=== PATIENT | female | born 1985 | race Caucasian/White ===

== ENCOUNTER → 2017-06-07 | Outpatient (CLI) | payer BC ==
[~2017-06-07] MED LIST: ALPR.25T PO; BIRTH CONTROL PILL PO; CODE-54 PO; FLVX50T PO; HYDR1TAB PO; KCL20TCR PO; METH4TAB PO; MULT-963 PO; OCP; PNT40TEC PO; SCR1T1 PO; SULF1TAB35 PO; SULF1TAB38 PO
--- NOTE | 2017-06-07 19:23 | Diagnostic Imaging Report ---
PROCEDURE: US Thyroid. TECHNIQUE: Multiple real-time grayscale images were obtained of the thyroid in various projections. INDICATION: Neck fullness. Comparison made with prior examination of 10/17/2013. FINDINGS: Right lobe of the thyroid is surgically absent. Left lobe measures 4 x 1.2 x 1.7 cm. There is a 0.6 cm hypoechoic nodule in the left lobe which is unchanged. No other discrete solid or cystic thyroid masses are appreciated. IMPRESSION: 6 mm hypoechoic nodule in the left lobe of the thyroid. No significant residual thyroid tissue on the right. Dictated by: Dictated on workstation # [id number]
== END ==
LOC: RAD 16:32
PROVIDERS: ATTEND Family Medicine
DX: E04.1 Nontoxic single thyroid nodule (principal)
CPT/HCPCS: 76536

== ENCOUNTER → 2017-09-27 | Outpatient (CLI) | payer BC ==
--- NOTE | 2017-09-27 18:53 | Diagnostic Imaging Report ---
INDICATION: Thyroid nodule. Thyroid sonography performed in routine fashion and compared to 06/07/2017. FINDINGS: The right thyroid lobe is surgically absent. The left thyroid lobe measured 4.3 x 1.3 x 1.3 cm. There is a small slightly hypoechoic lesion in the left thyroid lobe superiorly measuring about 4 x 2 x 4 mm. This previously measured about 6 mm. IMPRESSION: Mild decrease in size of small hypoechoic nodule in left thyroid lobe superiorly. Evidence of previous right thyroidectomy. Dictated by: Dictated on workstation # [id number]
== END ==
LOC: RAD 16:30
PROVIDERS: ATTEND Nurse Practitioner Family
DX: E04.1 Nontoxic single thyroid nodule (principal); R13.10 Dysphagia, unspecified; Z98.890 Other specified postprocedural states
CPT/HCPCS: 76536

== ENCOUNTER 2017-11-27 14:53 | Outpatient (RCR) | payer BC ==
[2017-12-31] MEDS ORDERED: LEVO75TA (21:51)
[2017-12-31] MEDS ORDERED: LIOT5TAB3 (21:51)
[2017-12-31] MEDS ORDERED: NORG1TAB14 (21:51)
[2017-12-31] MEDS ORDERED: TRAM50TA2 PO (22:36)
== END 2018-02-25 | disposition home or self-care (01) ==
LOC: CARD 14:53
PROVIDERS: ATTEND Nurse Practitioner Family
DX: R00.2 Palpitations (principal); R00.0 Tachycardia, unspecified
CPT/HCPCS: 93225; 93226

== ENCOUNTER 2017-12-31 21:03 | Emergency (ER) | payer BC ==
[~2017-12-31] VITALS: Ht 170.2 cm; Wt 61.2 kg
[2017-12-31] MEDS ORDERED: TETANUS,DIPTH,PERTUSS P/F (BOOSTRIX) 0.5 ML VIAL IM STA (21:48)
[2017-12-31] MEDS ORDERED: LIOT5TAB3 (21:51)
[2017-12-31] MEDS ORDERED: NORG1TAB14 (21:51)
[2017-12-31] MEDS ORDERED: LEVO75TA (21:51)
--- NOTE | 2017-12-31 21:52 | ED General ---
General Chief Complaint: Laceration Stated Complaint: R HAND PALM LAC Nursing Triage Note: pt reports she stabbed herself in the palm of her right hand trying to separate frozen bread with a knife. she reports some numbness on the back of her hand. pain radiating up arm. Nursing Sepsis Screen: No Definite Risk Source of Information: Patient Exam Limitations: No Limitations History of Present Illness Date Seen by Provider: Dec 31, 2017 Time Seen by Provider: 21:52 Initial Comments 32-year-old female patient presents to the emergency department with complaints of laceration to the right hand after trying to separate frozen bread with a knife. Allergies and Home Medications Allergies Coded Allergies: ibuprofen (Unverified Allergy, Mild, 02/22/10) Home Medications Alprazolam 0.25 Mg Tablet, 1 TAB PO Q8HR PRN, (Reported) Fluvoxamine Maleate 50 Mg Tablet, 1 TAB PO HS, (Reported) Multivitamin 1 Each Tablet, 1 EACH PO DAILY, (Reported) Patient Home Medication List Home Medication List Reviewed: Yes Past Ameotde-Ignfzc-Cfgift Hx Patient Social History Alcohol Use: Denies Use Recreational Drug Use: No Smoking Status: Never a Smoker 2nd Hand Smoke Exposure: No Recent Foreign Travel: No Contact w/Someone Who Travel: No Recent Infectious Disease Expo: No Recent Hopitalizations: No Immunizations Up To Date Tetanus Booster (TDap): Unknown Date of Influenza Vaccine: Nov 20, 2012 Seasonal Allergies Seasonal Allergies: No Surgeries History of Surgeries: Yes ( X1, PARTIAL THYROIDECTOMY) Surgeries: Section, Thyroidectomy Respiratory History of Respiratory Disorde: No Cardiovascular History of Cardiac Disorders: No Neurological History of Neurological Disord: No Reproductive System Last Menstrual Period: Dec 12, 2017 Hx Reproductive Disorders: No Female Reproductive Disorders: Denies Genitourinary History of Genitourinary Disor: No Gastrointestinal History of Gastrointestinal Di: No Musculoskeletal History of Musculoskeletal Dis: No Endocrine History of Endocrine Disorders: Yes (BENIGN THYROID NODULE-S/P PARTIAL THYROIDECTOMY) Endocrine Disorders: Hypothyroidsim HEENT History of HEENT Disorders: No Cancer History of Cancer: No Psychosocial History of Psychiatric Problem: Yes (OCD) Behavioral Health Disorders: Anxiety, Depression Integumentary History of Skin or Integumenta: No Blood Transfusions History of Blood Disorders: No Physical Exam Vital Signs Vital Signs - First Documented 12/31/17 21:41 Temp 99.0 Pulse 84 Resp 14 B/P (MAP) 126/69 (88) Pulse Ox 99 O2 Delivery Room Air Capillary Refill : Less Than 3 Seconds Progress/Results/Core Measures Suspected Sepsis Recent Fever Within 48 Hours: No Infection Criteria Present: None New/Unexplained Altered Menta: No Sepsis Screen: No Definite Risk Sepsis Diagnosis: SIRS Temperature:99.0 Pulse: 84 Respiratory Rate: 14 Blood Pressure 126 /69 Mean: 88 Results/Orders My Orders Orders - SHIRIN ÁLVAREZ PA Dipht,Mehdi(Acell),Tet Adult (Boostrix (12/31/17 21:48) Lidocaine 1% (Xylocaine 1%) (12/31/17 22:00) Hand, Right, 3 Views (12/31/17 22:03) Medications Given in ED Current Medications Medications Dose Ordered Sig/Sujatha Route Start Time Stop Time Status Last Admin Dose Admin Lidocaine HCl 50 ml ONCE ONCE IJ 12/31/17 22:00 12/31/17 22:01 DC 12/31/17 22:04 50 ML Vital Signs/I&O Vital Sign - Last 12Hours 12/31/17 21:41 Temp 99.0 Pulse 84 Resp 14 B/P (MAP) 126/69 (88) Pulse Ox 99 O2 Delivery Room Air Capillary Refill : Less Than 3 Seconds Blood Pressure Mean: 88 Departure Impression Impression: Primary Impression: Laceration of hand Disposition: HOME, SELF-CARE Condition: Improved Departure-Patient Inst. Decision time for Depature: 22:34 Referrals: AUGIE STOKES MD (PCP/Family) Primary Care Physician ISMA MORAN MD Patient Instructions: Laceration Repair With Stitches (DC) Add. Discharge Instructions: All discharge instructions reviewed with patient and/or family. Voiced understanding. Medications as prescribed. Tylenol extra strength over-the- counter as directed for pain. Elevate the hand on pillows. Ice pack for 20 minute intervals as needed. Remove the bandage tomorrow morning, you may shower with antibacterial soap and pat dry. Apply triple antibiotic ointment twice daily for 3 days and cover with a bandage. Return to the emergency department in 10 days for suture removal. Follow-up with your primary care provider for recheck as an outpatient if needed. Return immediately to the emergency department for worsened symptoms or any other concerns. Scripts Tramadol HCl (Tramadol HCl) 50 Mg Tablet 50 MG PO Q4H Y for pain, #20 TAB 0 Refills Prov: SHIRIN ÁLVAREZ 12/31/17 SHIRIN ÁLVAREZ Dec 31, 2017 21:52
[2017-12-31] MEDS ORDERED: LIDOCAINE 1% INJ 50 ML (XYLOCAINE) VIAL IJ ONE (22:00)
[2017-12-31] MEDS ORDERED: TRAM50TA2 PO (22:36)
[2017-12-31] MEDS ORDERED: RX-TRAMADOL 50 MG (ULTRAM) TAB PPK#4 PO STA (23:02)
[2017-12-31 23:09] VITALS: BP 123/62
--- NOTE | 2018-01-01 07:34 | Diagnostic Imaging Report ---
HAND, RIGHT, 3 VIEWS COMPARISON: None available. INDICATION: Laceration to palm of hand. TECHNIQUE: PA, oblique and lateral views of the hand. FINDINGS: No fracture or traumatic malalignment. No radiopaque foreign body. Joint spaces are well-maintained. IMPRESSION: 1. No acute fracture or radiopaque foreign body. Dictated by: Dictated on workstation # [id number]
== END 2017-12-31 23:09 | disposition home or self-care (01) ==
LOC: EDUNIT# 21:03 → ER 21:04
DX: S61.411A Laceration without foreign body of right hand, initial encounter (principal); E03.9 Hypothyroidism, unspecified; F41.9 Anxiety disorder, unspecified; F32.9 Major depressive disorder, single episode, unspecified; F42.9 Obsessive-compulsive disorder, unspecified; Z23 Encounter for immunization; Z88.6 Allergy status to analgesic agent; Z87.59 Personal history of other complications of pregnancy, childbirth and the puerperium; Z90.89 Acquired absence of other organs; W26.0XXA Contact with knife, initial encounter
CPT/HCPCS: 12011; 73130; 90471; 90715

== ENCOUNTER 2018-01-09 10:33 | Emergency (ER) | payer BC ==
[~2018-01-09] VITALS: Ht 167.6 cm; Wt 54.4 kg
[~2018-01-09 10:33] MED LIST changes: +LEVO75TA; +LIOT5TAB3; +NORG1TAB14; +TRAM50TA2 PO
--- OUTSIDE RECORDS SUMMARY | 2018-01-09 10:48 | XMS REPORT | CCD ---
Author Author [facility] Address [address] [place] [address] Phone Care Team Providers Care Booking Agent Name Role Phone PP Unavailable CCM Unavailable Summary Purpose Interface Exchange Insurance Providers Payer name Policy type / Coverage type Covered republican ID Effective Begin Date Effective End Date [facility] [id number] Unknown Family history Grandfather Diagnosis Age At Onset Diabetes mellitus Type 2 Unknown Grandmother Diagnosis Age At Onset No Family Disease Entered N/A Mother Diagnosis Age At Onset No Family Disease Entered N/A Father Diagnosis Age At Onset Hypertension Unknown Brother Diagnosis Age At Onset No Family Disease Entered N/A Social History Social History Element Codes Description Effective Dates Marital status Unknown Single 06/16/2011 Employment Unknown Currently employed [employer] 06/16/[address]: 902661288 Nonsmoker 06/16/2011 Allergies, Adverse Reactions, Alerts Allergies, Adverse Reactions, Alerts data not found Past Medical History Illness Codes Condition Status Onset Date Resolved Date Encounter for general adult medical examination with abnormal findings ICD-9: V70.0 ICD-10: Z00.01 Active 10/10/2017 Unknown 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 ICD-10: E89.0 Active 12/10/2014 Unknown Acute laryngopharyngitis ICD-9: 465.0 ICD-10: J06.0 Active 07/13/2017 Unknown Acute suppurative otitis media without spontaneous rupture of ear drum, bilateral ICD-9: 382.00 ICD-10: H66.003 Active 07/13/2017 Unknown Dysphagia, oropharyngeal phase ICD-9: 787.22 ICD-10: R13.12 Active 09/20/2017 Unknown Generalized anxiety disorder ICD-9: 300.02 ICD-10: F41.1 Active 09/20/2017 Unknown Major depressive disorder, single episode, moderate ICD-9: 311 ICD-10: F32.1 Active 09/20/2017 Unknown Other acute sinusitis ICD-9: 461.8 ICD-10: J01.80 Active 07/13/2017 Unknown Other allergic rhinitis ICD-9: 477.8 ICD-10: J30.89 Active 07/13/2017 Unknown Other fatigue ICD-9: 780.79 ICD-10: R53.83 Active 09/20/2017 Unknown Other malaise ICD-9: 780.79 ICD-10: R53.81 Active 07/23/2014 Unknown Other specified hypothyroidism ICD-9: 244.8 ICD-10: E03.8 Active 07/30/2016 Unknown Myalgia ICD-9: 729.1 ICD-10: M79.1 Active 03/21/2017 Unknown Vitamin D deficiency, unspecified ICD-9: 268.9 ICD-10: E55.9 Active 03/21/2017 Unknown Cellulitis of buttock ICD-9: 682.5 ICD-10: L03.317 Active 11/20/2016 Unknown Radiculopathy, sacral and sacrococcygeal region ICD-9: 724.4 ICD-10: M54.18 Active 07/30/2016 Unknown Allergic rhinitis, unspecified ICD-9: 477.9 ICD-10: J30.9 Active 07/20/2016 Unknown Encounter for gynecological examination (general) (routine ) without abnormal findings ICD-9: V72.31 ICD-10: Z01.419 Active 03/10/2014 Unknown Hypothyroidism, unspecified ICD-9: 244.9 ICD-10: E03.9 Active 11/12/2014 Unknown Acute sinusitis, unspecified ICD-9: 461.9 ICD-10: J01.90 Active 01/04/2016 Unknown Acute bronchitis, unspecified ICD-9: 466.0 ICD-10: J20.9 Active 08/25/2015 Unknown Acute upper respiratory infection, unspecified ICD-9: 465.9 ICD-10: J06.9 Active 08/25/2015 Unknown Acute pharyngitis, unspecified ICD-9: 462 ICD-10: J02.9 Active 08/19/2015 Unknown ROUTINE GYNE EXAM ICD- 9: V72.31 Active 03/10/2014 Unknown Hair loss disorder ICD -9: 704.00 Active 02/03/2015 Unknown Irregular menstrual cycle ICD-9: 626.4 Active 02/03/2015 Unknown Acute costochondritis ICD-9: 733.6 Active 12/10/2014 Unknown POSTSURGICAL HYPOTHYROIDISM ICD-9: 244.0 Active 12/10/2014 Unknown Depression ICD-9: 311 Active 11/12/2014 Unknown GENERALIZED ANXIETY DISEASE ICD-9: 300.02 Active 11/12/2014 Unknown HYPOTHYROIDISM ICD-9: 244.9 Active 11/12/2014 Unknown Fatigue ICD-9: 780.79 Active 07/23/2014 Unknown Sacroiliitis ICD-9: 720.2 Active 07/23/2014 Unknown Sciatica Unknown Active 04/20/2014 Unknown Back pain ICD-9: 724.5 Active 04/20/2014 Unknown SCIATICA ICD-9: 724.3 Active 04/20/2014 Unknown Sore throat and laryngitis ICD-9: 465.0 Active 04/20/2014 Unknown Upper respiratory infection ICD-9: 465.9 Active 04/20/2014 Unknown Hypothryroidism Unknown Active 03/10/2014 Unknown Tick bite ICD-9: 919.4 Active 03/10/2014 Unknown Dysphagia ICD-9: 787.20 Active 10/13/2013 Unknown Encounter for long-term (current) use of other medications ICD-9: V58.69 Active 10/13/2013 Unknown Laboratory exam ordered as part of routine general medical examination ICD-9: V72.62 Active 10/13/2013 Unknown Lumbago ICD-9: 724.2 Active 10/13/2013 Unknown Thyroid nodule ICD-9: 241.0 Active 10/13/2013 Unknown ACUTE BRONCHITIS ICD-9 : 466.0 Active 05/28/2013 Unknown Sinusitis ICD-9: 473.9 Active 05/28/2013 Unknown Depression Unknown Active 02/19/2012 Unknown Tachycardia ICD-9: 785.0 Active 02/19/2012 Unknown NAUSEA ALONE ICD-9: 787.02 Active 08/24/2011 Unknown RUQ pain ICD-9: 789.01 Active 08/24/2011 Unknown ACUTE SEROUS OTITIS MEDIA ICD-9: 381.01 Active 07/26/2011 Unknown Cough ICD-9: 786.2 Active 07/26/2011 Unknown Anxiety Unknown Active 06/16/2011 Unknown Acid reflux ICD-9: 530.81 Active 06/16/2011 Unknown ACUTE SINUSITIS ICD-9 : 461.9 Active 06/16/2011 Unknown Allergic rhinitis ICD- 9: 477.9 Active 06/16/2011 Unknown IBS (irritable bowel syndrome) ICD-9: 564.1 Active 06/16/2011 Unknown Restless leg ICD-9: 333.94 Active 06/16/2011 Unknown Problems Condition Codes Effective Dates Condition Status Encounter for general adult medical examination with abnormal findings ICD-9: V70.0 ICD-10: Z00.01 10/10/2017 Active 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 ICD-10: E89.0 12/10/2014 Active Acute laryngopharyngitis ICD-9: 465.0 ICD-10: J06.0 07/13/2017 Active Acute suppurative otitis media without spontaneous rupture of ear drum, bilateral ICD-9: 382.00 ICD-10: H66.003 07/13/2017 Active Dysphagia, oropharyngeal phase ICD-9: 787.22 ICD-10: R13.12 09/20/2017 Active Generalized anxiety disorder ICD-9: 300.02 ICD-10: F41.1 09/20/2017 Active Major depressive disorder, single episode, moderate ICD-9: 311 ICD-10: F32.1 09/20/2017 Active Other acute sinusitis ICD-9: 461.8 ICD-10: J01.80 07/13/2017 Active Other allergic rhinitis ICD-9: 477.8 ICD-10: J30.89 07/13/2017 Active Other fatigue ICD-9: 780.79 ICD-10: R53.83 09/20/2017 Active Other malaise ICD-9: 780.79 ICD-10: R53.81 07/23/2014 Active Other specified hypothyroidism ICD-9: 244.8 ICD-10: E03.8 07/30/2016 Active Myalgia ICD-9: 729.1 ICD-10: M79.1 03/21/2017 Active Vitamin D deficiency, unspecified ICD-9: 268.9 ICD-10: E55.9 03/21/2017 Active Cellulitis of buttock ICD-9: 682.5 ICD-10: L03.317 11/20/2016 Active Radiculopathy, sacral and sacrococcygeal region ICD-9: 724.4 ICD-10: M54.18 07/30/2016 Active Allergic rhinitis, unspecified ICD-9: 477.9 ICD-10: J30.9 07/20/2016 Active Encounter for gynecological examination (general) (routine ) without abnormal findings ICD-9: V72.31 ICD-10: Z01.419 03/10/2014 Active Hypothyroidism, unspecified ICD-9: 244.9 ICD-10: E03.9 11/12/2014 Active Acute sinusitis, unspecified ICD-9: 461.9 ICD-10: J01.90 01/04/2016 Active Acute bronchitis, unspecified ICD-9: 466.0 ICD-10: J20.9 08/25/2015 Active Acute upper respiratory infection, unspecified ICD-9: 465.9 ICD-10: J06.9 08/25/2015 Active Acute pharyngitis, unspecified ICD-9: 462 ICD-10: J02.9 08/19/2015 Active ROUTINE GYNE EXAM ICD- 9: V72.31 03/10/2014 Active Hair loss disorder ICD -9: 704.00 02/03/2015 Active Irregular menstrual cycle ICD-9: 626.4 02/03/2015 Active Acute costochondritis ICD-9: 733.6 12/10/2014 Active POSTSURGICAL HYPOTHYROIDISM ICD-9: 244.0 12/10/2014 Active Depression ICD-9: 311 11/12/2014 Active GENERALIZED ANXIETY DISEASE ICD-9: 300.02 11/12/2014 Active HYPOTHYROIDISM ICD-9: 244.9 11/12/2014 Active Fatigue ICD-9: 780.79 07/23/2014 Active Sacroiliitis ICD-9: 720.2 07/23/2014 Active Sciatica Unknown 04/20/2014 Active Back pain ICD-9: 724.5 04/20/2014 Active SCIATICA ICD-9: 724.3 04/20/2014 Active Sore throat and laryngitis ICD-9: 465.0 04/20/2014 Active Upper respiratory infection ICD-9: 465.9 04/20/2014 Active Hypothryroidism Unknown 03/10/2014 Active Tick bite ICD-9: 919.4 03/10/2014 Active Dysphagia ICD-9: 787.20 10/13/2013 Active Encounter for long-term (current) use of other medications ICD-9: V58.69 2012 Active Laboratory exam ordered as part of routine general medical examination ICD-9: V72.62 10/13/2013 Active Lumbago ICD-9: 724.2 10/13/2013 Active Thyroid nodule ICD-9: 241.0 10/13/2013 Active ACUTE BRONCHITIS ICD-9 : 466.0 05/28/2013 Active Sinusitis ICD-9: 473.9 05/28/2013 Active Depression Unknown 02/19/2012 Active Tachycardia ICD-9: 785.0 02/19/2012 Active NAUSEA ALONE ICD-9: 787.02 08/24/2011 Active RUQ pain ICD-9: 789.01 08/24/2011 Active ACUTE SEROUS OTITIS MEDIA ICD-9: 381.01 07/26/2011 Active Cough ICD-9: 786.2 07/26/2011 Active Anxiety Unknown 06/16/2011 Active Acid reflux ICD-9: 530.81 06/16/2011 Active ACUTE SINUSITIS ICD-9 : 461.9 06/16/2011 Active Allergic rhinitis ICD- 9: 477.9 06/16/2011 Active IBS (irritable bowel syndrome) ICD-9: 564.1 06/16/2011 Active Restless leg ICD-9: 333.94 06/16/2011 Active Medications Medication Codes Instructions Start Date Stop Date Status Fill Instructions fluvoxamine 100 mg tablet RxNorm: 460666 TAKE ONE TABLET BY MOUTH DAILY 11/12/2017 05/10/2018 Active Keflex 500 mg capsule RxNorm: 460036 1 Capsule(s) PO TID 201711/04/2017 Inactive to equal a total of 14 days prednisone 20 mg tablet RxNorm: 058096 2 Tablet(s) PO daily 08/201811/05/2017 Inactive Cytomel 5 mcg tablet RxNorm: 245000 TAKE TWO TABLETS BY MOUTH EVERY EVENING 10/16/2017 01/13/2018 Active Synthroid 75 mcg tablet RxNorm: 544380 1 Tablet(s) PO UD 1 full tab M/W/F and 1/2 tab Sat/Sun/Tue/Thur 10/10/20172018 Active fluvoxamine 100 mg tablet RxNorm: 312508 1 Tablet(s) PO daily 09/20/2017 10/19/2017 Inactive doxycycline hyclate 100 mg capsule RxNorm: 3235147 1 Capsule(s) PO BID 09/20/2017 10/03/2017 Inactive Mononessa (28) 0.25 mg-35 mcg tablet RxNorm: 826730 TAKE 1 ACTIVE TABLET BY MOUTH ONCE DAILY FOR 3 MONTHS THEN START PLACEBO FOR 1 WEEK 201605/19/2018 Active Synthroid 75 mcg tablet RxNorm: 021700 TAKE ONE-HALF TABLET BY MOUTH EVERY MORNING ON AN EMPTY STOMACH 09/10/2017 Inactive fluvoxamine 50 mg tablet RxNorm: 316580 TAKE ONE TABLET BY MOUTH EVERY EVENING 09/10/2017 10/09/2017 Inactive Kenalog 40 mg/mL suspension for injection RxNorm: 9047859 1 Milliliter(s) Inj 07/13/2017 07/13/2017 Inactive Augmentin 500 mg-125 mg tablet RxNorm: 268479 1 Tablet(s) PO TID 07/13/2017 07/22/2017 Inactive Isabell Allergy 180 mg tablet RxNorm: 384289 1 Tablet(s) PO daily 07/13/2017 08/11/2017 Inactive Synthroid 75 mcg tablet RxNorm: 546729 1/2 Tablet(s) PO QAM 07/201709/09/2017 Inactive Cytomel 5 mcg tablet RxNorm: 031398 2 Tablet(s) PO QPM 201609/27/2017 Inactive Cytomel 5 mcg tablet RxNorm: 062555 1 Tablet(s) PO QPM 201605/30/2017 Inactive Mononessa (28) 0.25 mg-35 mcg tablet RxNorm: 194195 TAKE 1 ACTIVE TABLET BY MOUTH ONCE DAILY FOR 3 MONTHS THEN START PLACEBO FOR 1 WEEK 201608/14/2017 Inactive Vitamin D2 50,000 unit capsule RxNorm: 723342 1 Capsule(s) PO QW 03/21/2017 06/17/2017 Inactive fluvoxamine 50 mg tablet RxNorm: 368685 1.5 Tablet(s) PO UD take 1/2 pill in morning and a full pill at night 03/21/2017 09/09/2017 Inactive Synthroid 75 mcg tablet RxNorm: 953918 1 Tablet(s) PO QAM 03/2105/19/2017 Inactive fluvoxamine 50 mg tablet RxNorm: 738068 1 TABLET(S) PO QPM TAKE 1 TABLET BY MOUTH EVERY EVENING 03/12/2017 03/20/2017 Inactive [place] Thyroid 30 mg tablet RxNorm: 331514 TAKE ONE TABLET BY MOUTH DAILY 02/05/2017 03/06/2017 Inactive [place] Thyroid 30 mg tablet RxNorm: 964161 TAKE ONE TABLET BY MOUTH DAILY 01/15/2017 02/04/2017 Inactive [place] Thyroid 30 mg tablet RxNorm: 598788 TAKE ONE TABLET BY MOUTH DAILY 12/14/2016 01/12/2017 Inactive Bactrim DS 800 mg-160 mg tablet RxNorm: 760779 1 Tablet(s) PO BID 11/20/2016 11/26/2016 Inactive fluvoxamine 50 mg tablet RxNorm: 840218 1 TABLET(S) PO QPM TAKE 1 TABLET BY MOUTH EVERY EVENING 11/01/2016 02/28/2017 Inactive Mononessa (28) 0.25 mg-35 mcg tablet RxNorm: 280040 Tablet(s) PO TAKE ONE TABLET BY MOUTH DAILY CONTINUOUSLY X 3 MONTHS, THEN START PLACEBO X 1 WEEK 09/05/2016 04/10/2017 Inactive [place] Thyroid 30 mg tablet RxNorm: 679190 1 Tablet(s) PO daily 08/18/2016 12/13/2016 Inactive [place] Thyroid 30 mg tablet RxNorm: 300235 1 Tablet(s) PO daily 08/18/2016 08/17/2016 Inactive Kenalog 40 mg/mL suspension for injection RxNorm: 2762038 1 Milliliter(s) Inj 07/21/2016 07/21/2016 Inactive fluvoxamine 50 mg tablet RxNorm: 215139 1 TABLET(S) PO QPM TAKE 1 TABLET BY MOUTH EVERY EVENING 07/03/2016 10/30/2016 Inactive fluconazole 150 mg tablet RxNorm: 572099 1 Tablet(s) PO daily 05/03/2016 05/07/2016 Inactive fluvoxamine 50 mg tablet RxNorm: 108730 1 TABLET(S) PO QPM TAKE 1 TABLET BY MOUTH EVERY EVENING 03/06/2016 07/02/2016 Inactive levothyroxine 75 mcg tablet RxNorm: 210684 TAKE ONE TABLET BY MOUTH DAILY 01/19/2016 08/15/2016 Inactive Request already responded to by other means (e.g. phone or fax) levothyroxine 75 mcg tablet RxNorm: 523582 Tablet(s) TAKE ONE TABLET BY MOUTH DAILY 01/17/2016 03/21/2017 Inactive ceftriaxone 500 mg solution for injection RxNorm: 1538891 Inj 01/05/2016 01/05/2016 Inactive Kenalog 40 mg/mL suspension for injection RxNorm: 2344502 1 Milliliter(s) Inj 01/05/2016 01/05/2016 Inactive Tamiflu 75 mg capsule RxNorm: 088720 1 Capsule(s) PO daily 12/2712/27/2015 Inactive Tamiflu 75 mg capsule RxNorm: 339251 1 Capsule(s) PO daily 12/2701/06/2016 Inactive Zithromax Z-Matt 250 mg tablet RxNorm: 790190 1 Tablet(s) PO UD 2 pills day one and 1 pill day 2-5. 08/26/2015 08/30/2015 Inactive ceftriaxone 500 mg solution for injection RxNorm: 7565684 Inj 08/26/2015 08/26/2015 Inactive Kenalog 40 mg/mL suspension for injection RxNorm: 2438316 Milliliter(s) Inj 08/26/2015 08/26/2015 Inactive prednisone 20 mg tablet RxNorm: 065451 2 Tablet(s) PO daily 08/24/2015 Inactive amoxicillin 500 mg capsule RxNorm: 728343 1 Capsule(s) PO BID 08/20/2015 08/29/2015 Inactive fluvoxamine 50 mg tablet RxNorm: 373056 TAKE 1 TABLET BY MOUTH EVERY EVENING 07/19/2015 03/21/2017 Inactive fluvoxamine 50 mg tablet RxNorm: 810463 1 TABLET(S) PO QPM TAKE 1 TABLET BY MOUTH EVERY EVENING 07/19/2015 11/15/2015 Inactive Mononessa (28) 0.25 mg-35 mcg tablet RxNorm: 885560 TABLET(S) PO TAKE ONE TABLET BY MOUTH DAILY CONTINUOUSLY X 3 MONTHS, THEN START PLACEBO X 1 WEEK 07/10/2015 07/03/2016 Inactive levothyroxine 75 mcg tablet RxNorm: 447266 TAKE ONE TABLET BY MOUTH DAILY 05/18/2015 09/14/2015 Inactive fluvoxamine 50 mg tablet RxNorm: 621313 1 TABLET(S) PO QPM TAKE 1 TABLET BY MOUTH EVERY EVENING 03/08/2015 07/05/2015 Inactive naproxen 500 mg tablet RxNorm: 050460 1 TABLET(S) PO BID 201403/20/2017 Inactive naproxen 500 mg tablet RxNorm: 472909 1 Tablet(s) PO BID 201401/31/2015 Inactive fluvoxamine 50 mg tablet RxNorm: 969157 1 TABLET(S) PO QPM TAKE 1 TABLET BY MOUTH EVERY EVENING 11/23/2014 03/07/2015 Inactive levothyroxine 75 mcg tablet RxNorm: 806485 1 Tablet(s) PO daily TAKE ONE TABLET BY MOUTH EVERY DAY ON AN EMPTY STOMACH 11/18/2014 04/16/2015 Inactive Xanax 0.5 mg tablet RxNorm: 628798 1 Tablet(s) PO Q8 PRN as needed 11/12/2014 No Stop Date Active Synthroid 50 mcg tablet RxNorm: 820379 1 Tablet(s) PO daily TAKE ONE TABLET BY MOUTH EVERY DAY ON AN EMPTY STOMACH 07/24/2014 11/17/2014 Inactive naproxen 500 mg tablet RxNorm: 526322 1 Tablet(s) PO BID 201309/20/2014 Inactive fluvoxamine 50 mg tablet RxNorm: 629872 1 TABLET(S) PO QPM TAKE 1 TABLET BY MOUTH EVERY EVENING 07/20/2014 11/16/2014 Inactive Mononessa (28) 0.25 mg-35 mcg tablet RxNorm: 960364 TABLET(S) PO TAKE ONE TABLET BY MOUTH DAILY CONTINUOUSLY X 3 MONTHS, THEN START PLACEBO X 1 WEEK 06/08/2014 06/02/2015 Inactive amoxicillin 875 mg tablet RxNorm: 863389 1 Tablet(s) PO BID 04/29/2014 Inactive cyclobenzaprine 10 mg tablet RxNorm: 763064 1 Tablet(s) PO TID as needed for back pain 04/20/2014 06/18/2014 Inactive Xanax 0.5 mg tablet RxNorm: 997797 1 Tablet(s) PO Q8 PRN as needed 04/14/2014 11/11/2014 Inactive Synthroid 25 mcg tablet RxNorm: 188711 Tablet(s) PO TAKE ONE TABLET BY MOUTH EVERY DAY ON AN EMPTY STOMACH 04/03/2014 07/23/2014 Inactive fluvoxamine 50 mg tablet RxNorm: 040113 Tablet(s) PO TAKE 1 TABLET BY MOUTH EVERY EVENING 03/23/2014 10/31/2016 Inactive doxycycline hyclate 100 mg tablet RxNorm: 134488 1 Tablet(s) PO BID 03/10/2014 03/23/2014 Inactive Kenalog 40 mg/mL suspension for injection RxNorm: 0842297 Milliliter(s) Inj 02/26/2014 02/26/2014 Inactive fluvoxamine 50 mg tablet RxNorm: 575798 Tablet(s) PO TAKE 1 TABLET BY MOUTH EVERY EVENING 02/19/2014 10/31/2016 Inactive fluvoxamine 50 mg tablet RxNorm: 971422 Tablet(s) PO TAKE 1 TABLET BY MOUTH EVERY EVENING 01/19/2014 10/31/2016 Inactive Synthroid 25 mcg tablet RxNorm: 299152 Tablet(s) PO TAKE ONE TABLET BY MOUTH EVERY DAY 09/30/2013 04/02/2014 Inactive fluvoxamine 50 mg tablet RxNorm: 203361 1 Tablet(s) PO QPM TAKE 1 TABLET BY MOUTH EVERY EVENING 09/23/2013 01/18/2014 Inactive azithromycin 500 mg tablet RxNorm: 9086937 1 Tablet(s) PO daily 05/28/2013 06/03/2013 Inactive cefdinir 300 mg capsule RxNorm: 240561 1 Capsule(s) PO BID 04/201306/06/2013 Inactive Phenergan with Codeine Syrup RxNorm: 10 Milliliter(s) PO Q4 PRN 05/28/2013 07/26/2013 Inactive dispense 8 ounces fluvoxamine 50 mg tablet RxNorm: 569600 1 Tablet(s) PO QPM TAKE 1 TABLET BY MOUTH EVERY EVENING 05/26/2013 09/22/2013 Inactive Mononessa (28) 0.25 mg-35 mcg tablet RxNorm: 065193 Tablet(s) PO TAKE ONE TABLET BY MOUTH DAILY CONTINUOUSLY X 3 MONTHS, THEN START PLACEBO X 1 WEEK 04/23/2013 03/18/2014 Inactive Mononessa (28) 0.25 mg-35 mcg tablet RxNorm: 250039 Tablet(s) PO TAKE ONE TABLET BY MOUTH DAILY CONTINUOUSLY X 3 MONTHS, THEN START PLACEBO X 1 WEEK 04/23/2013 09/04/2016 Inactive Kenalog 40 mg/mL Susp for Injection RxNorm: 9051035 1 Milliliter(s) Inj 02/19/2013 02/19/2013 Inactive doxycycline hyclate 100 mg tablet RxNorm: 823858 1 Tablet(s) PO BID 02/18/2013 02/27/2013 Inactive Mononessa (28) 0.25 mg-35 mcg tablet RxNorm: 215537 Tablet(s) PO TAKE ONE TABLET BY MOUTH DAILY CONTINUOUSLY X 3 MONTHS, THEN START PLACEBO X 1 WEEK 02/06/2013 04/22/2013 Inactive Synthroid 25 mcg tablet RxNorm: 772285 1 Tablet(s) PO daily 09/10/2013 Inactive fluvoxamine 50 mg tablet RxNorm: 698721 Tablet(s) PO TAKE 1 TABLET BY MOUTH EVERY EVENING 11/18/2012 05/25/2013 Inactive Nexium 40 mg capsule,delayed release RxNorm: 689075 1 Capsule(s) PO daily 07/12/2012 01/07/2013 Inactive Carafate 1 gram tablet RxNorm: 687196 1 Tablet(s) PO AC & HS 12/17/2012 Inactive amoxicillin 500 mg tablet RxNorm: 300807 1 Tablet(s) PO TID 06/14/2012 Inactive cefdinir 300 mg capsule RxNorm: 355274 1 Capsule(s) PO BID 06/13/2012 Inactive cefdinir 300 mg capsule RxNorm: 108596 1 Capsule(s) PO BID 12/17/2012 Inactive cefdinir 300 mg capsule RxNorm: 157429 1 Capsule(s) PO BID 06/14/2012 Inactive Rocephin 500 mg Solution for Injection RxNorm: 351964 1 Milliliter(s) Inj 05/21/2012 05/21/2012 Inactive Flonase 50 mcg/actuation Nasal [place] RxNorm: 0584456 2 [place] NASAL daily 05/21/2012 07/19/2012 Inactive Bactrim DS 800 mg-160 mg tablet RxNorm: 623602 1 Tablet(s) PO BID 05/21/2012 12/17/2012 Inactive prednisone 10 mg tablets in a dose pack RxNorm: 926207 Tablet(s) PO UD 6-5-4-3-2- 1 05/21/2012 05/26/2012 Inactive Kenalog 40 mg/mL Susp for Injection RxNorm: 0246270 1 Milliliter(s) Inj 05/21/2012 05/21/2012 Inactive fluvoxamine 50 mg tablet RxNorm: 602873 1 Tablet(s) PO QPM 09/15/2012 Inactive Xanax 0.5 mg Tab RxNorm: 509168 1 Tablet(s) PO Q8 PRN 01/2204/13/2014 Inactive fluvoxamine 25 mg Tab RxNorm: 414222 1 Tablet(s) PO daily 201102/18/2012 Inactive fluvoxamine 25 mg Tab RxNorm: 324049 1 Tablet(s) PO daily 201101/21/2012 Inactive Mononessa (28) 0.25 mg-35 mcg Tab RxNorm: 952711 1 Tablet(s) PO daily 10/11/2011 10/10/2011 Inactive Mononessa (28) 0.25 mg-35 mcg tablet RxNorm: 951354 Tablet(s) PO 10/11/2011 02/05/2013 Inactive TAKE ONE TABLET BY MOUTH DAILY Ortho Tri-Cyclen Lo 0.18/0.215/0.25 mg-25 mcg Tab RxNorm: 158991 1 Tablet(s) PO 10/10/2011 10/10/2011 Inactive Cipro 500 mg Tab RxNorm: 553584 1 Tablet(s) PO BID 201012/17/2012 Inactive Phenergan with Codeine Syrup RxNorm: 5- 10 Milliliter(s) PO Q6 PRN 07/26/2011 08/23/2011 Inactive Rocephin 500 mg Solution for Injection RxNorm: 420300 Inj 07/2607/26/2011 Inactive Diflucan 150 mg Tab RxNorm: 394835 1 Tablet(s) PO daily 201012/17/2012 Inactive Bactrim DS 800 mg-160 mg Tab RxNorm: 724760 1 Tablet(s) PO BID 06/16/2011 06/25/2011 Inactive triamcinolone acetonide 40 mg/mL Susp for Injection RxNorm: 7546470 2 Milliliter(s ) Inj UD 06/16/2011 06/16/2011 Inactive Bactrim DS 800 mg-160 mg Tab RxNorm: 359176 1 Tablet(s) PO BID 06/16/2011 06/16/2011 Inactive Luvox 50 mg Tab RxNorm : 653794 Oral No Start Date 01/21/2012 Inactive Ortho Tri-Cyclen Lo 0.18/0.215/0.25 mg-25 mcg Tab RxNorm: 128055 Oral No Start Date 10/09/2011 Inactive Nexium 40 mg capsule,delayed release RxNorm: 893815 1 Capsule(s) PO daily No Start Date 07/25/2011 Inactive omeprazole 40 mg Cap, Delayed Release RxNorm: 028319 1 Capsule(s) PO daily No Start Date 03/20/2017 Inactive Xanax 0.5 mg Tab RxNorm: 741050 1 Tablet(s) PO Q8 PRN No Start Date 01/22/2012 Inactive Synthroid 25 mcg tablet RxNorm: 623647 1 Tablet(s) PO daily No Start Date 01/13/2013 Inactive Flonase 50 mcg/actuation Nasal [place] RxNorm: 8860994 2 [place] NASAL daily No Start Date 03/20/2017 Inactive Zithromax Z-Matt 250 mg tablet RxNorm: 614239 Tablet(s) PO No Start Date 04/19/2014 Inactive vitamin B complex tablet RxNorm: 1 Tablet(s) PO daily No Start Date 10/09/2017 Inactive Carafate 1 gram tablet RxNorm: 934918 1 Tablet(s) PO as directed 1 before meals and at bedtime No Start Date 07/11/2012 Inactive Singulair 10 mg Tab RxNorm: 282209 1 Tablet(s) PO daily No Start Date 08/23/2011 Inactive Tylenol-Codeine #3 Oral RxNorm: Oral No Start Date 03/20/2017 Inactive Medication Administered Medication Codes Instructions Start Date Status Kenalog 40 mg/mL suspension for injection RxNorm: 5336140 1Milliliter 07/13/2017 No longer Active Kenalog 40 mg/mL suspension for injection RxNorm: 1968466 1Milliliter 07/21/2016 No longer Active Kenalog 40 mg/mL suspension for injection RxNorm: 4516035 1Milliliter 01/05/2016 No longer Active ceftriaxone 500 mg solution for injection RxNorm: 8052047 01/05/2016 No longer Active Kenalog 40 mg/mL suspension for injection RxNorm: 8050199 Milliliter 08/26/2015 No longer Active ceftriaxone 500 mg solution for injection RxNorm: 0794096 08/26/2015 No longer Active Kenalog 40 mg/mL suspension for injection RxNorm: 7877219 Milliliter 02/26/2014 No longer Active Kenalog 40 mg/mL Susp for Injection RxNorm: 1559718 1Milliliter 02/19/2013 No longer Active Kenalog 40 mg/mL Susp for Injection RxNorm: 6839575 1Milliliter 05/21/2012 No longer Active Rocephin 500 mg Solution for Injection RxNorm: 452733 1Milliliter 05/21/2012 No longer Active Rocephin 500 mg Solution for Injection RxNorm: 788164 07/26/2011 No longer Active triamcinolone acetonide 40 mg/mL Susp for Injection RxNorm: 0292524 2MilliliterUD 06/16/2011 No longer Active Immunizations Vaccine Codes Date Status Influenza CVX: 141 07/21/2013 completed Assessments Condition Codes Effective Dates Encounter for general adult medical examination with abnormal findings ICD-10: Z00.01 ICD-9: V70.0 10/10/2017 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 ICD-9: 244.0 10/10/2017 Generalized anxiety disorder ICD-10: F41.1 ICD-9: 300.02 09/20/2017 Other specified hypothyroidism ICD-10: E03.8 ICD-9: 244.8 09/20/2017 Major depressive disorder, single episode, moderate ICD-10: F32.1 ICD-9: 311 09/20/2017 Dysphagia, oropharyngeal phase ICD-10: R13.12 ICD-9: 787.22 09/20/2017 Other fatigue ICD-10: R53.83 ICD-9: 780.79 09/20/2017 Other malaise ICD-10: R53.81 ICD-9: 780.79 09/20/2017 Other allergic rhinitis ICD-10: J30.89 ICD-9: 477.8 07/13/2017 Acute suppurative otitis media without spontaneous rupture of ear drum, bilateral ICD-10: H66.003 ICD-9: 382.00 07/13/2017 Other acute sinusitis ICD-10: J01.80 ICD-9: 461.8 07/13/2017 Acute laryngopharyngitis ICD-10: J06.0 ICD-9: 465.0 07/13/2017 Myalgia ICD-10: M79.1 ICD-9: 729.1 03/21/2017 Vitamin D deficiency, unspecified ICD-10: E55.9 ICD-9: 268.9 03/21/2017 Cellulitis of buttock ICD-10: L03.317 ICD-9: 682.5 11/20/2016 Radiculopathy, sacral and sacrococcygeal region ICD-10: M54.18 ICD-9: 724.4 07/31/2016 Allergic rhinitis, unspecified ICD-10: J30.9 ICD-9: 477.9 07/21/2016 Encounter for gynecological examination (general) (routine) without abnormal findings ICD-10: Z01.419 ICD-9: V72.31 05/03/2016 Hypothyroidism, unspecified ICD-10: E03.9 ICD-9: 244.9 05/03/2016 Acute sinusitis, unspecified ICD-10: J01.90 ICD-9: 461.9 01/05/2016 Acute upper respiratory infection, unspecified ICD-10: J06.9 ICD-9: 465.9 08/26/2015 Acute bronchitis, unspecified ICD-10: J20.9 ICD-9: 466.0 08/26/2015 Acute pharyngitis, unspecified ICD-10: J02.9 ICD-9: 462 08/20/2015 ROUTINE GYNE EXAM ICD-9: V72.31 2014 Hair loss disorder ICD-9: 704.00 2014 Irregular menstrual cycle ICD-9: 626.4 Acute costochondritis ICD-9: 733.6 2014 GENERALIZED ANXIETY DISEASE ICD-9: 300.02 12/10/2014 POSTSURGICAL HYPOTHYROIDISM ICD-9: 244.0 12/10/2014 Depression ICD-9: 311 11/12/2014 HYPOTHYROIDISM ICD-9: 244.9 11/12/2014 Back pain ICD-9: 724.5 07/23/2014 Sacroiliitis ICD-9: 720.2 07/23/2014 Fatigue ICD-9: 780.79 07/23/2014 Sore throat and laryngitis ICD-9: 465.0 04/20/2014 SCIATICA ICD-9: 724.3 04/20/2014 Upper respiratory infection ICD-9: 465.9 04/20/2014 Tick bite ICD-9: 919.4 03/10/2014 ACUTE SINUSITIS ICD-9: 461.9 02/24/2014 ALLERGIC RHINITIS ICD-9: 477.9 2013 Thyroid nodule ICD-9: 241.0 10/13/2013 Dysphagia ICD-9: 787.20 10/13/2013 Laboratory exam ordered as part of routine general medical examination ICD-9: V72.62 10/13/2013 Encounter for long-term (current) use of other medications ICD-9: V58.69 10/13/2013 Lumbago ICD-9: 724.2 10/13/2013 ACUTE BRONCHITIS ICD-9: 466.0 05/28/2013 Sinusitis ICD-9: 473.9 05/28/2013 COUGH ICD-9: 786.2 05/28/2013 Tachycardia ICD-9: 785.0 02/19/2012 NAUSEA ALONE ICD-9: 787.02 08/24/2011 RUQ pain ICD-9: 789.01 08/24/2011 ACUTE SEROUS OTITIS MEDIA ICD-9: 381.01 07/26/2011 Reason For Visit Reason For Visit Effective Dates Notes hypothyroid 10/10/2017 hypothyroid 09/20/2017 sinus congestion 07/13/2017 abnormal test results 06/20/2017 fatigue 05/31/2017 fatigue 04/18/2017 arthralgia(s) 03/21/2017 skin lesion 11/20/2016 low back pain 07/31/2016 anxiety 05/03/2016 cough 08/26/2015 sinus pain 08/20/2015 well woman exam (18-39 years) 03/18/2015 medication follow up 02/03/2015 medication follow up 12/10/2014 thyroid dose increased. weight gain/obesity 11/12/2014 back pain 07/23/2014 sore throat 04/20/2014 well woman exam (18-39 years) 03/10/2014 sinus congestion 02/24/2014 fatigue 10/13/2013 sinus congestion 05/28/2013 sinus congestion 02/18/2013 fatigue 12/17/2012 earache 05/21/2012 medication follow up 02/19/2012 abdominal pain 08/24/2011 chest tightness 07/26/2011 sinus pain 06/16/2011 Results Observation Observation Code Item Item Code Result Date [place] Spotted Fever Igg/Igm 098721 AN[place] SPOTTED FEVER IGM EIA . 09/28/2017 [place] Spotted Fever Igg/Igm 316284 RMSF, IGM 0.42 index 09/28/2017 [place] Spotted Fever Igg/Igm [id number] ANTONIO MT SPOTTED FEVER IGG EIA FLEX . 09/28/2017 [place] Spotted Fever Igg/Igm 179860 RMSF, IGG SCREEN-FLEX Negative 09/28/2017 Ehrlichia Chaffeensis Antibody Igm [id number] EHRLICHIA CHAFFEENSIS IGM < 1:16 09/28/2017 Ehrlichia Chaffeensis Antibody Igg [id number] EHRLICHIA CHAFFEENSIS IGG <1:64 09/28/2017 [place] Western Blot Serum 379595 B. BURGDORFERI, IGG WB Negative 09/27/2017 [place] Western Blot Serum 840667 B. BURGDORFERI, IGM WB Negative 09/27/2017 [place] Disease Total Antibodies With Western Blot Reflex [id number] B. BURGDORFERI, IGG/IGM 1.17 09/26/2017 [place] Disease Total Antibodies With Western Blot Reflex [id number] 09/26/2017 Tsh Ord6 hTSH II 0.94 uIU/mL 09/24/2017 Comp Metabolic Ujb967 NA 139 mEq/L 09/24/2017 Comp Metabolic Zej538 K 3.8 mEq/L 09/24/2017 Comp Metabolic Hyi824 CL 105 mEq/L 09/24/2017 Comp Metabolic Etr068 CO2 27.0 mEq/L 09/24/2017 Comp Metabolic Mts916 ANION GAP 11 09/24/2017 Comp Metabolic Zob690 GLUCOSE 88 mg/dL 09/24/2017 Comp Metabolic Klz959 Creat 0.6 mg/dL 09/24/2017 Comp Metabolic Fwv426 eGFR 121 ml/min/1.73m2 09/24/2017 Comp Metabolic Eae320 BUN 11 mg/dL 09/24/2017 Comp Metabolic Xwo046 B/C Ratio 18.3 Ratio 09/24/2017 Comp Metabolic Pxk178 CALCIUM 9.0 mg/dL 09/24/2017 Comp Metabolic Ctu144 ALK PHOS 53 U/L 09/24/2017 Comp Metabolic Opr344 AST(SGOT) 16 U/L 09/24/2017 Comp Metabolic Ogd548 ALT(SGPT) 12 U/L 09/24/2017 Comp Metabolic Khh954 BILI T 0.5 mg/dL 09/24/2017 Comp Metabolic Lhj115 ALBUMIN 3.9 g/dL 09/24/2017 Comp Metabolic Cgn215 TPRO 6.1 g/dL 09/24/2017 Comp Metabolic Jnl502 GLOB 2.3 g/dL 09/24/2017 Comp Metabolic Zmt651 A/G Ratio 1.7 Ratio 09/24/2017 Comp Metabolic Rnh134 Osmo 276 mOsmo 09/24/2017 Sed Rate Ord21 ESR 5 mm/hr 09/24/2017 Free T4 Afz321 FREE T4 0.60 ng/dL 09/24/2017 Vitamin D 25 Oh Bbc8719 VITAMIN D, 25 HYDROXY 78.35 ng/mL C-Reactive Protein Qnt Crqnt CRP 0.3 mg/dl 09/24/2017 Cbc With Differential Ord2 WBC 6.02 K/ul 09/24/2017 Cbc With Differential Ord2 RBC 4.28 M/ul 09/24/2017 Cbc With Differential Ord2 HGB 13.4 g/dl 09/24/2017 Cbc With Differential Ord2 Neut% 52.3 % 09/24/2017 Cbc With Differential Ord2 HCT 40.3 % 09/24/2017 Cbc With Differential Ord2 MCV 94.2 fl 09/24/2017 Cbc With Differential Ord2 Lymph% 37.7 % 09/24/2017 Cbc With Differential Ord2 MCH 31.3 pg 09/24/2017 Cbc With Differential Ord2 [place]% 7.8 % 09/24/2017 Cbc With Differential Ord2 MCHC 33.3 pg 09/24/2017 Cbc With Differential Ord2 Eos% 2.0 % 09/24/2017 Cbc With Differential Ord2 Baso% 0.2 % 09/24/2017 Cbc With Differential Ord2 PLT 236 K/ul 09/24/2017 Cbc With Differential Ord2 RDW 12.5 % 09/24/2017 Cbc With Differential Ord2 Neut ABS# 3.15 K/ul 09/24/2017 Cbc With Differential Ord2 Lymph ABS# 2.27 K/ul 09/24/2017 Cbc With Differential Ord2 [place] ABS# 0.5 K/ul 09/24/2017 Cbc With Differential Ord2 Eos ABS# 0.1 K/ul 09/24/2017 Cbc With Differential Ord2 Baso ABS# 0.0 K/ul 09/24/2017 Tsh Ord6 hTSH II 0.47 uIU/mL 05/22/2017 Comp Metabolic Ymc344 NA 140 mEq/L 05/22/2017 Comp Metabolic Lnl581 K 3.9 mEq/L 05/22/2017 Comp Metabolic Plt403 CL 107 mEq/L 05/22/2017 Comp Metabolic Dij702 CO2 26.0 mEq/L 05/22/2017 Comp Metabolic Suf985 ANION GAP 11 05/22/2017 Comp Metabolic Ujv087 GLUCOSE 84 mg/dL 05/22/2017 Comp Metabolic Vut267 Creat 0.6 mg/dL 05/22/2017 Comp Metabolic Fjb158 eGFR 126 ml/min/1.73m2 05/22/2017 Comp Metabolic Dxf135 BUN 11 mg/dL 05/22/2017 Comp Metabolic Rzy330 B/C Ratio 19.0 Ratio 05/22/2017 Comp Metabolic Llr240 CALCIUM 8.6 mg/dL 05/22/2017 Comp Metabolic Ipy577 ALK PHOS 44 U/L 05/22/2017 Comp Metabolic Qaz789 AST(SGOT) 16 U/L 05/22/2017 Comp Metabolic Hod662 ALT(SGPT) 13 U/L 05/22/2017 Comp Metabolic Hcn850 BILI T 0.5 mg/dL 05/22/2017 Comp Metabolic Ayy668 ALBUMIN 3.7 g/dL 05/22/2017 Comp Metabolic Vvq568 TPRO 5.8 g/dL 05/22/2017 Comp Metabolic Ewq633 GLOB 2.1 g/dL 05/22/2017 Comp Metabolic Meg590 A/G Ratio 1.7 Ratio 05/22/2017 Comp Metabolic Yui120 Osmo 278 mOsmo 05/22/2017 Lipid Ord30 CHOL 148 mg/dL 05/22/2017 Lipid Ord30 HDL 61.0 mg/dl 05/22/2017 Lipid Ord30 TRIG 103 mg/dL 05/22/2017 Lipid Ord30 LDL 66 mg/dL 05/22/2017 Lipid Ord30 C/HDL 2.4 Ratio 05/22/2017 Free T4 Rwi612 FREE T4 0.84 ng/dL 05/22/2017 Cbc With Differential Ord2 WBC 4.86 K/ul 05/22/2017 Cbc With Differential Ord2 RBC 4.31 M/ul 05/22/2017 Cbc With Differential Ord2 HGB 13.6 g/dl 05/22/2017 Cbc With Differential Ord2 HCT 40.1 % 05/22/2017 Cbc With Differential Ord2 Neut% 46.2 % 05/22/2017 Cbc With Differential Ord2 MCV 93.0 fl 05/22/2017 Cbc With Differential Ord2 Lymph% 44.4 % 05/22/2017 Cbc With Differential Ord2 [place]% 7.8 % 05/22/2017 Cbc With Differential Ord2 MCH 31.6 pg 05/22/2017 Cbc With Differential Ord2 MCHC 33.9 pg 05/22/2017 Cbc With Differential Ord2 Eos% 1.4 % 05/22/2017 Cbc With Differential Ord2 Baso% 0.2 % 05/22/2017 Cbc With Differential Ord2 PLT 224 K/ul 05/22/2017 Cbc With Differential Ord2 Neut ABS# 2.24 K/ul 05/22/2017 Cbc With Differential Ord2 RDW 12.5 % 05/22/2017 Cbc With Differential Ord2 Lymph ABS# 2.16 K/ul 05/22/2017 Cbc With Differential Ord2 [place] ABS# 0.4 K/ul 05/22/2017 Cbc With Differential Ord2 Eos ABS# 0.1 K/ul 05/22/2017 Cbc With Differential Ord2 Baso ABS# 0.0 K/ul 05/22/2017 Tsh Ord6 hTSH II 0.26 uIU/mL 08/14/2016 Free T4 Vey150 FREE T4 1.08 ng/dL 08/14/2016 GC/CHL PRB [id number] Chl trach DNA Negative 05/04/2016 GC/CHL PRB 6924900 GC PROBE Negative 05/04/2016 Tsh Ord6 hTSH II 0.51 uIU/mL 05/03/2016 Comp Metabolic Hqt610 NA 137 mEq/L 05/03/2016 Comp Metabolic Rsk161 K 4.0 mEq/L 05/03/2016 Comp Metabolic Yzq597 CL 102 mEq/L 05/03/2016 Comp Metabolic Vpe961 CO2 29.0 mEq/L 05/03/2016 Comp Metabolic Nqj305 ANION GAP 10 05/03/2016 Comp Metabolic Ihs361 GLUCOSE 82 mg/dL 05/03/2016 Comp Metabolic Tsc912 Creat 0.6 mg/dL 05/03/2016 Comp Metabolic Gia524 eGFR 125 ml/min/1.73m2 05/03/2016 Comp Metabolic Oed548 BUN 14 mg/dL 05/03/2016 Comp Metabolic Qnx123 B/C Ratio 23.7 Ratio 05/03/2016 Comp Metabolic Njs363 CALCIUM 9.3 mg/dL 05/03/2016 Comp Metabolic Lni645 ALK PHOS 45 U/L 05/03/2016 Comp Metabolic Vqt800 AST(SGOT) 21 U/L 05/03/2016 Comp Metabolic Igw640 ALT(SGPT) 15 U/L 05/03/2016 Comp Metabolic Pzr603 BILI T 0.5 mg/dL 05/03/2016 Comp Metabolic Xts500 ALBUMIN 4.1 g/dL 05/03/2016 Comp Metabolic Fwr270 TPRO 6.5 g/dL 05/03/2016 Comp Metabolic Mhp055 GLOB 2.4 g/dL 05/03/2016 Comp Metabolic Tij381 A/G Ratio 1.7 Ratio 05/03/2016 Comp Metabolic Jqf892 Osmo 273 mOsmo 05/03/2016 Free T4 Kjn073 FREE T4 0.94 ng/dL 05/03/2016 C-Reactive Protein Qnt Crqnt CRP 0.3 mg/dl 10/13/2015 Tsh Ord6 hTSH II 1.18 uIU/mL 10/13/2015 Sed Rate Ord21 ESR 1 mm/hr 10/13/2015 Cbc With Differential Ord2 WBC 5.3 K/uL 10/13/2015 Cbc With Differential Ord2 LYM 1.9 K/uL 10/13/2015 Cbc With Differential Ord2 LYM% 35.3 % 10/13/2015 Cbc With Differential Ord2 NEUT/GRAN 3.1 K/uL 10/13/2015 Cbc With Differential Ord2 NEUT/GRAN % 59.0 % 10/13/2015 Cbc With Differential Ord2 MID 0.3 K/uL 10/13/2015 Cbc With Differential Ord2 MID% 5.7 % 10/13/2015 Cbc With Differential Ord2 RBC 4.50 M/uL 10/13/2015 Cbc With Differential Ord2 HGB 13.6 g/dL 10/13/2015 Cbc With Differential Ord2 HCT 43.9 % 10/13/2015 Cbc With Differential Ord2 MCV 98 fL 10/13/2015 Cbc With Differential Ord2 MCH 30 pg 10/13/2015 Cbc With Differential Ord2 MCHC 31 g/dL 10/13/2015 Cbc With Differential Ord2 PLT 247 K/uL 10/13/2015 Cbc With Differential Ord2 RDW 13.3 % 10/13/2015 Comp Metabolic Tsh186 NA 139 mEq/L 10/13/2015 Comp Metabolic Nia168 K 4.2 mEq/L 10/13/2015 Comp Metabolic Wog354 CL 105 mEq/L 10/13/2015 Comp Metabolic Wla391 CO2 25.0 mEq/L 10/13/2015 Comp Metabolic Tyd031 ANION GAP 13 10/13/2015 Comp Metabolic Own008 GLUCOSE 84 mg/dL 10/13/2015 Comp Metabolic Zhe861 Creat 0.7 mg/dL 10/13/2015 Comp Metabolic Nju762 eGFR 106 ml/min/1.73m2 10/13/2015 Comp Metabolic Dzw735 BUN 10 mg/dL 10/13/2015 Comp Metabolic Ztj309 B/C Ratio 14.7 Ratio 10/13/2015 Comp Metabolic Nnd140 CALCIUM 8.9 mg/dL 10/13/2015 Comp Metabolic Mfc581 ALK PHOS 53 U/L 10/13/2015 Comp Metabolic Ctk550 AST(SGOT) 15 U/L 10/13/2015 Comp Metabolic Sdc690 ALT(SGPT) 13 U/L 10/13/2015 Comp Metabolic Ykq110 BILI T 0.5 mg/dL 10/13/2015 Comp Metabolic Nxb793 ALBUMIN 3.9 g/dL 10/13/2015 Comp Metabolic Jey164 TPRO 6.2 g/dL 10/13/2015 Comp Metabolic Xud834 GLOB 2.3 g/dL 10/13/2015 Comp Metabolic Izf455 A/G Ratio 1.7 Ratio 10/13/2015 Comp Metabolic Vvp182 Osmo 276 mOsmo 10/13/2015 Lipid Ord30 CHOL 151 mg/dL 10/13/2015 Lipid Ord30 HDL 65.0 mg/dl 10/13/2015 Lipid Ord30 TRIG 85 mg/dL 10/13/2015 Lipid Ord30 LDL 69 mg/dL 10/13/2015 Lipid Ord30 C/HDL 2.3 Ratio 10/13/2015 Free T4 Gwa813 FREE T4 1.03 ng/dL 10/13/2015 Tsh Ord6 hTSH II 0.67 uIU/mL 07/15/2015 Free T4 Ldt949 FREE T4 1.08 ng/dL 07/15/2015 GC/CHL PRB 8719794 CHLM PROBE NEG 03/19/2015 GC/CHL PRB 1216982 GC PROBE NEG 03/19/2015 TSH 9614598 TSH 1.400 uIU/ML 03/11/2014 GC/CHL PRB 7674704 CHLM PROBE NEG 03/11/2014 GC/CHL PRB 1663913 GC PROBE NEG 03/11/2014 FREE T4 6853999 FREE T4 1.15 NG/DL 03/11/2014 TSH 9235335 TSH 1.080 uIU/ML 10/13/2013 T3 TOT 2606400 T3 TOT 1.2 NG/ML 10/13/2013 CBC 7777815 WBC 5.0 10e9/L 10/13/2013 CBC 1323483 RBC 4.30 10e12/L 10/13/2013 CBC 1787700 HGB 13.2 g/dL 10/13/2013 CBC 6643258 HCT DET 40.1 % 10/13/2013 CBC 4736650 MCV 93.3 fL 10/13/2013 CBC 8140747 MCH 30.7 pg 10/13/2013 CBC 1611942 MCHC 32.9 g/dL 10/13/2013 CBC 5915077 PLT 275 10e9/L 10/13/2013 CBC 1526715 MPV 12.2 fL 10/13/2013 CBC 9262875 KEZIA % 56.1 % 10/13/2013 CBC 7152300 LY % 35.4 % 10/13/2013 CBC 0423494 MON % 7.3 % 10/13/2013 CBC 9003049 EOS % 1.0 % 10/13/2013 CBC 6643757 BASO % 0.2 % 10/13/2013 CBC 8376277 RDW 12.3 % 10/13/2013 CBC 4401829 ABS KEZIA 2.81 10e9/L 10/13/2013 CBC 0193576 ABS LYMPH 1.77 10e9/L 10/13/2013 CBC 7482303 ABS MONO 0.37 10e9/L 10/13/2013 CBC 3233966 ABS EOS 0.05 10e9/L 10/13/2013 CBC 3120392 ABS BASO 0.01 10e9/L 10/13/2013 CBC 8836663 RDW-SD 40.8 fL 10/13/2013 FREE T4 2052366 FREE T4 0.99 NG/DL 10/13/2013 CHEM 14 8450855 AST 18 U/L 10/13/2013 CHEM 14 5853723 ALT 10 IU/L 10/13/2013 CHEM 14 9728858 BUN 6 MG/DL 10/13/2013 CHEM 14 7074379 ALBUMIN 4.1 GM/DL 10/13/2013 CHEM 14 8479696 CHLORIDE 105 MMOL/L 10/13/2013 CHEM 14 8239669 BILI TOT 0.5 MG/DL 10/13/2013 CHEM 14 1232438 ALK PHOS 45 U/L 10/13/2013 CHEM 14 8577699 SODIUM 137 MMOL/L 10/13/2013 CHEM 14 6214986 CREATININE 0.62 MG/DL 10/13/2013 CHEM 14 7442126 CALCIUM 8.7 MG/DL 10/13/2013 CHEM 14 0016791 POTASSIUM 3.8 MMOL/L 10/13/2013 CHEM 14 6645104 PROT TOT 6.2 GM/DL 10/13/2013 CHEM 14 9578110 GLUCOSE 92 MG/DL 10/13/2013 CHEM 14 0844916 BICARB 27 MMOL/L 10/13/2013 CHEM 14 3006827 ANION GAP 5 MEQ/L 10/13/2013 GFR CALC 9674562 GFR AA >60 ML/MIN 10/13/2013 GFR CALC 4290690 GFR NON-AA >60 ML/MIN 10/13/2013 MAGNESIUM 4148020 MAGNESIUM 1.7 MEQ/L 12/17/2012 CBC 5176880 WBC 5.4 10e9/L 12/17/2012 CBC 9165858 RBC 4.30 10e12/L 12/17/2012 CBC 7785022 HGB 13.4 g/dL 12/17/2012 CBC 5039710 HCT DET 39.8 % 12/17/2012 CBC 3521691 MCV 92.6 fL 12/17/2012 CBC 8757293 MCH 31.2 pg 12/17/2012 CBC 1036526 MCHC 33.7 g/dL 12/17/2012 CBC 7807558 PLT 256 10e9/L 12/17/2012 CBC 9231032 MPV 11.2 fL 12/17/2012 CBC 9420513 KEZIA % 52.0 % 12/17/2012 CBC 4937750 LY % 37.9 % 12/17/2012 CBC 2710881 MON % 8.4 % 12/17/2012 CBC 5302899 EOS % 1.5 % 12/17/2012 CBC 8081917 BASO % 0.2 % 12/17/2012 CBC 4817838 RDW 12.5 % 12/17/2012 CBC 3468034 ABS KEZIA 2.81 10e9/L 12/17/2012 CBC 2441814 ABS LYMPH 2.05 10e9/L 12/17/2012 CBC 9109025 ABS MONO 0.45 10e9/L 12/17/2012 CBC 4337460 ABS EOS 0.08 10e9/L 12/17/2012 CBC 2006608 ABS BASO 0.01 10e9/L 12/17/2012 CBC 0156385 RDW-SD 40.9 fL 12/17/2012 TSH 8110247 TSH 2.043 uIU/ML 12/17/2012 T3 FREE 1947170 T3 FREE 3.4 PG/ML 12/17/2012 CHEM 14 6241855 AST 16 U/L 12/17/2012 CHEM 14 9119505 ALT 12 IU/L 12/17/2012 CHEM 14 5217823 BUN 8 MG/DL 12/17/2012 CHEM 14 8657198 ALBUMIN 4.2 GM/DL 12/17/2012 CHEM 14 6630164 CHLORIDE 105 MMOL/L 12/17/2012 CHEM 14 3703823 BILI TOT 0.5 MG/DL 12/17/2012 CHEM 14 5957587 ALK PHOS 46 U/L 12/17/2012 CHEM 14 9989584 SODIUM 138 MMOL/L 12/17/2012 CHEM 14 3447630 CREATININE 0.66 MG/DL 12/17/2012 CHEM 14 9764304 CALCIUM 9.3 MG/DL 12/17/2012 CHEM 14 4181147 POTASSIUM 3.7 MMOL/L 12/17/2012 CHEM 14 4865048 PROT TOT 6.7 GM/DL 12/17/2012 CHEM 14 3595627 GLUCOSE 83 MG/DL 12/17/2012 CHEM 14 7167404 BICARB 27 MMOL/L 12/17/2012 CHEM 14 3102862 ANION GAP 6 MEQ/L 12/17/2012 GFR CALC 5809277 GFR AA >60 ML/MIN 12/17/2012 GFR CALC 8376691 GFR NON-AA >60 ML/MIN 12/17/2012 FREE T4 2361040 FREE T4 0.85 NG/DL 12/17/2012 UA 72605 Specific [place] 1.020 DateTime(Free Text in Apr ) UA 84448 PH 6 DateTime(Free Text in Apr) UA 15897 GLUCOSE neg DateTime(Free Text in Aprima) UA 43088 Protein neg DateTime(Free Text in Aprima) UA 02117 Blood neg DateTime(Free Text in Aprima) UA 70103 Bilirubin neg DateTime(Free Text in Aprima) UA 72051 Ketones neg DateTime(Free Text in ) UA 52830 Urobilinogen neg DateTime(Free Text in ) UA 19191 Nitrite neg DateTime(Free Text in ) UA 61660 Leukocytes neg DateTime(Free Text in ) Review of Systems System Result Effective Dates Constitutional No recent illness 2016 Constitutional No chills 10/10/2017 Constitutional No fever 10/10/2017 Eyes No eye discharge 10/10/2017 Eyes No eye erythema 10/10/2017 Ears/Nose/Throat/Neck No headache 2016 Ears/Nose/Throat/Neck No nasal discharge 10/10/2017 Ears/Nose/Throat/Neck No sore throat Cardiovascular No chest pain/pressure Cardiovascular No dyspnea 10/10/2017 Cardiovascular No fatigue 10/10/2017 Cardiovascular No syncope 10/10/2017 Respiratory No chest congestion 2016 Respiratory No chest tightness 2016 Respiratory No cough 10/10/2017 Respiratory No dyspnea on exertion 2016 Respiratory No dyspnea 10/10/2017 Gastrointestinal abdominal pain 2016 Gastrointestinal No constipation 2016 Gastrointestinal No diarrhea 10/10/2017 Genitourinary/Nephrology No hematuria Genitourinary/Nephrology No pelvic pain 10/10/2017 Genitourinary/Nephrology No urinary incontinence 10/10/2017 Neurologic No dizziness 10/10/2017 Neurologic No headache 10/10/2017 Neurologic No neck pain 10/10/2017 Neurologic No syncope 10/10/2017 Psychiatric anxiety 10/10/2017 Psychiatric depression 10/10/2017 Endocrine No weakness 10/10/2017 Endocrine weight gain 10/10/2017 Constitutional fatigue 10/10/2017 Dermatologic No rash 10/10/2017 Musculoskeletal No stiffness 10/10/2017 Musculoskeletal No arthralgia(s) 2016 Musculoskeletal No myalgias 10/10/2017 Constitutional No recent illness 2016 Constitutional No chills 09/20/2017 Constitutional No diaphoresis 09/20/2017 Constitutional No fever 09/20/2017 Constitutional fatigue 09/20/2017 Constitutional malaise 09/20/2017 Eyes No eye erythema 09/20/2017 Ears/Nose/Throat/Neck No nasal discharge 09/20/2017 Ears/Nose/Throat/Neck No nasal allergies 09/20/2017 Cardiovascular No chest pain/pressure Cardiovascular No dyspnea 09/20/2017 Respiratory No cough 09/20/2017 Respiratory No chest congestion 2016 Gastrointestinal No abdominal pain 2016 Musculoskeletal joint complaint 2016 Musculoskeletal myalgias 09/20/2017 Musculoskeletal back pain 09/20/2017 Dermatologic No rash 09/20/2017 Neurologic No alteration of consciousness 09/20/2017 Neurologic No mental status change 2016 Psychiatric anxiety 09/20/2017 Psychiatric depression 09/20/2017 Psychiatric No suicidality 09/20/2017 Constitutional recent illness 07/13/2017 Constitutional chills 07/13/2017 Constitutional No diaphoresis 07/13/2017 Constitutional fever 07/13/2017 Eyes No eye erythema 07/13/2017 Ears/Nose/Throat/Neck nasal allergies Ears/Nose/Throat/Neck nasal discharge Ears/Nose/Throat/Neck postnasal drip Ears/Nose/Throat/Neck sinus congestion Ears/Nose/Throat/Neck sore throat 2016 Cardiovascular No chest pain/pressure Cardiovascular No dyspnea 07/13/2017 Respiratory No chest congestion 2016 Respiratory cough 07/13/2017 Respiratory No dyspnea 07/13/2017 Gastrointestinal No constipation 2016 Gastrointestinal No diarrhea 07/13/2017 Gastrointestinal No nausea 07/13/2017 Gastrointestinal No vomiting 07/13/2017 Dermatologic No rash 07/13/2017 Neurologic No alteration of consciousness 07/13/2017 Neurologic No mental status change 2016 Ears/Nose/Throat/Neck otalgia 07/13/2017 Constitutional No recent illness 2016 Constitutional No chills 06/20/2017 Constitutional No diaphoresis 06/20/2017 Constitutional fatigue 06/20/2017 Constitutional No fever 06/20/2017 Constitutional insomnia 06/20/2017 Eyes No eye erythema 06/20/2017 Ears/Nose/Throat/Neck No nasal discharge 06/20/2017 Cardiovascular No chest pain/pressure Cardiovascular No dyspnea 06/20/2017 Cardiovascular palpitations 06/20/2017 Cardiovascular No syncope 06/20/2017 Respiratory No cough 06/20/2017 Respiratory No dyspnea 06/20/2017 Gastrointestinal No abdominal pain 2016 Gastrointestinal No constipation 2016 Gastrointestinal No diarrhea 06/20/2017 Gastrointestinal No vomiting 06/20/2017 Gastrointestinal No nausea 06/20/2017 Gastrointestinal dysphagia 06/20/2017 Dermatologic No rash 06/20/2017 Neurologic No alteration of consciousness 06/20/2017 Neurologic No mental status change 2016 Constitutional No recent illness 2016 Constitutional No chills 05/31/2017 Constitutional No fever 05/31/2017 Eyes No eye discharge 05/31/2017 Eyes No eye erythema 05/31/2017 Ears/Nose/Throat/Neck No headache 2016 Ears/Nose/Throat/Neck No nasal discharge 05/31/2017 Ears/Nose/Throat/Neck No sore throat 07/2017 Cardiovascular No chest pain/pressure 07/2017 Cardiovascular No dyspnea 05/31/2017 Cardiovascular No fatigue 05/31/2017 Cardiovascular No syncope 05/31/2017 Respiratory No chest congestion 2016 Respiratory No chest tightness 2016 Respiratory No cough 05/31/2017 Respiratory No dyspnea on exertion 2016 Respiratory No dyspnea 05/31/2017 Gastrointestinal abdominal pain 2016 Gastrointestinal No constipation 2016 Gastrointestinal No diarrhea 05/31/2017 Genitourinary/Nephrology No breast complaint 05/31/2017 Genitourinary/Nephrology No dysuria 05/31 Genitourinary/Nephrology No genital lesion 05/31/2017 Genitourinary/Nephrology No hematuria 07/2017 Genitourinary/Nephrology No menopausal symptoms 05/31/2017 Genitourinary/Nephrology No menstrual irregularity 05/31/2017 Genitourinary/Nephrology No Pap smear abnormality 05/31/2017 Genitourinary/Nephrology No pelvic pain 05/31/2017 Genitourinary/Nephrology No urinary incontinence 05/31/2017 Genitourinary/Nephrology vaginal discharge 05/31/2017 Dermatologic No rash 05/31/2017 Dermatologic No sores 05/31/2017 Neurologic No dizziness 05/31/2017 Neurologic No headache 05/31/2017 Neurologic No neck pain 05/31/2017 Neurologic No syncope 05/31/2017 Psychiatric anxiety 05/31/2017 Psychiatric No depression 05/31/2017 Endocrine No weakness 05/31/2017 Endocrine weight gain 05/31/2017 Constitutional No recent illness 2016 Constitutional No anorexia 04/18/2017 Constitutional No chills 04/18/2017 Constitutional No diaphoresis 04/18/2017 Constitutional fatigue 04/18/2017 Constitutional No fever 04/18/2017 Constitutional No insomnia 04/18/2017 Constitutional No malaise 04/18/2017 Ears/Nose/Throat/Neck No dizziness 2016 Ears/Nose/Throat/Neck No headache 2016 Ears/Nose/Throat/Neck nasal allergies Ears/Nose/Throat/Neck No nasal discharge 04/18/2017 Cardiovascular No chest pain/pressure Cardiovascular No dyspnea 04/18/2017 Respiratory No cough 04/18/2017 Respiratory No dyspnea on exertion 2016 Respiratory No dyspnea 04/18/2017 Gastrointestinal No abdominal pain 2016 Gastrointestinal No constipation 2016 Gastrointestinal No diarrhea 04/18/2017 Gastrointestinal No nausea 04/18/2017 Gastrointestinal No vomiting 04/18/2017 Musculoskeletal arthralgia(s) 04/18/2017 Musculoskeletal No joint complaint 2016 Musculoskeletal myalgias 04/18/2017 Neurologic No alteration of consciousness 04/18/2017 Neurologic No mental status change 2016 Psychiatric depression 04/18/2017 Constitutional fatigue 03/21/2017 Constitutional No fever 03/21/2017 Eyes No eye discharge 03/21/2017 Eyes No eye erythema 03/21/2017 Ears/Nose/Throat/Neck nasal allergies Ears/Nose/Throat/Neck No nasal discharge 03/21/2017 Cardiovascular No chest pain/pressure Cardiovascular No dyspnea 03/21/2017 Respiratory No dyspnea 03/21/2017 Gastrointestinal No abdominal pain 2016 Dermatologic No rash 03/21/2017 Neurologic No alteration of consciousness 03/21/2017 Neurologic No mental status change 2016 Endocrine hair loss 03/21/2017 Constitutional No recent illness 2016 Constitutional No anorexia 03/21/2017 Constitutional No chills 03/21/2017 Constitutional No diaphoresis 03/21/2017 Constitutional No insomnia 03/21/2017 Constitutional No malaise 03/21/2017 Ears/Nose/Throat/Neck No dizziness 2016 Ears/Nose/Throat/Neck No headache 2016 Respiratory No cough 03/21/2017 Respiratory No dyspnea on exertion 2016 Gastrointestinal No constipation 2016 Gastrointestinal No diarrhea 03/21/2017 Gastrointestinal No nausea 03/21/2017 Gastrointestinal No vomiting 03/21/2017 Genitourinary/Nephrology No dysuria 03/21 Musculoskeletal No joint complaint 2016 Musculoskeletal arthralgia(s) 03/21/2017 Musculoskeletal myalgias 03/21/2017 Psychiatric depression 03/21/2017 Constitutional No recent illness 2016 Constitutional No anorexia 11/20/2016 Constitutional No night sweats 2016 Constitutional No chills 11/20/2016 Constitutional No fever 11/20/2016 Constitutional No fatigue 11/20/2016 Constitutional No diaphoresis 11/20/2016 Constitutional No insomnia 11/20/2016 Constitutional No malaise 11/20/2016 Constitutional No weight loss 11/20/2016 Constitutional No weight gain 11/20/2016 Constitutional No obesity 11/20/2016 Dermatologic sores 11/20/2016 Constitutional No fever 07/31/2016 Eyes No eye discharge 07/31/2016 Eyes No eye erythema 07/31/2016 Cardiovascular No chest pain/pressure 07/2016 Cardiovascular No dyspnea 07/31/2016 Respiratory No dyspnea 07/31/2016 Constitutional fatigue 07/31/2016 Ears/Nose/Throat/Neck nasal allergies 07/2016 Ears/Nose/Throat/Neck No nasal discharge 07/31/2016 Gastrointestinal No abdominal pain 2015 Musculoskeletal back pain 07/31/2016 Dermatologic No rash 07/31/2016 Neurologic No alteration of consciousness 07/31/2016 Neurologic No mental status change 2015 Endocrine hair loss 07/31/2016 Constitutional No recent illness 2015 Constitutional No chills 05/03/2016 Constitutional No fever 05/03/2016 Eyes No eye discharge 05/03/2016 Eyes No eye erythema 05/03/2016 Ears/Nose/Throat/Neck No headache 2015 Ears/Nose/Throat/Neck No nasal discharge 05/03/2016 Ears/Nose/Throat/Neck No sore throat Cardiovascular No chest pain/pressure Cardiovascular No dyspnea 05/03/2016 Cardiovascular No fatigue 05/03/2016 Cardiovascular No syncope 05/03/2016 Respiratory No chest congestion 2015 Respiratory No chest tightness 2015 Respiratory No cough 05/03/2016 Respiratory No dyspnea on exertion 2015 Respiratory No dyspnea 05/03/2016 Gastrointestinal abdominal pain 2015 Gastrointestinal No constipation 2015 Gastrointestinal No diarrhea 05/03/2016 Genitourinary/Nephrology No breast complaint 05/03/2016 Genitourinary/Nephrology No dysuria 05/03 Genitourinary/Nephrology No genital lesion 05/03/2016 Genitourinary/Nephrology No hematuria Genitourinary/Nephrology No menopausal symptoms 05/03/2016 Genitourinary/Nephrology No menstrual irregularity 05/03/2016 Genitourinary/Nephrology No Pap smear abnormality 05/03/2016 Genitourinary/Nephrology No pelvic pain 05/03/2016 Genitourinary/Nephrology No urinary incontinence 05/03/2016 Genitourinary/Nephrology vaginal discharge 05/03/2016 Dermatologic No rash 05/03/2016 Dermatologic No sores 05/03/2016 Neurologic No dizziness 05/03/2016 Neurologic No headache 05/03/2016 Neurologic No neck pain 05/03/2016 Neurologic No syncope 05/03/2016 Psychiatric anxiety 05/03/2016 Psychiatric No depression 05/03/2016 Endocrine No weakness 05/03/2016 Endocrine weight gain 05/03/2016 Constitutional recent illness 08/26/2015 Constitutional No anorexia 08/26/2015 Constitutional chills 08/26/2015 Constitutional No diaphoresis 08/26/2015 Constitutional fatigue 08/26/2015 Constitutional No fever 08/26/2015 Constitutional No insomnia 08/26/2015 Constitutional No malaise 08/26/2015 Eyes No eye discharge 08/26/2015 Eyes No eye erythema 08/26/2015 Ears/Nose/Throat/Neck headache 2014 Ears/Nose/Throat/Neck nasal allergies 02/2015 Ears/Nose/Throat/Neck nasal discharge 02/2015 Ears/Nose/Throat/Neck postnasal drip 02/2015 Ears/Nose/Throat/Neck sinus congestion Ears/Nose/Throat/Neck sore throat 2014 Cardiovascular No chest pain/pressure 02/2015 Cardiovascular No dyspnea 08/26/2015 Cardiovascular No syncope 08/26/2015 Respiratory chest congestion 08/26/2015 Respiratory No chest tightness 2014 Respiratory cough 08/26/2015 Respiratory No dyspnea on exertion 2014 Respiratory No dyspnea 08/26/2015 Gastrointestinal No abdominal pain 2014 Gastrointestinal No constipation 2014 Gastrointestinal No diarrhea 08/26/2015 Gastrointestinal nausea 08/26/2015 Gastrointestinal No vomiting 08/26/2015 Dermatologic No rash 08/26/2015 Dermatologic No sores 08/26/2015 Neurologic No alteration of consciousness 08/26/2015 Neurologic No dizziness 08/26/2015 Neurologic headache 08/26/2015 Psychiatric No anxiety 08/26/2015 Psychiatric No depression 08/26/2015 Ears/Nose/Throat/Neck hoarseness 2014 Constitutional recent illness 08/20/2015 Constitutional chills 08/20/2015 Constitutional No fever 08/20/2015 Eyes No eye discharge 08/20/2015 Eyes No eye erythema 08/20/2015 Ears/Nose/Throat/Neck headache 2014 Ears/Nose/Throat/Neck nasal discharge Ears/Nose/Throat/Neck sore throat 2014 Cardiovascular No chest pain/pressure Cardiovascular No dyspnea 08/20/2015 Cardiovascular No syncope 08/20/2015 Respiratory chest congestion 08/20/2015 Respiratory No chest tightness 2014 Respiratory cough 08/20/2015 Respiratory No dyspnea on exertion 2014 Respiratory No dyspnea 08/20/2015 Gastrointestinal No abdominal pain 2014 Gastrointestinal No constipation 2014 Gastrointestinal No diarrhea 08/20/2015 Dermatologic No rash 08/20/2015 Dermatologic No sores 08/20/2015 Neurologic No dizziness 08/20/2015 Neurologic headache 08/20/2015 Psychiatric No anxiety 08/20/2015 Psychiatric No depression 08/20/2015 Ears/Nose/Throat/Neck nasal allergies Ears/Nose/Throat/Neck postnasal drip Ears/Nose/Throat/Neck sinus congestion Gastrointestinal nausea 08/20/2015 Neurologic No alteration of consciousness 08/20/2015 Constitutional No anorexia 08/20/2015 Constitutional No diaphoresis 08/20/2015 Constitutional fatigue 08/20/2015 Constitutional No insomnia 08/20/2015 Constitutional No malaise 08/20/2015 Gastrointestinal No vomiting 08/20/2015 Constitutional No recent illness 2014 Constitutional No chills 03/18/2015 Constitutional No fever 03/18/2015 Eyes No eye discharge 03/18/2015 Eyes No eye erythema 03/18/2015 Ears/Nose/Throat/Neck No headache 2014 Ears/Nose/Throat/Neck No nasal discharge 03/18/2015 Ears/Nose/Throat/Neck No sore throat Cardiovascular No chest pain/pressure Cardiovascular No dyspnea 03/18/2015 Cardiovascular No fatigue 03/18/2015 Cardiovascular No syncope 03/18/2015 Respiratory No chest congestion 2014 Respiratory No chest tightness 2014 Respiratory No cough 03/18/2015 Respiratory No dyspnea on exertion 2014 Respiratory No dyspnea 03/18/2015 Gastrointestinal No abdominal pain 2014 Gastrointestinal No constipation 2014 Gastrointestinal No diarrhea 03/18/2015 Genitourinary/Nephrology No breast complaint 03/18/2015 Genitourinary/Nephrology No dysuria 03/18 Genitourinary/Nephrology No genital lesion 03/18/2015 Genitourinary/Nephrology No hematuria Genitourinary/Nephrology No menopausal symptoms 03/18/2015 Genitourinary/Nephrology No menstrual irregularity 03/18/2015 Genitourinary/Nephrology No Pap smear abnormality 03/18/2015 Genitourinary/Nephrology No pelvic pain 03/18/2015 Genitourinary/Nephrology No urinary incontinence 03/18/2015 Genitourinary/Nephrology No vaginal discharge 03/18/2015 Dermatologic No rash 03/18/2015 Neurologic No dizziness 03/18/2015 Neurologic No headache 03/18/2015 Neurologic No neck pain 03/18/2015 Neurologic No syncope 03/18/2015 Psychiatric No anxiety 03/18/2015 Psychiatric No depression 03/18/2015 Endocrine No weakness 03/18/2015 Endocrine weight gain 03/18/2015 Dermatologic No sores 03/18/2015 Constitutional No recent illness 2014 Constitutional No anorexia 02/03/2015 Constitutional No chills 02/03/2015 Constitutional No diaphoresis 02/03/2015 Constitutional fatigue 02/03/2015 Constitutional No insomnia 02/03/2015 Constitutional No malaise 02/03/2015 Eyes No eye discharge 02/03/2015 Eyes No eye erythema 02/03/2015 Ears/Nose/Throat/Neck No dizziness 2014 Ears/Nose/Throat/Neck No headache 2014 Ears/Nose/Throat/Neck No nasal allergies 02/03/2015 Ears/Nose/Throat/Neck No nasal discharge 02/03/2015 Cardiovascular No chest pain/pressure Respiratory No cough 02/03/2015 Gastrointestinal No constipation 2014 Gastrointestinal No diarrhea 02/03/2015 Gastrointestinal No nausea 02/03/2015 Gastrointestinal No vomiting 02/03/2015 Genitourinary/Nephrology No dysuria 02/03 Musculoskeletal No joint complaint 2014 Neurologic No alteration of consciousness 02/03/2015 Respiratory No dyspnea on exertion 2014 Genitourinary/Nephrology menstrual irregularity 02/03/2015 Constitutional No recent illness 2014 Constitutional No anorexia 12/10/2014 Constitutional night sweats 12/10/2014 Constitutional No chills 12/10/2014 Constitutional No diaphoresis 12/10/2014 Constitutional fatigue 12/10/2014 Constitutional No fever 12/10/2014 Constitutional No insomnia 12/10/2014 Constitutional No malaise 12/10/2014 Constitutional No weight loss 12/10/2014 Constitutional weight gain 12/10/2014 Eyes No eye discharge 12/10/2014 Eyes No eye erythema 12/10/2014 Ears/Nose/Throat/Neck No dizziness 2014 Ears/Nose/Throat/Neck No headache 2014 Ears/Nose/Throat/Neck No nasal allergies 12/10/2014 Ears/Nose/Throat/Neck No nasal discharge 12/10/2014 Cardiovascular chest pain/pressure 2014 Respiratory No cough 12/10/2014 Respiratory dyspnea on exertion 2014 Gastrointestinal No constipation 2014 Gastrointestinal No diarrhea 12/10/2014 Gastrointestinal No nausea 12/10/2014 Gastrointestinal No vomiting 12/10/2014 Genitourinary/Nephrology No dysuria 12/10 Musculoskeletal No joint complaint 2014 Dermatologic No rash 12/10/2014 Dermatologic No sores 12/10/2014 Neurologic No alteration of consciousness 12/10/2014 Cardiovascular palpitations 12/10/2014 Constitutional No recent illness 2014 Constitutional No anorexia 11/12/2014 Constitutional night sweats 11/12/2014 Constitutional No chills 11/12/2014 Constitutional No diaphoresis 11/12/2014 Constitutional fatigue 11/12/2014 Constitutional No fever 11/12/2014 Constitutional No insomnia 11/12/2014 Constitutional No malaise 11/12/2014 Constitutional No weight loss 11/12/2014 Constitutional weight gain 11/12/2014 Eyes No eye discharge 11/12/2014 Eyes No eye erythema 11/12/2014 Ears/Nose/Throat/Neck No dizziness 2014 Ears/Nose/Throat/Neck No headache 2014 Ears/Nose/Throat/Neck No nasal discharge 11/12/2014 Ears/Nose/Throat/Neck No nasal allergies 11/12/2014 Cardiovascular No chest pain/pressure Respiratory No cough 11/12/2014 Gastrointestinal No constipation 2014 Gastrointestinal No diarrhea 11/12/2014 Gastrointestinal No vomiting 11/12/2014 Gastrointestinal No nausea 11/12/2014 Genitourinary/Nephrology No dysuria 11/12 Dermatologic No sores 11/12/2014 Dermatologic No rash 11/12/2014 Musculoskeletal No joint complaint 2014 Neurologic No alteration of consciousness 11/12/2014 Respiratory dyspnea on exertion 2014 Constitutional No anorexia 07/23/2014 Constitutional No night sweats 2013 Constitutional No chills 07/23/2014 Constitutional No diaphoresis 07/23/2014 Constitutional fatigue 07/23/2014 Constitutional fever 07/23/2014 Constitutional No insomnia 07/23/2014 Constitutional No malaise 07/23/2014 Eyes No eye discharge 07/23/2014 Eyes No eye erythema 07/23/2014 Ears/Nose/Throat/Neck No dizziness 2013 Ears/Nose/Throat/Neck No headache 2013 Cardiovascular No chest pain/pressure 11/2013 Respiratory chest congestion 07/23/2014 Respiratory cough 07/23/2014 Gastrointestinal No abdominal pain 2013 Gastrointestinal No constipation 2013 Gastrointestinal No diarrhea 07/23/2014 Genitourinary/Nephrology dysuria 2013 Musculoskeletal arthralgia(s) 07/23/2014 Musculoskeletal back pain 07/23/2014 Dermatologic No rash 07/23/2014 Dermatologic No sores 07/23/2014 Neurologic No headache 07/23/2014 Neurologic No memory loss 07/23/2014 Neurologic pain, back 07/23/2014 Neurologic pain, limb 07/23/2014 Genitourinary/Nephrology urinary urgency 07/23/2014 Genitourinary/Nephrology urinary frequency 07/23/2014 Constitutional recent illness 04/20/2014 Constitutional No anorexia 04/20/2014 Constitutional No night sweats 2013 Constitutional No chills 04/20/2014 Constitutional No diaphoresis 04/20/2014 Constitutional fatigue 04/20/2014 Constitutional fever 04/20/2014 Constitutional No insomnia 04/20/2014 Constitutional No malaise 04/20/2014 Eyes No eye discharge 04/20/2014 Eyes No eye erythema 04/20/2014 Cardiovascular No chest pain/pressure Respiratory cough 04/20/2014 Gastrointestinal No abdominal pain 2013 Gastrointestinal No constipation 2013 Gastrointestinal No diarrhea 04/20/2014 Genitourinary/Nephrology No dysuria 04/20 Dermatologic No rash 04/20/2014 Dermatologic No sores 04/20/2014 Respiratory chest congestion 04/20/2014 Ears/Nose/Throat/Neck No dizziness 2013 Ears/Nose/Throat/Neck No headache 2013 Musculoskeletal back pain 04/20/2014 Musculoskeletal arthralgia(s) 04/20/2014 Neurologic No headache 04/20/2014 Neurologic No memory loss 04/20/2014 Neurologic pain, back 04/20/2014 Neurologic pain, limb 04/20/2014 Constitutional No chills 03/10/2014 Constitutional No fever 03/10/2014 Constitutional No recent illness 2013 Eyes No eye discharge 03/10/2014 Eyes No eye erythema 03/10/2014 Ears/Nose/Throat/Neck No headache 2013 Ears/Nose/Throat/Neck No nasal discharge 03/10/2014 Ears/Nose/Throat/Neck No sore throat Cardiovascular No chest pain/pressure Cardiovascular No dyspnea 03/10/2014 Cardiovascular No fatigue 03/10/2014 Cardiovascular No syncope 03/10/2014 Respiratory No chest congestion 2013 Respiratory No chest tightness 2013 Respiratory No cough 03/10/2014 Respiratory No dyspnea 03/10/2014 Respiratory No dyspnea on exertion 2013 Gastrointestinal No abdominal pain 2013 Gastrointestinal No constipation 2013 Gastrointestinal No diarrhea 03/10/2014 Genitourinary/Nephrology No breast complaint 03/10/2014 Genitourinary/Nephrology No dysuria 03/10 Genitourinary/Nephrology No genital lesion 03/10/2014 Genitourinary/Nephrology No hematuria Genitourinary/Nephrology No menopausal symptoms 03/10/2014 Genitourinary/Nephrology No menstrual irregularity 03/10/2014 Genitourinary/Nephrology No Pap smear abnormality 03/10/2014 Genitourinary/Nephrology No pelvic pain 03/10/2014 Genitourinary/Nephrology No urinary incontinence 03/10/2014 Genitourinary/Nephrology No vaginal discharge 03/10/2014 Dermatologic No rash 03/10/2014 Psychiatric No anxiety 03/10/2014 Psychiatric No depression 03/10/2014 Neurologic No dizziness 03/10/2014 Neurologic No headache 03/10/2014 Neurologic No neck pain 03/10/2014 Neurologic No syncope 03/10/2014 Endocrine No weakness 03/10/2014 Endocrine weight gain 03/10/2014 Constitutional recent illness 02/24/2014 Constitutional No anorexia 02/24/2014 Constitutional No night sweats 2013 Constitutional No chills 02/24/2014 Constitutional No diaphoresis 02/24/2014 Constitutional fatigue 02/24/2014 Constitutional fever 02/24/2014 Constitutional No insomnia 02/24/2014 Constitutional No malaise 02/24/2014 Eyes No eye discharge 02/24/2014 Eyes No eye erythema 02/24/2014 Cardiovascular No chest pain/pressure 03/2014 Respiratory No cough 02/24/2014 Gastrointestinal No abdominal pain 2013 Gastrointestinal No constipation 2013 Gastrointestinal No diarrhea 02/24/2014 Genitourinary/Nephrology No dysuria 02/24 Dermatologic No rash 02/24/2014 Dermatologic No sores 02/24/2014 Constitutional No recent illness 2012 Constitutional No anorexia 10/13/2013 Constitutional chills 10/13/2013 Constitutional fatigue 10/13/2013 Constitutional No fever 10/13/2013 Constitutional No insomnia 10/13/2013 Eyes No eye discharge 10/13/2013 Eyes No eye erythema 10/13/2013 Ears/Nose/Throat/Neck nasal allergies Ears/Nose/Throat/Neck dizziness 2012 Cardiovascular No chest pain/pressure Respiratory No cough 10/13/2013 Gastrointestinal No abdominal pain 2012 Gastrointestinal No constipation 2012 Gastrointestinal No diarrhea 10/13/2013 Genitourinary/Nephrology No dysuria 10/13 Musculoskeletal back pain 10/13/2013 Dermatologic No rash 10/13/2013 Dermatologic No sores 10/13/2013 Constitutional recent illness 05/28/2013 Constitutional No anorexia 05/28/2013 Constitutional No night sweats 2012 Constitutional No chills 05/28/2013 Constitutional No diaphoresis 05/28/2013 Constitutional No fatigue 05/28/2013 Constitutional No fever 05/28/2013 Constitutional No insomnia 05/28/2013 Constitutional No malaise 05/28/2013 Eyes No eye discharge 05/28/2013 Eyes No eye erythema 05/28/2013 Cardiovascular No chest pain/pressure 04/2013 Respiratory productive sputum 05/28/2013 Respiratory chest congestion 05/28/2013 Respiratory cough 05/28/2013 Gastrointestinal No abdominal pain 2012 Gastrointestinal No constipation 2012 Gastrointestinal No diarrhea 05/28/2013 Gastrointestinal No nausea 05/28/2013 Gastrointestinal No vomiting 05/28/2013 Genitourinary/Nephrology No dysuria 05/28 Musculoskeletal No joint complaint 2012 Dermatologic No rash 05/28/2013 Dermatologic No sores 05/28/2013 Constitutional recent illness 02/18/2013 Constitutional No anorexia 02/18/2013 Constitutional No night sweats 2012 Constitutional No chills 02/18/2013 Constitutional No diaphoresis 02/18/2013 Constitutional No fatigue 02/18/2013 Constitutional No fever 02/18/2013 Constitutional No insomnia 02/18/2013 Constitutional No malaise 02/18/2013 Eyes No eye discharge 02/18/2013 Eyes No eye erythema 02/18/2013 Cardiovascular No chest pain/pressure Respiratory No productive sputum 2012 Respiratory No chest congestion 2012 Respiratory No cough 02/18/2013 Gastrointestinal No abdominal pain 2012 Gastrointestinal No constipation 2012 Gastrointestinal No diarrhea 02/18/2013 Gastrointestinal No vomiting 02/18/2013 Gastrointestinal No nausea 02/18/2013 Genitourinary/Nephrology No dysuria 02/18 Musculoskeletal No joint complaint 2012 Dermatologic No sores 02/18/2013 Dermatologic No rash 02/18/2013 Constitutional No recent illness 2012 Constitutional No chills 12/17/2012 Constitutional No diaphoresis 12/17/2012 Constitutional No fever 12/17/2012 Eyes No eye discharge 12/17/2012 Eyes No eye erythema 12/17/2012 Ears/Nose/Throat/Neck No dizziness 2012 Ears/Nose/Throat/Neck No sinus congestion 12/17/2012 Ears/Nose/Throat/Neck No sore throat Cardiovascular No chest pain/pressure Respiratory No cough 12/17/2012 Respiratory No dyspnea 12/17/2012 Gastrointestinal No anorexia 12/17/2012 Gastrointestinal No constipation 2012 Gastrointestinal No diarrhea 12/17/2012 Gastrointestinal No vomiting 12/17/2012 Genitourinary/Nephrology No dysuria 12/17 Musculoskeletal No joint complaint 2012 Dermatologic No rash 12/17/2012 Constitutional recent illness 05/21/2012 Constitutional No night sweats 2011 Constitutional No anorexia 05/21/2012 Constitutional chills 05/21/2012 Constitutional diaphoresis 05/21/2012 Constitutional fatigue 05/21/2012 Constitutional No fever 05/21/2012 Constitutional No insomnia 05/21/2012 Constitutional No malaise 05/21/2012 Eyes No eye discharge 05/21/2012 Eyes No eye erythema 05/21/2012 Eyes eye tearing 05/21/2012 Cardiovascular No chest pain/pressure Respiratory No productive sputum 2011 Respiratory No chest congestion 2011 Respiratory cough 05/21/2012 Gastrointestinal No vomiting 05/21/2012 Gastrointestinal No nausea 05/21/2012 Gastrointestinal No abdominal pain 2011 Gastrointestinal No constipation 2011 Gastrointestinal No diarrhea 05/21/2012 Constitutional No recent illness 2011 Constitutional No chills 02/19/2012 Constitutional No diaphoresis 02/19/2012 Constitutional No fever 02/19/2012 Eyes No eye discharge 02/19/2012 Eyes No eye erythema 02/19/2012 Ears/Nose/Throat/Neck No dizziness 2011 Ears/Nose/Throat/Neck No sinus congestion 02/19/2012 Ears/Nose/Throat/Neck No sore throat Cardiovascular No chest pain/pressure Respiratory No cough 02/19/2012 Respiratory No dyspnea 02/19/2012 Gastrointestinal No anorexia 02/19/2012 Gastrointestinal No constipation 2011 Gastrointestinal No diarrhea 02/19/2012 Gastrointestinal No vomiting 02/19/2012 Genitourinary/Nephrology No dysuria 02/18 Musculoskeletal No joint complaint 2011 Dermatologic No rash 02/19/2012 Constitutional No fever 08/24/2011 Constitutional No chills 08/24/2011 Gastrointestinal No constipation 2010 Gastrointestinal No diarrhea 08/24/2011 Gastrointestinal No vomiting 08/24/2011 Cardiovascular No chest pain/pressure 12/2010 Constitutional No recent illness 2010 Constitutional No diaphoresis 08/24/2011 Eyes No eye discharge 08/24/2011 Eyes No eye erythema 08/24/2011 Ears/Nose/Throat/Neck No dizziness 2010 Ears/Nose/Throat/Neck No sinus congestion 08/24/2011 Ears/Nose/Throat/Neck No sore throat 12/2010 Respiratory No cough 08/24/2011 Respiratory No dyspnea 08/24/2011 Gastrointestinal gastroesophageal reflux 08/24/2011 Gastrointestinal nausea 08/24/2011 Gastrointestinal abdominal pain 2010 Gastrointestinal No anorexia 08/24/2011 Genitourinary/Nephrology No dysuria 08/24 Genitourinary/Nephrology flank pain 08/24 Dermatologic No rash 08/24/2011 Musculoskeletal No joint complaint 2010 Constitutional night sweats 07/26/2011 Constitutional No chills 07/26/2011 Eyes No vision change 07/26/2011 Gastrointestinal nausea 07/26/2011 Gastrointestinal No vomiting 07/26/2011 Gastrointestinal No constipation 2010 Gastrointestinal No diarrhea 07/26/2011 Cardiovascular No chest pain/pressure 02/2011 Cardiovascular fatigue 07/26/2011 Dermatologic No rash 07/26/2011 Psychiatric No anxiety 07/26/2011 Psychiatric No depression 07/26/2011 Constitutional No anorexia 06/16/2011 Constitutional No chills 06/16/2011 Constitutional fatigue 06/16/2011 Constitutional No fever 06/16/2011 Constitutional No insomnia 06/16/2011 Eyes No eye discharge 06/16/2011 Eyes No eye erythema 06/16/2011 Eyes No eye pain 06/16/2011 Eyes eye tearing 06/16/2011 Ears/Nose/Throat/Neck dental pain 2010 Ears/Nose/Throat/Neck facial pain 2010 Ears/Nose/Throat/Neck No facial swelling 06/16/2011 Ears/Nose/Throat/Neck headache 2010 Ears/Nose/Throat/Neck hoarseness 2010 Ears/Nose/Throat/Neck nasal allergies Ears/Nose/Throat/Neck nasal discharge Ears/Nose/Throat/Neck No neck pain 2010 Ears/Nose/Throat/Neck postnasal drip Ears/Nose/Throat/Neck sinus congestion Ears/Nose/Throat/Neck sore throat 2010 Ears/Nose/Throat/Neck No stridor 2010 Cardiovascular No chest pain/pressure Cardiovascular No dyspnea 06/16/2011 Cardiovascular No fatigue 06/16/2011 Cardiovascular No syncope 06/16/2011 Respiratory productive sputum 06/16/2011 Respiratory No chest congestion 2010 Respiratory No chest tightness 2010 Respiratory cough 06/16/2011 Respiratory No dyspnea 06/16/2011 Respiratory No dyspnea on exertion 2010 Respiratory No stridor 06/16/2011 Respiratory No wheezing 06/16/2011 Gastrointestinal No nausea 06/16/2011 Gastrointestinal No vomiting 06/16/2011 Gastrointestinal No abdominal pain 2010 Gastrointestinal No diarrhea 06/16/2011 Dermatologic No rash 06/16/2011 Physical Exam Exam Name System Name Item Name Status Result Effective Dates Notes Full Exam - Genitourinary/Female Constitutional general appearance Overall: well nourished 10/10/2017 None Full Exam - Genitourinary/Female Constitutional general appearance Overall: well developed 10/10/2017 None Full Exam - Genitourinary/Female Constitutional general appearance Overall: in no acute distress 10/10/2017 None Full Exam - Genitourinary/Female Eyes conjunctiva/eyelids Overall: conjunctiva clear 10/10/2017 None Full Exam - Genitourinary/Female Eyes pupils and irises Overall: pupils equal, round, reactive to light and accomodation 10/10/2017 None Full Exam - Genitourinary/Female Ears/Nose/Throat otoscopic exam Overall: external auditory canals clear 10/10/2017 None Full Exam - Genitourinary/Female Ears/Nose/Throat otoscopic exam Overall: tympanic membranes clear 10/10/2017 None Full Exam - Genitourinary/Female Ears/Nose/Throat oral cavity/pharynx/larynx Overall: oral mucosa clear 10/10/2017 None Full Exam - Genitourinary/Female Neck thyroid Overall: normal size 10/10/2017 None Full Exam - Genitourinary/Female Neck thyroid Overall: normal consistency 10/10/2017 None Full Exam - Genitourinary/Female Neck inspection of neck Overall: normal size 10/10/2017 None Full Exam - Genitourinary/Female Respiratory auscultation Overall: breath sounds clear bilaterally 10/10/2017 None Full Exam - Genitourinary/Female Respiratory respiratory effort/rhythm Overall: no retractions 10/10/2017 None Full Exam - Genitourinary/Female Respiratory respiratory effort/rhythm Overall: normal rate 10/10/2017 None Full Exam - Genitourinary/Female Cardiovascular auscultation of heart Overall: regular rate 10/10/2017 None Full Exam - Genitourinary/Female Cardiovascular auscultation of heart Overall: normal heart sounds 10/10/2017 None Full Exam - Genitourinary/Female Cardiovascular auscultation of heart Overall: no murmurs 10/10/2017 None Full Exam - Genitourinary/Female Abdomen abdominal exam Overall: non tender, non distended 10/10/2017 None Full Exam - Genitourinary/Female Abdomen abdominal exam Overall: normal bowel sounds 10/10/2017 None Full Exam - Genitourinary/Female Abdomen abdominal exam Overall: no mass lesions 10/10/2017 None Full Exam - Genitourinary/Female Lymphatic inspection and palpation of nodes Overall: anterior cervical chain benign 10/10/2017 None Full Exam - Genitourinary/Female Lymphatic inspection and palpation of nodes Overall: posterior cervical chain benign 10/10/2017 None Full Exam - Genitourinary/Female Musculoskeletal head and neck Overall: head atraumatic 10/10/2017 None Full Exam - Genitourinary/Female Integument inspection and palpation of skin Overall: no rash, lesions 10/10/2017 None Full Exam - Genitourinary/Female Psychiatric orientation/consciousness Overall: oriented to person, place and time 10/10/2017 None Full Exam - Genitourinary/Female Neurologic mood and affect Overall: normal mood 10/10/2017 None Full Exam - Genitourinary/Female Neurologic mood and affect Overall: normal affect 10/10/2017 None Full Exam - General 1994 Constitutional general appearance Overall: well developed 09/20/2017 None Full Exam - General 1994 Constitutional general appearance Overall: well nourished 09/20/2017 None Full Exam - General 1994 Constitutional general appearance Evidence of Distress: mild distress 09/20/2017 None Full Exam - General 1994 Constitutional general appearance Evidence of Distress: anxious 09/20/2017 None Full Exam - General 1994 Constitutional general appearance Evidence of Distress: tearful 09/20/2017 None Full Exam - General 1994 Eyes conjunctiva /eyelids Overall: conjunctiva clear 09/20/2017 None Full Exam - General 1994 Eyes conjunctiva /eyelids Overall: cornea clear 09/20/2017 None Full Exam - General 1994 Eyes conjunctiva /eyelids Overall: eyelids normal 09/20/2017 None Full Exam - General 1994 Ears/Nose/Throat otoscopic exam Overall: tympanic membranes clear 09/20/2017 None Full Exam - General 1994 Ears/Nose/Throat otoscopic exam Overall: external auditory canals clear 09/20/2017 None Full Exam - General 1994 Ears/Nose/Throat lips/teeth/gingiva Overall: benign lips 09/20/2017 None Full Exam - General 1994 Ears/Nose/Throat oral cavity/pharynx/larynx Overall: oral mucosa clear 09/20/2017 None Full Exam - General 1994 Ears/Nose/Throat oral cavity/pharynx/larynx Overall: oropharyngeal mucosa clear 09/20/2017 None Full Exam - General 1994 Respiratory respiratory effort/rhythm Overall: no retractions 09/20/2017 None Full Exam - General 1994 Respiratory respiratory effort/rhythm Overall: normal rate 09/20/2017 None Full Exam - General 1994 Respiratory auscultation Overall: breath sounds clear bilaterally 09/20/2017 None Full Exam - General 1994 Cardiovascular auscultation of heart Overall: regular rate 09/20/2017 None Full Exam - General 1994 Cardiovascular auscultation of heart Overall: normal heart sounds 09/20/2017 None Full Exam - General 1994 Lymphatic neck nodes Overall: posterior cervical chain benign 09/20/2017 None Full Exam - General 1994 Lymphatic neck nodes Overall: anterior cervical chain benign 09/20/2017 None Full Exam - General 1994 Musculoskeletal head and neck Overall: head atraumatic 09/20/2017 None Full Exam - General 1994 Musculoskeletal gait and station Overall: normal station 09/20/2017 None Full Exam - General 1994 Musculoskeletal gait and station Overall: normal gait 09/20/2017 None Full Exam - General 1994 Neurologic cranial nerves Overall: crainial nerves 2 - 12 grossly intact 09/20/2017 None Full Exam - General 1994 Psychiatric orientation/consciousness Overall: oriented to person, place and time 09/20/2017 None Full Exam - General 1994 Psychiatric appearance Overall: well-groomed, good eye contact 09/20/2017 None Full Exam - General 1994 Psychiatric mood and affect Mood: depressed 09/20/2017 None Full Exam - ENT Constitutional general appearance Overall: well nourished 07/13/2017 None Full Exam - ENT Constitutional general appearance Overall: well developed 07/13/2017 None Full Exam - ENT Constitutional general appearance Overall: in no acute distress 07/13/2017 None Full Exam - ENT Ears/Nose/Throat otoscopic exam Overall: external auditory canals normal 07/13/2017 None Full Exam - ENT Ears/Nose/Throat lips/ teeth/gingiva Overall: benign lips 07/13/2017 None Full Exam - ENT Ears/Nose/Throat oropharynx Overall: oral mucosa clear 07/13/2017 None Full Exam - ENT Ears/Nose/Throat oropharynx Posterior Pharynx: clear post nasal drainage 07/13/2017 None Full Exam - ENT Ears/Nose/Throat oropharynx Posterior Pharynx: erythema 07/13/2017 None Full Exam - ENT Respiratory inspection Overall: no retractions 07/13/2017 None Full Exam - ENT Respiratory inspection Overall: normal rate None Full Exam - ENT Respiratory auscultation Overall: breath sounds clear bilaterally 07/13/2017 None Full Exam - ENT Cardiovascular auscultation of heart Rate: normal rate 07/13/2017 None Full Exam - ENT Cardiovascular auscultation of heart Rhythm: regular rhythm 07/13/2017 None Full Exam - ENT Lymphatic palpation of lymph nodes Overall: anterior cervical chain benign 07/13/2017 None Full Exam - ENT Lymphatic palpation of lymph nodes Overall: posterior cervical chain benign 07/13/2017 None Full Exam - ENT Neurologic mood and affect Overall: normal mood 07/13/2017 None Full Exam - ENT Neurologic mood and affect Overall: normal affect 07/13/2017 None Full Exam - ENT Neurologic orientation Overall: oriented to person, place and time 07/13/2017 None Full Exam - ENT Ears/Nose/Throat otoscopic exam Right tympanic membrane: bulging 07/13/2017 None Full Exam - ENT Ears/Nose/Throat otoscopic exam Right tympanic membrane: erythematous 07/13/2017 None Full Exam - ENT Ears/Nose/Throat otoscopic exam Left tympanic membrane: bulging 07/13/2017 None Full Exam - ENT Ears/Nose/Throat otoscopic exam Left tympanic membrane: erythematous 07/13/2017 None Full Exam - General 1994 Constitutional general appearance Overall: well developed 06/20/2017 None Full Exam - General 1994 Constitutional general appearance Overall: in no acute distress 06/20/2017 None Full Exam - General 1994 Constitutional general appearance Overall: well nourished 06/20/2017 None Full Exam - General 1994 Eyes conjunctiva /eyelids Overall: conjunctiva clear 06/20/2017 None Full Exam - General 1994 Eyes pupils and irises Overall: pupils equal, round, reactive to light and accomodation 06/20/2017 None Full Exam - General 1994 Ears/Nose/Throat lips/teeth/gingiva Overall: benign lips 06/20/2017 None Full Exam - General 1994 Ears/Nose/Throat oral cavity/pharynx/larynx Overall: oral mucosa clear 06/20/2017 None Full Exam - General 1994 Neck inspection of neck Appearance: surgical scarring 06/20/2017 None Full Exam - General 1994 Respiratory auscultation Overall: breath sounds clear bilaterally 06/20/2017 None Full Exam - General 1994 Respiratory respiratory effort/rhythm Overall: no retractions 06/20/2017 None Full Exam - General 1994 Respiratory respiratory effort/rhythm Overall: normal rate 06/20/2017 None Full Exam - General 1994 Cardiovascular auscultation of heart Overall: regular rate 06/20/2017 None Full Exam - General 1994 Cardiovascular auscultation of heart Overall: normal heart sounds 06/20/2017 None Full Exam - General 1994 Musculoskeletal gait and station Overall: normal gait 06/20/2017 None Full Exam - General 1994 Musculoskeletal gait and station Overall: normal station 06/20/2017 None Full Exam - General 1994 Musculoskeletal head and neck Overall: head atraumatic 06/20/2017 None Full Exam - General 1994 Neurologic cranial nerves Overall: crainial nerves 2 - 12 grossly intact 06/20/2017 None Full Exam - General 1994 Psychiatric orientation/consciousness Overall: oriented to person, place and time 06/20/2017 None Full Exam - General 1994 Psychiatric mood and affect Overall: normal mood and affect 06/20/2017 None Full Exam - General 1994 Psychiatric appearance Overall: well-groomed, good eye contact 06/20/2017 None Full Exam - General 1994 Eyes conjunctiva /eyelids Overall: eyelids normal 06/20/2017 None Full Exam - General 1994 Ears/Nose/Throat otoscopic exam Overall: tympanic membranes clear 06/20/2017 None Full Exam - General 1994 Ears/Nose/Throat otoscopic exam Overall: external auditory canals clear 06/20/2017 None Full Exam - General 1994 Ears/Nose/Throat oral cavity/pharynx/larynx Overall: oropharyngeal mucosa clear 06/20/2017 None Full Exam - General 1994 Constitutional general appearance Overall: well developed 05/31/2017 None Full Exam - General 1994 Constitutional general appearance Overall: in no acute distress 05/31/2017 None Full Exam - General 1994 Constitutional general appearance Overall: well nourished 05/31/2017 None Full Exam - General 1994 Eyes conjunctiva /eyelids Overall: conjunctiva clear 05/31/2017 None Full Exam - General 1994 Eyes pupils and irises Overall: pupils equal, round, reactive to light and accomodation 05/31/2017 None Full Exam - General 1994 Respiratory auscultation Overall: breath sounds clear bilaterally 05/31/2017 None Full Exam - General 1994 Respiratory respiratory effort/rhythm Overall: no retractions 05/31/2017 None Full Exam - General 1994 Respiratory respiratory effort/rhythm Overall: normal rate 05/31/2017 None Full Exam - General 1994 Cardiovascular auscultation of heart Overall: regular rate 05/31/2017 None Full Exam - General 1994 Cardiovascular auscultation of heart Overall: normal heart sounds 05/31/2017 None Full Exam - General 1994 Cardiovascular auscultation of heart Overall: no murmurs 05/31/2017 None Full Exam - General 1994 Abdomen abdominal exam Overall: no tenderness 05/31/2017 None Full Exam - General 1994 Abdomen abdominal exam Overall: normal bowel sounds 05/31/2017 None Full Exam - General 1994 Psychiatric orientation/consciousness Overall: oriented to person, place and time 05/31/2017 None Full Exam - General 1994 Psychiatric mood and affect Overall: normal mood and affect 05/31/2017 None Full Exam - General 1994 Psychiatric appearance Overall: well-groomed, good eye contact 05/31/2017 None Full Exam - General 1994 Ears/Nose/Throat lips/teeth/gingiva Overall: benign lips 05/31/2017 None Full Exam - General 1994 Ears/Nose/Throat oral cavity/pharynx/larynx Overall: oral mucosa clear 05/31/2017 None Full Exam - General 1994 Ears/Nose/Throat oral cavity/pharynx/larynx Oral mucosa: a normal exam 05/31/2017 None Full Exam - General 1994 Musculoskeletal spine, ribs and pelvis Spine: tender @ lumbar spine 05/31/2017 , sacrum and coccyx Full Exam - General 1994 Musculoskeletal gait and station Overall: normal gait 05/31/2017 None Full Exam - General 1994 Musculoskeletal gait and station Overall: normal station 05/31/2017 None Full Exam - General 1994 Musculoskeletal head and neck Overall: head atraumatic 05/31/2017 None Full Exam - General 1994 Integument inspection of skin Overall: no rash, lesions 05/31/2017 None Full Exam - General 1994 Neurologic cranial nerves Overall: crainial nerves 2 - 12 grossly intact 05/31/2017 None Full Exam - General 1994 Neck inspection of neck Appearance: surgical scarring 05/31/2017 None Full Exam - General 1994 Constitutional general appearance Overall: well developed 04/18/2017 None Full Exam - General 1994 Constitutional general appearance Overall: in no acute distress 04/18/2017 None Full Exam - General 1994 Constitutional general appearance Overall: well nourished 04/18/2017 None Full Exam - General 1994 Eyes conjunctiva /eyelids Overall: conjunctiva clear 04/18/2017 None Full Exam - General 1994 Eyes pupils and irises Overall: pupils equal, round, reactive to light and accomodation 04/18/2017 None Full Exam - General 1994 Respiratory auscultation Overall: breath sounds clear bilaterally 04/18/2017 None Full Exam - General 1994 Respiratory respiratory effort/rhythm Overall: no retractions 04/18/2017 None Full Exam - General 1994 Respiratory respiratory effort/rhythm Overall: normal rate 04/18/2017 None Full Exam - General 1994 Cardiovascular auscultation of heart Overall: regular rate 04/18/2017 None Full Exam - General 1994 Cardiovascular auscultation of heart Overall: normal heart sounds 04/18/2017 None Full Exam - General 1994 Cardiovascular auscultation of heart Overall: no murmurs 04/18/2017 None Full Exam - General 1994 Abdomen abdominal exam Overall: no tenderness 04/18/2017 None Full Exam - General 1994 Abdomen abdominal exam Overall: normal bowel sounds 04/18/2017 None Full Exam - General 1994 Psychiatric orientation/consciousness Overall: oriented to person, place and time 04/18/2017 None Full Exam - General 1994 Psychiatric mood and affect Overall: normal mood and affect 04/18/2017 None Full Exam - General 1994 Psychiatric appearance Overall: well-groomed, good eye contact 04/18/2017 None Full Exam - General 1994 Constitutional general appearance Overall: well developed 03/21/2017 None Full Exam - General 1994 Constitutional general appearance Overall: in no acute distress 03/21/2017 None Full Exam - General 1994 Constitutional general appearance Overall: well nourished 03/21/2017 None Full Exam - General 1994 Eyes conjunctiva /eyelids Overall: conjunctiva clear 03/21/2017 None Full Exam - General 1994 Ears/Nose/Throat lips/teeth/gingiva Overall: benign lips 03/21/2017 None Full Exam - General 1994 Ears/Nose/Throat oral cavity/pharynx/larynx Overall: oral mucosa clear 03/21/2017 None Full Exam - General 1994 Respiratory auscultation Overall: breath sounds clear bilaterally 03/21/2017 None Full Exam - General 1994 Respiratory respiratory effort/rhythm Overall: no retractions 03/21/2017 None Full Exam - General 1994 Respiratory respiratory effort/rhythm Overall: normal rate 03/21/2017 None Full Exam - General 1994 Cardiovascular auscultation of heart Overall: regular rate 03/21/2017 None Full Exam - General 1994 Cardiovascular auscultation of heart Overall: normal heart sounds 03/21/2017 None Full Exam - General 1994 Musculoskeletal spine, ribs and pelvis Spine: tender @ lumbar spine 03/21/2017 , sacrum and coccyx Full Exam - General 1994 Musculoskeletal gait and station Overall: normal gait 03/21/2017 None Full Exam - General 1994 Musculoskeletal gait and station Overall: normal station 03/21/2017 None Full Exam - General 1994 Musculoskeletal head and neck Overall: head atraumatic 03/21/2017 None Full Exam - General 1994 Integument inspection of skin Overall: no rash, lesions 03/21/2017 None Full Exam - General 1994 Neurologic cranial nerves Overall: crainial nerves 2 - 12 grossly intact 03/21/2017 None Full Exam - General 1994 Psychiatric orientation/consciousness Overall: oriented to person, place and time 03/21/2017 None Full Exam - General 1994 Psychiatric mood and affect Overall: normal mood and affect 03/21/2017 None Full Exam - General 1994 Psychiatric appearance Overall: well-groomed, good eye contact 03/21/2017 None Full Exam - General 1994 Eyes pupils and irises Overall: pupils equal, round, reactive to light and accomodation 03/21/2017 None Full Exam - General 1994 Ears/Nose/Throat oral cavity/pharynx/larynx Oral mucosa: a normal exam 03/21/2017 None Full Exam - General 1994 Neck inspection of neck Appearance: surgical scarring 03/21/2017 None Full Exam - General 1994 Cardiovascular auscultation of heart Overall: no murmurs 03/21/2017 None Full Exam - General 1994 Abdomen abdominal exam Overall: no tenderness 03/21/2017 None Full Exam - General 1994 Abdomen abdominal exam Overall: normal bowel sounds 03/21/2017 None Full Exam - Dermatology Constitutional general appearance Overall: well nourished 11/20/2016 None Full Exam - Dermatology Constitutional general appearance Overall: well developed 11/20/2016 None Full Exam - Dermatology Constitutional general appearance Overall: in no acute distress 11/20/2016 None Full Exam - Dermatology Constitutional general appearance Overall: of normal body habitus 11/20/2016 None Full Exam - Dermatology Constitutional general appearance Overall: well groomed 11/20/2016 None Full Exam - Dermatology Psychiatric orientation Overall: oriented to person, place and time 11/20/2016 None Full Exam - Dermatology Integument insp & palp - genitalia/groin/buttocks Lesion: cyst 11/20/2016 None Full Exam - Dermatology Integument insp & palp - genitalia/groin/buttocks Distribution: localized 11/20/2016 None Full Exam - Dermatology Integument insp & palp - genitalia/groin/buttocks Location: on the right buttock 11/20/2016 None Full Exam - Dermatology Integument insp & palp - genitalia/groin/buttocks Color: erythematous 11/20/2016 None Full Exam - Dermatology Integument insp & palp - genitalia/groin/buttocks Shape: round 11/20/2016 None Full Exam - Dermatology Integument insp & palp - genitalia/groin/buttocks Number: one 11/20/2016 None Full Exam - Dermatology Integument insp & palp - genitalia/groin/buttocks Length: less than 5mm 11/20/2016 None Full Exam - General 1994 Constitutional general appearance Overall: well developed 07/31/2016 None Full Exam - General 1994 Constitutional general appearance Overall: in no acute distress 07/31/2016 None Full Exam - General 1994 Constitutional general appearance Overall: well nourished 07/31/2016 None Full Exam - General 1994 Respiratory respiratory effort/rhythm Overall: no retractions 07/31/2016 None Full Exam - General 1994 Respiratory respiratory effort/rhythm Overall: normal rate 07/31/2016 None Full Exam - General 1994 Cardiovascular auscultation of heart Overall: regular rate 07/31/2016 None Full Exam - General 1994 Cardiovascular auscultation of heart Overall: normal heart sounds 07/31/2016 None Full Exam - General 1994 Integument inspection of skin Overall: no rash, lesions 07/31/2016 None Full Exam - General 1994 Neurologic cranial nerves Overall: crainial nerves 2 - 12 grossly intact 07/31/2016 None Full Exam - General 1994 Psychiatric orientation/consciousness Overall: oriented to person, place and time 07/31/2016 None Full Exam - General 1994 Psychiatric mood and affect Overall: normal mood and affect 07/31/2016 None Full Exam - General 1994 Eyes conjunctiva /eyelids Overall: conjunctiva clear 07/31/2016 None Full Exam - General 1994 Ears/Nose/Throat oral cavity/pharynx/larynx Overall: oral mucosa clear 07/31/2016 None Full Exam - General 1994 Ears/Nose/Throat lips/teeth/gingiva Overall: benign lips 07/31/2016 None Full Exam - General 1994 Respiratory auscultation Overall: breath sounds clear bilaterally 07/31/2016 None Full Exam - General 1994 Musculoskeletal spine, ribs and pelvis Spine: tender @ lumbar spine 07/31/2016 , sacrum and coccyx Full Exam - General 1994 Musculoskeletal gait and station Overall: normal gait 07/31/2016 None Full Exam - General 1994 Musculoskeletal gait and station Overall: normal station 07/31/2016 None Full Exam - General 1994 Musculoskeletal head and neck Overall: head atraumatic 07/31/2016 None Full Exam - General 1994 Psychiatric appearance Overall: well-groomed, good eye contact 07/31/2016 None Full Exam - Genitourinary/Female Constitutional general appearance Overall: well nourished 05/03/2016 None Full Exam - Genitourinary/Female Constitutional general appearance Overall: well developed 05/03/2016 None Full Exam - Genitourinary/Female Constitutional general appearance Overall: in no acute distress 05/03/2016 None Full Exam - Genitourinary/Female Eyes conjunctiva/eyelids Overall: conjunctiva clear 05/03/2016 None Full Exam - Genitourinary/Female Eyes pupils and irises Overall: pupils equal, round, reactive to light and accomodation 05/03/2016 None Full Exam - Genitourinary/Female Ears/Nose/Throat otoscopic exam Overall: external auditory canals clear 05/03/2016 None Full Exam - Genitourinary/Female Ears/Nose/Throat otoscopic exam Overall: tympanic membranes clear 05/03/2016 None Full Exam - Genitourinary/Female Ears/Nose/Throat oral cavity/pharynx/larynx Overall: oral mucosa clear 05/03/2016 None Full Exam - Genitourinary/Female Neck thyroid Overall: normal size 05/03/2016 None Full Exam - Genitourinary/Female Neck thyroid Overall: normal consistency 05/03/2016 None Full Exam - Genitourinary/Female Neck inspection of neck Overall: normal size 05/03/2016 None Full Exam - Genitourinary/Female Respiratory auscultation Overall: breath sounds clear bilaterally 05/03/2016 None Full Exam - Genitourinary/Female Respiratory respiratory effort/rhythm Overall: no retractions 05/03/2016 None Full Exam - Genitourinary/Female Respiratory respiratory effort/rhythm Overall: normal rate 05/03/2016 None Full Exam - Genitourinary/Female Cardiovascular auscultation of heart Overall: regular rate 05/03/2016 None Full Exam - Genitourinary/Female Cardiovascular auscultation of heart Overall: normal heart sounds 05/03/2016 None Full Exam - Genitourinary/Female Cardiovascular auscultation of heart Overall: no murmurs 05/03/2016 None Full Exam - Genitourinary/Female Chest/Breast breast inspection and palpation Overall: normal chest shape 05/03/2016 None Full Exam - Genitourinary/Female Chest/Breast breast inspection and palpation Skin appearance: a normal exam 05/03/2016 None Full Exam - Genitourinary/Female Chest/Breast breast inspection and palpation Breast symmetry: symmetric 05/03/2016 but right nipple retracted, left normal (per patient right nipple has "always" been retracted) Full Exam - Genitourinary/Female Chest/Breast breast inspection and palpation Left axillae: no mass 05/03/2016 None Full Exam - Genitourinary/Female Chest/Breast breast inspection and palpation Right axillae: mass present 05/03/2016 in axilla/lateral right breast 1 x 2 cm nodule, somewhat cyst-like but a little firmer than a cyst, at about 9oclock position. Full Exam - Genitourinary/Female Abdomen abdominal exam Overall: non tender, non distended 05/03/2016 None Full Exam - Genitourinary/Female Abdomen abdominal exam Overall: normal bowel sounds 05/03/2016 None Full Exam - Genitourinary/Female Abdomen abdominal exam Overall: no mass lesions 05/03/2016 None Full Exam - Genitourinary/Female Genitourinary breast inspection & palpation Overall: no nipple discharge 05/03/2016 None Full Exam - Genitourinary/Female Genitourinary external genitalia Overall: normal hair distribution 05/03/2016 None Full Exam - Genitourinary/Female Genitourinary external genitalia Overall: no discharge 05/03/2016 None Full Exam - Genitourinary/Female Genitourinary external genitalia Overall: no lesions 05/03/2016 None Full Exam - Genitourinary/Female Genitourinary urethral meatus Overall: normal size and location 05/03/2016 None Full Exam - Genitourinary/Female Genitourinary urethra Overall: no masses 05/03/2016 None Full Exam - Genitourinary/Female Genitourinary urethra Overall: no tenderness 05/03/2016 None Full Exam - Genitourinary/Female Genitourinary bladder Overall: no tenderness 05/03/2016 None Full Exam - Genitourinary/Female Genitourinary bladder Overall: no mass lesions 05/03/2016 None Full Exam - Genitourinary/Female Genitourinary vagina Overall: no lesions 05/03/2016 None Full Exam - Genitourinary/Female Genitourinary vagina Overall: normal tone 05/03/2016 None Full Exam - Genitourinary/Female Genitourinary vagina Overall: normal pelvic support 05/03/2016 None Full Exam - Genitourinary/Female Genitourinary vagina Introitus: normal appearance 05/03/2016 None Full Exam - Genitourinary/Female Genitourinary cervix Inspection: parous os 05/03/2016 None Full Exam - Genitourinary/Female Genitourinary cervix Inspection: inflamed 05/03/2016 None Full Exam - Genitourinary/Female Genitourinary cervix Inspection: friable 05/03/2016 None Full Exam - Genitourinary/Female Genitourinary uterus Overall: normal size 05/03/2016 None Full Exam - Genitourinary/Female Genitourinary uterus Overall: normal contour 05/03/2016 None Full Exam - Genitourinary/Female Genitourinary uterus Overall: normal shape 05/03/2016 None Full Exam - Genitourinary/Female Genitourinary uterus Overall: normal mobility 05/03/2016 None Full Exam - Genitourinary/Female Genitourinary uterus Overall: non tender 05/03/2016 None Full Exam - Genitourinary/Female Genitourinary uterus Overall: no mass 05/03/2016 None Full Exam - Genitourinary/Female Genitourinary adnexa/parametria Overall: no tenderness 05/03/2016 None Full Exam - Genitourinary/Female Genitourinary adnexa/parametria Overall: no enlargement 05/03/2016 None Full Exam - Genitourinary/Female Lymphatic inspection and palpation of nodes Overall: anterior cervical chain benign 05/03/2016 None Full Exam - Genitourinary/Female Lymphatic inspection and palpation of nodes Overall: posterior cervical chain benign 05/03/2016 None Full Exam - Genitourinary/Female Musculoskeletal head and neck Overall: head atraumatic 05/03/2016 None Full Exam - Genitourinary/Female Integument inspection and palpation of skin Overall: no rash, lesions 05/03/2016 None Full Exam - Genitourinary/Female Integument inspection and palpation of skin Overall: no induration, no tenderness 05/03/2016 None Full Exam - Genitourinary/Female Neurologic mood and affect Overall: normal mood 05/03/2016 None Full Exam - Genitourinary/Female Neurologic mood and affect Overall: normal affect 05/03/2016 None Full Exam - Genitourinary/Female Psychiatric orientation/consciousness Overall: oriented to person, place and time 05/03/2016 None Full Exam - Genitourinary/Female Genitourinary vagina Vaginal discharge: yellow 05/03/2016 None Full Exam - General 1994 Constitutional general appearance Overall: well developed 08/26/2015 None Full Exam - General 1994 Constitutional general appearance Overall: in no acute distress 08/26/2015 None Full Exam - General 1994 Constitutional general appearance Overall: well nourished 08/26/2015 None Full Exam - General 1994 Eyes pupils and irises Overall: pupils equal, round, reactive to light and accomodation 08/26/2015 None Full Exam - General 1994 Ears/Nose/Throat otoscopic exam Overall: external auditory canals clear 08/26/2015 None Full Exam - General 1994 Ears/Nose/Throat otoscopic exam Tympanic membrane: air- fluid level 08/26/2015 None Full Exam - General 1994 Ears/Nose/Throat internal nose Sinus tenderness: left frontal 08/26/2015 None Full Exam - General 1994 Ears/Nose/Throat internal nose Sinus tenderness: right frontal 08/26/2015 None Full Exam - General 1994 Ears/Nose/Throat internal nose Sinus tenderness: left maxillary 08/26/2015 None Full Exam - General 1994 Ears/Nose/Throat internal nose Sinus tenderness: right maxillary 08/26/2015 None Full Exam - General 1994 Ears/Nose/Throat oral cavity/pharynx/larynx Tonsil: enlarged 08/26/2015 None Full Exam - General 1994 Ears/Nose/Throat oral cavity/pharynx/larynx Tonsil: erythematous 08/26/2015 None Full Exam - General 1994 Ears/Nose/Throat oral cavity/pharynx/larynx Oropharynx: erythema 08/26/2015 None Full Exam - General 1994 Respiratory respiratory effort/rhythm Overall: no retractions 08/26/2015 None Full Exam - General 1994 Respiratory respiratory effort/rhythm Overall: normal rate 08/26/2015 None Full Exam - General 1994 Cardiovascular auscultation of heart Overall: regular rate 08/26/2015 None Full Exam - General 1994 Cardiovascular auscultation of heart Overall: normal heart sounds 08/26/2015 None Full Exam - General 1994 Cardiovascular auscultation of heart Overall: no murmurs 08/26/2015 None Full Exam - General 1994 Abdomen abdominal exam Overall: no tenderness 08/26/2015 None Full Exam - General 1994 Abdomen abdominal exam Overall: normal bowel sounds 08/26/2015 None Full Exam - General 1994 Integument inspection of skin Overall: no rash, lesions 08/26/2015 None Full Exam - General 1994 Neurologic cranial nerves Overall: crainial nerves 2 - 12 grossly intact 08/26/2015 None Full Exam - General 1994 Psychiatric orientation/consciousness Overall: oriented to person, place and time 08/26/2015 None Full Exam - General 1994 Psychiatric mood and affect Overall: normal mood and affect 08/26/2015 None Full Exam - General 1994 Respiratory auscultation Lower lung field: diminished 08/26/2015 None Full Exam - General 1994 Respiratory auscultation Lower lung field: expiratory wheezes 08/26/2015 None Full Exam - General 1994 Constitutional general appearance Overall: well developed 08/20/2015 None Full Exam - General 1994 Constitutional general appearance Overall: in no acute distress 08/20/2015 None Full Exam - General 1994 Constitutional general appearance Overall: well nourished 08/20/2015 None Full Exam - General 1994 Eyes pupils and irises Overall: pupils equal, round, reactive to light and accomodation 08/20/2015 None Full Exam - General 1994 Respiratory auscultation Overall: breath sounds clear bilaterally 08/20/2015 None Full Exam - General 1994 Respiratory respiratory effort/rhythm Overall: no retractions 08/20/2015 None Full Exam - General 1994 Respiratory respiratory effort/rhythm Overall: normal rate 08/20/2015 None Full Exam - General 1994 Cardiovascular auscultation of heart Overall: regular rate 08/20/2015 None Full Exam - General 1994 Cardiovascular auscultation of heart Overall: normal heart sounds 08/20/2015 None Full Exam - General 1994 Cardiovascular auscultation of heart Overall: no murmurs 08/20/2015 None Full Exam - General 1994 Abdomen abdominal exam Overall: no tenderness 08/20/2015 None Full Exam - General 1994 Abdomen abdominal exam Overall: normal bowel sounds 08/20/2015 None Full Exam - General 1994 Psychiatric orientation/consciousness Overall: oriented to person, place and time 08/20/2015 None Full Exam - General 1994 Psychiatric mood and affect Overall: normal mood and affect 08/20/2015 None Full Exam - General 1994 Ears/Nose/Throat otoscopic exam Overall: external auditory canals clear 08/20/2015 None Full Exam - General 1994 Ears/Nose/Throat otoscopic exam Tympanic membrane: air- fluid level 08/20/2015 None Full Exam - General 1994 Ears/Nose/Throat internal nose Sinus tenderness: left frontal 08/20/2015 None Full Exam - General 1994 Ears/Nose/Throat internal nose Sinus tenderness: right frontal 08/20/2015 None Full Exam - General 1994 Ears/Nose/Throat internal nose Sinus tenderness: left maxillary 08/20/2015 None Full Exam - General 1994 Ears/Nose/Throat internal nose Sinus tenderness: right maxillary 08/20/2015 None Full Exam - General 1994 Ears/Nose/Throat oral cavity/pharynx/larynx Oropharynx: erythema 08/20/2015 None Full Exam - General 1994 Ears/Nose/Throat oral cavity/pharynx/larynx Tonsil: enlarged 08/20/2015 None Full Exam - General 1994 Ears/Nose/Throat oral cavity/pharynx/larynx Tonsil: erythematous 08/20/2015 None Full Exam - General 1994 Integument inspection of skin Overall: no rash, lesions 08/20/2015 None Full Exam - General 1994 Neurologic cranial nerves Overall: crainial nerves 2 - 12 grossly intact 08/20/2015 None Full Exam - Genitourinary/Female Constitutional general appearance Overall: well nourished 03/18/2015 None Full Exam - Genitourinary/Female Constitutional general appearance Overall: well developed 03/18/2015 None Full Exam - Genitourinary/Female Constitutional general appearance Overall: in no acute distress 03/18/2015 None Full Exam - Genitourinary/Female Eyes conjunctiva/eyelids Overall: conjunctiva clear 03/18/2015 None Full Exam - Genitourinary/Female Eyes pupils and irises Overall: pupils equal, round, reactive to light and accomodation 03/18/2015 None Full Exam - Genitourinary/Female Ears/Nose/Throat otoscopic exam Overall: external auditory canals clear 03/18/2015 None Full Exam - Genitourinary/Female Ears/Nose/Throat otoscopic exam Overall: tympanic membranes clear 03/18/2015 None Full Exam - Genitourinary/Female Ears/Nose/Throat oral cavity/pharynx/larynx Overall: oral mucosa clear 03/18/2015 None Full Exam - Genitourinary/Female Neck thyroid Overall: normal size 03/18/2015 None Full Exam - Genitourinary/Female Neck thyroid Overall: normal consistency 03/18/2015 None Full Exam - Genitourinary/Female Neck inspection of neck Overall: normal size 03/18/2015 None Full Exam - Genitourinary/Female Respiratory auscultation Overall: breath sounds clear bilaterally 03/18/2015 None Full Exam - Genitourinary/Female Respiratory respiratory effort/rhythm Overall: no retractions 03/18/2015 None Full Exam - Genitourinary/Female Respiratory respiratory effort/rhythm Overall: normal rate 03/18/2015 None Full Exam - Genitourinary/Female Cardiovascular auscultation of heart Overall: regular rate 03/18/2015 None Full Exam - Genitourinary/Female Cardiovascular auscultation of heart Overall: normal heart sounds 03/18/2015 None Full Exam - Genitourinary/Female Cardiovascular auscultation of heart Overall: no murmurs 03/18/2015 None Full Exam - Genitourinary/Female Chest/Breast breast inspection and palpation Overall: normal chest shape 03/18/2015 None Full Exam - Genitourinary/Female Chest/Breast breast inspection and palpation Skin appearance: a normal exam 03/18/2015 None Full Exam - Genitourinary/Female Chest/Breast breast inspection and palpation Breast symmetry: symmetric 03/18/2015 but right nipple retracted, left normal (per patient right nipple has "always" been retracted) Full Exam - Genitourinary/Female Chest/Breast breast inspection and palpation Left axillae: no mass 03/18/2015 None Full Exam - Genitourinary/Female Chest/Breast breast inspection and palpation Right axillae: mass present 03/18/2015 in axilla/lateral right breast 1 x 2 cm nodule, somewhat cyst-like but a little firmer than a cyst, at about 9oclock position. Full Exam - Genitourinary/Female Abdomen abdominal exam Overall: non tender, non distended 03/18/2015 None Full Exam - Genitourinary/Female Abdomen abdominal exam Overall: normal bowel sounds 03/18/2015 None Full Exam - Genitourinary/Female Abdomen abdominal exam Overall: no mass lesions 03/18/2015 None Full Exam - Genitourinary/Female Genitourinary breast inspection & palpation Overall: no nipple discharge 03/18/2015 None Full Exam - Genitourinary/Female Genitourinary external genitalia Overall: normal hair distribution 03/18/2015 None Full Exam - Genitourinary/Female Genitourinary external genitalia Overall: no discharge 03/18/2015 None Full Exam - Genitourinary/Female Genitourinary external genitalia Overall: no lesions 03/18/2015 None Full Exam - Genitourinary/Female Genitourinary urethral meatus Overall: normal size and location 03/18/2015 None Full Exam - Genitourinary/Female Genitourinary urethra Overall: no masses 03/18/2015 None Full Exam - Genitourinary/Female Genitourinary urethra Overall: no tenderness 03/18/2015 None Full Exam - Genitourinary/Female Genitourinary bladder Overall: no tenderness 03/18/2015 None Full Exam - Genitourinary/Female Genitourinary bladder Overall: no mass lesions 03/18/2015 None Full Exam - Genitourinary/Female Genitourinary vagina Overall: no discharge 03/18/2015 None Full Exam - Genitourinary/Female Genitourinary vagina Overall: no lesions 03/18/2015 None Full Exam - Genitourinary/Female Genitourinary vagina Overall: normal tone 03/18/2015 None Full Exam - Genitourinary/Female Genitourinary vagina Overall: normal pelvic support 03/18/2015 None Full Exam - Genitourinary/Female Genitourinary vagina Introitus: normal appearance 03/18/2015 None Full Exam - Genitourinary/Female Genitourinary cervix Inspection: parous os 03/18/2015 None Full Exam - Genitourinary/Female Genitourinary cervix Inspection: inflamed 03/18/2015 None Full Exam - Genitourinary/Female Genitourinary cervix Inspection: friable 03/18/2015 None Full Exam - Genitourinary/Female Genitourinary uterus Overall: normal size 03/18/2015 None Full Exam - Genitourinary/Female Genitourinary uterus Overall: normal contour 03/18/2015 None Full Exam - Genitourinary/Female Genitourinary uterus Overall: normal shape 03/18/2015 None Full Exam - Genitourinary/Female Genitourinary uterus Overall: normal mobility 03/18/2015 None Full Exam - Genitourinary/Female Genitourinary uterus Overall: non tender 03/18/2015 None Full Exam - Genitourinary/Female Genitourinary uterus Overall: no mass 03/18/2015 None Full Exam - Genitourinary/Female Genitourinary adnexa/parametria Overall: no tenderness 03/18/2015 None Full Exam - Genitourinary/Female Genitourinary adnexa/parametria Overall: no enlargement 03/18/2015 None Full Exam - Genitourinary/Female Lymphatic inspection and palpation of nodes Overall: anterior cervical chain benign 03/18/2015 None Full Exam - Genitourinary/Female Lymphatic inspection and palpation of nodes Overall: posterior cervical chain benign 03/18/2015 None Full Exam - Genitourinary/Female Musculoskeletal head and neck Overall: head atraumatic 03/18/2015 None Full Exam - Genitourinary/Female Integument inspection and palpation of skin Overall: no rash, lesions 03/18/2015 None Full Exam - Genitourinary/Female Integument inspection and palpation of skin Overall: no induration, no tenderness 03/18/2015 None Full Exam - Genitourinary/Female Neurologic mood and affect Overall: normal mood 03/18/2015 None Full Exam - Genitourinary/Female Neurologic mood and affect Overall: normal affect 03/18/2015 None Full Exam - Genitourinary/Female Psychiatric orientation/consciousness Overall: oriented to person, place and time 03/18/2015 None Full Exam - General 1994 Constitutional general appearance Overall: well developed 02/03/2015 None Full Exam - General 1994 Constitutional general appearance Overall: in no acute distress 02/03/2015 None Full Exam - General 1994 Constitutional general appearance Overall: well nourished 02/03/2015 None Full Exam - General 1994 Eyes pupils and irises Overall: pupils equal, round, reactive to light and accomodation 02/03/2015 None Full Exam - General 1994 Ears/Nose/Throat oral cavity/pharynx/larynx Oral mucosa: a normal exam 02/03/2015 None Full Exam - General 1994 Neck inspection of neck Appearance: surgical scarring 02/03/2015 None Full Exam - General 1994 Respiratory auscultation Overall: breath sounds clear bilaterally 02/03/2015 None Full Exam - General 1994 Respiratory respiratory effort/rhythm Overall: no retractions 02/03/2015 None Full Exam - General 1994 Respiratory respiratory effort/rhythm Overall: normal rate 02/03/2015 None Full Exam - General 1994 Cardiovascular auscultation of heart Overall: regular rate 02/03/2015 None Full Exam - General 1994 Cardiovascular auscultation of heart Overall: normal heart sounds 02/03/2015 None Full Exam - General 1994 Cardiovascular auscultation of heart Overall: no murmurs 02/03/2015 None Full Exam - General 1994 Psychiatric orientation/consciousness Overall: oriented to person, place and time 02/03/2015 None Full Exam - General 1994 Psychiatric mood and affect Overall: normal mood and affect 02/03/2015 None Full Exam - General 1994 Abdomen abdominal exam Overall: no tenderness 02/03/2015 None Full Exam - General 1994 Abdomen abdominal exam Overall: normal bowel sounds 02/03/2015 None Full Exam - General 1994 Constitutional general appearance Overall: well developed 12/10/2014 None Full Exam - General 1994 Constitutional general appearance Overall: in no acute distress 12/10/2014 None Full Exam - General 1994 Constitutional general appearance Overall: well nourished 12/10/2014 None Full Exam - General 1994 Eyes pupils and irises Overall: pupils equal, round, reactive to light and accomodation 12/10/2014 None Full Exam - General 1994 Ears/Nose/Throat otoscopic exam External auditory canal: a normal exam 12/10/2014 None Full Exam - General 1994 Ears/Nose/Throat oral cavity/pharynx/larynx Oral mucosa: a normal exam 12/10/2014 None Full Exam - General 1994 Respiratory auscultation Overall: breath sounds clear bilaterally 12/10/2014 None Full Exam - General 1994 Respiratory respiratory effort/rhythm Overall: no retractions 12/10/2014 None Full Exam - General 1994 Respiratory respiratory effort/rhythm Overall: normal rate 12/10/2014 None Full Exam - General 1994 Cardiovascular auscultation of heart Overall: regular rate 12/10/2014 None Full Exam - General 1994 Cardiovascular auscultation of heart Overall: normal heart sounds 12/10/2014 None Full Exam - General 1994 Cardiovascular auscultation of heart Overall: no murmurs 12/10/2014 None Full Exam - General 1994 Abdomen abdominal exam Overall: no tenderness 12/10/2014 None Full Exam - General 1994 Abdomen abdominal exam Overall: normal bowel sounds 12/10/2014 None Full Exam - General 1994 Musculoskeletal spine, ribs and pelvis Spine: a normal exam 12/10/2014 None Full Exam - General 1994 Psychiatric orientation/consciousness Overall: oriented to person, place and time 12/10/2014 None Full Exam - General 1994 Psychiatric mood and affect Overall: normal mood and affect 12/10/2014 None Full Exam - General 1994 Respiratory palpation of chest Chest wall pain: pain to deep pressure 12/10/2014 None Full Exam - General 1994 Constitutional general appearance Overall: well developed 11/12/2014 None Full Exam - General 1994 Constitutional general appearance Overall: in no acute distress 11/12/2014 None Full Exam - General 1994 Constitutional general appearance Overall: well nourished 11/12/2014 None Full Exam - General 1994 Eyes pupils and irises Overall: pupils equal, round, reactive to light and accomodation 11/12/2014 None Full Exam - General 1994 Ears/Nose/Throat otoscopic exam External auditory canal: a normal exam 11/12/2014 None Full Exam - General 1994 Ears/Nose/Throat oral cavity/pharynx/larynx Oral mucosa: a normal exam 11/12/2014 None Full Exam - General 1994 Neck inspection of neck Appearance: surgical scarring 11/12/2014 None Full Exam - General 1994 Respiratory auscultation Overall: breath sounds clear bilaterally 11/12/2014 None Full Exam - General 1994 Respiratory respiratory effort/rhythm Overall: no retractions 11/12/2014 None Full Exam - General 1994 Respiratory respiratory effort/rhythm Overall: normal rate 11/12/2014 None Full Exam - General 1994 Cardiovascular auscultation of heart Overall: regular rate 11/12/2014 None Full Exam - General 1994 Cardiovascular auscultation of heart Overall: normal heart sounds 11/12/2014 None Full Exam - General 1994 Cardiovascular auscultation of heart Overall: no murmurs 11/12/2014 None Full Exam - General 1994 Abdomen abdominal exam Overall: no tenderness 11/12/2014 None Full Exam - General 1994 Abdomen abdominal exam Overall: normal bowel sounds 11/12/2014 None Full Exam - General 1994 Musculoskeletal spine, ribs and pelvis Spine: a normal exam 11/12/2014 None Full Exam - General 1994 Psychiatric orientation/consciousness Overall: oriented to person, place and time 11/12/2014 None Full Exam - General 1994 Psychiatric mood and affect Overall: normal mood and affect 11/12/2014 None Full Exam - General 1994 Constitutional general appearance Development: appears stated age 1007/23/2014 None Full Exam - General 1994 Constitutional general appearance Development: well developed 07/23/2014 None Full Exam - General 1994 Constitutional general appearance Hygiene/Attention to Grooming: good hygiene 07/23/2014 None Full Exam - General 1994 Eyes conjunctiva /eyelids Overall: conjunctiva clear 07/23/2014 None Full Exam - General 1994 Eyes conjunctiva /eyelids Overall: cornea clear 07/23/2014 None Full Exam - General 1994 Eyes conjunctiva /eyelids Overall: eyelids normal 07/23/2014 None Full Exam - General 1994 Eyes pupils and irises Overall: pupils equal, round, reactive to light and accomodation 07/23/2014 None Full Exam - General 1994 Ears/Nose/Throat otoscopic exam Overall: external auditory canals clear 07/23/2014 None Full Exam - General 1994 Ears/Nose/Throat otoscopic exam Overall: tympanic membranes clear 07/23/2014 None Full Exam - General 1994 Ears/Nose/Throat lips/teeth/gingiva Overall: benign lips 07/23/2014 None Full Exam - General 1994 Ears/Nose/Throat lips/teeth/gingiva Overall: normal dentition 07/23/2014 None Full Exam - General 1994 Ears/Nose/Throat oral cavity/pharynx/larynx Overall: hypopharynx benign 07/23/2014 None Full Exam - General 1994 Ears/Nose/Throat oral cavity/pharynx/larynx Overall: no masses 07/23/2014 None Full Exam - General 1994 Ears/Nose/Throat oral cavity/pharynx/larynx Overall: oral mucosa clear 07/23/2014 None Full Exam - General 1994 Ears/Nose/Throat oral cavity/pharynx/larynx Overall: oropharyngeal mucosa clear 07/23/2014 None Full Exam - General 1994 Respiratory auscultation Overall: breath sounds clear bilaterally 07/23/2014 None Full Exam - General 1994 Respiratory respiratory effort/rhythm Overall: no retractions 07/23/2014 None Full Exam - General 1994 Respiratory respiratory effort/rhythm Overall: normal rate 07/23/2014 None Full Exam - General 1994 Cardiovascular extremities Overall: no clubbing 07/23/2014 None Full Exam - General 1994 Cardiovascular auscultation of heart Overall: normal heart sounds 07/23/2014 None Full Exam - General 1994 Cardiovascular auscultation of heart Overall: regular rate 07/23/2014 None Full Exam - General 1994 Abdomen abdominal exam Overall: no tenderness 07/23/2014 None Full Exam - General 1994 Abdomen abdominal exam Overall: normal bowel sounds 07/23/2014 None Full Exam - General 1994 Integument inspection of skin Overall: few scattered moles, no gross abnormalities 07/23/2014 None Full Exam - General 1994 Neurologic deep tendon reflexes Overall: deep tendon reflexes intact 07/23/2014 None Full Exam - General 1994 Neurologic cranial nerves Overall: crainial nerves 2 - 12 grossly intact 07/23/2014 None Full Exam - General 1994 Psychiatric orientation/consciousness Overall: oriented to person, place and time 07/23/2014 None Full Exam - General 1994 Psychiatric mood and affect Overall: normal mood and affect 07/23/2014 None Full Exam - ENT Constitutional general appearance Overall: well nourished 04/20/2014 None Full Exam - ENT Constitutional general appearance Overall: well developed 04/20/2014 None Full Exam - ENT Constitutional general appearance Overall: in no acute distress 04/20/2014 None Full Exam - ENT Ears/Nose/Throat otoscopic exam Overall: tympanic membranes normal 04/20/2014 None Full Exam - ENT Ears/Nose/Throat oropharynx Overall: oral mucosa clear 04/20/2014 None Full Exam - ENT Face and Head inspection of face/head Overall: no scars, lesions, masses 04/20/2014 None Full Exam - ENT Face and Head palpation Left maxillary sinus: tender 04/20/2014 None Full Exam - ENT Face and Head palpation Right maxillary sinus: tender 04/20/2014 None Full Exam - ENT Face and Head palpation Left frontal sinus: tender 04/20/2014 None Full Exam - ENT Face and Head palpation Right frontal sinus: tender 04/20/2014 None Full Exam - ENT Respiratory auscultation Overall: breath sounds clear bilaterally 04/20/2014 None Full Exam - ENT Cardiovascular auscultation of heart Overall: normal heart sounds 04/20/2014 None Full Exam - ENT Abdomen abdominal exam Overall: normal bowel sounds 04/20/2014 None Full Exam - ENT Lymphatic palpation of lymph nodes Overall: shotty lymphadenopathy 04/20/2014 None Full Exam - ENT Neurologic orientation Overall: oriented to person, place and time 04/20/2014 None Full Exam - ENT Musculoskeletal gait and station Overall: normal gait 04/20/2014 None Full Exam - ENT Musculoskeletal gait and station Overall: normal station 04/20/2014 None Full Exam - ENT Musculoskeletal spine, ribs and pelvis Posture: lordosis 04/20/2014 None Full Exam - ENT Musculoskeletal spine, ribs and pelvis Sacroiliac joints: tender left sacroiliac joint 04/20/2014 None Full Exam - ENT Musculoskeletal spine, ribs and pelvis ROM - left hip: pain with flexion 04/20/2014 None Full Exam - ENT Musculoskeletal spine, ribs and pelvis ROM - left hip: pain with abduction 04/20/2014 None Full Exam - ENT Ears/Nose/Throat oropharynx Posterior Pharynx: erythema 04/20/2014 None Full Exam - Genitourinary/Female Constitutional general appearance Overall: well nourished 03/10/2014 None Full Exam - Genitourinary/Female Constitutional general appearance Overall: well developed 03/10/2014 None Full Exam - Genitourinary/Female Constitutional general appearance Overall: in no acute distress 03/10/2014 None Full Exam - Genitourinary/Female Eyes conjunctiva/eyelids Overall: conjunctiva clear 03/10/2014 None Full Exam - Genitourinary/Female Eyes pupils and irises Overall: pupils equal, round, reactive to light and accomodation 03/10/2014 None Full Exam - Genitourinary/Female Ears/Nose/Throat otoscopic exam Overall: external auditory canals clear 03/10/2014 None Full Exam - Genitourinary/Female Ears/Nose/Throat otoscopic exam Overall: tympanic membranes clear 03/10/2014 None Full Exam - Genitourinary/Female Ears/Nose/Throat oral cavity/pharynx/larynx Overall: oral mucosa clear 03/10/2014 None Full Exam - Genitourinary/Female Neck thyroid Overall: normal size 03/10/2014 None Full Exam - Genitourinary/Female Neck thyroid Overall: normal consistency 03/10/2014 None Full Exam - Genitourinary/Female Neck inspection of neck Overall: normal size 03/10/2014 None Full Exam - Genitourinary/Female Respiratory auscultation Overall: breath sounds clear bilaterally 03/10/2014 None Full Exam - Genitourinary/Female Respiratory respiratory effort/rhythm Overall: no retractions 03/10/2014 None Full Exam - Genitourinary/Female Respiratory respiratory effort/rhythm Overall: normal rate 03/10/2014 None Full Exam - Genitourinary/Female Cardiovascular auscultation of heart Overall: regular rate 03/10/2014 None Full Exam - Genitourinary/Female Cardiovascular auscultation of heart Overall: normal heart sounds 03/10/2014 None Full Exam - Genitourinary/Female Cardiovascular auscultation of heart Overall: no murmurs 03/10/2014 None Full Exam - Genitourinary/Female Chest/Breast breast inspection and palpation Overall: normal chest shape 03/10/2014 None Full Exam - Genitourinary/Female Abdomen abdominal exam Overall: non tender, non distended 03/10/2014 None Full Exam - Genitourinary/Female Abdomen abdominal exam Overall: normal bowel sounds 03/10/2014 None Full Exam - Genitourinary/Female Abdomen abdominal exam Overall: no mass lesions 03/10/2014 None Full Exam - Genitourinary/Female Genitourinary breast inspection & palpation Overall: no nipple discharge 03/10/2014 None Full Exam - Genitourinary/Female Genitourinary external genitalia Overall: normal hair distribution 03/10/2014 None Full Exam - Genitourinary/Female Genitourinary external genitalia Overall: no discharge 03/10/2014 None Full Exam - Genitourinary/Female Genitourinary external genitalia Overall: no lesions 03/10/2014 None Full Exam - Genitourinary/Female Genitourinary bladder Overall: no tenderness 03/10/2014 None Full Exam - Genitourinary/Female Genitourinary bladder Overall: no mass lesions 03/10/2014 None Full Exam - Genitourinary/Female Genitourinary vagina Overall: no discharge 03/10/2014 None Full Exam - Genitourinary/Female Genitourinary vagina Overall: no lesions 03/10/2014 None Full Exam - Genitourinary/Female Genitourinary vagina Overall: normal tone 03/10/2014 None Full Exam - Genitourinary/Female Genitourinary vagina Overall: normal pelvic support 03/10/2014 None Full Exam - Genitourinary/Female Genitourinary vagina Introitus: normal appearance 03/10/2014 None Full Exam - Genitourinary/Female Genitourinary uterus Overall: normal size 03/10/2014 None Full Exam - Genitourinary/Female Genitourinary uterus Overall: normal contour 03/10/2014 None Full Exam - Genitourinary/Female Genitourinary uterus Overall: normal shape 03/10/2014 None Full Exam - Genitourinary/Female Genitourinary uterus Overall: normal mobility 03/10/2014 None Full Exam - Genitourinary/Female Genitourinary uterus Overall: non tender 03/10/2014 None Full Exam - Genitourinary/Female Genitourinary uterus Overall: no mass 03/10/2014 None Full Exam - Genitourinary/Female Lymphatic inspection and palpation of nodes Overall: anterior cervical chain benign 03/10/2014 None Full Exam - Genitourinary/Female Lymphatic inspection and palpation of nodes Overall: posterior cervical chain benign 03/10/2014 None Full Exam - Genitourinary/Female Musculoskeletal head and neck Overall: head atraumatic 03/10/2014 None Full Exam - Genitourinary/Female Integument inspection and palpation of skin Overall: no rash, lesions 03/10/2014 None Full Exam - Genitourinary/Female Integument inspection and palpation of skin Overall: no induration, no tenderness 03/10/2014 None Full Exam - Genitourinary/Female Neurologic mood and affect Overall: normal mood 03/10/2014 None Full Exam - Genitourinary/Female Neurologic mood and affect Overall: normal affect 03/10/2014 None Full Exam - Genitourinary/Female Psychiatric orientation/consciousness Overall: oriented to person, place and time 03/10/2014 None Full Exam - Genitourinary/Female Chest/Breast breast inspection and palpation Left axillae: no mass 03/10/2014 None Full Exam - Genitourinary/Female Chest/Breast breast inspection and palpation Right axillae: mass present 03/10/2014 in axilla/lateral right breast 1 x 2 cm nodule, somewhat cyst-like but a little firmer than a cyst, at about 9oclock position. Full Exam - Genitourinary/Female Chest/Breast breast inspection and palpation Skin appearance: a normal exam 03/10/2014 None Full Exam - Genitourinary/Female Chest/Breast breast inspection and palpation Breast symmetry: symmetric 03/10/2014 but right nipple retracted, left normal (per patient right nipple has "always" been retracted) Full Exam - Genitourinary/Female Genitourinary urethral meatus Overall: normal size and location 03/10/2014 None Full Exam - Genitourinary/Female Genitourinary urethra Overall: no masses 03/10/2014 None Full Exam - Genitourinary/Female Genitourinary urethra Overall: no tenderness 03/10/2014 None Full Exam - Genitourinary/Female Genitourinary adnexa/parametria Overall: no tenderness 03/10/2014 None Full Exam - Genitourinary/Female Genitourinary adnexa/parametria Overall: no enlargement 03/10/2014 None Full Exam - Genitourinary/Female Genitourinary cervix Inspection: parous os 03/10/2014 None Full Exam - Genitourinary/Female Genitourinary cervix Inspection: inflamed 03/10/2014 None Full Exam - Genitourinary/Female Genitourinary cervix Inspection: friable 03/10/2014 None Full Exam - ENT Constitutional general appearance Overall: well nourished 02/24/2014 None Full Exam - ENT Constitutional general appearance Overall: well developed 02/24/2014 None Full Exam - ENT Constitutional general appearance Overall: in no acute distress 02/24/2014 None Full Exam - ENT Ears/Nose/Throat otoscopic exam Overall: tympanic membranes normal 02/24/2014 None Full Exam - ENT Ears/Nose/Throat oropharynx Overall: oral mucosa clear 02/24/2014 None Full Exam - ENT Face and Head inspection of face/head Overall: no scars, lesions, masses 02/24/2014 None Full Exam - ENT Face and Head palpation Left maxillary sinus: tender 02/24/2014 None Full Exam - ENT Face and Head palpation Right maxillary sinus: tender 02/24/2014 None Full Exam - ENT Face and Head palpation Left frontal sinus: tender 02/24/2014 None Full Exam - ENT Face and Head palpation Right frontal sinus: tender 02/24/2014 None Full Exam - ENT Respiratory auscultation Overall: breath sounds clear bilaterally 02/24/2014 None Full Exam - ENT Cardiovascular auscultation of heart Overall: normal heart sounds 02/24/2014 None Full Exam - ENT Abdomen abdominal exam Overall: normal bowel sounds 02/24/2014 None Full Exam - ENT Lymphatic palpation of lymph nodes Overall: shotty lymphadenopathy 02/24/2014 None Full Exam - ENT Neurologic orientation Overall: oriented to person, place and time 02/24/2014 None Full Exam - General 1995 Constitutional general appearance Overall: well developed 10/13/2013 None Full Exam - General 1994 Constitutional general appearance Overall: in no acute distress 10/13/2013 None Full Exam - General 1995 Constitutional general appearance Overall: well nourished 10/13/2013 None Full Exam - General 1994 Eyes pupils and irises Overall: pupils equal, round, reactive to light and accomodation 10/13/2013 None Full Exam - General 1994 Ears/Nose/Throat otoscopic exam External auditory canal: a normal exam 10/13/2013 None Full Exam - General 1994 Ears/Nose/Throat oral cavity/pharynx/larynx Oral mucosa: a normal exam 10/13/2013 None Full Exam - General 1994 Neck inspection of neck Appearance: surgical scarring 10/13/2013 None Full Exam - General 1994 Respiratory auscultation Overall: breath sounds clear bilaterally 10/13/2013 None Full Exam - General 1994 Respiratory respiratory effort/rhythm Overall: no retractions 10/13/2013 None Full Exam - General 1994 Respiratory respiratory effort/rhythm Overall: normal rate 10/13/2013 None Full Exam - General 1994 Cardiovascular auscultation of heart Overall: regular rate 10/13/2013 None Full Exam - General 1994 Cardiovascular auscultation of heart Overall: normal heart sounds 10/13/2013 None Full Exam - General 1994 Cardiovascular auscultation of heart Overall: no murmurs 10/13/2013 None Full Exam - General 1994 Abdomen abdominal exam Overall: no tenderness 10/13/2013 None Full Exam - General 1994 Abdomen abdominal exam Overall: normal bowel sounds 10/13/2013 None Full Exam - General 1994 Psychiatric orientation/consciousness Overall: oriented to person, place and time 10/13/2013 None Full Exam - General 1994 Psychiatric mood and affect Overall: normal mood and affect 10/13/2013 None Full Exam - General 1994 Musculoskeletal spine, ribs and pelvis Spine: a normal exam 10/13/2013 None Full Exam - ENT Constitutional general appearance Overall: well nourished 05/28/2013 None Full Exam - ENT Constitutional general appearance Overall: well developed 05/28/2013 None Full Exam - ENT Constitutional general appearance Overall: in no acute distress 05/28/2013 None Full Exam - ENT Ears/Nose/Throat otoscopic exam Overall: tympanic membranes normal 05/28/2013 None Full Exam - ENT Ears/Nose/Throat oropharynx Overall: oral mucosa clear 05/28/2013 None Full Exam - ENT Face and Head inspection of face/head Overall: no scars, lesions, masses 05/28/2013 None Full Exam - ENT Face and Head palpation Left maxillary sinus: tender 05/28/2013 None Full Exam - ENT Face and Head palpation Right maxillary sinus: tender 05/28/2013 None Full Exam - ENT Face and Head palpation Left frontal sinus: tender 05/28/2013 None Full Exam - ENT Face and Head palpation Right frontal sinus: tender 05/28/2013 None Full Exam - ENT Respiratory auscultation Overall: breath sounds clear bilaterally 05/28/2013 None Full Exam - ENT Cardiovascular auscultation of heart Overall: normal heart sounds 05/28/2013 None Full Exam - ENT Abdomen abdominal exam Overall: normal bowel sounds 05/28/2013 None Full Exam - ENT Lymphatic palpation of lymph nodes Overall: shotty lymphadenopathy 05/28/2013 None Full Exam - ENT Neurologic orientation Overall: oriented to person, place and time 05/28/2013 None Full Exam - ENT Ears/Nose/Throat otoscopic exam Overall: tympanic membranes normal 02/18/2013 None Full Exam - ENT Ears/Nose/Throat oropharynx Overall: oral mucosa clear 02/18/2013 None Full Exam - ENT Face and Head inspection of face/head Overall: no scars, lesions, masses 02/18/2013 None Full Exam - ENT Face and Head palpation Left maxillary sinus: tender 02/18/2013 None Full Exam - ENT Face and Head palpation Right maxillary sinus: tender 02/18/2013 None Full Exam - ENT Face and Head palpation Left frontal sinus: tender 02/18/2013 None Full Exam - ENT Face and Head palpation Right frontal sinus: tender 02/18/2013 None Full Exam - ENT Respiratory auscultation Overall: breath sounds clear bilaterally 02/18/2013 None Full Exam - ENT Cardiovascular auscultation of heart Overall: normal heart sounds 02/18/2013 None Full Exam - ENT Abdomen abdominal exam Overall: normal bowel sounds 02/18/2013 None Full Exam - ENT Lymphatic palpation of lymph nodes Overall: shotty lymphadenopathy 02/18/2013 None Full Exam - ENT Neurologic orientation Overall: oriented to person, place and time 02/18/2013 None Full Exam - ENT Constitutional general appearance Overall: well nourished 02/18/2013 None Full Exam - ENT Constitutional general appearance Overall: well developed 02/18/2013 None Full Exam - ENT Constitutional general appearance Overall: in no acute distress 02/18/2013 None Full Exam - General 1994 Constitutional general appearance Overall: well nourished 12/17/2012 None Full Exam - General 1994 Constitutional general appearance Overall: well developed 12/17/2012 None Full Exam - General 1994 Constitutional general appearance Overall: in no acute distress 12/17/2012 None Full Exam - General 1994 Eyes pupils and irises Overall: pupils equal, round, reactive to light and accomodation 12/17/2012 None Full Exam - General 1995 Ears/Nose/Throat otoscopic exam External auditory canal: a normal exam 12/17/2012 None Full Exam - General 1994 Ears/Nose/Throat oral cavity/pharynx/larynx Oral mucosa: a normal exam 12/17/2012 None Full Exam - General 1994 Respiratory auscultation Overall: breath sounds clear bilaterally 12/17/2012 None Full Exam - General 1994 Respiratory respiratory effort/rhythm Overall: no retractions 12/17/2012 None Full Exam - General 1994 Respiratory respiratory effort/rhythm Overall: normal rate 12/17/2012 None Full Exam - General 1994 Cardiovascular auscultation of heart Overall: regular rate 12/17/2012 None Full Exam - General 1994 Cardiovascular auscultation of heart Overall: normal heart sounds 12/17/2012 None Full Exam - General 1994 Cardiovascular auscultation of heart Overall: no murmurs 12/17/2012 None Full Exam - General 1994 Abdomen abdominal exam Overall: no tenderness 12/17/2012 None Full Exam - General 1994 Abdomen abdominal exam Overall: normal bowel sounds 12/17/2012 None Full Exam - General 1994 Psychiatric orientation/consciousness Overall: oriented to person, place and time 12/17/2012 None Full Exam - General 1994 Psychiatric mood and affect Overall: normal mood and affect 12/17/2012 None Full Exam - General 1994 Neck inspection of neck Appearance: surgical scarring 12/17/2012 None Full Exam - ENT Constitutional general appearance Overall: well nourished 05/21/2012 None Full Exam - ENT Constitutional general appearance Overall: well developed 05/21/2012 None Full Exam - ENT Constitutional general appearance Overall: in no acute distress 05/21/2012 None Full Exam - ENT Ears/Nose/Throat oropharynx Overall: oral mucosa clear 05/21/2012 None Full Exam - ENT Face and Head inspection of face/head Overall: no scars, lesions, masses 05/21/2012 None Full Exam - ENT Respiratory auscultation Overall: breath sounds clear bilaterally 05/21/2012 None Full Exam - ENT Cardiovascular auscultation of heart Overall: normal heart sounds 05/21/2012 None Full Exam - ENT Lymphatic palpation of lymph nodes Overall: posterior cervical chain benign 05/21/2012 None Full Exam - ENT Lymphatic palpation of lymph nodes Overall: anterior cervical chain benign 05/21/2012 None Full Exam - ENT Face and Head palpation Overall: no sinus tenderness 05/21/2012 None Full Exam - ENT Ears/Nose/Throat otoscopic exam Overall: external auditory canals normal 05/21/2012 None Full Exam - ENT Ears/Nose/Throat otoscopic exam Left tympanic membrane: air -fluid level 05/21/2012 None Full Exam - ENT Ears/Nose/Throat otoscopic exam Right tympanic membrane: air-fluid level 05/21/2012 None Full Exam - General 1994 Constitutional general appearance Overall: well nourished 02/19/2012 None Full Exam - General 1994 Constitutional general appearance Overall: well developed 02/19/2012 None Full Exam - General 1994 Constitutional general appearance Overall: in no acute distress 02/19/2012 None Full Exam - General 1994 Eyes pupils and irises Overall: pupils equal, round, reactive to light and accomodation 02/19/2012 None Full Exam - General 1994 Ears/Nose/Throat otoscopic exam External auditory canal: a normal exam 02/19/2012 None Full Exam - General 1994 Ears/Nose/Throat oral cavity/pharynx/larynx Oral mucosa: a normal exam 02/19/2012 None Full Exam - General 1994 Respiratory auscultation Overall: breath sounds clear bilaterally 02/19/2012 None Full Exam - General 1994 Respiratory respiratory effort/rhythm Overall: no retractions 02/19/2012 None Full Exam - General 1994 Respiratory respiratory effort/rhythm Overall: normal rate 02/19/2012 None Full Exam - General 1994 Cardiovascular auscultation of heart Overall: regular rate 02/19/2012 None Full Exam - General 1994 Cardiovascular auscultation of heart Overall: normal heart sounds 02/19/2012 None Full Exam - General 1994 Cardiovascular auscultation of heart Overall: no murmurs 02/19/2012 None Full Exam - General 1994 Abdomen abdominal exam Overall: no tenderness 02/19/2012 None Full Exam - General 1994 Abdomen abdominal exam Overall: normal bowel sounds 02/19/2012 None Full Exam - General 1994 Psychiatric orientation/consciousness Overall: oriented to person, place and time 02/19/2012 None Full Exam - General 1994 Psychiatric mood and affect Overall: normal mood and affect 02/19/2012 None Full Exam - Cardiology Cardiovascular auscultation of heart Overall: normal heart sounds 08/24/2011 None Full Exam - Cardiology Cardiovascular auscultation of heart Overall: no murmurs 08/24/2011 None Full Exam - Cardiology Cardiovascular extremities Overall: without clubbing, cyanosis, or edema 08/24/2011 None Full Exam - Cardiology Abdomen abdominal exam Contour: flat 12/2010 None Full Exam - Cardiology Abdomen abdominal exam Bowel sounds: a normal exam 08/24/2011 None Full Exam - Cardiology Abdomen abdominal exam Skin: a normal exam 08/24/2011 None Full Exam - Cardiology Abdomen abdominal exam Left lower quadrant: non-tender to palpation 08/24/2011 None Full Exam - Cardiology Abdomen abdominal exam Left upper quadrant: non-tender to palpation 08/24/2011 None Full Exam - Cardiology Abdomen abdominal exam Right upper quadrant: tender to palpation 08/24/2011 None Full Exam - Cardiology Abdomen abdominal exam Right lower quadrant: non-tender to palpation 08/24/2011 None Full Exam - Cardiology Lymphatic neck nodes Overall: posterior cervical chain benign 08/24/2011 None Full Exam - Cardiology Lymphatic neck nodes Overall: anterior cervical chain benign 08/24/2011 None Full Exam - Cardiology Musculoskeletal gait and station Overall: normal station 08/24/2011 None Full Exam - Cardiology Musculoskeletal gait and station Overall: normal gait 08/24/2011 None Full Exam - Cardiology Integument inspection/palpation Overall: no rash, lesions 08/24/2011 None Full Exam - Cardiology Constitutional general appearance Overall: well nourished 08/24/2011 None Full Exam - Cardiology Constitutional general appearance Overall: well developed 08/24/2011 None Full Exam - Cardiology Constitutional general appearance Overall: in no acute distress 08/24/2011 None Full Exam - Cardiology Eyes conjunctiva/ eyelids Overall: conjunctiva clear 08/24/2011 None Full Exam - Cardiology Ears/Nose/Throat oral mucosa Overall: oral mucosa clear 08/24/2011 None Full Exam - Cardiology Chest/Breast breast/chest inspection Overall: normal chest shape 08/24/2011 None Full Exam - Cardiology Respiratory auscultation Overall: breath sounds clear bilaterally 08/24/2011 None Full Exam - Cardiology Respiratory respiratory effort/rhythm Overall: normal rate 08/24/2011 None Full Exam - Cardiology Respiratory respiratory effort/rhythm Overall: no retractions 08/24/2011 None Full Exam - Cardiology Cardiovascular auscultation of heart Overall: regular rate 08/24/2011 None Full Exam - Cardiology Neurologic mental status Overall: alert 08/24/2011 None Full Exam - Cardiology Neurologic mental status Overall: oriented 08/24/2011 None Full Exam - General 1994 Constitutional general appearance Overall: well nourished 07/26/2011 None Full Exam - General 1994 Constitutional general appearance Overall: well developed 07/26/2011 None Full Exam - General 1994 Constitutional general appearance Overall: in no acute distress 07/26/2011 None Full Exam - General 1994 Eyes pupils and irises Overall: pupils equal, round, reactive to light and accomodation 07/26/2011 None Full Exam - General 1994 Ears/Nose/Throat otoscopic exam Tympanic membrane: bulging 07/26/2011 None Full Exam - General 1994 Ears/Nose/Throat otoscopic exam Tympanic membrane: erythematous 07/26/2011 None Full Exam - General 1994 Ears/Nose/Throat otoscopic exam External auditory canal: a normal exam 07/26/2011 None Full Exam - General 1994 Ears/Nose/Throat oral cavity/pharynx/larynx Oral mucosa: a normal exam 07/26/2011 None Full Exam - General 1995 Ears/Nose/Throat oral cavity/pharynx/larynx Oropharynx: erythema 07/26/2011 None Full Exam - General 1994 Respiratory auscultation Overall: breath sounds clear bilaterally 07/26/2011 None Full Exam - General 1994 Respiratory respiratory effort/rhythm Overall: normal rate 07/26/2011 None Full Exam - General 1994 Respiratory respiratory effort/rhythm Overall: no retractions 07/26/2011 None Full Exam - General 1994 Cardiovascular auscultation of heart Overall: regular rate 07/26/2011 None Full Exam - General 1994 Cardiovascular auscultation of heart Overall: normal heart sounds 07/26/2011 None Full Exam - General 1994 Cardiovascular auscultation of heart Overall: no murmurs 07/26/2011 None Full Exam - General 1994 Abdomen abdominal exam Overall: no tenderness 07/26/2011 None Full Exam - General 1994 Abdomen abdominal exam Overall: normal bowel sounds 07/26/2011 None Full Exam - General 1994 Lymphatic neck nodes Overall: shotty lymphadenopathy 07/26/2011 None Full Exam - General 1994 Psychiatric orientation/consciousness Overall: oriented to person, place and time 07/26/2011 None Full Exam - General 1994 Psychiatric mood and affect Overall: normal mood and affect 07/26/2011 None Full Exam - ENT Constitutional general appearance Overall: well nourished 06/16/2011 None Full Exam - ENT Constitutional general appearance Overall: well developed 06/16/2011 None Full Exam - ENT Constitutional general appearance Overall: in no acute distress 06/16/2011 None Full Exam - ENT Ears/Nose/Throat otoscopic exam Overall: tympanic membranes normal 06/16/2011 None Full Exam - ENT Ears/Nose/Throat oropharynx Overall: oral mucosa clear 06/16/2011 None Full Exam - ENT Face and Head palpation Left maxillary sinus: tender 06/16/2011 None Full Exam - ENT Face and Head palpation Right maxillary sinus: tender 06/16/2011 None Full Exam - ENT Face and Head palpation Left frontal sinus: tender 06/16/2011 None Full Exam - ENT Face and Head palpation Right frontal sinus: tender 06/16/2011 None Full Exam - ENT Face and Head inspection of face/head Overall: no scars, lesions, masses 06/16/2011 None Full Exam - ENT Respiratory auscultation Overall: breath sounds clear bilaterally 06/16/2011 None Full Exam - ENT Cardiovascular auscultation of heart Overall: normal heart sounds 06/16/2011 None Full Exam - ENT Abdomen abdominal exam Overall: normal bowel sounds 06/16/2011 None Full Exam - ENT Lymphatic palpation of lymph nodes Overall: shotty lymphadenopathy 06/16/2011 None Procedures Procedure Codes Date TRIAMCINOLONE ACET INJ NOS CPT-4: J3301 07/13/2017 TRIAMCINOLONE ACET INJ NOS CPT-4: J3301 07/21/2016 THER/PROPH/DIAG INJ SC/IM CPT-4: 93798 07/21/2016 THER/PROPH/DIAG INJ SC/IM CPT-4: 88353 01/05/2016 TRIAMCINOLONE ACET INJ NOS CPT-4: J3301 01/05/2016 ROCEPHIN, PER 250 MG CPT-4: J0696 01/05/2016 THER/PROPH/DIAG INJ SC/IM CPT-4: 80367 08/26/2015 ROCEPHIN, PER 250 MG CPT-4: J0696 08/26/2015 TRIAMCINOLONE ACET INJ NOS CPT-4: J3301 08/26/2015 C RAP A SC (STREP A ASSAY W/OPTIC) CPT-4: 20866 08/20/2015 TRIAMCINOLONE ACET INJ NOS CPT-4: J3301 07/23/2014 DRAIN/INJECT JOINT/BURSA CPT-4: 92009 07/23/2014 URINALYSIS NONAUTO W/O SCOPE CPT-4: 12981 04/20/2014 PREV VISIT EST AGE 18-39 CPT-4: 97846 03/10/2014 ROUTINE VENIPUNCTURE CPT-4: 05908 03/10/2014 TRIAMCINOLONE ACET INJ NOS CPT-4: J3301 02/24/2014 ROUTINE VENIPUNCTURE CPT-4: 88848 10/13/2013 TRIAMCINOLONE ACET INJ NOS CPT-4: J3301 02/18/2013 TRIAMCINOLONE ACET INJ NOS CPT-4: J3301 05/21/2012 THER/PROPH/DIAG INJ SC/IM CPT-4: 61870 05/21/2012 THER/PROPH/DIAG INJ SC/IM CPT-4: 27208 07/26/2011 ROCEPHIN, PER 250 MG CPT-4: J0696 07/26/2011 TRIAMCINOLONE ACET INJ NOS CPT-4: J3301 06/16/2011 THER/PROPH/DIAG INJ SC/IM CPT-4: 10777 06/16/2011 Vital Signs Date Vital 10/10/2017 Blood Pressure 1: 118/82 Code : 8480-6 BMI: 20.5 Code : 68592-0 Heart Rate 1 : 87 bpm Height: 5'7" SpO2: 99% Weight: 131 lbs 09/20/2017 Blood Pressure 1: 140/72 Code : 8480-6 BMI: 21.0 Code : 30276-5 Heart Rate 1 : 98 bpm Height: 5'7" SpO2: 99% Weight: 134 lbs 07/13/2017 Blood Pressure 1: 123/64 Code : 8480-6 BMI: 20.5 Code : 24790-9 Heart Rate 1 : 93 bpm Height: 5'7" SpO2: 99% Weight: 131 lbs 06/20/2017 Blood Pressure 1: 110/70 Code : 8480-6 BMI: 20.8 Code : 23140-9 Heart Rate 1 : 77 bpm Height: 5'7" SpO2: 98% Weight: 133 lbs 05/31/2017 Blood Pressure 1: 100/70 Code : 8480-6 BMI: 20.7 Code : 32686-3 Heart Rate 1 : 80 bpm Height: 5'7" Weight: 132 lbs 04/18/2017 Blood Pressure 1: 120/72 Code : 8480-6 BMI: 21.0 Code : 20209-5 Heart Rate 1 : 76 bpm Height: 5'7" SpO2: 97% Weight: 134 lbs 03/21/2017 Blood Pressure 1: 130/78 Code : 8480-6 BMI: 21.1 Code : 96133-5 Heart Rate 1 : 70 bpm Height: 5'7" SpO2: 98% Weight: 135 lbs 11/20/2016 Blood Pressure 1: 130/72 Code : 8480-6 BMI: 21.0 Code : 03921-9 Heart Rate 1 : 114 bpm Height: 5'7" SpO2: 99% Weight: 134 lbs 07/31/2016 Blood Pressure 1: 120/62 Code : 8480-6 BMI: 21.0 Code : 98214-6 Heart Rate 1 : 87 bpm Height: 5'7" SpO2: 97% Weight: 134 lbs 05/03/2016 Blood Pressure 1: 134/84 Code : 8480-6 BMI: 20.5 Code : 32345-1 Heart Rate 1 : 81 bpm Height: 5'7" SpO2: 99% Weight: 131 lbs 08/26/2015 Blood Pressure 1: 110/58 Code : 8480-6 BMI: 20.7 Code : 90595-2 Heart Rate 1 : 96 bpm Height: 5'7" SpO2: 99% Temperature: 37.6 (C) / 99.6 (F) Weight: 132 lbs 08/20/2015 Blood Pressure 1: 108/70 Code : 8480-6 BMI: 20.7 Code : 00235-3 Heart Rate 1 : 103 bpm Height: 5'7" SpO2: 98% Temperature: 36.6 (C) / 97.9 (F) Weight: 132 lbs 03/18/2015 Blood Pressure 1: 102/56 Code : 8480-6 BMI: 22.4 Code : 61740-2 Heart Rate 1 : 66 bpm Height: 5'7" SpO2: 99% Weight: 143 lbs 02/03/2015 Blood Pressure 1: 118/70 Code : 8480-6 BMI: 23.8 Code : 33922-1 Heart Rate 1 : 69 bpm Height: 5'7" SpO2: 99% Weight: 152 lbs 12/10/2014 Blood Pressure 1: 130/82 Code : 8480-6 BMI: 24.4 Code : 91724-8 Heart Rate 1 : 84 bpm Height: 5'7" Weight: 156 lbs 11/12/2014 Blood Pressure 1: 118/78 Code : 8480-6 BMI: 24.4 Code : 38294-8 Heart Rate 1 : 76 bpm Height: 5'7" Temperature: 36.7 (C) / 98.1 (F) Weight: 156 lbs 07/23/2014 Blood Pressure 1: 124/68 Code : 8480-6 BMI: 24.3 Code : 77709-7 Heart Rate 1 : 68 bpm Height: 5'7" SpO2: 96% Weight: 155 lbs 04/20/2014 Blood Pressure 1: 130/82 Code : 8480-6 BMI: 23.2 Code : 61072-8 Heart Rate 1 : 74 bpm Height: 5'7" Temperature: 36.8 (C) / 98.3 (F) Weight: 148 lbs 03/10/2014 Blood Pressure 1: 106/70 Code : 8480-6 Heart Rate 1: 80 bpm Weight: 152 lbs 02/24/2014 Blood Pressure 1: 110/64 Code : 8480-6 Heart Rate 1: 80 bpm Temperature: 37.6 (C) / 99.6 (F) Weight: 151 lbs 10/13/2013 Blood Pressure 1: 134/72 Code : 8480-6 BMI: 23.0 Code : 49793-5 Heart Rate 1 : 80 bpm Height: 5'7" Weight: 147 lbs 05/28/2013 Blood Pressure 1: 106/60 Code : 8480-6 BMI: 22.6 Code : 90167-1 Heart Rate 1 : 64 bpm Height: 5'7" Temperature: 37.4 (C) / 99.3 (F) Weight: 144 lbs 02/18/2013 Heart Rate 1: 87 bpm SpO2: 99% 12/17/2012 Blood Pressure 1: 120/82 Code : 8480-6 BMI: 22.9 Code : 30677-8 Heart Rate 1 : 68 bpm Height: 5'7" Weight: 146 lbs 05/21/2012 Blood Pressure 1: 92/56 Code : 8480-6 Heart Rate 1: 76 bpm Temperature: 36.7 (C) / 98.1 (F) Weight: 141 lbs 02/19/2012 Blood Pressure 1: 114/62 Code : 8480-6 BMI: 21.6 Code : 34903-6 Heart Rate 1 : 80 bpm Height: 5'7" Respiratory Rate: 16 bpm Temperature: 36.7 ( C) / 98.1 (F) Weight: 138 lbs 08/24/2011 Blood Pressure 1: 106/58 Code : 8480-6 BMI: 23.0 Code : 31684-5 Heart Rate 1 : 78 bpm Height: 5'7" Respiratory Rate: 16 bpm Temperature: 36.8 ( C) / 98.3 (F) Weight: 147 lbs 07/26/2011 Blood Pressure 1: 104/68 Code : 8480-6 BMI: 23.4 Code : 63482-8 Heart Rate 1 : 80 bpm Height: 5'6" Respiratory Rate: 16 bpm Weight: 146 lbs 06/16/2011 Blood Pressure 1: 122/68 Code : 8480-6 BMI: 22.7 Code : 70112-4 Heart Rate 1 : 80 bpm Height: 5'7" Weight: 145 lbs Functional Status No Functional Status data History of Present Illness Symptom Name Status Result Effective Date Notes hypothyroid Quality chronic 10/10/2017 None hypothyroid Onset and Resolution ongoing 10/10/2017 None thyroid nodule Quality chronic 10/10/2017 None thyroid nodule Quality stable 10/10/2017 None thyroid nodule Onset and Resolution ongoing 10/10/2017 None anxiety Quality intermittent 10/10/2017 None fatigue Limitation on Activities moderately limits activities 10/10/2017 None fatigue Pertinent Findings depressed mood 10/10/2017 None hypothyroid Alleviating Factors medication 10/10/2017 None cough Quality acute None cough Quality intermittent 10/10/2017 None cough Quality productive 10/10/2017 None cough Onset and Resolution sudden in onset 10/10/2017 None cough Onset of Symptom 6 days ago 10/10/2017 None cough Pertinent Findings Denies chills 10/10/2017 None cough Pertinent Findings Denies fever 10/10/2017 None cough Pertinent Findings sputum production 10/10/2017 (clear, white) cough Pertinent Findings Denies nasal congestion 10/10/2017 None cough Pertinent Findings post nasal drip 10/10/2017 None fatigue Frequency of Episodes unchanged 10/10/2017 None anxiety Onset and Resolution ongoing 10/10/2017 None anxiety Frequency of Episodes unchanged 10/10/2017 None hypothyroid Onset and Resolution ongoing 09/20/2017 None hypothyroid Quality chronic 09/20/2017 None thyroid nodule Quality chronic 09/20/2017 None thyroid nodule Quality stable 09/20/2017 None thyroid nodule Onset and Resolution ongoing 09/20/2017 None anxiety Quality intermittent 09/20/2017 None anxiety Quality worsening 09/20/2017 None anxiety Pertinent Findings Denies dyspnea 09/20/2017 None fatigue Limitation on Activities moderately limits activities 09/20/2017 None fatigue Pertinent Findings Denies dyspnea 09/20/2017 None fatigue Pertinent Findings depressed mood 09/20/2017 None sinus congestion Location frontal sinuses 07/13/2017 None sinus congestion Quality fullness 07/13/2017 None sinus congestion Quality constant 07/13/2017 None sinus congestion Quality pressure 07/13/2017 None sinus congestion Onset and Resolution sudden in onset 07/13/2017 None sinus congestion Onset of Symptom 3 days ago 07/13/2017 None sinus congestion Frequency of Episodes daily 07/13/2017 None sinus congestion Pertinent Findings cough 07/13/2017 None sinus congestion Pertinent Findings hoarseness 07/13/2017 None sore throat Location diffusely 07/13/2017 None sore throat Quality aching 07/13/2017 None sore throat Quality constant 07/13/2017 None sore throat Quality scratchy 07/13/2017 None sore throat Onset and Resolution sudden in onset 07/13/2017 None sore throat Onset of Symptom 3 days ago 07/13/2017 None sore throat Frequency of Episodes daily 07/13/2017 None earache Location both ears 07/13/2017 None earache Onset and Resolution sudden in onset 07/13/2017 None earache Onset of Symptom _ days ago 07/13/2017 None earache Frequency of Episodes daily 07/13/2017 None abnormal test results Abnormal Indicator stable 06/20/2017 None abnormal test results Test Performed on 06/20/2017 None abnormal test results Significant Medical Conditions aquired hypothyroid 06/20/2017 None abnormal test results Pertinent Findings Denies fever 06/20/2017 None abnormal test results Pertinent Findings Denies edema 06/20/2017 None abnormal test results Pertinent Findings Denies weight loss 06/20/2017 None abnormal test results Type of Test(s) ultrasound 06/20/2017 thyroid abnormal test results Detailed Test Result(s) 6mm hypoechoic thyroid nodule in the left lobe of the thyroid which is unchanged from previous exam 06/20/2017 None fatigue Onset and Resolution ongoing 05/31/2017 None fatigue Limitation on Activities moderately limits activities 05/31/2017 None fatigue Timing of Episodes no specific time 05/31/2017 None fatigue Quality worsening 05/31/2017 None fatigue Pertinent Findings Denies cough 05/31/2017 None fatigue Pertinent Findings depressed mood 05/31/2017 None fatigue Pertinent Findings Denies hoarseness 05/31/2017 None fatigue Pertinent Findings Denies nausea 05/31/2017 None fatigue Pertinent Findings Denies palpitations 05/31/2017 None fatigue Onset and Resolution ongoing 04/18/2017 None fatigue Limitation on Activities moderately limits activities 04/18/2017 None fatigue Timing of Episodes no specific time 04/18/2017 None fatigue Quality worsening 04/18/2017 None fatigue Pertinent Findings Denies cough 04/18/2017 None fatigue Pertinent Findings depressed mood 04/18/2017 None fatigue Pertinent Findings Denies hoarseness 04/18/2017 None fatigue Pertinent Findings Denies nausea 04/18/2017 None fatigue Pertinent Findings Denies palpitations 04/18/2017 None arthralgia(s) Location diffusely 03/21/2017 None arthralgia(s) Quality intermittent 03/21/2017 None arthralgia(s) Onset and Resolution ongoing 03/21/2017 None arthralgia(s) Onset of Symptom months ago 03/21/2017 None arthralgia(s) Triggers no known associated factors 03/21/2017 None skin lesion Quality firm 11/20/2016 None skin lesion Quality fixed 11/20/2016 None skin lesion Quality improving 11/20/2016 states a little smaller today skin lesion Quality red 11/20/2016 slightly reddened around area skin lesion Quality acute 11/20/2016 None skin lesion Location right gluteus 11/20/2016 None skin lesion Onset and Resolution sudden in onset 11/20/2016 None skin lesion Pertinent Findings Denies fever 11/20/2016 None skin lesion Triggers no known associated factors 11/20/2016 None skin lesion Alleviating Factors no alleviating factors 11/20/2016 None skin lesion Onset of Symptom 1 weeks ago 11/20/2016 None skin lesion Severity mild 11/20/2016 None skin lesion Frequency of Episodes decreasing 11/20/2016 None low back pain Location in the midline of in the lower back area 07/31/2016 None low back pain Quality constant 07/31/2016 None low back pain Quality sharp pain 07/31/2016 None low back pain Onset and Resolution gradual in onset 07/31/2016 None low back pain Onset of Symptom 2 months ago 07/31/2016 None low back pain Mechanism of injury unknown 07/31/2016 None low back pain Exacerbating Factors sitting 07/31/2016 None anxiety Onset and Resolution ongoing 05/03/2016 None anxiety Onset of Symptom 1 months ago 05/03/2016 None abdominal pain Location diffusely 05/03/2016 None abdominal pain Onset and Resolution sudden in onset 05/03/2016 None abdominal pain Onset of Symptom 2 months ago 05/03/2016 None abdominal pain Pertinent Findings abdominal distension 05/03/2016 None abdominal pain Pertinent Findings bloating 05/03/2016 None well woman exam (18-39 years) Control regular use 05/03/2016 None well woman exam (18-39 years) Pap Smear normal results 05/03/2016 None well woman exam (18-39 years) Pap Smear last normal performed on -__ 05/03/2016 None well woman exam (18-39 years) Menstrual History regular menses 05/03/2016 None well woman exam (18-39 years) Menstrual History normal flow 05/03/2016 None well woman exam (18-39 years) Nutrition and Exercise normal weight 05/03/2016 None well woman exam (18-39 years) Nutrition and Exercise balanced nutrition 05/03/2016 None well woman exam (18-39 years) Nutrition and Exercise regular diet 05/03/2016 None well woman exam (18-39 years) Sexual Activity experiences sexual satisfaction 05/03/2016 None well woman exam (18-39 years) Sexual Activity is monogamous 05/03/2016 None well woman exam (18-39 years) Lifestyle family supportive of relationship 05/03/2016 None well woman exam (18-39 years) Lifestyle satisfactory work experience 05/03/2016 None well woman exam (18-39 years) Lifestyle satisfactory marriage/partner relationship 05/03/2016 None well woman exam (18-39 years) Health Guidance self-breast exam 05/03/2016 None well woman exam (18-39 years) Reproductive System Development normal thelarche 05/03/2016 None well woman exam (18-39 years) Reproductive System Development normal menarche 05/03/2016 None well woman exam (18-39 years) Reproductive System Development normal genitalia 05/03/2016 None cough Location in the lung 08/26/2015 None cough Location in the throat 08/26/2015 None cough Quality hacking 08/26/2015 None cough Quality productive 08/26/2015 None cough Onset and Resolution sudden in onset 08/26/2015 None cough Onset of Symptom 1 weeks ago 08/26/2015 None sinus congestion Quality fullness 08/26/2015 None sinus congestion Quality pressure 08/26/2015 None sinus congestion Onset and Resolution sudden in onset 08/26/2015 None sinus congestion Location on both sides 08/26/2015 None sinus congestion Onset of Symptom 1 weeks ago 08/26/2015 None chest congestion Quality constant 08/26/2015 None chest congestion Onset and Resolution sudden in onset 08/26/2015 None chest congestion Onset of Symptom 1 weeks ago 08/26/2015 None sinus pain Location in the bilateral frontal sinuses 08/20/2015 None sinus pain Onset and Resolution sudden in onset 08/20/2015 None sinus pain Onset of Symptom 1 days ago 08/20/2015 None sinus pain Pertinent Findings cough 08/20/2015 None sinus pain Pertinent Findings facial pain 08/20/2015 None sinus pain Pertinent Findings Denies fever 08/20/2015 None cough Location in the throat 08/20/2015 None cough Pertinent Findings chest discomfort 08/20/2015 None cough Pertinent Findings sputum production 08/20/2015 None chest congestion Quality thick secretions 08/20/2015 None chest congestion Onset and Resolution sudden in onset 08/20/2015 None chest congestion Pertinent Findings cough 08/20/2015 None chest congestion Pertinent Findings Denies fever 08/20/2015 None chest congestion Pertinent Findings sinus congestion 08/20/2015 None chest congestion Pertinent Findings sputum production 08/20/2015 None nausea Onset of Symptom 1 hours ago 08/20/2015 None headache Location in the frontal area 08/20/2015 None headache Pertinent Findings Denies blurred vision 08/20/2015 None headache Pertinent Findings Denies fever 08/20/2015 None well woman exam (18-39 years) Control regular use 03/18/2015 None well woman exam (18-39 years) Control male condom 03/18/2015 None well woman exam (18-39 years) Control oral contraceptives 03/18/2015 None well woman exam (18-39 years) Menstrual History regular menses 03/18/2015 due to control uses 3 months, then has withdrawal cycle well woman exam (18-39 years) Obstetrical History 1 total pregnancies 03/18/2015 None well woman exam (18-39 years) Obstetrical History 1 full term 03/18/2015 None well woman exam (18-39 years) Obstetrical History 1 living children 03/18/2015 None well woman exam (18-39 years) Sexual Activity experiences sexual satisfaction 03/18/2015 None well woman exam (18-39 years) Sexual Activity complains of dyspareunia 03/18/2015 occasional pain - usually is position dependent well woman exam (18-39 years) Sexual Activity is monogamous 03/18/2015 None well woman exam (18-39 years) Lifestyle regular seatbelt use 03/18/2015 None well woman exam (18-39 years) Lifestyle satisfactory marriage/partner relationship 03/18/2015 None well woman exam (18-39 years) Nutrition and Exercise normal weight 03/18/2015 None well woman exam (18-39 years) Nutrition and Exercise balanced nutrition 03/18/2015 None well woman exam (18-39 years) Nutrition and Exercise minimal exercise 03/18/2015 None well woman exam (18-39 years) Cardiovascular Risk Factors family history of cardiovascular disease None well woman exam (18-39 years) Cardiovascular Risk Factors lifestyle 03/18/2015 None well woman exam (18-39 years) Health Guidance self-breast exam 03/18/2015 None well woman exam (18-39 years) Health Guidance baseline mammogram 03/18/2015 None well woman exam (18-39 years) Health Guidance STD precautions 03/18/2015 None well woman exam (18-39 years) Health Guidance prevention 03/18/2015 None well woman exam (18-39 years) Health Guidance control options 03/18/2015 None well woman exam (18-39 years) Health Guidance tobacco, drugs and alcohol avoidance 03/18/2015 None well woman exam (18-39 years) Health Guidance depression symptoms 03/18/2015 None well woman exam (18-39 years) Menstrual History last menstrual period __-__-__ 03/18/2015 ended last week. medication follow up Additional Comments medication: _ 02/03/2015 normana- patient reports breakthrough bleeding yesterday half way through pack, wondering if she needs to change pills. She has been on this one for a long time. Does continual three at a time, then takes a break on third pack hair loss Onset of Symptom 2 weeks ago 02/03/2015 gobs of hair after after shower. Has changed her diet to no processed foods and has been working out. Reports happened before when thryoid was low fatigue Limitation on Activities moderately limits activities 12/10/2014 None fatigue Onset of Symptom 4 months ago 12/10/2014 None fatigue Frequency of Episodes increasing 12/10/2014 None fatigue Timing of Episodes no specific time 12/10/2014 None fatigue Pertinent Findings dyspnea 12/10/2014 None fatigue Pertinent Findings Denies fever 12/10/2014 reports night sweats medication follow up Additional Comments medication: _ 12/10/2014 thyroid med was increased a few weeks ago when she was here palpitations Onset of Symptom 3 days ago 12/10/2014Sunday with feeling of fluttering in chest, dizziness and off balance. chest pain/pressure Location on the right side of the chest 12/10/2014 throbbing pain chest pain/pressure Onset of Symptom 3 days ago 12/10/2014 None chest pain/pressure Radiating the right shoulder 12/10/2014 None chest pain/pressure Pertinent Findings dyspnea 12/10/2014 reports chores are harder than they used to be chest pain/pressure Pertinent Findings palpitations 12/10/2014 None arm pain Location right upper arm 12/10/2014 None arm pain Quality throbbing 12/10/2014 None arm pain Onset of Symptom 3 days ago 12/10/2014 None arm pain Pertinent Findings female 12/10/2014 None weight gain/obesity Location globally 11/12/2014 None weight gain/obesity Onset of Symptom 4 months ago 11/12/2014 None weight gain/obesity Significant Medical Conditions hypothyroidism 11/12/2014 None weight gain/obesity Triggers change in diet 11/12/2014 reports eating better and exercise weight gain/obesity Pertinent Findings depressed mood 11/12/2014 None weight gain/obesity Pertinent Findings dyspnea 11/12/2014 reports feels short of breath while cleaning house and has to sit down and take a break medication follow up Additional Comments medication: _ 11/12/2014 fluvoxamine and synthroid- is wondering if she needs doses adjusted fatigue Onset of Symptom 4 months ago 11/12/2014 None fatigue Pertinent Findings dyspnea 11/12/2014 None fatigue Pertinent Findings Denies fever 11/12/2014 reports night sweats fatigue Limitation on Activities moderately limits activities 11/12/2014 None fatigue Frequency of Episodes increasing 11/12/2014 None fatigue Timing of Episodes no specific time 11/12/2014 None weight gain/obesity Quality worsening 11/12/2014 None weight gain/obesity Onset and Resolution ongoing 11/12/2014 None back pain Location lumbar-sacral spine 07/23/2014 None back pain Quality aching 07/23/2014 - pt states that her pain has been going on for almost a year - she has been to physical therapy - has been going to a fitness class at the [facility] and is continuing the treatments that she was doing with therapy at the [facility] - she was taking aleve and it did not really help her pain, cyclobenzaprine just makes her sleepy - does not really help her back pain. back pain Onset and Resolution gradual in onset 07/23/2014 None back pain Alleviating Factors stretching 07/23/2014 None back pain Radiating down left leg 07/23/2014 [employer] states has been going to chioropractor and he suggested she report symptoms here back pain Severity mild 07/23/2014 None back pain Pertinent Findings Denies extremity weakness 07/23/2014 - but feels "tight in the back" of her left leg - she notes that she will have a burning and tingling feeling from her hip to her lower leg. back pain Pertinent Findings Denies muscle strain 07/23/2014 None urinary frequency Quality intermittent 07/23/2014 None urinary frequency Pertinent Findings back pain 07/23/2014 None urinary frequency Pertinent Findings Denies bladder pain 07/23/2014 None urinary frequency Pertinent Findings Denies pelvic pain 07/23/2014 None fatigue Onset of Symptom 2 weeks ago 07/23/2014 None fatigue Pertinent Findings back pain 07/23/2014 None fatigue Pertinent Findings dizziness 07/23/2014 None fatigue Pertinent Findings lightheadedness 07/23/2014 None fatigue Pertinent Findings weakness 07/23/2014 None sore throat Location diffusely 04/20/2014 None sore throat Quality acute 04/20/2014 None sore throat Onset of Symptom 3 days ago 04/20/2014 has moved into chest, and sinus sore throat Pertinent Findings Denies fever 04/20/2014 None sore throat Pertinent Findings cough 04/20/2014 None back pain Location lumbar-sacral spine 04/20/2014 None back pain Radiating down left leg 04/20/2014 burns. bacon has been going to chioropractor and he suggested she report symptoms here back pain Quality aching 04/20/2014 None back pain Onset and Resolution gradual in onset 04/20/2014 None back pain Alleviating Factors stretching 04/20/2014 None back pain Severity mild 04/20/2014 None back pain Pertinent Findings Denies muscle strain 04/20/2014 None back pain Pertinent Findings Denies extremity weakness 04/20/2014 - but feels "tight in the back" of her left leg - she notes that she will have a burning and tingling feeling from her hip to her lower leg. well woman exam (18-39 years) Control oral contraceptives 03/10/2014 None well woman exam (18-39 years) Control regular use 03/10/2014 None well woman exam (18-39 years) Cardiovascular Risk Factors family history of cardiovascular disease None well woman exam (18-39 years) Cardiovascular Risk Factors lifestyle 03/10/2014 None well woman exam (18-39 years) Health Guidance baseline mammogram 03/10/2014 None well woman exam (18-39 years) Health Guidance control options 03/10/2014 None well woman exam (18-39 years) Health Guidance depression symptoms 03/10/2014 None well woman exam (18-39 years) Health Guidance prevention 03/10/2014 None well woman exam (18-39 years) Health Guidance self-breast exam 03/10/2014 None well woman exam (18-39 years) Health Guidance STD precautions 03/10/2014 None well woman exam (18-39 years) Health Guidance tobacco, drugs and alcohol avoidance 03/10/2014 None well woman exam (18-39 years) Lifestyle satisfactory marriage/partner relationship 03/10/2014 None well woman exam (18-39 years) Nutrition and Exercise balanced nutrition 03/10/2014 None well woman exam (18-39 years) Nutrition and Exercise minimal exercise 03/10/2014 None well woman exam (18-39 years) Nutrition and Exercise normal weight 03/10/2014 None well woman exam (18-39 years) Pap Smear last abnormal performed on __-__-__ 03/10/2014 colposcopy - by dr. caicedo - lgsil well woman exam (18-39 years) Sexual Activity is monogamous 03/10/2014 None well woman exam (18-39 years) Control male condom 03/10/2014 None well woman exam (18-39 years) Menstrual History regular menses 03/10/2014 due to control uses 3 months, then has withdrawal cycle well woman exam (18-39 years) Obstetrical History 1 total pregnancies 03/10/2014 None well woman exam (18-39 years) Obstetrical History 1 full term 03/10/2014 None well woman exam (18-39 years) Obstetrical History 1 living children 03/10/2014 None well woman exam (18-39 years) Sexual Activity experiences sexual satisfaction 03/10/2014 None well woman exam (18-39 years) Sexual Activity complains of dyspareunia 03/10/2014 occasional pain - usually is position dependent well woman exam (18-39 years) Lifestyle regular seatbelt use 03/10/2014 None sinus congestion Onset of Symptom 1 weeks ago 02/24/2014 None sinus congestion Pertinent Findings Denies cough 02/24/2014 None sinus congestion Pertinent Findings decreased energy level 02/24/2014 None sinus congestion Pertinent Findings hoarseness 02/24/2014 None sinus congestion Onset and Resolution ongoing 02/24/2014 None sinus congestion Severity moderate 02/24/2014 None sinus congestion Significant Medical Conditions allergic rhinitis 02/24/2014 None sinus congestion Triggers allergens 02/24/2014 None sinus congestion Alleviating Factors medication 02/24/2014 None sinus congestion Exacerbating Factors allergen exposure 02/24/2014 None sinus congestion Pertinent Findings fever 02/24/2014 None sinus congestion Location on both sides 02/24/2014 None sinus congestion Quality acute 02/24/2014 None sinus congestion Quality fullness 02/24/2014 None sinus congestion Quality pressure 02/24/2014 None sinus congestion Quality worsening 02/24/2014 None fatigue Onset of Symptom 1 months ago 10/13/2013 None fatigue Frequency of Episodes daily 10/13/2013 None fatigue Timing of Episodes in the evening 10/13/2013 worse fatigue Onset and Resolution improved during the day 10/13/2013 None fatigue Pertinent Findings cough 10/13/2013 None fatigue Pertinent Findings nasal congestion 10/13/2013 None fatigue Pertinent Findings dizziness 10/13/2013 None fatigue Frequency of Episodes weekly 10/13/2013 None fatigue Onset of Symptom 3 weeks ago 10/13/2013 None fatigue Triggers no known associated factors 10/13/2013 None fatigue Pertinent Findings Denies edema 10/13/2013 None fatigue Pertinent Findings Denies fever 10/13/2013 None fatigue Quality acute 10/13/2013 None fatigue Quality chronic 10/13/2013 None back pain Onset and Resolution ongoing 10/13/2013 None back pain Limitation on Activities does not limit activities 10/13/2013 None back pain Frequency of Episodes on and off 10/13/2013 None back pain Onset of Symptom _ months ago 10/13/2013 None back pain Triggers activity 10/13/2013 None back pain Alleviating Factors medication 10/13/2013 uses aleve occasionally back pain Initial treatment stretching 10/13/2013 didn't help back pain Radiating does not radiate 10/13/2013 None back pain Severity mild 10/13/2013 None back pain Severity moderate 10/13/2013 None back pain Pertinent Findings Denies extremity weakness 10/13/2013 None back pain Pertinent Findings Denies extremity numbness 10/13/2013 None sinus congestion Quality acute 05/28/2013 None sinus congestion Quality pain 05/28/2013 None sinus congestion Quality pressure 05/28/2013 None sinus congestion Onset and Resolution sudden in onset 05/28/2013 None sinus congestion Onset of Symptom 3 days ago 05/28/2013 None sinus congestion Pertinent Findings cough 05/28/2013 None sinus congestion Pertinent Findings hoarseness 05/28/2013 None sinus congestion Pertinent Findings Denies fever 05/28/2013 None sinus congestion Pertinent Findings decreased energy level 05/28/2013 None sinus congestion Location on both sides 05/28/2013 None sore throat Location diffusely 05/28/2013 None sore throat Quality acute 05/28/2013 None sore throat Quality aching 05/28/2013 None sore throat Quality scratchy 05/28/2013 None sore throat Onset and Resolution sudden in onset 05/28/2013 None sore throat Onset of Symptom 3 days ago 05/28/2013 None sore throat Pertinent Findings hoarseness 05/28/2013 None sore throat Pertinent Findings cough 05/28/2013 None sore throat Pertinent Findings nasal congestion 05/28/2013 None sore throat Location on both sides 05/28/2013 Pt states that she has traveled recently, and been in the ER waiting room with family. sinus congestion Onset and Resolution ongoing 02/18/2013 None sinus congestion Onset of Symptom 2 weeks ago 02/18/2013 None sinus congestion Severity moderate 02/18/2013 None sinus congestion Frequency of Episodes increasing 02/18/2013 None sinus congestion Significant Medical Conditions allergic rhinitis 02/18/2013 None sinus congestion Significant Medications decongestants 02/18/2013 took a round of prednisone and zyrtec +D sinus congestion Triggers allergens 02/18/2013 None sinus congestion Pertinent Findings Denies cough 02/18/2013 None sinus congestion Pertinent Findings decreased energy level 02/18/2013 None sinus congestion Pertinent Findings facial pain 02/18/2013 None sinus congestion Pertinent Findings Denies hoarseness 02/18/2013 None sinus congestion Pertinent Findings Denies vomiting 02/18/2013 None fatigue Onset and Resolution ongoing 12/17/2012 None fatigue Limitation on Activities moderately limits activities 12/17/2012 None fatigue Timing of Episodes no specific time 12/17/2012 None fatigue Quality worsening 12/17/2012 None fatigue Pertinent Findings Denies cough 12/17/2012 None fatigue Pertinent Findings depressed mood 12/17/2012 None fatigue Pertinent Findings Denies hoarseness 12/17/2012 None fatigue Pertinent Findings Denies nausea 12/17/2012 None fatigue Pertinent Findings Denies palpitations 12/17/2012 None earache Location both ears 05/21/2012 None earache Quality worsening 05/21/2012 None earache Onset and Resolution sudden in onset 05/21/2012 None sore throat Location diffusely 05/21/2012 None sore throat Quality scratchy 05/21/2012 None sore throat Quality worsening 05/21/2012 None earache Onset of Symptom 3-4 days ago 05/21/2012 None earache Severity moderate 05/21/2012 None earache Frequency of Episodes increasing 05/21/2012 None earache Significant Medical Conditions allergic rhinitis 05/21/2012 None earache Triggers allergies 05/21/2012 None sore throat Onset and Resolution ongoing 05/21/2012 None sore throat Onset of Symptom 3-4 days ago 05/21/2012 None sore throat Limitation on Activities does not limit oral intake 05/21/2012 None sore throat Frequency of Episodes increasing 05/21/2012 None sore throat Significant Medical Conditions allergic rhinitis 05/21/2012 None sore throat Triggers allergens 05/21/2012 None medication follow up Additional Comments medication use 02/19/2012 None medication follow up Additional Comments medication: fluvoxamine 02/19/2012 None medication follow up Location oral intake 02/19/2012 None medication follow up Quality acute 02/19/2012 pt was started on the medication about 1 month ago for depression andn anxiety medication follow up side effect Other: tachycardia 02/19/2012 pt is unsure if the tachycardia is due to anxiety or if it is due to medication - the tachycardia occurs at multiple times and various times during the day and night medication follow up Significant Past Medical History Other: depression and anxiety 02/19/2012 None medication follow up Triggers Other: _ 02/19/2012 depression and anxiety triggered by situational issues/personal stressors abdominal pain Radiating the back 08/24/2011 None abdominal pain Quality acute 08/24/2011 None abdominal pain Quality sharp 08/24/2011 None abdominal pain Onset of Symptom 1 days ago 08/24/2011 None abdominal pain Triggers position change 08/24/2011 hurts to lay flat on back abdominal pain Alleviating Factors position change 08/24/2011 helps to lay on right side with knees pulled towards chest back pain Location in the right lower back area 08/24/2011 None back pain Quality burning 08/24/2011 None back pain Quality aching 08/24/2011 None back pain Onset and Resolution sudden in onset 08/24/2011 None back pain Onset of Symptom 1 days ago 08/24/2011 None abdominal pain Quality burning 08/24/2011 None abdominal pain Quality aching 08/24/2011 None abdominal pain Location in the RUQ 08/24/2011 None abdominal pain Onset and Resolution sudden in onset 08/24/2011 at 3am Sunday morning abdominal pain Limitation on Activities moderately limits activities 08/24/2011 None chest tightness Quality acute 07/26/2011 None chest tightness Quality sharp 07/26/2011 pain when coughing chest tightness Onset and Resolution improved during the day 07/26/2011 None chest tightness Onset of Symptom 4 days ago 07/26/2011 None sore throat Quality throbbing 07/26/2011 None sore throat Onset and Resolution improved during the day 07/26/2011 None sore throat Onset of Symptom 4 days ago 07/26/2011 None sore throat Timing of Episodes at night 07/26/2011 None sore throat Timing of Episodes upon awakening 07/26/2011 None chest tightness Timing of Episodes upon awakening 07/26/2011 None chest tightness Timing of Episodes at night 07/26/2011 None chest congestion Quality painful 07/26/2011 None chest congestion Quality thick secretions 07/26/2011 None chest congestion Onset and Resolution improved during the day 07/26/2011 None chest congestion Onset of Symptom 4 days ago 07/26/2011 None chest congestion Timing of Episodes upon awakening 07/26/2011 None chest congestion Timing of Episodes at night 07/26/2011 None nasal allergies Location in both nares 06/16/2011 None sinus pain Triggers allergens 06/16/2011 None sinus pain Pertinent Findings cough 06/16/2011 None sinus pain Pertinent Findings Denies nasal obstruction 06/16/2011 None sinus pain Pertinent Findings facial pain 06/16/2011 None sinus pain Pertinent Findings hoarseness 06/16/2011 None sinus pain Pertinent Findings Denies facial erythema 06/16/2011 None sinus pain Pertinent Findings Denies facial numbness 06/16/2011 None sinus pain Pertinent Findings Denies dysphagia 06/16/2011 None nasal allergies Onset and Resolution gradual in onset 06/16/2011 None nasal allergies Severity moderate 06/16/2011 None nasal allergies Frequency of Episodes increasing 06/16/2011 None nasal allergies Onset of Symptom several weeks ago 06/16/2011 None nasal allergies Triggers known allergens 06/16/2011 None nasal allergies Triggers season change 06/16/2011 None nasal allergies Alleviating Factors medication 06/16/2011 None sinus pain Location diffusely 06/16/2011 None sinus pain Quality acute 06/16/2011 None sinus pain Quality fullness 06/16/2011 None sinus pain Quality pressure 06/16/2011 None sinus pain Quality worsening 06/16/2011 None sinus pain Onset and Resolution gradual in onset 06/16/2011 None sinus pain Quality yellow 06/16/2011 None sinus pain Onset of Symptom 4 days ago 06/16/2011 None sinus pain Severity moderate 06/16/2011 l sinus pain Frequency of Episodes increasing 06/16/2011 None sinus pain Significant Medical Conditions allergic rhinitis 06/16/2011 None sinus pain Significant Medications decongestants 06/16/2011 None sinus pain Significant Medications nasal spray 06/16/2011 None Advance Directives No Advance Directive data Encounters Encounter Performer Location Codes Date ([id number]) PREV VISIT EST AGE 18-39 Diagnosis: Encounter for general adult medical examination with abnormal findings[ICD10: Z00.01] Ashley Coburn MD, [facility] CPT-4: 34097 10/10/2017 08072 EST. PATIENT, LEVEL IV Diagnosis: Other specified hypothyroidism[ICD10: E03.8] Diagnosis: Generalized anxiety disorder[ICD10: F41.1] Diagnosis: Major depressive disorder, single episode, moderate[ICD10: F32.1] Diagnosis: Other fatigue[ICD10: R53.83] Diagnosis: Other malaise[ICD10: R53.81] Diagnosis: Dysphagia, oropharyngeal phase[ICD10: R13.12] Ashlee Coburn MD, [facility] CPT-4: 37509 09/20/2017 42832 EST. PATIENT, LEVEL III Diagnosis: Acute laryngopharyngitis[ICD10: J06.0] Diagnosis: Acute suppurative otitis media without spontaneous rupture of ear drum, bilateral[ICD10: H66.003] Diagnosis: Other acute sinusitis[ICD10: J01.80] Diagnosis: Other allergic rhinitis[ICD10: J30.89] Ashlee Coburn MD, [facility] CPT-4: 81474 07/13/2017 28455 EST. PATIENT, LEVEL III Diagnosis: Postprocedural hypothyroidism[ICD10: E89.0] Ashlee Coburn MD, [facility] CPT-4: 98041 06/20/2017 ([id number]) 38331 EST. PATIENT, LEVEL III Diagnosis: Postprocedural hypothyroidism[ICD10: E89.0] Ashley Coburn MD, [facility] CPT-4: 96460 05/31/2017 ([id number]) 48381 EST. PATIENT, LEVEL III Diagnosis: Postprocedural hypothyroidism[ICD10: E89.0] Ashley Coburn MD, [facility] CPT-4: 15724 04/18/2017 ([id number]) 83903 EST. PATIENT, LEVEL IV Diagnosis: Other malaise[ICD10: R53.81] Diagnosis: Postprocedural hypothyroidism[ICD10: E89.0] Diagnosis: Myalgia[ICD10: M79.1] Diagnosis: Vitamin D deficiency, unspecified[ICD10: E55.9] Ashley Coburn MD, [facility] CPT-4: 79302 03/21/2017 ([id number]) 03441 EST. PATIENT, LEVEL III Diagnosis: Cellulitis of buttock[ICD10: L03.317] Julissa Coburn MD, [facility] CPT-4: 01141 11/20/2016 18553 EST. PATIENT, LEVEL IV Diagnosis: Radiculopathy, sacral and sacrococcygeal region[ICD10: M54.18] Diagnosis: Other specified hypothyroidism[ICD10: E03.8] Ashlee Coburn MD, [facility] CPT-4: 65352 07/31/2016 ([id number]) PREV VISIT EST AGE 18-39 Diagnosis: Hypothyroidism, unspecified[ICD10: E03.9] Diagnosis: Postprocedural hypothyroidism[ICD10: E89.0] Diagnosis: Other malaise[ICD10: R53.81] Diagnosis: Encounter for gynecological examination (general) (routine) without abnormal findings[ICD10: Z01.419] Ashley Coburn MD, [facility] CPT-4: 83865 05/03/2016 12848 EST. PATIENT, LEVEL III Diagnosis: Acute upper respiratory infection, unspecified[ICD10: J06.9] Diagnosis: Acute bronchitis, unspecified[ICD10: J20.9] Ashlee Coburn MD, [facility] CPT-4: 38738 08/26/2015 19715 EST. PATIENT, LEVEL III Diagnosis: Acute pharyngitis, unspecified[ICD10: J02.9] Diagnosis: Acute sinusitis, unspecified[ICD10: J01.90] Ashlee Coburn MD, [facility] CPT-4: 39329 08/20/2015 ([id number]) PREV VISIT EST AGE 18-39 Diagnosis: ROUTINE GYNE EXAM[ICD9: V72.31] Ashley Coburn MD, [facility] CPT- 4: 16133 03/18/2015 ([id number]) 63840 EST. PATIENT, LEVEL III Diagnosis: Irregular menstrual cycle[ICD9: 626.4] Diagnosis: Hair loss disorder[ICD9: 704.00] Ashley Coburn MD, [facility] CPT-4: 51588 02/03/2015 ([id number]) 98887 EST. PATIENT, LEVEL III Diagnosis: Acute costochondritis[ICD9: 733.6] Diagnosis: POSTSURGICAL HYPOTHYROIDISM[ICD9: 244.0] Diagnosis: GENERALIZED ANXIETY DISEASE[ICD9: 300.02] Ashley Coburn MD [facility] CPT-4: 84663 12/10/2014 ([id number]) 90003 EST. PATIENT, LEVEL III Diagnosis: HYPOTHYROIDISM[ICD9: 244.9] Diagnosis: Depression[ICD9: 311] Diagnosis: GENERALIZED ANXIETY DISEASE[ICD9: 300.02] Julissa Coburn MD, [facility] CPT-4: 06089 11/12/2014 ([id number]) 05439 EST. PATIENT, LEVEL III Diagnosis: Sacroiliitis[ICD9: 720.2] Diagnosis: Fatigue[ICD9: 780.79] Diagnosis: Back pain[ICD9: 724.5] Ashley Coburn MD [facility] CPT-4: 90487 07/23/2014 ([id number]) 73135 EST. PATIENT, LEVEL IV Diagnosis: Back pain[ICD9: 724.5] Diagnosis: SCIATICA[ICD9: 724.3] Diagnosis: Sore throat and laryngitis[ICD9: 465.0] Diagnosis: Upper respiratory infection[ICD9: 465.9] Ashley Coburn MD, [facility] CPT-4: 68282 04/20/2014 ([id number]) 29282 EST. PATIENT, LEVEL III Diagnosis: ACUTE SINUSITIS[ICD9: 461.9] Diagnosis: ALLERGIC RHINITIS[ICD9: 477.9] Julissa Coburn MD, [facility] CPT-4: 69065 02/24/2014 ([id number]) 21359 EST. PATIENT, LEVEL IV Diagnosis: POSTSURGICAL HYPOTHYROIDISM[ICD9: 244.0] Diagnosis: Dysphagia[ICD9: 787.20] Diagnosis: Lumbago[ICD9: 724.2] Diagnosis: Encounter for long-term (current) use of other medications[ICD9: V58.69] Diagnosis: Laboratory exam ordered as part of routine general medical examination[ICD9: V72.62] Diagnosis: Thyroid nodule[ICD9: 241.0] Julissa Coburn MD, [facility] CPT-4: 11319 10/13/2013 ([id number]) 98326 EST. PATIENT, LEVEL III Diagnosis: ACUTE BRONCHITIS[ICD9: 466.0] Diagnosis: Sinusitis[ICD9: 473.9] Diagnosis: COUGH[ICD9: 786.2] Ashley Coburn MD, [facility] CPT-4: 93905 05/28/2013 ([id number]) 27459 EST. PATIENT, LEVEL III Diagnosis: ACUTE SINUSITIS[ICD9: 461.9] Diagnosis: ALLERGIC RHINITIS[ICD9: 477.9] Ashley Coburn MD, [facility] CPT- 4: 91971 02/18/2013 ([id number]) 90222 EST. PATIENT, LEVEL III Diagnosis: POSTSURGICAL HYPOTHYROIDISM[ICD9: 244.0] Diagnosis: Fatigue[ICD9: 780.79] Ashley Coburn MD, [facility] CPT-4: 80851 12/17/2012 ([id number]) 45823 EST. PATIENT, LEVEL III Diagnosis: ALLERGIC RHINITIS[ICD9: 477.9] Diagnosis: ACUTE URI[ICD9: 465.9] Julissa Coburn MD, [facility] CPT-4: 57553 05/21/2012 ([id number]) 56819 EST. PATIENT, LEVEL III Diagnosis: Tachycardia[ICD9: 785.0] Diagnosis: GENERALIZED ANXIETY DISEASE[ICD9: 300.02] Diagnosis: Depression[ICD9: 311] Ashley Coburn MD, [facility] CPT-4: 17169 02/19/2012 30487 EST. PATIENT, LEVEL III Diagnosis: RUQ pain[ICD9: 789.01] Diagnosis: NAUSEA ALONE[ICD9: 787.02] Julissa Coburn MD, [facility] CPT-4: 65992 08/24/2011 65571 EST. PATIENT, LEVEL III Diagnosis: ACUTE SEROUS OTITIS MEDIA[ICD9: 381.01] Diagnosis: ACUTE URI[ICD9: 465.9] Diagnosis: Cough[ICD9: 786.2] Ashley Coburn MD, [facility] CPT-4: 42506 07/26/2011 16030 EST. PATIENT, LEVEL III Diagnosis: ACUTE SINUSITIS[ICD9: 461.9] Diagnosis: Environmental allergies[ICD9: 477.9] [facility] CPT-4: 56756 06/16/2011 Plan of Care Planned Activity Notes Codes Status Date App[facility]ment: [id number] [place] ([facility] min) Moderate 11/01/2017 Visit Plan: Well Adult - pt was counseled about diet, exercise, and encouraged to follow a heart healthy diet and increase activity level. The patient was instructed to RTC yearly for well adult exams and PRN for acute illnesses. The pt was also instructed to have yearly labs for check of cholesterol, thyroid, chem panel, CBC, and renal functioning. Hypothyroid - not optimally supplemented - increase dose of synthroid to 88mcg m/w/f and 1/2 tab on tue/thur/sat/sun. Discussed her depression and recommended pt to look at a change of scenery /moving/changing jobs. 10/10/2017 Appointment: [facility] [phone] [id number] [place] (15 min) Moderate 10/10/2017 Patient Education: Patient Medication Summary Completed 10/10/2017 Visit Plan: Chronic Depression and anxiety - the pt has symptoms of chronic anxiety and depression that have been less controlled since the last office visit. The pt has expected periods of exacerbation with abatement of the symptoms with change in situational exposure. Fluvoxamine increased. Hypothyroidism - pt with chronic hypothyroidism, continue with current medication, will monitor pt to signs or symptoms of lack of adequate supplementation. Pt is to continue with current dose of medication unless directed otherwise. Check labs at regular intervals wither q 3 months or q 6 months based on previous levels of control. Thyroid nodule/dysphagia - will order repeat US to monitor. Fatigue, malaise, joint pain - will check labs - pt has a history of multiple tick bites - will start doxycycline - pt is to notify clinic if symptoms do not improve, if they worsen, or with any changes, questions, or concerns. 09/20/2017 Appointment: [facility] [phone] [id number] [place] (30 min) Complex 09/20/2017 Patient Education: Patient Medication Summary Completed 09/20/2017 Visit Plan: URI - Pt advised to increase fluids, vitamin C. Discussed natural and expected course of this diagnosis and need to alert me if symptoms do not follow expected course, or if any worse. RX sent to patient' s pharmacy. Sinusitis - Pt has acute infection - pain in face, maxillary region , Pt informed to use decongestant, RX given to patient, sinus rinses also recommended. Call if symptoms do not show improvement. Otitis Media - discussed the diagnosis with the patient, script sent electronically to the pharmacy for treatment of the infection. The disease course was discussed and the need to notify the clinic if symptoms do not improve or if they acutely worsen. Allergies - chronic - recommended pt to use allergy medication as prescribed. Pt has been counseled as to the appropriate use of the medication. Pt to call if allergy symptoms are not controlled with the medication. If using nasal spray , instructions as follows: Nasal spray- use twice daily, one spray per nostril twice daily, after 30 minutes, rinse out nose with saline spray.. Use opposite hand per nostril to spray in the nasal steroid allergy spray. 07/13/2017 Visit Plan: URI - Pt advised to increase fluids, vitamin C. Discussed natural and expected course of this diagnosis and need to alert me if symptoms do not follow expected course, or if any worse. RX sent to patient' s pharmacy. Sinusitis - Pt has acute infection - pain in face, maxillary region , Pt informed to use decongestant, RX given to patient, sinus rinses also recommended. Call if symptoms do not show improvement. Otitis Media - discussed the diagnosis with the patient, script sent electronically to the pharmacy for treatment of the infection. The disease course was discussed and the need to notify the clinic if symptoms do not improve or if they acutely worsen. Allergies - chronic - recommended pt to use allergy medication as prescribed. Pt has been counseled as to the appropriate use of the medication. Pt to call if allergy symptoms are not controlled with the medication. If using nasal spray , instructions as follows: Nasal spray- use twice daily, one spray per nostril twice daily, after 30 minutes, rinse out nose with saline spray.. Use opposite hand per nostril to spray in the nasal steroid allergy spray. 07/13/2017 Visit Plan: URI - Pt advised to increase fluids, vitamin C. Discussed natural and expected course of this diagnosis and need to alert me if symptoms do not follow expected course, or if any worse. RX sent to patient' s pharmacy. Sinusitis - Pt has acute infection - pain in face, maxillary region , Pt informed to use decongestant, RX given to patient, sinus rinses also recommended. Call if symptoms do not show improvement. Otitis Media - discussed the diagnosis with the patient, script sent electronically to the pharmacy for treatment of the infection. The disease course was discussed and the need to notify the clinic if symptoms do not improve or if they acutely worsen. Allergies - chronic - recommended pt to use allergy medication as prescribed. Pt has been counseled as to the appropriate use of the medication. Pt to call if allergy symptoms are not controlled with the medication. If using nasal spray , instructions as follows: Nasal spray- use twice daily, one spray per nostril twice daily, after 30 minutes, rinse out nose with saline spray.. Use opposite hand per nostril to spray in the nasal steroid allergy spray. 07/13/2017 Appointment: Ashlee Evans WPtel: [phone] [facility] [place] (15 min) Moderate 07/13/2017 Patient Education: Patient Medication Summary Completed 07/13/2017 Visit Plan: Sensation of fullness in throat - US showed stable cyst - will repeat in 6 months or sooner if symptoms do not improve with thyroid medication adjustment or with any changing or worsening symptoms. 06/20/2017 Appointment: Ashlee Evans WPtel: [phone] [facility] [place] (30 min) Complex 06/20/2017 Patient Education: Patient Medication Summary Completed 06/20/2017 Visit Plan: Sensation of fullness in throat - recommended ultrasound of residual thyroid - increase cytomel to 10mg daily, decrease synthroid to 1/2 of 75mcg pill daily. 05/31/2017 Appointment: Ashley Cob[facility]el[facility] [phone] [id number] [place] (15 min) Moderate 05/31/2017 Patient Education: Patient Medication Summary Completed 05/31/2017 Care Plan: ECHO EXAMINATION PROCEDURE Pending 05/31/2017 Visit Plan: Hypothyroidism - pt with chronic hypothyroidism , continue with current medication, will monitor pt to signs or symptoms of lack of adequate supplementation. Pt is to continue with current dose of medication unless directed otherwise. Check labs at regular intervals wither q 3 months or q 6 months based on previous levels of control. 04/18/2017 Appointment: Ashley Coburn WPtel: [address] [place], [place] [id number] (15 min) Moderate 04/18/2017 Patient Education: Patient Medication Summary Completed 04/18/2017 Visit Plan: Hypothyroidism - pt with chronic hypothyroidism , continue with current medication, will monitor pt to signs or symptoms of lack of adequate supplementation. Pt is to continue with current dose of medication unless directed otherwise. Check labs at regular intervals wither q 3 months or q 6 months based on previous levels of control. stop armour thyroid and start levothyroxine Depression - uncontrolled - Pt has been counseled about the diagnosis of depression, the potential causes, and risks associated with the diagnosis. The pt denies suicidal ideation, or plans. The patient has been counseled about treatment options, and understands the risks associated with treatment of depression, as well as the risks associated with NOT treating the depression. I believe the pt will benefit from medical intervention and an antidepressant has been appropriately prescribed for this patient. increase dose of fluvoxamine to 25mg in AM and 50mg at hs. hx of tick bite - will repeat labs - we however need a copy of her L labs and patient is to be on a higher dose of vitamin d 50,000 units weekly x 13 weeks. 03/21/2017 Appointment: Ashley Coburn WPtel: [address] [place], [place] [phone] (15 min) Moderate 03/21/2017 Patient Education: Patient Medication Summary Completed 03/21/2017 Visit Plan: Abscess/Cellulitis - The patient was instructed in appropriate wound care. The patient was instructed take the abx as directed. The patient is to call for any change in symptoms, increase in size of the lesion, increase in pain. 11/20/2016 Patient Education: Patient Medication Summary Completed 11/20/2016 Referral: Ortho, [facility] WPtel: [address] [id number] Referral Initiated 08/14/2016 Visit Plan: Pt is complaining of low back, sacral pain - Pt states that she has been seeing her chiropractor, who ordered x-rays and told her that she would need to be referred to an airport operations specialist. Will call for x-ray results. Will refer to ortho [facility] per pt request. Pt is to notify clinic with any questions or concerns. Hypothyroidism - Pt states that she has been more fatigued, and has noticed more hair loss recently - will check labs. Pt would also like to consider changing to a natural thyroid supplement. Pt with chronic hypothyroidism, continue with current medication, will monitor pt to signs or symptoms of lack of adequate supplementation. Pt is to continue with current dose of medication unless directed otherwise. Check labs at regular intervals wither q 3 months or q 6 months based on previous levels of control. 07/31/2016 [phone] (15 min) Moderate 07/31/2016 Patient Education: Patient Medication Summary Completed 07/31/2016 Care Plan: Referral Order SNOMED-CT : [id number] Pending 07/31/2016 Appointment: Injection 07/21/2016 Patient Education: Patient Medication Summary Completed 07/21/2016 Visit Plan: Well Adult Female - exam completed. Pap and gc/ chlamydia and breast exam completed. Pt will be called with results of her testing. She was advised to continue with yearly annual exams. Safe sex practices discussed during office visit today. Call if any abnormal gynecologic issues during the next year, otherwise, RTC yearly or prn. Anxiety - check thyroid levels, may be causing increase in anxiety if thyroid is over- supplemented 05/03/2016 Appointment: Ashley Cob[phone] [facility] [facility] 05/03/2016 Patient Education: Patient Medication Summary Completed 05/03/2016 Care Plan: PAP Pending 05/03/2016 Appointment: Injection 01/05/2016 Patient Education: Patient Medication Summary Completed 01/05/2016 Visit Plan: URI - Pt advised to increase fluids, vitamin C. Discussed natural and expected course of this diagnosis and need to alert me if symptoms do not follow expected course, or if any worse. RX sent to patient' s pharmacy. Bronchitis - acute case of bronchitis identified. Pt has been given antibiotics, breathing treatments as appropriate, and pt has been instructed to call if symptoms are not improved, or if symptoms acutely worsen. 08/26/2015 Appointment: (15 min) Moderate 08/26/2015 Patient Education: Patient Medication Summary Completed 08/26/2015 Visit Plan: Sinusitis - Pt has acute infection - pain in face, maxillary region, Pt informed to use decongestant, RX given to patient, sinus rinses also recommended. Call if symptoms do not show improvement. Strep throat - pt give rx for antibiotic - sent to pharmacy - pt had swab of throat today - will culture the swab. Allergies - chronic - recommended pt to use allergy medication as prescribed. Pt has been counseled as to the appropriate use of the medication. Pt to call if allergy symptoms are not controlled with the medication. If using nasal spray, instructions as follows: Nasal spray- use twice daily, one spray per nostril twice daily, after 30 minutes, rinse out nose with saline spray.. Use opposite hand per nostril to spray in the nasal steroid allergy spray. 08/20/2015 Appointment: (15 min) Moderate 08/20/2015 Patient Education: Patient Medication Summary Completed 08/20/2015 Care Plan: C RAP A SC Pending 08/20/2015 Visit Plan: Well Adult Female - exam completed. Pap and gc/ chlamydia and breast exam completed. Pt will be called with results of her testing. She was advised to continue with yearly annual exams. Safe sex practices discussed during office visit today. Call if any abnormal gynecologic issues during the next year, otherwise, RTC yearly or prn. 03/18/2015 Patient Education: Patient Medication Summary Completed 03/18/2015 Care Plan: GC/CHL PRB Pending 03/18/2015 Care Plan: PAP Pending 03/18/2015 Visit Plan: Break-thru bleeding - recommended no change to current medications - Pt needs to call if symptoms return or worsen. Reminded pt to take pills on time. Alopecia - recommended pt to change hair products, check thyroid levels. 02/03/2015 Appointment: Ashley Coburn WPtel: [address] [place], [place] [id number] Follow up 02/03/2015 Patient Education: Patient Medication Summary Completed 02/03/2015 Visit Plan: Hypothyroidism - pt with chronic hypothyroidism , continue with current medication, will monitor pt to signs or symptoms of lack of adequate supplementation. Pt is to continue with current dose of medication unless directed otherwise. Check labs at regular intervals wither q 3 months or q 6 months based on previous levels of control. Costochondritis - pt to use anti-inflammatories as directed.. Pt is to call if the chest pain does not improve. 12/10/2014 Patient Education: Patient Medication Summary Completed 12/10/2014 Visit Plan: Hypothyroidism - pt with chronic hypothyroidism , continue with current medication, need to check labs. Pt is to continue with current dose of medication and we will check labs and call her with the results. Chronic Depression and anxiety - the pt has symptoms of chronic anxiety and depression that have been fairly well controlled since the last office visit. The pt has expected periods of exacerbation with abatement of the symptoms with change in situational exposure. No change in current medications. 11/12/2014 Appointment: Follow up 11/12/2014 Patient Education: Patient Medication Summary Completed 11/12/2014 Care Plan: COMPLETE CBC AUTOMATED LOINC : 38514-0 Ordered 11/12/2014 Visit Plan: Sacroiliitis - back exercises discussed with the patient, pt to continue with anti-inflammatories. Pt is to call if the symptoms do not improve or if they worsen. kenalog injection in SI joints bilaterally 07/23/2014 Appointment: Ashley Coburn WPtel: [address] [place] [address] Follow up 07/23/2014 Patient Education: Patient Medication Summary Completed 07/23/2014 Visit Plan: URI - Pt advised to increase fluids, vitamin C. Discussed natural and expected course of this diagnosis and need to alert me if symptoms do not follow expected course, or if any worse. RX sent to patient' s pharmacy. Sciatica- exercises discussed with the patient, pt to continue with anti-inflammatories. Pt is to call if the symptoms do not improve or if they worsen. Pt given muscle relaxers, she is to continue with naproxen, and she is to see physical therapy. 04/20/2014 Appointment: Ashley Coburn WPtel: [facility] Sick 04/20/2014 Patient Education: Patient Medication Summary Completed 04/20/2014 Visit Plan: Well Adult Female - exam completed. Pap and gc/ chlamydia and breast exam completed. Pt will be called with results of her testing. She was advised to continue with yearly annual exams. Safe sex practices discussed during office visit today. Call if any abnormal gynecologic issues during the next year, otherwise, RTC yearly or prn. 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 Joyce. Unfortunately we do not have any of her pap reports or any consult letters from Dr. Caicedo. We will still refer Arabella to Dr. Joyce. I attempted a phone call today, but will have to call back to give him an update on the patient. Thyroid labs checked today. 03/10/2014 Appointment: Ashley Coburn [facility]el[phone] [facility] [place] Pap Only 03/10/2014 Patient Education: Patient Medication Summary Completed 03/10/2014 Visit Plan: Sinusitis - Pt has acute infection - pain in face, maxillary region, Pt informed to use decongestant, RX given to patient, sinus rinses also recommended. Call if symptoms do not show improvement. Allergies-kenalog injection today in the office 02/24/2014 Patient Education: Patient Medication Summary Completed 02/24/2014 Visit Plan: Hypothyroidism - pt with chronic hypothyroidism , continue with current medication, will monitor pt to signs or symptoms of lack of adequate supplementation. Pt is to continue with current dose of medication unless directed otherwise. Check labs at regular intervals wither q 3 months or q 6 months based on previous levels of control. Check TSH/Free T4 today - check calcium level as well, monitor symptoms. Plan to f/u thyroid ultrasound due to increase in symptoms, dysphagia, and history of thyroid nodules on the left. Lumbago-samples of vimovo provided and instructed on use- continue stretching exercises. 10/13/2013 Appointment: Jul[phone] Follow up 10/13/2013 Patient Education: Patient Medication Summary Completed 10/13/2013 Visit Plan: Bronchitis - acute case of bronchitis identified. Pt has been given antibiotics, breathing treatments as appropriate, and pt has been instructed to call if symptoms are not improved, or if symptoms acutely worsen. Sinusitis - Pt has acute infection - pain in face, maxillary region, Pt informed to use decongestant, RX given to patient, sinus rinses also recommended. Call if symptoms do not show improvement. 05/28/2013 Appointment: Ashley Coburn WPtel: [phone] [facility] [facility] 05/28/2013 Patient Education: Patient Medication Summary Completed 05/28/2013 Visit Plan: Sinusitis - Pt has acute infection - pain in face, maxillary region, Pt informed to use decongestant, RX given to patient, sinus rinses also recommended. Call if symptoms do not show improvement. Allergies - chronic - recommended pt to use allergy medication as prescribed. Pt has been counseled as the the appropriate use of the medication. Pt to call if allergy symptoms are not controlled with the medication. Kenalog injection today in the office. 02/18/2013 Patient Education: Patient Medication Summary Completed 02/18/2013 Visit Plan: Hypothyroidism - pt with chronic hypothyroidism , continue with current medication, will monitor pt to signs or symptoms of lack of adequate supplementation. Pt is to continue with current dose of medication unless directed otherwise. Check labs at regular intervals wither q 3 months or q 6 months based on previous levels of control. Check TSH/Free T4 today - check calcium level as well, monitor symptoms. 12/17/2012 Appointment: Ashley Coburn WPtel: [address] [place], [place] [phone] Other 12/17/2012 Patient Education: Patient Medication Summary Completed 12/17/2012 Visit Plan: Allergies - Advised avoidance of allergens if possible, we discussed natural and expected course of this diagnosis and need to alert me if symtpoms do not follow expected course, or if any worse. Pt given samples and script for flonase. URI - Pt advised to increase fluids, vitamin C. Discussed natural and expected course of this diagnosis and need to alert me if symtpoms do not follow expected course, or if any worse. 05/21/2012 Appointment: Julissa Coker WPtel: [phone] Other 05/21/2012 Patient Education: Patient Medication Summary Completed 05/21/2012 Visit Plan: Depression and Anxiety - the patient has uncontrolled depression and anxiety and will benefit from an increase in the dose of the SSRI on a daily basis to attempt control of the symptoms of anxiety (tachycardia, overwhelming sensations, stress, insomnia, etc). I also believe that the patient will benefit from very low dose of prn benzodiazepine. Pt is aware of the risks and benefits of treament with the above medications. Increase the fluvoxamine to 50mg daily Pt has been advised to take two packs of control back to back x 2 months, then increase the pack to three packs back to back. Tachycardia - check chem panel, tsh, concern for autoimmune thyroiditis. 02/19/2012 Appointment: Ashley Coburn WPtel: [address] [place] [address] Other 02/19/2012 Patient Education: Patient Medication Summary Completed 02/19/2012 Visit Plan: RUQ pain with nausea-suspect gallbladder inflammation-will schedule patient for HIDA scan. Continue with current medications as directed. Instructed patient to call or go to ER for worsening symptoms. Patient verbalized understanding. Doctor's eval of the patient - I have discussed the pt's recent ER visit, radiology studies and labs and I have discussed the patient's case with the nurse practicioner and I have reviewed the patient's chart, I have reviewed the patient's past medical history, problem list, medication list, and personal history. I agree with the documentation by the nurse practicioner in the HPI, physical exam, and the assessment and plan. 08/24/2011 Visit Plan: RUQ pain with nausea-suspect gallbladder inflammation-will schedule patient for HIDA scan. Continue with current medications as directed. Instructed patient to call or go to ER for worsening symptoms. Patient verbalized understanding. 08/24/2011 Appointment: Julissa Coker WPtel: [address] [place], [place] [id number] [place] Other 08/24/2011 Patient Education: Patient Medication Summary Completed 08/24/2011 Visit Plan: Otitis media/URI - Pt has acute infection - Pt informed to use decongestant, RX given to patient.. Call if symptoms do not show improvement. 07/26/2011 Appointment: Ashley Coburn WPtel: [facility] [place] Other 07/26/2011 Patient Education: Patient Medication Summary Completed 07/26/2011 Visit Plan: Allergies - Advised avoidance of allergens if possible, we discussed natural and expected course of this diagnosis and need to alert me if symtpoms do not follow expected course, or if any worse. Pt given samples of singulair 10mg po daily. Recommended benadryl at HS as needed over the next few days as well. Injection given in the office today. Sinusitis - Pt has acute infection - pain in face- Pt informed to use decongestant, RX given to patient, sinus rinses also recommended. Call if symptoms do not show improvement. 06/16/2011 Appointment: Julissa Coker WPtel: [phone] Other 06/16/2011 Patient Education: Patient Medication Summary Completed 06/16/2011 Referral: [facility] WPtel: [address] [id number] Referral Initiated Instructions Comment . Sacroiliitis - back exercises discussed with the patient , pt to continue with anti-inflammatories. Pt is to call if the symptoms do not improve or if they worsen. kenalog injection in SI joints bilaterally . Well Adult Female - exam completed. Pap and gc/ chlamydia and breast exam completed. Pt will be called with results of her testing. She was advised to continue with yearly annual exams. Safe sex practices discussed during office visit today. Call if any abnormal gynecologic issues during the next year, otherwise, RTC yearly or prn. 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 Joyce. Unfortunately we do not have any of her pap reports or any consult letters from Dr. Caicedo. We will still refer Arabella to Dr. Joyce. I attempted a phone call today, but will have to call back to give him an update on the patient. Thyroid labs checked today. . Break-thru bleeding - recommended no change to current medications - Pt needs to call if symptoms return or worsen. Reminded pt to take pills on time. Alopecia - recommended pt to change hair products, check thyroid levels. . Bronchitis - acute case of bronchitis identified. Pt has been given antibiotics, breathing treatments as appropriate, and pt has been instructed to call if symptoms are not improved, or if symptoms acutely worsen. Sinusitis - Pt has acute infection - pain in face, maxillary region, Pt informed to use decongestant, RX given to patient, sinus rinses also recommended. Call if symptoms do not show improvement. . Hypothyroidism - pt with chronic hypothyroidism, continue with current medication, will monitor pt to signs or symptoms of lack of adequate supplementation. Pt is to continue with current dose of medication unless directed otherwise. Check labs at regular intervals wither q 3 months or q 6 months based on previous levels of control. . RUQ pain with nausea-suspect gallbladder inflammation- will schedule patient for HIDA scan. Continue with current medications as directed. Instructed patient to call or go to ER for worsening symptoms. Patient verbalized understanding. Doctor's eval of the patient - I have discussed the pt's recent ER visit, radiology studies and labs and I have discussed the patient's case with the nurse practicioner and I have reviewed the patient's chart, I have reviewed the patient's past medical history, problem list, medication list, and personal history. I agree with the documentation by the nurse practicioner in the HPI, physical exam, and the assessment and plan. . Hypothyroidism - pt with chronic hypothyroidism, continue with current medication, will monitor pt to signs or symptoms of lack of adequate supplementation. Pt is to continue with current dose of medication unless directed otherwise. Check labs at regular intervals wither q 3 months or q 6 months based on previous levels of control. Check TSH/Free T4 today - check calcium level as well, monitor symptoms. Plan to f/u thyroid ultrasound due to increase in symptoms, dysphagia, and history of thyroid nodules on the left. Lumbago-samples of vimovo provided and instructed on use-continue stretching exercises. . Sinusitis - Pt has acute infection - pain in face, maxillary region, Pt informed to use decongestant, RX given to patient, sinus rinses also recommended. Call if symptoms do not show improvement. Allergies - chronic - recommended pt to use allergy medication as prescribed. Pt has been counseled as the the appropriate use of the medication. Pt to call if allergy symptoms are not controlled with the medication. Kenalog injection today in the office. . Pt is complaining of low back, sacral pain - Pt states that she has been seeing her chiropractor, who ordered x-rays and told her that she would need to be referred to an airport operations specialist. Will call for x-ray results. Will refer to ortho [facility] states per pt request. Pt is to notify clinic with any questions or concerns. Hypothyroidism - Pt states that she has been more fatigued, and has noticed more hair loss recently - will check labs. Pt would also like to consider changing to a natural thyroid supplement. Pt with chronic hypothyroidism, continue with current medication, will monitor pt to signs or symptoms of lack of adequate supplementation. Pt is to continue with current dose of medication unless directed otherwise. Check labs at regular intervals wither q 3 months or q 6 months based on previous levels of control. . Well Adult - pt was counseled about diet, exercise, and encouraged to follow a heart healthy diet and increase activity level. The patient was instructed to RTC yearly for well adult exams and PRN for acute illnesses. The pt was also instructed to have yearly labs for check of cholesterol, thyroid, chem panel, CBC, and renal functioning. Hypothyroid - not optimally supplemented - increase dose of synthroid to 88mcg m /w/f and 1/2 tab on tue/thur/sat/sun. Discussed her depression and recommended pt to look at a change of scenery / moving/changing jobs. . Otitis media/URI - Pt has acute infection - Pt informed to use decongestant, RX given to patient.. Call if symptoms do not show improvement. Check labs-cbc, cmp, tsh, free t4. Hypothyroidism - pt with chronic hypothyroidism, continue with current medication, need to check labs. Pt is to continue with current dose of medication and we will check labs and call her with the results. Chronic Depression and anxiety - the pt has symptoms of chronic anxiety and depression that have been fairly well controlled since the last office visit. The pt has expected periods of exacerbation with abatement of the symptoms with change in situational exposure. No change in current medications. . Sensation of fullness in throat - recommended ultrasound of residual thyroid - increase cytomel to 10mg daily, decrease synthroid to 1/2 of 75mcg pill daily. . Well Adult Female - exam completed. Pap and gc/ chlamydia and breast exam completed. Pt will be called with results of her testing. She was advised to continue with yearly annual exams. Safe sex practices discussed during office visit today. Call if any abnormal gynecologic issues during the next year, otherwise, RTC yearly or prn. Anxiety - check thyroid levels, may be causing increase in anxiety if thyroid is over-supplemented . URI - Pt advised to increase fluids, vitamin C. Discussed natural and expected course of this diagnosis and need to alert me if symptoms do not follow expected course, or if any worse. RX sent to patient's pharmacy. Sciatica- exercises discussed with the patient, pt to continue with anti- inflammatories. Pt is to call if the symptoms do not improve or if they worsen. Pt given muscle relaxers, she is to continue with naproxen, and she is to see physical therapy. . Abscess/Cellulitis - The patient was instructed in appropriate wound care. The patient was instructed take the abx as directed. The patient is to call for any change in symptoms, increase in size of the lesion, increase in pain. . Sensation of fullness in throat - US showed stable cyst - will repeat in 6 months or sooner if symptoms do not improve with thyroid medication adjustment or with any changing or worsening symptoms. . Depression and Anxiety - the patient has uncontrolled depression and anxiety and will benefit from an increase in the dose of the SSRI on a daily basis to attempt control of the symptoms of anxiety (tachycardia , overwhelming sensations, stress, insomnia, etc). I also believe that the patient will benefit from very low dose of prn benzodiazepine. Pt is aware of the risks and benefits of treament with the above medications. Increase the fluvoxamine to 50mg daily Pt has been advised to take two packs of control back to back x 2 months, then increase the pack to three packs back to back. Tachycardia - check chem panel, tsh, concern for autoimmune thyroiditis. . URI - Pt advised to increase fluids, vitamin C. Discussed natural and expected course of this diagnosis and need to alert me if symptoms do not follow expected course, or if any worse. RX sent to patient's pharmacy. Sinusitis - Pt has acute infection - pain in face, maxillary region, Pt informed to use decongestant, RX given to patient, sinus rinses also recommended. Call if symptoms do not show improvement. Otitis Media - discussed the diagnosis with the patient, script sent electronically to the pharmacy for treatment of the infection. The disease course was discussed and the need to notify the clinic if symptoms do not improve or if they acutely worsen. Allergies - chronic - recommended pt to use allergy medication as prescribed. Pt has been counseled as to the appropriate use of the medication. Pt to call if allergy symptoms are not controlled with the medication. If using nasal spray, instructions as follows: Nasal spray- use twice daily, one spray per nostril twice daily, after 30 minutes, rinse out nose with saline spray.. Use opposite hand per nostril to spray in the nasal steroid allergy spray. Plan for HIDA scan on 08/28/11 at 10am. Do not eat or drink 6 hours before the exam. Do not take any pain medications 6 hours before the exam as well. Continue omeprazole and carafate. Go to ER if pain worsens, or other symptoms as discussed . RUQ pain with nausea-suspect gallbladder inflammation-will schedule patient for HIDA scan. Continue with current medications as directed. Instructed patient to call or go to ER for worsening symptoms. Patient verbalized understanding. . Allergies - Advised avoidance of allergens if possible, we discussed natural and expected course of this diagnosis and need to alert me if symtpoms do not follow expected course, or if any worse. Pt given samples and script for flonase. URI - Pt advised to increase fluids, vitamin C. Discussed natural and expected course of this diagnosis and need to alert me if symtpoms do not follow expected course, or if any worse. . Sinusitis - Pt has acute infection - pain in face, maxillary region, Pt informed to use decongestant, RX given to patient, sinus rinses also recommended. Call if symptoms do not show improvement. Allergies-kenalog injection today in the office . Allergies - Advised avoidance of allergens if possible, we discussed natural and expected course of this diagnosis and need to alert me if symtpoms do not follow expected course, or if any worse. Pt given samples of singulair 10mg po daily. Recommended benadryl at HS as needed over the next few days as well. Injection given in the office today. Sinusitis - Pt has acute infection - pain in face- Pt informed to use decongestant, RX given to patient, sinus rinses also recommended. Call if symptoms do not show improvement. . Hypothyroidism - pt with chronic hypothyroidism, continue with current medication, will monitor pt to signs or symptoms of lack of adequate supplementation. Pt is to continue with current dose of medication unless directed otherwise. Check labs at regular intervals wither q 3 months or q 6 months based on previous levels of control. Costochondritis - pt to use anti-inflammatories as directed.. Pt is to call if the chest pain does not improve. . Hypothyroidism - pt with chronic hypothyroidism, continue with current medication, will monitor pt to signs or symptoms of lack of adequate supplementation. Pt is to continue with current dose of medication unless directed otherwise. Check labs at regular intervals wither q 3 months or q 6 months based on previous levels of control. Check TSH/Free T4 today - check calcium level as well, monitor symptoms. . Hypothyroidism - pt with chronic hypothyroidism, continue with current medication, will monitor pt to signs or symptoms of lack of adequate supplementation. Pt is to continue with current dose of medication unless directed otherwise. Check labs at regular intervals wither q 3 months or q 6 months based on previous levels of control. stop armour thyroid and start levothyroxine Depression - uncontrolled - Pt has been counseled about the diagnosis of depression, the potential causes, and risks associated with the diagnosis. The pt denies suicidal ideation, or plans. The patient has been counseled about treatment options, and understands the risks associated with treatment of depression, as well as the risks associated with NOT treating the depression. I believe the pt will benefit from medical intervention and an antidepressant has been appropriately prescribed for this patient. increase dose of fluvoxamine to 25mg in AM and 50mg at hs. hx of tick bite - will repeat labs - we however need a copy of her RML labs and patient is to be on a higher dose of vitamin d 50,000 units weekly x 13 weeks. Will give rocephin shot and steroid shot, send chest xray, start zpack . URI - Pt advised to increase fluids, vitamin C. Discussed natural and expected course of this diagnosis and need to alert me if symptoms do not follow expected course, or if any worse. RX sent to patient's pharmacy. Bronchitis - acute case of bronchitis identified. Pt has been given antibiotics , breathing treatments as appropriate, and pt has been instructed to call if symptoms are not improved, or if symptoms acutely worsen. . Chronic Depression and anxiety - the pt has symptoms of chronic anxiety and depression that have been less controlled since the last office visit. The pt has expected periods of exacerbation with abatement of the symptoms with change in situational exposure. Fluvoxamine increased. Hypothyroidism - pt with chronic hypothyroidism, continue with current medication, will monitor pt to signs or symptoms of lack of adequate supplementation. Pt is to continue with current dose of medication unless directed otherwise. Check labs at regular intervals wither q 3 months or q 6 months based on previous levels of control. Thyroid nodule/dysphagia - will order repeat US to monitor. Fatigue, malaise, joint pain - will check labs - pt has a history of multiple tick bites - will start doxycycline - pt is to notify clinic if symptoms do not improve, if they worsen, or with any changes, questions, or concerns. . Sinusitis - Pt has acute infection - pain in face, maxillary region, Pt informed to use decongestant, RX given to patient, sinus rinses also recommended. Call if symptoms do not show improvement. Strep throat - pt give rx for antibiotic - sent to pharmacy - pt had swab of throat today - will culture the swab. Allergies - chronic - recommended pt to use allergy medication as prescribed. Pt has been counseled as to the appropriate use of the medication. Pt to call if allergy symptoms are not controlled with the medication. If using nasal spray, instructions as follows: Nasal spray- use twice daily, one spray per nostril twice daily, after 30 minutes, rinse out nose with saline spray.. Use opposite hand per nostril to spray in the nasal steroid allergy spray. . URI - Pt advised to increase fluids, vitamin C. Discussed natural and expected course of this diagnosis and need to alert me if symptoms do not follow expected course, or if any worse. RX sent to patient's pharmacy. Sinusitis - Pt has acute infection - pain in face, maxillary region, Pt informed to use decongestant, RX given to patient, sinus rinses also recommended. Call if symptoms do not show improvement. Otitis Media - discussed the diagnosis with the patient, script sent electronically to the pharmacy for treatment of the infection. The disease course was discussed and the need to notify the clinic if symptoms do not improve or if they acutely worsen. Allergies - chronic - recommended pt to use allergy medication as prescribed. Pt has been counseled as to the appropriate use of the medication. Pt to call if allergy symptoms are not controlled with the medication. If using nasal spray, instructions as follows: Nasal spray- use twice daily, one spray per nostril twice daily, after 30 minutes, rinse out nose with saline spray.. Use opposite hand per nostril to spray in the nasal steroid allergy spray. . URI - Pt advised to increase fluids, vitamin C. Discussed natural and expected course of this diagnosis and need to alert me if symptoms do not follow expected course, or if any worse. RX sent to patient's pharmacy. Sinusitis - Pt has acute infection - pain in face, maxillary region, Pt informed to use decongestant, RX given to patient, sinus rinses also recommended. Call if symptoms do not show improvement. Otitis Media - discussed the diagnosis with the patient, script sent electronically to the pharmacy for treatment of the infection. The disease course was discussed and the need to notify the clinic if symptoms do not improve or if they acutely worsen. Allergies - chronic - recommended pt to use allergy medication as prescribed. Pt has been counseled as to the appropriate use of the medication. Pt to call if allergy symptoms are not controlled with the medication. If using nasal spray, instructions as follows: Nasal spray- use twice daily, one spray per nostril twice daily, after 30 minutes, rinse out nose with saline spray.. Use opposite hand per nostril to spray in the nasal steroid allergy spray. . Well Adult Female - exam completed. Pap and gc/ chlamydia and breast exam completed. Pt will be called with results of her testing. She was advised to continue with yearly annual exams. Safe sex practices discussed during office visit today. Call if any abnormal gynecologic issues during the next year, otherwise, RTC yearly or prn.
--- OUTSIDE RECORDS SUMMARY | 2018-01-09 10:53 | XMS REPORT | CCD ---
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 Name Role Phone PP Unavailable CCM Unavailable Summary Purpose Interface Exchange Insurance Providers Payer name Policy type / Coverage type Covered green party ID Effective Begin Date Effective End Date [facility] [id number] Unknown Family history Grandfather Diagnosis Age At [...] Unknown Single 06/16/2011 Employment Unknown Currently employed [employer] 06/16/[address]: [id number] Nonsmoker 06/16/2011 Allergies, Adverse Reactions, Alerts Allergies, Adverse Reactions, Alerts data not found Past Medical History Illness Codes Condition Status Onset Date Resolved Date Generalized anxiety disorder ICD-9: 300.00 ICD-10: F41.1 Active 11/15/2017 Unknown Major depressive disorder, single episode, moderate ICD-9: 311 ICD-10: F32.1 Active 09/20/2017 Unknown Other fatigue ICD-9: 780.79 ICD-10: R53.83 Active 09/20/2017 Unknown Other malaise ICD-9: 780.79 ICD-10: R53.81 Active 07/23/2014 Unknown Palpitations ICD-9: 785.1 ICD-10: R00.2 Active 11/15/2017 Unknown Paresthesia of skin ICD-9: 782.0 ICD-10: R20.2 Active 11/15/2017 Unknown Encounter for general adult medical examination with [...] ICD-9: 300.02 ICD-10: F41.1 Active 09/20/2017 Unknown Other acute sinusitis ICD-9: 461.8 ICD-10: J01.80 Active 07/13/2017 Unknown Other allergic rhinitis ICD-9: 477.8 ICD-10: J30.89 Active 07/13/2017 Unknown Other specified hypothyroidism ICD-9: 244.8 ICD-10: [...] Problems Condition Codes Effective Dates Condition Status Generalized anxiety disorder ICD-9: 300.00 ICD-10: F41.1 11/15/2017 Active Major depressive disorder, single episode, moderate ICD-9: 311 ICD-10: F32.1 09/20/2017 Active Other fatigue ICD-9: 780.79 ICD-10: R53.83 09/20/2017 Active Other malaise ICD-9: 780.79 ICD-10: R53.81 07/23/2014 Active Palpitations ICD-9: 785.1 ICD-10: R00.2 11/15/2017 Active Paresthesia of skin ICD-9: 782.0 ICD-10: R20.2 11/15/2017 Active Encounter for general adult medical examination with [...] disorder ICD-9: 300.02 ICD-10: F41.1 09/20/2017 Active Other acute sinusitis ICD-9: 461.8 ICD-10: J01.80 07/13/2017 Active Other allergic rhinitis ICD-9: 477.8 ICD-10: J30.89 07/13/2017 Active Other specified hypothyroidism ICD-9: 244.8 ICD-10: [...] Date Stop Date Status Fill Instructions fluvoxamine 50 mg tablet RxNorm: 575731 1 Tablet(s) PO daily to take with the 100mg to equal 150mg daily 11/15/2017 Active fluvoxamine 100 mg tablet RxNorm: 640292 TAKE ONE TABLET BY MOUTH DAILY 11/12/2017 05/10/2018 Active Keflex 500 mg capsule RxNorm: 498111 1 Capsule(s) PO TID 201711/04/2017 Inactive to equal a total of 14 days prednisone 20 mg tablet RxNorm: 869649 2 Tablet(s) PO daily 08/201811/05/2017 Inactive Cytomel 5 mcg tablet RxNorm: 374654 TAKE TWO TABLETS BY MOUTH EVERY EVENING 10/16/2017 01/13/2018 Active Synthroid 75 mcg tablet RxNorm: 554926 1 Tablet(s) PO UD 1 full tab M/W/F and 1/2 tab Sat/Sun/Tue/Thur 10/10/20172018 Active fluvoxamine 100 mg tablet RxNorm: 811136 1 Tablet(s) PO daily 09/20/2017 10/19/2017 Inactive doxycycline hyclate 100 mg capsule RxNorm: 3431723 1 Capsule(s) PO BID 09/20/2017 10/03/2017 Inactive Mononessa (28) 0.25 mg-35 mcg tablet RxNorm: 542172 TAKE 1 ACTIVE TABLET BY MOUTH ONCE DAILY FOR 3 MONTHS THEN START PLACEBO FOR 1 WEEK 201605/19/2018 Active Synthroid 75 mcg tablet RxNorm: 100284 TAKE ONE-HALF TABLET BY MOUTH EVERY MORNING ON AN EMPTY STOMACH 09/10/2017 Inactive fluvoxamine 50 mg tablet RxNorm: 958060 TAKE ONE TABLET BY MOUTH EVERY EVENING 09/10/2017 10/09/2017 Inactive Kenalog 40 mg/mL suspension for injection RxNorm: 6398095 1 Milliliter(s) Inj 07/13/2017 07/13/2017 Inactive Augmentin 500 mg-125 mg tablet RxNorm: 390975 1 Tablet(s) PO TID 07/13/2017 07/22/2017 Inactive Isabell Allergy 180 mg tablet RxNorm: 151671 1 Tablet(s) PO daily 07/13/2017 08/11/2017 Inactive Synthroid 75 mcg tablet RxNorm: 853947 1/2 Tablet(s) PO QAM 07/201709/09/2017 Inactive Cytomel 5 mcg tablet RxNorm: 074976 2 Tablet(s) PO QPM 201609/27/2017 Inactive Cytomel 5 mcg tablet RxNorm: 273834 1 Tablet(s) PO QPM 201605/30/2017 Inactive Mononessa (28) 0.25 mg-35 mcg tablet RxNorm: 931992 TAKE 1 ACTIVE TABLET BY MOUTH ONCE DAILY FOR 3 MONTHS THEN START PLACEBO FOR 1 WEEK 201608/14/2017 Inactive Vitamin D2 50,000 unit capsule RxNorm: 398805 1 Capsule(s) PO QW 03/21/2017 06/17/2017 Inactive fluvoxamine 50 mg tablet RxNorm: 961914 1.5 Tablet(s) PO UD take 1/2 pill in morning and a full pill at night 03/21/2017 09/09/2017 Inactive Synthroid 75 mcg tablet RxNorm: 190820 1 Tablet(s) PO QAM 03/2105/19/2017 Inactive fluvoxamine 50 mg tablet RxNorm: 509403 1 TABLET(S) PO QPM TAKE 1 TABLET BY MOUTH EVERY EVENING 03/12/2017 03/20/2017 Inactive [place] Thyroid 30 mg tablet RxNorm: 956288 TAKE ONE TABLET BY MOUTH DAILY 02/05/2017 03/06/2017 Inactive [place] Thyroid 30 mg tablet RxNorm: 618234 TAKE ONE TABLET BY MOUTH DAILY 01/15/2017 02/04/2017 Inactive [place] Thyroid 30 mg tablet RxNorm: 328592 TAKE ONE TABLET BY MOUTH DAILY 12/14/2016 01/12/2017 Inactive Bactrim DS 800 mg-160 mg tablet RxNorm: 139649 1 Tablet(s) PO BID 11/20/2016 11/26/2016 Inactive fluvoxamine 50 mg tablet RxNorm: 551397 1 TABLET(S) PO QPM TAKE 1 TABLET BY MOUTH EVERY EVENING 11/01/2016 02/28/2017 Inactive Mononessa (28) 0.25 mg-35 mcg tablet RxNorm: 349779 Tablet(s) PO TAKE ONE TABLET BY MOUTH DAILY CONTINUOUSLY X 3 MONTHS, THEN START PLACEBO X 1 WEEK 09/05/2016 04/10/2017 Inactive [place] Thyroid 30 mg tablet RxNorm: 591977 1 Tablet(s) PO daily 08/18/2016 12/13/2016 Inactive [place] Thyroid 30 mg tablet RxNorm: 993965 1 Tablet(s) PO daily 08/18/2016 08/17/2016 Inactive Kenalog 40 mg/mL suspension for injection RxNorm: 1764369 1 Milliliter(s) Inj 07/21/2016 07/21/2016 Inactive fluvoxamine 50 mg tablet RxNorm: 131998 1 TABLET(S) PO QPM TAKE 1 TABLET BY MOUTH EVERY EVENING 07/03/2016 10/30/2016 Inactive fluconazole 150 mg tablet RxNorm: 088749 1 Tablet(s) PO daily 05/03/2016 05/07/2016 Inactive fluvoxamine 50 mg tablet RxNorm: 209022 1 TABLET(S) PO QPM TAKE 1 TABLET BY MOUTH EVERY EVENING 03/06/2016 07/02/2016 Inactive levothyroxine 75 mcg tablet RxNorm: 004084 TAKE ONE TABLET BY MOUTH DAILY 01/19/2016 08/15/2016 Inactive Request already responded to by other means (e.g. phone or fax) levothyroxine 75 mcg tablet RxNorm: 834260 Tablet(s) TAKE ONE TABLET BY MOUTH DAILY 01/17/2016 03/21/2017 Inactive ceftriaxone 500 mg solution for injection RxNorm: 8024042 Inj 01/05/2016 01/05/2016 Inactive Kenalog 40 mg/mL suspension for injection RxNorm: 1648764 1 Milliliter(s) Inj 01/05/2016 01/05/2016 Inactive Tamiflu 75 mg capsule RxNorm: 866540 1 Capsule(s) PO daily 12/2712/27/2015 Inactive Tamiflu 75 mg capsule RxNorm: 533185 1 Capsule(s) PO daily 12/2701/06/2016 Inactive Zithromax Z-Matt 250 mg tablet RxNorm: 520459 1 Tablet(s) PO UD 2 pills day one and 1 pill day 2-5. 08/26/2015 08/30/2015 Inactive ceftriaxone 500 mg solution for injection RxNorm: 3213311 Inj 08/26/2015 08/26/2015 Inactive Kenalog 40 mg/mL suspension for injection RxNorm: 0085042 Milliliter(s) Inj 08/26/2015 08/26/2015 Inactive prednisone 20 mg tablet RxNorm: 529403 2 Tablet(s) PO daily 08/24/2015 Inactive amoxicillin 500 mg capsule RxNorm: 535405 1 Capsule(s) PO BID 08/20/2015 08/29/2015 Inactive fluvoxamine 50 mg tablet RxNorm: 305622 TAKE 1 TABLET BY MOUTH EVERY EVENING 07/19/2015 03/21/2017 Inactive fluvoxamine 50 mg tablet RxNorm: 538255 1 TABLET(S) PO QPM TAKE 1 TABLET BY MOUTH EVERY EVENING 07/19/2015 11/15/2015 Inactive Mononessa (28) 0.25 mg-35 mcg tablet RxNorm: 534059 TABLET(S) PO TAKE ONE TABLET BY MOUTH DAILY CONTINUOUSLY X 3 MONTHS, THEN START PLACEBO X 1 WEEK 07/10/2015 07/03/2016 Inactive levothyroxine 75 mcg tablet RxNorm: 026172 TAKE ONE TABLET BY MOUTH DAILY 05/18/2015 09/14/2015 Inactive fluvoxamine 50 mg tablet RxNorm: 609759 1 TABLET(S) PO QPM TAKE 1 TABLET BY MOUTH EVERY EVENING 03/08/2015 07/05/2015 Inactive naproxen 500 mg tablet RxNorm: 815535 1 TABLET(S) PO BID 201403/20/2017 Inactive naproxen 500 mg tablet RxNorm: 570085 1 Tablet(s) PO BID 201401/31/2015 Inactive fluvoxamine 50 mg tablet RxNorm: 938577 1 TABLET(S) PO QPM TAKE 1 TABLET BY MOUTH EVERY EVENING 11/23/2014 03/07/2015 Inactive levothyroxine 75 mcg tablet RxNorm: 249117 1 Tablet(s) PO daily TAKE ONE TABLET BY MOUTH EVERY DAY ON AN EMPTY STOMACH 11/18/2014 04/16/2015 Inactive Xanax 0.5 mg tablet RxNorm: 708017 1 Tablet(s) PO Q8 PRN as needed 11/12/2014 No Stop Date Active Synthroid 50 mcg tablet RxNorm: 518521 1 Tablet(s) PO daily TAKE ONE TABLET BY MOUTH EVERY DAY ON AN EMPTY STOMACH 07/24/2014 11/17/2014 Inactive naproxen 500 mg tablet RxNorm: 278854 1 Tablet(s) PO BID 201309/20/2014 Inactive fluvoxamine 50 mg tablet RxNorm: 997578 1 TABLET(S) PO QPM TAKE 1 TABLET BY MOUTH EVERY EVENING 07/20/2014 11/16/2014 Inactive Mononessa (28) 0.25 mg-35 mcg tablet RxNorm: 771963 TABLET(S) PO TAKE ONE TABLET BY MOUTH DAILY CONTINUOUSLY X 3 MONTHS, THEN START PLACEBO X 1 WEEK 06/08/2014 06/02/2015 Inactive amoxicillin 875 mg tablet RxNorm: 966762 1 Tablet(s) PO BID 04/29/2014 Inactive cyclobenzaprine 10 mg tablet RxNorm: 081423 1 Tablet(s) PO TID as needed for back pain 04/20/2014 06/18/2014 Inactive Xanax 0.5 mg tablet RxNorm: 616620 1 Tablet(s) PO Q8 PRN as needed 04/14/2014 11/11/2014 Inactive Synthroid 25 mcg tablet RxNorm: 821287 Tablet(s) PO TAKE ONE TABLET BY MOUTH EVERY DAY ON AN EMPTY STOMACH 04/03/2014 07/23/2014 Inactive fluvoxamine 50 mg tablet RxNorm: 911210 Tablet(s) PO TAKE 1 TABLET BY MOUTH EVERY EVENING 03/23/2014 10/31/2016 Inactive doxycycline hyclate 100 mg tablet RxNorm: 056859 1 Tablet(s) PO BID 03/10/2014 03/23/2014 Inactive Kenalog 40 mg/mL suspension for injection RxNorm: 6216684 Milliliter(s) Inj 02/26/2014 02/26/2014 Inactive fluvoxamine 50 mg tablet RxNorm: 855085 Tablet(s) PO TAKE 1 TABLET BY MOUTH EVERY EVENING 02/19/2014 10/31/2016 Inactive fluvoxamine 50 mg tablet RxNorm: 959903 Tablet(s) PO TAKE 1 TABLET BY MOUTH EVERY EVENING 01/19/2014 10/31/2016 Inactive Synthroid 25 mcg tablet RxNorm: 596281 Tablet(s) PO TAKE ONE TABLET BY MOUTH EVERY DAY 09/30/2013 04/02/2014 Inactive fluvoxamine 50 mg tablet RxNorm: 018946 1 Tablet(s) PO QPM TAKE 1 TABLET BY MOUTH EVERY EVENING 09/23/2013 01/18/2014 Inactive azithromycin 500 mg tablet RxNorm: 2116837 1 Tablet(s) PO daily 05/28/2013 06/03/2013 Inactive cefdinir 300 mg capsule RxNorm: 907525 1 Capsule(s) PO BID 04/201306/06/2013 Inactive Phenergan with Codeine Syrup RxNorm: 10 Milliliter(s) PO Q4 PRN 05/28/2013 07/26/2013 Inactive dispense 8 ounces fluvoxamine 50 mg tablet RxNorm: 006791 1 Tablet(s) PO QPM TAKE 1 TABLET BY MOUTH EVERY EVENING 05/26/2013 09/22/2013 Inactive Mononessa (28) 0.25 mg-35 mcg tablet RxNorm: 682050 Tablet(s) PO TAKE ONE TABLET BY MOUTH DAILY CONTINUOUSLY X 3 MONTHS, THEN START PLACEBO X 1 WEEK 04/23/2013 03/18/2014 Inactive Mononessa (28) 0.25 mg-35 mcg tablet RxNorm: 785660 Tablet(s) PO TAKE ONE TABLET BY MOUTH DAILY CONTINUOUSLY X 3 MONTHS, THEN START PLACEBO X 1 WEEK 04/23/2013 09/04/2016 Inactive Kenalog 40 mg/mL Susp for Injection RxNorm: 5969669 1 Milliliter(s) Inj 02/19/2013 02/19/2013 Inactive doxycycline hyclate 100 mg tablet RxNorm: 414216 1 Tablet(s) PO BID 02/18/2013 02/27/2013 Inactive Mononessa (28) 0.25 mg-35 mcg tablet RxNorm: 329763 Tablet(s) PO TAKE ONE TABLET BY MOUTH DAILY CONTINUOUSLY X 3 MONTHS, THEN START PLACEBO X 1 WEEK 02/06/2013 04/22/2013 Inactive Synthroid 25 mcg tablet RxNorm: 818809 1 Tablet(s) PO daily 09/10/2013 Inactive fluvoxamine 50 mg tablet RxNorm: 895863 Tablet(s) PO TAKE 1 TABLET BY MOUTH EVERY EVENING 11/18/2012 05/25/2013 Inactive Nexium 40 mg capsule,delayed release RxNorm: 107388 1 Capsule(s) PO daily 07/12/2012 01/07/2013 Inactive Carafate 1 gram tablet RxNorm: 302874 1 Tablet(s) PO AC & HS 12/17/2012 Inactive amoxicillin 500 mg tablet RxNorm: 874082 1 Tablet(s) PO TID 06/14/2012 Inactive cefdinir 300 mg capsule RxNorm: 260587 1 Capsule(s) PO BID 06/13/2012 Inactive cefdinir 300 mg capsule RxNorm: 914910 1 Capsule(s) PO BID 12/17/2012 Inactive cefdinir 300 mg capsule RxNorm: 402199 1 Capsule(s) PO BID 06/14/2012 Inactive Rocephin 500 mg Solution for Injection RxNorm: 549677 1 Milliliter(s) Inj 05/21/2012 05/21/2012 Inactive Flonase 50 mcg/actuation Nasal [place] RxNorm: 8140725 2 [place] NASAL daily 05/21/2012 07/19/2012 Inactive Bactrim DS 800 mg-160 mg tablet RxNorm: 896403 1 Tablet(s) PO BID 05/21/2012 12/17/2012 Inactive prednisone 10 mg tablets in a dose pack RxNorm: 973730 Tablet(s) PO UD 6-5-4-3-2- 1 05/21/2012 05/26/2012 Inactive Kenalog 40 mg/mL Susp for Injection RxNorm: 0678378 1 Milliliter(s) Inj 05/21/2012 05/21/2012 Inactive fluvoxamine 50 mg tablet RxNorm: 298611 1 Tablet(s) PO QPM 09/15/2012 Inactive Xanax 0.5 mg Tab RxNorm: 194857 1 Tablet(s) PO Q8 PRN 01/2204/13/2014 Inactive fluvoxamine 25 mg Tab RxNorm: 211882 1 Tablet(s) PO daily 201102/18/2012 Inactive fluvoxamine 25 mg Tab RxNorm: 003090 1 Tablet(s) PO daily 201101/21/2012 Inactive Mononessa (28) 0.25 mg-35 mcg Tab RxNorm: 618721 1 Tablet(s) PO daily 10/11/2011 10/10/2011 Inactive Mononessa (28) 0.25 mg-35 mcg tablet RxNorm: 967411 Tablet(s) PO 10/11/2011 02/05/2013 Inactive TAKE ONE TABLET BY MOUTH DAILY Ortho Tri-Cyclen Lo 0.18/0.215/0.25 mg-25 mcg Tab RxNorm: 141623 1 Tablet(s) PO 10/10/2011 10/10/2011 Inactive Cipro 500 mg Tab RxNorm: 331493 1 Tablet(s) PO BID 201012/17/2012 Inactive Phenergan with Codeine Syrup RxNorm: 5- 10 Milliliter(s) PO Q6 PRN 07/26/2011 08/23/2011 Inactive Rocephin 500 mg Solution for Injection RxNorm: 212943 Inj 07/2607/26/2011 Inactive Diflucan 150 mg Tab RxNorm: 902677 1 Tablet(s) PO daily 201012/17/2012 Inactive Bactrim DS 800 mg-160 mg Tab RxNorm: 943324 1 Tablet(s) PO BID 06/16/2011 06/25/2011 Inactive triamcinolone acetonide 40 mg/mL Susp for Injection RxNorm: 4157313 2 Milliliter(s ) Inj UD 06/16/2011 06/16/2011 Inactive Bactrim DS 800 mg-160 mg Tab RxNorm: 939731 1 Tablet(s) PO BID 06/16/2011 06/16/2011 Inactive Luvox 50 mg Tab RxNorm : 071134 Oral No Start Date 01/21/2012 Inactive Ortho Tri-Cyclen Lo 0.18/0.215/0.25 mg-25 mcg Tab RxNorm: 593180 Oral No Start Date 10/09/2011 Inactive Nexium 40 mg capsule,delayed release RxNorm: 001586 1 Capsule(s) PO daily No Start Date 07/25/2011 Inactive omeprazole 40 mg Cap, Delayed Release RxNorm: 564212 1 Capsule(s) PO daily No Start Date 03/20/2017 Inactive Xanax 0.5 mg Tab RxNorm: 220010 1 Tablet(s) PO Q8 PRN No Start Date 01/22/2012 Inactive Synthroid 25 mcg tablet RxNorm: 325695 1 Tablet(s) PO daily No Start Date 01/13/2013 Inactive Flonase 50 mcg/actuation Nasal [place] RxNorm: 3609815 2 [place] NASAL daily No Start Date 03/20/2017 Inactive Zithromax Z-Matt 250 mg tablet RxNorm: 244980 Tablet(s) PO No Start Date 04/19/2014 Inactive vitamin B complex tablet RxNorm: 1 Tablet(s) PO daily No Start Date 10/09/2017 Inactive Carafate 1 gram tablet RxNorm: 718658 1 Tablet(s) PO as directed 1 before meals and at bedtime No Start Date 07/11/2012 Inactive Singulair 10 mg Tab RxNorm: 335269 1 Tablet(s) PO daily No Start Date 08/23/2011 Inactive Tylenol-Codeine #3 Oral RxNorm: Oral No Start Date 03/20/2017 Inactive Medication Administered Medication Codes Instructions Start Date Status Kenalog 40 mg/mL suspension for injection RxNorm: 0922415 1Milliliter 07/13/2017 No longer Active Kenalog 40 mg/mL suspension for injection RxNorm: 9444351 1Milliliter 07/21/2016 No longer Active Kenalog 40 mg/mL suspension for injection RxNorm: 5068002 1Mliter 01/05/2016 No longer Active ceftriaxone 500 mg solution for injection RxNorm: 4973013 01/05/2016 No longer Active Kenalog 40 mg/mL suspension for injection RxNorm: 7451673 Milliliter 08/26/2015 No longer Active ceftriaxone 500 mg solution for injection RxNorm: 9876829 08/26/2015 No longer Active Kenalog 40 mg/mL suspension for injection RxNorm: 0524884 Milliliter 02/26/2014 No longer Active Kenalog 40 mg/mL Susp for Injection RxNorm: 4528878 1Milliliter 02/19/2013 No longer Active Kenalog 40 mg/mL Susp for Injection RxNorm: 2315557 1Milliliter 05/21/2012 No longer Active Rocephin 500 mg Solution for Injection RxNorm: 687066 1Milliliter 05/21/2012 No longer Active Rocephin 500 mg Solution for Injection RxNorm: 526007 07/26/2011 No longer Active triamcinolone acetonide 40 mg/mL Susp for Injection RxNorm: 8463876 2MilliliterUD 06/16/2011 No longer Active Immunizations Vaccine Codes Date Status Influenza CVX: 141 07/21/2013 completed Assessments Condition Codes Effective Dates Other fatigue ICD-10: R53.83 ICD-9: 780.79 11/15/2017 Paresthesia of skin ICD-10: R20.2 ICD-9: 782.0 11/15/2017 Generalized anxiety disorder ICD-10: F41.1 ICD-9: 300.00 11/15/2017 Palpitations ICD-10: R00.2 ICD-9: 785.1 11/15/2017 Major depressive disorder, single episode, moderate ICD-10: F32.1 ICD-9: 311 11/15/2017 Other malaise ICD-10: R53.81 ICD-9: 780.79 11/15/2017 Encounter for general adult medical examination with abnormal findings ICD-10: Z00.01 ICD-9: V70.0 10/10/2017 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 ICD-9: 244.0 10/10/2017 Generalized anxiety disorder ICD-10: F41.1 ICD-9: 300.02 09/20/2017 Dysphagia, oropharyngeal phase ICD-10: R13.12 ICD-9: 787.22 09/20/2017 Other specified hypothyroidism ICD-10: E03.8 ICD-9: 244.8 09/20/2017 Other acute sinusitis ICD-10: J01.80 ICD-9: 461.8 07/13/2017 Acute laryngopharyngitis ICD-10: J06.0 ICD-9: 465.0 07/13/2017 Other allergic rhinitis ICD-10: J30.89 ICD-9: 477.8 07/13/2017 Acute suppurative otitis media without spontaneous rupture of ear drum, bilateral ICD-10: H66.003 ICD-9: 382.00 07/13/2017 Vitamin D deficiency, unspecified ICD-10: E55.9 ICD-9: 268.9 03/21/2017 Myalgia ICD-10: M79.1 ICD-9: 729.1 03/21/2017 Cellulitis of buttock ICD-10: L03.317 ICD-9: 682.5 11/20/2016 Radiculopathy, sacral and sacrococcygeal region ICD-10: M54.18 ICD-9: 724.4 07/31/2016 Allergic rhinitis, unspecified ICD-10: J30.9 ICD-9: 477.9 07/21/2016 Hypothyroidism, unspecified ICD-10: E03.9 ICD-9: 244.9 05/03/2016 Encounter for gynecological examination (general) (routine) without abnormal findings ICD-10: Z01.419 ICD-9: V72.31 05/03/2016 Acute sinusitis, unspecified ICD-10: J01.90 ICD-9: 461.9 01/05/2016 Acute upper respiratory infection, unspecified ICD-10: J06.9 ICD-9: 465.9 08/26/2015 Acute bronchitis, unspecified ICD-10: J20.9 ICD-9: 466.0 08/26/2015 Acute pharyngitis, unspecified ICD-10: J02.9 ICD-9: 462 08/20/2015 ROUTINE GYNE EXAM ICD-9: V72.31 2014 Hair loss disorder ICD-9: 704.00 2014 Irregular menstrual cycle ICD-9: 626.4 POSTSURGICAL HYPOTHYROIDISM ICD-9: 244.0 12/10/2014 GENERALIZED ANXIETY DISEASE ICD-9: 300.02 12/10/2014 Acute costochondritis ICD-9: 733.6 2014 HYPOTHYROIDISM ICD-9: 244.9 11/12/2014 Depression ICD-9: 311 11/12/2014 Back pain ICD-9: 724.5 07/23/2014 Sacroiliitis ICD-9: 720.2 07/23/2014 Fatigue ICD-9: 780.79 07/23/2014 Upper respiratory infection ICD-9: 465.9 04/20/2014 Sore throat and laryngitis ICD-9: 465.0 04/20/2014 SCIATICA ICD-9: 724.3 04/20/2014 Tick bite ICD-9: 919.4 03/10/2014 ACUTE SINUSITIS ICD-9: 461.9 02/24/2014 ALLERGIC RHINITIS ICD-9: 477.9 2013 Thyroid nodule ICD-9: 241.0 10/13/2013 Dysphagia ICD-9: 787.20 10/13/2013 Lumbago ICD-9: 724.2 10/13/2013 Laboratory exam ordered as part of routine general medical examination ICD-9: V72.62 10/13/2013 Encounter for long-term (current) use of other medications ICD-9: V58.69 10/13/2013 Sinusitis ICD-9: 473.9 05/28/2013 ACUTE BRONCHITIS ICD-9: 466.0 05/28/2013 COUGH ICD-9: 786.2 05/28/2013 Tachycardia ICD-9: 785.0 02/19/2012 NAUSEA ALONE ICD-9: 787.02 08/24/2011 RUQ pain ICD-9: 789.01 08/24/2011 ACUTE SEROUS OTITIS MEDIA ICD-9: 381.01 07/26/2011 Reason For Visit Reason For Visit Effective Dates Notes headache 11/15/2017 hypothyroid 10/10/2017 hypothyroid 09/20/2017 sinus congestion 07/13/2017 [...] Observation Code Item Item Code Result Date B12 Jne536 B12 334.00 pg/ml 11/15/2017 Folate Ord36 Folate >23.40 ng/mL 11/15/2017 [place] Spotted Fever Igg/Igm 801670 ANTONIO [place] SPOTTED FEVER IGM EIA . 09/28/2017 [place] Spotted Fever Igg/Igm 968613 RMSF, IGM 0.42 index 09/28/2017 [place] Spotted Fever Igg/Igm 526367 ANTONIO MT SPOTTED FEVER IGG EIA FLEX . 09/28/2017 [place] Spotted Fever Igg/Igm 552290 RMSF, IGG SCREEN-FLEX Negative 09/28/2017 Ehrlichia [place]affeensis Antibody Igm 998191 EHRLICHIA CHAFFEENSIS IGM < 1:16 09/28/2017 Ehrlichia [place]ensis Antibody Igg 320163 EHRLICHIA CHAFFEENSIS IGG <1:64 09/28/2017 [place] Western Blot Serum 836547 B. BURGDORFERI, IGG WB Negative 09/27/2017 [place] Western Blot Serum 405663 B. BURGDORFERI, IGM WB Negative 09/27/2017 [place] Disease Total Antibodies With Western Blot Reflex [id number] B. BURGDORFERI, IGG/IGM 1.17 09/26/2017 [place] Disease Total Antibodies With Western Blot Reflex [id number] 09/26/2017 Cbc With Differential Ord2 WBC 6.02 K/ul [...] 31.3 pg 09/24/2017 Cbc With Differential Ord2 [place]% 7.8 % 09/24/2017 Cbc With Differential Ord2 MCHC 33.3 pg 09/24/2017 Cbc With Differential Ord2 Eos% 2.0 % 09/24/2017 Cbc With Differential Ord2 PLT 236 K/ul 09/24/2017 Cbc With Differential Ord2 Baso% 0.2 % 09/24/2017 Cbc With Differential Ord2 RDW 12.5 % 09/24/2017 Cbc With Differential Ord2 Neut ABS# 3.15 K/ul 09/24/2017 Cbc With Differential Ord2 Lymph ABS# 2.27 K/ul 09/24/2017 Cbc With Differential Ord2 [place] ABS# 0.5 K/ul 09/24/2017 Cbc With Differential Ord2 Eos ABS# 0.1 K/ul 09/24/2017 Cbc With Differential Ord2 Baso ABS# 0.0 K/ul 09/24/2017 Comp Metabolic Dlu362 NA 139 mEq/L 09/24/2017 Comp Metabolic Dxs066 K 3.8 mEq/L 09/24/2017 Comp Metabolic Mgr502 CL 105 mEq/L 09/24/2017 Comp Metabolic Hpf459 CO2 27.0 mEq/L 09/24/2017 Comp Metabolic Rro052 ANION GAP 11 09/24/2017 Comp Metabolic Iti317 GLUCOSE 88 mg/dL 09/24/2017 Comp Metabolic Gdr521 Creat 0.6 mg/dL 09/24/2017 Comp Metabolic Fgr683 eGFR 121 ml/min/1.73m2 09/24/2017 Comp Metabolic Slk000 BUN 11 mg/dL 09/24/2017 Comp Metabolic Zya966 B/C Ratio 18.3 Ratio 09/24/2017 Comp Metabolic Qbk858 CALCIUM 9.0 mg/dL 09/24/2017 Comp Metabolic Utx979 ALK PHOS 53 U/L 09/24/2017 Comp Metabolic Wfm591 AST(SGOT) 16 U/L 09/24/2017 Comp Metabolic Hki011 ALT(SGPT) 12 U/L 09/24/2017 Comp Metabolic Wuq206 BILI T 0.5 mg/dL 09/24/2017 Comp Metabolic Fze372 ALBUMIN 3.9 g/dL 09/24/2017 Comp Metabolic Xij849 TPRO 6.1 g/dL 09/24/2017 Comp Metabolic Ybg241 GLOB 2.3 g/dL 09/24/2017 Comp Metabolic Zig087 A/G Ratio 1.7 Ratio 09/24/2017 Comp Metabolic Zbc283 Osmo 276 mOsmo 09/24/2017 Sed Rate Ord21 ESR 5 mm/hr 09/24/2017 Tsh Ord6 hTSH II 0.94 uIU/mL 09/24/2017 Vitamin D 25 Oh Ydj0901 VITAMIN D, 25 HYDROXY 78.35 ng/mL C-Reactive Protein Qnt Crqnt CRP 0.3 mg/dl 09/24/2017 Free T4 Ijh245 FREE T4 0.60 ng/dL 09/24/2017 Cbc With Differential Ord2 WBC 4.86 K/ul 05/22/2017 Cbc With Differential Ord2 RBC 4.31 M/ul 05/22/2017 Cbc With Differential Ord2 HGB 13.6 g/dl 05/22/2017 Cbc With Differential Ord2 HCT 40.1 % 05/22/2017 Cbc With Differential Ord2 Neut% 46.2 % 05/22/2017 Cbc With Differential Ord2 MCV 93.0 fl 05/22/2017 Cbc With Differential Ord2 Lymph% 44.4 % 05/22/2017 Cbc With Differential Ord2 MCH 31.6 pg 05/22/2017 Cbc With Differential Ord2 [place]% 7.8 % 05/22/2017 Cbc With Differential Ord2 MCHC 33.9 pg 05/22/2017 Cbc With Differential Ord2 Eos% 1.4 % 05/22/2017 Cbc With Differential Ord2 Baso% 0.2 % 05/22/2017 Cbc With Differential Ord2 PLT 224 K/ul 05/22/2017 Cbc With Differential Ord2 RDW 12.5 % 05/22/2017 Cbc With Differential Ord2 Neut ABS# 2.24 K/ul 05/22/2017 Cbc With Differential Ord2 Lymph ABS# 2.16 K/ul 05/22/2017 Cbc With Differential Ord2 [place] ABS# 0.4 K/ul 05/22/2017 Cbc With Differential Ord2 Eos ABS# 0.1 K/ul 05/22/2017 Cbc With Differential Ord2 Baso ABS# 0.0 K/ul 05/22/2017 Free T4 [id number] FREE T4 0.84 ng/dL 05/22/2017 Lipid Ord30 CHOL 148 mg/dL 05/22/2017 Lipid Ord30 HDL 61.0 mg/dl 05/22/2017 Lipid Ord30 TRIG 103 mg/dL 05/22/2017 Lipid Ord30 LDL 66 mg/dL 05/22/2017 Lipid Ord30 C/HDL 2.4 Ratio 05/22/2017 Comp Metabolic [id number] NA 140 mEq/L 05/22/2017 Comp Metabolic [id number] K 3.9 mEq/L 05/22/2017 Comp Metabolic Qnz251 CL 107 mEq/L 05/22/2017 Comp Metabolic Jak926 CO2 26.0 mEq/L 05/22/2017 Comp Metabolic Mvx889 ANION GAP 11 05/22/2017 Comp Metabolic Cld492 GLUCOSE 84 mg/dL 05/22/2017 Comp Metabolic Bvp860 Creat 0.6 mg/dL 05/22/2017 Comp Metabolic Zso547 eGFR 126 ml/min/1.73m2 05/22/2017 Comp Metabolic Lou542 BUN 11 mg/dL 05/22/2017 Comp Metabolic Ozj257 B/C Ratio 19.0 Ratio 05/22/2017 Comp Metabolic Fmw009 CALCIUM 8.6 mg/dL 05/22/2017 Comp Metabolic Pyz967 ALK PHOS 44 U/L 05/22/2017 Comp Metabolic Zpm846 AST(SGOT) 16 U/L 05/22/2017 Comp Metabolic Qqa983 ALT(SGPT) 13 U/L 05/22/2017 Comp Metabolic Ink795 BILI T 0.5 mg/dL 05/22/2017 Comp Metabolic Ftg707 ALBUMIN 3.7 g/dL 05/22/2017 Comp Metabolic Fbd027 TPRO 5.8 g/dL 05/22/2017 Comp Metabolic Ilj314 GLOB 2.1 g/dL 05/22/2017 Comp Metabolic Itq280 A/G Ratio 1.7 Ratio 05/22/2017 Comp Metabolic Kor179 Osmo 278 mOsmo 05/22/2017 Tsh Ord6 hTSH II 0.47 uIU/mL 05/22/2017 Free T4 Ujl271 FREE T4 1.08 ng/dL 08/14/2016 Tsh Ord6 hTSH II 0.26 uIU/mL 08/14/2016 GC/CHL PRB [id number] Chl trach DNA Negative 05/04/2016 GC/CHL PRB 1085723 GC PROBE Negative 05/04/2016 Tsh Ord6 hTSH II 0.51 uIU/mL 05/03/2016 Free T4 Lbx249 FREE T4 0.94 ng/dL 05/03/2016 Comp Metabolic Equ692 NA 137 mEq/L 05/03/2016 Comp Metabolic Gyt849 K 4.0 mEq/L 05/03/2016 Comp Metabolic Ork962 CL 102 mEq/L 05/03/2016 Comp Metabolic Juv216 CO2 29.0 mEq/L 05/03/2016 Comp Metabolic Rys851 ANION GAP 10 05/03/2016 Comp Metabolic Gec837 GLUCOSE 82 mg/dL 05/03/2016 Comp Metabolic Aup346 Creat 0.6 mg/dL 05/03/2016 Comp Metabolic Ijs766 eGFR 125 ml/min/1.73m2 05/03/2016 Comp Metabolic Qhc796 BUN 14 mg/dL 05/03/2016 Comp Metabolic Mgw216 B/C Ratio 23.7 Ratio 05/03/2016 Comp Metabolic Vyq571 CALCIUM 9.3 mg/dL 05/03/2016 Comp Metabolic Sgx643 ALK PHOS 45 U/L 05/03/2016 Comp Metabolic Bqj293 AST(SGOT) 21 U/L 05/03/2016 Comp Metabolic Nsh778 ALT(SGPT) 15 U/L 05/03/2016 Comp Metabolic Yeg198 BILI T 0.5 mg/dL 05/03/2016 Comp Metabolic Ena022 ALBUMIN 4.1 g/dL 05/03/2016 Comp Metabolic Ozu827 TPRO 6.5 g/dL 05/03/2016 Comp Metabolic Dfh260 GLOB 2.4 g/dL 05/03/2016 Comp Metabolic Xgi283 A/G Ratio 1.7 Ratio 05/03/2016 Comp Metabolic Vjf874 Osmo 273 mOsmo 05/03/2016 Sed Rate Ord21 ESR 1 mm/hr 10/13/2015 [...] With Differential Ord2 RDW 13.3 % 10/13/2015 Free T4 Tez050 FREE T4 1.03 ng/dL 10/13/2015 C-Reactive Protein Qnt Crqnt CRP 0.3 mg/dl 10/13/2015 Comp Metabolic Kea543 NA 139 mEq/L 10/13/2015 Comp Metabolic Gnp239 K 4.2 mEq/L 10/13/2015 Comp Metabolic Zga674 CL 105 mEq/L 10/13/2015 Comp Metabolic Zfe620 CO2 25.0 mEq/L 10/13/2015 Comp Metabolic Wsd549 ANION GAP 13 10/13/2015 Comp Metabolic Iob653 GLUCOSE 84 mg/dL 10/13/2015 Comp Metabolic Duh460 Creat 0.7 mg/dL 10/13/2015 Comp Metabolic Alp711 eGFR 106 ml/min/1.73m2 10/13/2015 Comp Metabolic Pru530 BUN 10 mg/dL 10/13/2015 Comp Metabolic Zei804 B/C Ratio 14.7 Ratio 10/13/2015 Comp Metabolic Bci328 CALCIUM 8.9 mg/dL 10/13/2015 Comp Metabolic Pyx344 ALK PHOS 53 U/L 10/13/2015 Comp Metabolic Pgl732 AST(SGOT) 15 U/L 10/13/2015 Comp Metabolic Dtj873 ALT(SGPT) 13 U/L 10/13/2015 Comp Metabolic Ggt220 BILI T 0.5 mg/dL 10/13/2015 Comp Metabolic Isr499 ALBUMIN 3.9 g/dL 10/13/2015 Comp Metabolic Yws072 TPRO 6.2 g/dL 10/13/2015 Comp Metabolic Knz031 GLOB 2.3 g/dL 10/13/2015 Comp Metabolic Ibh182 A/G Ratio 1.7 Ratio 10/13/2015 Comp Metabolic Fag461 Osmo 276 mOsmo 10/13/2015 Lipid Ord30 CHOL 151 mg/dL 10/13/2015 Lipid Ord30 HDL 65.0 mg/dl 10/13/2015 Lipid Ord30 TRIG 85 mg/dL 10/13/2015 Lipid Ord30 LDL 69 mg/dL 10/13/2015 Lipid Ord30 C/HDL 2.3 Ratio 10/13/2015 Tsh Ord6 hTSH II 1.18 uIU/mL 10/13/2015 Tsh Ord6 hTSH II 0.67 uIU/mL 07/15/2015 Free T4 Dxk097 FREE T4 1.08 ng/dL 07/15/2015 GC/CHL PRB 0908603 CHLM PROBE NEG 03/19/2015 GC/CHL PRB 8613383 GC PROBE NEG 03/19/2015 GC/CHL PRB 6803953 CHLM PROBE NEG 03/11/2014 GC/CHL PRB 9700360 GC PROBE NEG 03/11/2014 TSH 8159452 TSH 1.400 uIU/ML 03/11/2014 FREE T4 8702939 FREE T4 1.15 NG/DL 03/11/2014 GFR CALC 3129165 GFR AA >60 ML/MIN 10/13/2013 GFR CALC 5821041 GFR NON-AA >60 ML/MIN 10/13/2013 CHEM 14 0303073 AST 18 U/L 10/13/2013 CHEM 14 7186420 ALT 10 IU/L 10/13/2013 CHEM 14 5383349 BUN 6 MG/DL 10/13/2013 CHEM 14 0303712 ALBUMIN 4.1 GM/DL 10/13/2013 CHEM 14 4731112 CHLORIDE 105 MMOL/L 10/13/2013 CHEM 14 2514290 BILI TOT 0.5 MG/DL 10/13/2013 CHEM 14 5878907 ALK PHOS 45 U/L 10/13/2013 CHEM 14 3168045 SODIUM 137 MMOL/L 10/13/2013 CHEM 14 4705484 CREATININE 0.62 MG/DL 10/13/2013 CHEM 14 1118188 CALCIUM 8.7 MG/DL 10/13/2013 CHEM 14 8589300 POTASSIUM 3.8 MMOL/L 10/13/2013 CHEM 14 0707417 PROT TOT 6.2 GM/DL 10/13/2013 CHEM 14 8765304 GLUCOSE 92 MG/DL 10/13/2013 CHEM 14 8705708 BICARB 27 MMOL/L 10/13/2013 CHEM 14 1897984 ANION GAP 5 MEQ/L 10/13/2013 TSH 6965819 TSH 1.080 uIU/ML 10/13/2013 FREE T4 7283903 FREE T4 0.99 NG/DL 10/13/2013 CBC 8670893 WBC 5.0 10e9/L 10/13/2013 CBC 0530665 RBC 4.30 10e12/L 10/13/2013 CBC 2030623 HGB 13.2 g/dL 10/13/2013 CBC 1408853 HCT DET 40.1 % 10/13/2013 CBC 4400953 MCV 93.3 fL 10/13/2013 CBC 7017217 MCH 30.7 pg 10/13/2013 CBC 9843885 MCHC 32.9 g/dL 10/13/2013 CBC 2557122 PLT 275 10e9/L 10/13/2013 CBC 1999624 MPV 12.2 fL 10/13/2013 CBC 0505063 KEZIA % 56.1 % 10/13/2013 CBC 8249006 LY % 35.4 % 10/13/2013 CBC 7640296 MON % 7.3 % 10/13/2013 CBC 4440797 EOS % 1.0 % 10/13/2013 CBC 5932232 BASO % 0.2 % 10/13/2013 CBC 0465054 RDW 12.3 % 10/13/2013 CBC 0996278 ABS KEZIA 2.81 10e9/L 10/13/2013 CBC 3508997 ABS LYMPH 1.77 10e9/L 10/13/2013 CBC 8715022 ABS MONO 0.37 10e9/L 10/13/2013 CBC 5020199 ABS EOS 0.05 10e9/L 10/13/2013 CBC 1253393 ABS BASO 0.01 10e9/L 10/13/2013 CBC 3777538 RDW-SD 40.8 fL 10/13/2013 T3 TOT 3361481 T3 TOT 1.2 NG/ML 10/13/2013 FREE T4 9101149 FREE T4 0.85 NG/DL 12/17/2012 CHEM 14 5243561 AST 16 U/L 12/17/2012 CHEM 14 9242816 ALT 12 IU/L 12/17/2012 CHEM 14 4705135 BUN 8 MG/DL 12/17/2012 CHEM 14 4901366 ALBUMIN 4.2 GM/DL 12/17/2012 CHEM 14 9386923 CHLORIDE 105 MMOL/L 12/17/2012 CHEM 14 7862935 BILI TOT 0.5 MG/DL 12/17/2012 CHEM 14 8346186 ALK PHOS 46 U/L 12/17/2012 CHEM 14 9574948 SODIUM 138 MMOL/L 12/17/2012 CHEM 14 2621991 CREATININE 0.66 MG/DL 12/17/2012 CHEM 14 2748866 CALCIUM 9.3 MG/DL 12/17/2012 CHEM 14 0284074 POTASSIUM 3.7 MMOL/L 12/17/2012 CHEM 14 4344855 PROT TOT 6.7 GM/DL 12/17/2012 CHEM 14 9883295 GLUCOSE 83 MG/DL 12/17/2012 CHEM 14 1528559 BICARB 27 MMOL/L 12/17/2012 CHEM 14 7461871 ANION GAP 6 MEQ/L 12/17/2012 T3 FREE 5114921 T3 FREE 3.4 PG/ML 12/17/2012 MAGNESIUM 1690275 MAGNESIUM 1.7 MEQ/L 12/17/2012 CBC 0590053 WBC 5.4 10e9/L 12/17/2012 CBC 6773597 RBC 4.30 10e12/L 12/17/2012 CBC 3938444 HGB 13.4 g/dL 12/17/2012 CBC 3827448 HCT DET 39.8 % 12/17/2012 CBC 5756053 MCV 92.6 fL 12/17/2012 CBC 6629609 MCH 31.2 pg 12/17/2012 CBC 4005781 MCHC 33.7 g/dL 12/17/2012 CBC 1206755 PLT 256 10e9/L 12/17/2012 CBC 4249393 MPV 11.2 fL 12/17/2012 CBC 5691003 KEZIA % 52.0 % 12/17/2012 CBC 5436357 LY % 37.9 % 12/17/2012 CBC 0081201 MON % 8.4 % 12/17/2012 CBC 4491477 EOS % 1.5 % 12/17/2012 CBC 6394325 BASO % 0.2 % 12/17/2012 CBC 0124959 RDW 12.5 % 12/17/2012 CBC 9445841 ABS KEZIA 2.81 10e9/L 12/17/2012 CBC 3879171 ABS LYMPH 2.05 10e9/L 12/17/2012 CBC 7864389 ABS MONO 0.45 10e9/L 12/17/2012 CBC 0608260 ABS EOS 0.08 10e9/L 12/17/2012 CBC 3727928 ABS BASO 0.01 10e9/L 12/17/2012 CBC 7430236 RDW-SD 40.9 fL 12/17/2012 TSH 8745041 TSH 2.043 uIU/ML 12/17/2012 GFR CALC 1951182 GFR AA >60 ML/MIN 12/17/2012 GFR CALC 2690948 GFR NON-AA >60 ML/MIN 12/17/2012 UA 01707 Specific [place] 1.020 DateTime(Free Text in ) UA 10302 PH 6 DateTime(Free Text in ) UA 75693 GLUCOSE neg DateTime(Free Text in ) UA 27549 Protein neg DateTime(Free Text in Janima) UA 90574 Blood neg DateTime(Free Text in ) UA 34503 Bilirubin neg DateTime(Free Text in ) UA 03426 Ketones neg DateTime(Free Text in Janima) UA 41569 Urobilinogen neg DateTime(Free Text in Janima) UA 34192 Nitrite neg DateTime(Free Text in ) UA 33913 Leukocytes neg DateTime(Free Text in ) Review of Systems System Result Effective Dates Constitutional recent illness 11/15/2017 Constitutional No chills 11/15/2017 Constitutional fatigue 11/15/2017 Constitutional No fever 11/15/2017 Eyes No eye discharge 11/15/2017 Eyes No eye erythema 11/15/2017 Ears/Nose/Throat/Neck headache 2017 Ears/Nose/Throat/Neck No nasal discharge 11/15/2017 Ears/Nose/Throat/Neck No sore throat Cardiovascular No chest pain/pressure Cardiovascular No dyspnea 11/15/2017 Cardiovascular No syncope 11/15/2017 Respiratory No chest congestion 2017 Respiratory cough 11/15/2017 Respiratory No dyspnea 11/15/2017 Gastrointestinal abdominal pain 2017 Gastrointestinal No constipation 2017 Gastrointestinal No diarrhea 11/15/2017 Dermatologic No rash 11/15/2017 Psychiatric anxiety 11/15/2017 Psychiatric depression 11/15/2017 Constitutional malaise 11/15/2017 Cardiovascular palpitations 11/15/2017 Cardiovascular near-syncope/dizziness Cardiovascular fatigue 11/15/2017 Musculoskeletal back pain 11/15/2017 Neurologic No alteration of consciousness 11/15/2017 Neurologic No mental status change 2017 Neurologic paresthesia 11/15/2017 Constitutional No recent illness 2016 Constitutional No [...] Genitourinary/Female Constitutional general appearance Overall: well nourished 11/15/2017 None Full Exam - Genitourinary/Female Constitutional general appearance Overall: well developed 11/15/2017 None Full Exam - Genitourinary/Female Constitutional general appearance Overall: in no acute distress 11/15/2017 None Full Exam - Genitourinary/Female Eyes conjunctiva/eyelids Overall: conjunctiva clear 11/15/2017 None Full Exam - Genitourinary/Female Eyes pupils and irises Overall: pupils equal, round, reactive to light and accomodation 11/15/2017 None Full Exam - Genitourinary/Female Ears/Nose/Throat otoscopic exam Overall: external auditory canals clear 11/15/2017 None Full Exam - Genitourinary/Female Ears/Nose/Throat otoscopic exam Overall: tympanic membranes clear 11/15/2017 None Full Exam - Genitourinary/Female Ears/Nose/Throat oral cavity/pharynx/larynx Overall: oral mucosa clear 11/15/2017 None Full Exam - Genitourinary/Female Neck thyroid Overall: normal size 11/15/2017 None Full Exam - Genitourinary/Female Neck thyroid Overall: normal consistency 11/15/2017 None Full Exam - Genitourinary/Female Neck inspection of neck Overall: normal size 11/15/2017 None Full Exam - Genitourinary/Female Respiratory auscultation Overall: breath sounds clear bilaterally 11/15/2017 None Full Exam - Genitourinary/Female Respiratory respiratory effort/rhythm Overall: no retractions 11/15/2017 None Full Exam - Genitourinary/Female Respiratory respiratory effort/rhythm Overall: normal rate 11/15/2017 None Full Exam - Genitourinary/Female Cardiovascular auscultation of heart Overall: regular rate 11/15/2017 None Full Exam - Genitourinary/Female Cardiovascular auscultation of heart Overall: normal heart sounds 11/15/2017 None Full Exam - Genitourinary/Female Cardiovascular auscultation of heart Overall: no murmurs 11/15/2017 None Full Exam - Genitourinary/Female Abdomen abdominal exam Overall: non tender, non distended 11/15/2017 None Full Exam - Genitourinary/Female Abdomen abdominal exam Overall: normal bowel sounds 11/15/2017 None Full Exam - Genitourinary/Female Abdomen abdominal exam Overall: no mass lesions 11/15/2017 None Full Exam - Genitourinary/Female Lymphatic inspection and palpation of nodes Overall: anterior cervical chain benign 11/15/2017 None Full Exam - Genitourinary/Female Lymphatic inspection and palpation of nodes Overall: posterior cervical chain benign 11/15/2017 None Full Exam - Genitourinary/Female Musculoskeletal head and neck Overall: head atraumatic 11/15/2017 None Full Exam - Genitourinary/Female Integument inspection and palpation of skin Overall: no rash, lesions 11/15/2017 None Full Exam - Genitourinary/Female Neurologic mood and affect Overall: normal mood 11/15/2017 None Full Exam - Genitourinary/Female Neurologic mood and affect Overall: normal affect 11/15/2017 None Full Exam - Genitourinary/Female Psychiatric orientation/consciousness Overall: oriented to person, place and time 11/15/2017 None Full Exam - Genitourinary/Female Musculoskeletal spine, ribs and pelvis Spine: tender @ cervical spine 11/15/2017 None Full Exam - Genitourinary/Female Musculoskeletal spine, ribs and pelvis Spine: tender @ thoracic spine 11/15/2017 None Full Exam - Genitourinary/Female Constitutional general [...] affect 10/10/2017 None Full Exam - General 1995 Constitutional general appearance Overall: well developed 09/20/2017 [...] time 07/23/2014 None Full Exam - General 1995 Psychiatric mood and affect Overall: normal mood [...] time 02/24/2014 None Full Exam - General 1994 Constitutional general appearance Overall: well developed 10/13/2013 None Full Exam - General 1994 Constitutional general appearance Overall: in no acute distress 10/13/2013 None Full Exam - General 1994 Constitutional general appearance Overall: well nourished 10/13/2013 [...] accomodation 12/17/2012 None Full Exam - General 1994 [...] General 1994 Ears/Nose/Throat oral cavity/pharynx/larynx Oropharynx: erythema 07/26/2011 None [...] CPT-4: J3301 07/21/2016 THER/PROPH/DIAG INJ SC/IM CPT-4: 14614 07/21/2016 THER/PROPH/DIAG INJ SC/IM CPT-4: 16792 01/05/2016 TRIAMCINOLONE ACET INJ NOS CPT-4: J3301 01/05/2016 ROCEPHIN, PER 250 MG CPT-4: J0696 01/05/2016 THER/PROPH/DIAG INJ SC/IM CPT-4: 69185 08/26/2015 ROCEPHIN, PER 250 MG CPT-4: J0696 08/26/2015 TRIAMCINOLONE ACET INJ NOS CPT-4: J3301 08/26/2015 C RAP A SC (STREP A ASSAY W/OPTIC) CPT-4: 89251 08/20/2015 TRIAMCINOLONE ACET INJ NOS CPT-4: J3301 07/23/2014 DRAIN/INJECT JOINT/BURSA CPT-4: 10990 07/23/2014 URINALYSIS NONAUTO W/O SCOPE CPT-4: 28036 04/20/2014 PREV VISIT EST AGE 18-39 CPT-4: 77802 03/10/2014 ROUTINE VENIPUNCTURE CPT-4: 63696 03/10/2014 TRIAMCINOLONE ACET INJ NOS CPT-4: J3301 02/24/2014 ROUTINE VENIPUNCTURE CPT-4: 98076 10/13/2013 TRIAMCINOLONE ACET INJ NOS CPT-4: J3301 02/18/2013 TRIAMCINOLONE ACET INJ NOS CPT-4: J3301 05/21/2012 THER/PROPH/DIAG INJ SC/IM CPT-4: 39505 05/21/2012 THER/PROPH/DIAG INJ SC/IM CPT-4: 63091 07/26/2011 ROCEPHIN, PER 250 MG CPT-4: J0696 07/26/2011 TRIAMCINOLONE ACET INJ NOS CPT-4: J3301 06/16/2011 THER/PROPH/DIAG INJ SC/IM CPT-4: 39968 06/16/2011 Vital Signs Date Vital 11/15/2017 Blood Pressure 1: 114/64 Code : 8480-6 BMI: 21.1 Code : 22505-2 Heart Rate 1 : 91 bpm Height: 5'7" SpO2: 99% Temperature: 36.3 (C) / 97.4 (F) Weight: 135 lbs 10/10/2017 Blood Pressure 1: 118/82 Code : 8480-6 BMI: 20.5 Code : 02168-0 Heart Rate 1 : 87 bpm Height: 5'7" SpO2: 99% Weight: 131 lbs 09/20/2017 Blood Pressure 1: 140/72 Code : 8480-6 BMI: 21.0 Code : 36891-4 Heart Rate 1 : 98 bpm Height: 5'7" SpO2: 99% Weight: 134 lbs 07/13/2017 Blood Pressure 1: 123/64 Code : 8480-6 BMI: 20.5 Code : 87333-2 Heart Rate 1 : 93 bpm Height: 5'7" SpO2: 99% Weight: 131 lbs 06/20/2017 Blood Pressure 1: 110/70 Code : 8480-6 BMI: 20.8 Code : 70628-3 Heart Rate 1 : 77 bpm Height: 5'7" SpO2: 98% Weight: 133 lbs 05/31/2017 Blood Pressure 1: 100/70 Code : 8480-6 BMI: 20.7 Code : 61841-3 Heart Rate 1 : 80 bpm Height: 5'7" Weight: 132 lbs 04/18/2017 Blood Pressure 1: 120/72 Code : 8480-6 BMI: 21.0 Code : 92445-4 Heart Rate 1 : 76 bpm Height: 5'7" SpO2: 97% Weight: 134 lbs 03/21/2017 Blood Pressure 1: 130/78 Code : 8480-6 BMI: 21.1 Code : 23854-1 Heart Rate 1 : 70 bpm Height: 5'7" SpO2: 98% Weight: 135 lbs 11/20/2016 Blood Pressure 1: 130/72 Code : 8480-6 BMI: 21.0 Code : 50517-8 Heart Rate 1 : 114 bpm Height: 5'7" SpO2: 99% Weight: 134 lbs 07/31/2016 Blood Pressure 1: 120/62 Code : 8480-6 BMI: 21.0 Code : 51221-9 Heart Rate 1 : 87 bpm Height: 5'7" SpO2: 97% Weight: 134 lbs 05/03/2016 Blood Pressure 1: 134/84 Code : 8480-6 BMI: 20.5 Code : 17734-0 Heart Rate 1 : 81 bpm Height: 5'7" SpO2: 99% Weight: 131 lbs 08/26/2015 Blood Pressure 1: 110/58 Code : 8480-6 BMI: 20.7 Code : 43463-6 Heart Rate 1 : 96 bpm Height: 5'7" SpO2: 99% Temperature: 37.6 (C) / 99.6 (F) Weight: 132 lbs 08/20/2015 Blood Pressure 1: 108/70 Code : 8480-6 BMI: 20.7 Code : 83948-4 Heart Rate 1 : 103 bpm Height: 5'7" SpO2: 98% Temperature: 36.6 (C) / 97.9 (F) Weight: 132 lbs 03/18/2015 Blood Pressure 1: 102/56 Code : 8480-6 BMI: 22.4 Code : 33970-9 Heart Rate 1 : 66 bpm Height: 5'7" SpO2: 99% Weight: 143 lbs 02/03/2015 Blood Pressure 1: 118/70 Code : 8480-6 BMI: 23.8 Code : 06945-3 Heart Rate 1 : 69 bpm Height: 5'7" SpO2: 99% Weight: 152 lbs 12/10/2014 Blood Pressure 1: 130/82 Code : 8480-6 BMI: 24.4 Code : 99393-5 Heart Rate 1 : 84 bpm Height: 5'7" Weight: 156 lbs 11/12/2014 Blood Pressure 1: 118/78 Code : 8480-6 BMI: 24.4 Code : 68648-5 Heart Rate 1 : 76 bpm Height: 5'7" Temperature: 36.7 (C) / 98.1 (F) Weight: 156 lbs 07/23/2014 Blood Pressure 1: 124/68 Code : 8480-6 BMI: 24.3 Code : 06032-6 Heart Rate 1 : 68 bpm Height: 5'7" SpO2: 96% Weight: 155 lbs 04/20/2014 Blood Pressure 1: 130/82 Code : 8480-6 BMI: 23.2 Code : 16157-1 Heart Rate 1 : 74 bpm Height: [...] Code : 8480-6 BMI: 23.0 Code : 44613-3 Heart Rate 1 : 80 bpm Height: 5'7" Weight: 147 lbs 05/28/2013 Blood Pressure 1: 106/60 Code : 8480-6 BMI: 22.6 Code : 81291-9 Heart Rate 1 : 64 bpm Height: 5'7" Temperature: 37.4 (C) / 99.3 (F) Weight: 144 lbs 02/18/2013 Heart Rate 1: 87 bpm SpO2: 99% 12/17/2012 Blood Pressure 1: 120/82 Code : 8480-6 BMI: 22.9 Code : 24362-0 Heart Rate 1 : 68 bpm Height: 5'7" Weight: 146 lbs 05/21/2012 Blood Pressure 1: 92/56 Code : 8480-6 Heart Rate 1: 76 bpm Temperature: 36.7 (C) / 98.1 (F) Weight: 141 lbs 02/19/2012 Blood Pressure 1: 114/62 Code : 8480-6 BMI: 21.6 Code : 29180-6 Heart Rate 1 : 80 bpm Height: 5'7" Respiratory Rate: 16 bpm Temperature: 36.7 ( C) / 98.1 (F) Weight: 138 lbs 08/24/2011 Blood Pressure 1: 106/58 Code : 8480-6 BMI: 23.0 Code : 05882-8 Heart Rate 1 : 78 bpm Height: 5'7" Respiratory Rate: 16 bpm Temperature: 36.8 ( C) / 98.3 (F) Weight: 147 lbs 07/26/2011 Blood Pressure 1: 104/68 Code : 8480-6 BMI: 23.4 Code : 01777-8 Heart Rate 1 : 80 bpm Height: 5'6" Respiratory Rate: 16 bpm Weight: 146 lbs 06/16/2011 Blood Pressure 1: 122/68 Code : 8480-6 BMI: 22.7 Code : 17331-8 Heart Rate 1 : 80 bpm Height: 5'7" Weight: 145 lbs Functional Status No Functional Status data History of Present Illness Symptom Name Status Result Effective Date Notes headache Quality acute 11/15/2017 None headache Quality intermittent 11/15/2017 None headache Quality aching 11/15/2017 None headache Quality dull 11/15/2017 None headache Onset and Resolution sudden in onset 11/15/2017 None headache Onset of Symptom 1.5 weeks ago 11/15/2017 None headache Frequency of Episodes daily 11/15/2017 None headache Triggers no known associated factors 11/15/2017 None headache Pertinent Findings numbness 11/15/2017 None headache Pertinent Findings dizziness 11/15/2017 None paresthesia Location on the left 11/15/2017 None paresthesia Quality acute 11/15/2017 None paresthesia Quality numbness 11/15/2017 None paresthesia Quality tingling 11/15/2017 None paresthesia Onset and Resolution sudden in onset 11/15/2017 None paresthesia Triggers no known associated factors 11/15/2017 None hypothyroid Quality chronic 10/10/2017 None hypothyroid Onset [...] follow up Additional Comments medication: _ 02/03/2015 mononessa- patient reports breakthrough bleeding yesterday half way [...] going to a fitness class at the [facility] [place] and is continuing the treatments that she was doing with therapy at the [facility] [place] - she was taking aleve and it did not really help her pain, cyclobenzaprine just makes her sleepy - does not really help her back pain. back pain Onset and Resolution gradual in onset 07/23/2014 None back pain Alleviating Factors stretching 07/23/2014 None back pain Radiating down left leg 07/23/2014 travis. states has been going to chioropractor and [...] back pain Radiating down left leg 04/20/2014 travisChemo bacon has been going to chioropractor and [...] on __-__-__ 03/10/2014 colposcopy - by dr. trimble - lgsil well woman exam (18-39 years) [...] data Encounters Encounter Performer Location Codes Date EST. PATIENT, LEVEL IV Diagnosis: Other fatigue[ICD10: R53.83] Diagnosis: Other malaise[ICD10: R53.81] Diagnosis: Paresthesia of skin[ICD10: R20.2] Diagnosis: Generalized anxiety disorder[ICD10: F41.1] Diagnosis: Major depressive disorder, single episode, moderate[ICD10: F32.1] Diagnosis: Palpitations[ICD10: R00.2] Ashlee Coburn MD, [facility] CPT-4 : 86981 11/15/2017 ([id number]) PREV VISIT EST AGE 18-39 Diagnosis: Encounter for general adult medical examination with abnormal findings[ICD10: Z00.01] Ashley Coburn MD, [facility] CPT-4: 49609 10/10/2017 [id number] EST. PATIENT, LEVEL IV Diagnosis: Other specified hypothyroidism[ICD10: E03.8] Diagnosis: Generalized anxiety disorder[ICD10: F41.1] Diagnosis: Major depressive disorder, single episode, moderate[ICD10: F32.1] Diagnosis: Other fatigue[ICD10: R53.83] Diagnosis: Other malaise[ICD10: R53.81] Diagnosis: Dysphagia, oropharyngeal phase[ICD10: R13.12] Ashlee Coburn MD, [facility] CPT-4: 51473 09/20/2017 [id number] EST. PATIENT, LEVEL III Diagnosis: Acute laryngopharyngitis[ICD10: J06.0] Diagnosis: Acute suppurative otitis media without spontaneous rupture of ear drum, bilateral[ICD10: H66.003] Diagnosis: Other acute sinusitis[ICD10: J01.80] Diagnosis: Other allergic rhinitis[ICD10: J30.89] Ashlee Coburn MD, [facility] CPT-4: 06856 07/13/2017 16462 EST. PATIENT, LEVEL III Diagnosis: Postprocedural hypothyroidism[ICD10: E89.0] Ashlee Coburn MD, [facility] CPT-4: 81011 06/20/2017 ([id number]) [id number] EST. PATIENT, LEVEL III Diagnosis: Postprocedural hypothyroidism[ICD10: E89.0] Ashley Coburn MD, [facility] CPT-4: 75995 05/31/2017 ([id number]) [id number] EST. PATIENT, LEVEL III Diagnosis: Postprocedural hypothyroidism[ICD10: E89.0] Ashley Coburn MD [facility] CPT-4: 23928 04/18/2017 ([id number]) 78420 EST. PATIENT, LEVEL IV Diagnosis: Other malaise[ICD10: R53.81] Diagnosis: Postprocedural hypothyroidism[ICD10: E89.0] Diagnosis: Myalgia[ICD10: M79.1] Diagnosis: Vitamin D deficiency, unspecified[ICD10: E55.9] Ashley Coburn MD, [facility] CPT-4: 57951 03/21/2017 ([id number]) 41881 EST. PATIENT, LEVEL III Diagnosis: Cellulitis of buttock[ICD10: L03.317] Julissa Coburn MD, [facility] CPT-4: 35040 11/20/2016 [id number] EST. PATIENT, LEVEL IV Diagnosis: Radiculopathy, sacral and sacrococcygeal region[ICD10: M54.18] Diagnosis: Other specified hypothyroidism[ICD10: E03.8] Ashlee Coburn MD, [facility] CPT-4: 32952 07/31/2016 ([id number]) PREV VISIT EST AGE 18-39 Diagnosis: Hypothyroidism, unspecified[ICD10: E03.9] Diagnosis: Postprocedural hypothyroidism[ICD10: E89.0] Diagnosis: Other malaise[ICD10: R53.81] Diagnosis: Encounter for gynecological examination (general) (routine) without abnormal findings[ICD10: Z01.419] Ashley Coburn MD, [facility] CPT-4: 20285 05/03/2016 [id number] EST. PATIENT, LEVEL III Diagnosis: Acute upper respiratory infection, unspecified[ICD10: J06.9] Diagnosis: Acute bronchitis, unspecified[ICD10: J20.9] Ashlee Coburn MD, [facility] CPT-4: 34615 08/26/2015 [id number] EST. PATIENT, LEVEL III Diagnosis: Acute pharyngitis, unspecified[ICD10: J02.9] Diagnosis: Acute sinusitis, unspecified[ICD10: J01.90] Ashlee Coburn MD, [facility] CPT-4: 29480 08/20/2015 ([id number]) PREV VISIT EST AGE 18-39 Diagnosis: ROUTINE GYNE EXAM[ICD9: V72.31] Ashley Coburn MD [facility] CPT- 4: 02631 03/18/2015 ([id number]) 95025 EST. PATIENT, LEVEL III Diagnosis: Irregular menstrual cycle[ICD9: 626.4] Diagnosis: Hair loss disorder[ICD9: 704.00] Ashley Coburn MD, [facility] CPT-4: 42057 02/03/2015 ([id number]) 29912 EST. PATIENT, LEVEL III Diagnosis: Acute costochondritis[ICD9: 733.6] Diagnosis: POSTSURGICAL HYPOTHYROIDISM[ICD9: 244.0] Diagnosis: GENERALIZED ANXIETY DISEASE[ICD9: 300.02] Ashley Coburn MD, [facility] CPT-4: 16233 12/10/2014 ([id number]) 38540 EST. PATIENT, LEVEL III Diagnosis: HYPOTHYROIDISM[ICD9: 244.9] Diagnosis: Depression[ICD9: 311] Diagnosis: GENERALIZED ANXIETY DISEASE[ICD9: 300.02] Julissa Coburn MD, [facility] CPT-4: 91456 11/12/2014 ([id number]) 87225 EST. PATIENT, LEVEL III Diagnosis: Sacroiliitis[ICD9: 720.2] Diagnosis: Fatigue[ICD9: 780.79] Diagnosis: Back pain[ICD9: 724.5] Ashley Coburn MD, [facility] CPT-4: 75190 07/23/2014 ([id number]) 65663 EST. PATIENT, LEVEL IV Diagnosis: Back pain[ICD9: 724.5] Diagnosis: SCIATICA[ICD9: 724.3] Diagnosis: Sore throat and laryngitis[ICD9: 465.0] Diagnosis: Upper respiratory infection[ICD9: 465.9] Ashley Coburn MD, [facility] CPT-4: 53601 04/20/2014 ([id number]) 31704 EST. PATIENT, LEVEL III Diagnosis: ACUTE SINUSITIS[ICD9: 461.9] Diagnosis: ALLERGIC RHINITIS[ICD9: 477.9] Julissa Coburn MD, [facility] CPT-4: 22602 02/24/2014 ([id number]) 42357 EST. PATIENT, LEVEL IV Diagnosis: POSTSURGICAL HYPOTHYROIDISM[ICD9: 244.0] Diagnosis: Dysphagia[ICD9: 787.20] Diagnosis: Lumbago[ICD9: 724.2] Diagnosis: Encounter for long-term (current) use of other medications[ICD9: V58.69] Diagnosis: Laboratory exam ordered as part of routine general medical examination[ICD9: V72.62] Diagnosis: Thyroid nodule[ICD9: 241.0] Julissa Coburn MD, [facility] CPT-4: 46093 10/13/2013 ([id number]) 43851 EST. PATIENT, LEVEL III Diagnosis: ACUTE BRONCHITIS[ICD9: 466.0] Diagnosis: Sinusitis[ICD9: 473.9] Diagnosis: COUGH[ICD9: 786.2] Ashley Coburn MD, [facility] CPT-4: 75155 05/28/2013 ([id number]) 54692 EST. PATIENT, LEVEL III Diagnosis: ACUTE SINUSITIS[ICD9: 461.9] Diagnosis: ALLERGIC RHINITIS[ICD9: 477.9] Ashley Coburn MD, [facility] CPT- 4: 23845 02/18/2013 ([id number]) 90606 EST. PATIENT, LEVEL III Diagnosis: POSTSURGICAL HYPOTHYROIDISM[ICD9: 244.0] Diagnosis: Fatigue[ICD9: 780.79] Ashley Coburn MD, [facility] CPT-4: 09117 12/17/2012 ([id number]) 92550 EST. PATIENT, LEVEL III Diagnosis: ALLERGIC RHINITIS[ICD9: 477.9] Diagnosis: ACUTE URI[ICD9: 465.9] Julissa Coburn MD, [facility] CPT-4: 58402 05/21/2012 ([id number]) 81597 EST. PATIENT, LEVEL III Diagnosis: Tachycardia[ICD9: 785.0] Diagnosis: GENERALIZED ANXIETY DISEASE[ICD9: 300.02] Diagnosis: Depression[ICD9: 311] [facility] CPT-4: 72336 02/19/2012 [id number] EST. PATIENT, LEVEL III Diagnosis: RUQ pain[ICD9: 789.01] Diagnosis: NAUSEA ALONE[ICD9: 787.02] [facility] CPT-4: 26267 08/24/2011 08530 EST. PATIENT, LEVEL III Diagnosis: ACUTE SEROUS OTITIS MEDIA[ICD9: 381.01] Diagnosis: ACUTE URI[ICD9: 465.9] Diagnosis: Cough[ICD9: 786.2] [facility] CPT-4: 31235 07/26/2011 [id number] EST. PATIENT, LEVEL III Diagnosis: ACUTE SINUSITIS[ICD9: 461.9] Diagnosis: Environmental allergies[ICD9: 477.9] [facility] CPT-4: 20891 06/16/2011 Plan of Care Planned Activity Notes Codes Status Date Patient Education: Patient Medication Summary Completed 11/15/2017 App[facility]ment: [phone] [place] ([place] min) Moderate 11/01/2017 [facility]ment: [phone] [place] ([facility] min) Moderate 10/10/2017 Patient Education: Patient Medication Summary Completed 10/10/2017 Appointment: Ash[phone] [place] (30 min) Complex 09/20/2017 Patient Education: Patient Medication Summary Completed 09/20/2017 Appointment: [phone] [place] (15 min) Moderate 07/13/2017 Patient Education: Patient Medication Summary Completed 07/13/2017 Appointment: [phone] [place] [place] ([place] min) Complex 06/20/2017 Patient Education: Patient Medication Summary Completed 06/20/2017 App[facility]ment: [phone] (15 min) Moderate 05/31/2017 Patient Education: Patient Medication Summary Completed 05/31/2017 Care Plan: ECHO EXAMINATION PROCEDURE Pending 05/31/2017 Appointment: Ashley Coburn WPtel: [phone] [facility] (15 min) Moderate 04/18/2017 Patient Education: Patient Medication Summary Completed 04/18/2017 Appointment: Ashley Coburn WPtel: [phone] [facility] (15 min) Moderate 03/21/2017 Patient Education: Patient Medication Summary Completed 03/21/2017 Patient Education: Patient Medication Summary Completed 11/20/2016 Referral: [place] [facility] WPtel: [phone] [id number] Referral Initiated 08/14/2016 Appointment: Ashlee Evans WPtel: [phone] [facility] (15 min) Moderate 07/31/2016 Patient Education: Patient Medication Summary Completed 07/31/2016 Care Plan: Referral Order SNOMED-CT : [id number] Pending 07/31/2016 Appointment: Injection 07/21/2016 Patient Education: Patient Medication Summary Completed 07/21/2016 Appointment: Ashley Cob[phone] [facility] 05/03/2016 Patient Education: Patient Medication Summary Completed 05/03/2016 Care Plan: PAP Pending 05/03/2016 Appointment: Injection 01/05/2016 Patient Education: Patient Medication Summary Completed 01/05/2016 Appointment: (15 min) Moderate 08/26/2015 Patient Education: Patient Medication Summary Completed 08/26/2015 Appointment: (15 min) Moderate 08/20/2015 Patient Education: Patient Medication Summary Completed 08/20/2015 Care Plan: C RAP A SC Pending 08/20/2015 Patient Education: Patient Medication Summary Completed 03/18/2015 Care Plan: GC/CHL PRB Pending 03/18/2015 Care Plan: PAP Pending 03/18/2015 Appointment: Ashley Coburn WPtel: [facility] Follow up 02/03/2015 Patient Education: Patient Medication Summary Completed 02/03/2015 Patient Education: Patient Medication Summary Completed 12/10/2014 Appointment: Follow up 11/12/2014 Patient Education: Patient Medication Summary Completed 11/12/2014 Care Plan: COMPLETE CBC AUTOMATED LOINC : 38035-5 Ordered 11/12/2014 Appointment: Ashley Coburn WPtel: [address] [place], [place] [phone] Follow up 07/23/2014 Patient Education: Patient Medication Summary Completed 07/23/2014 Appointment: Ashley Coburn WPtel: [address] [place], [place] [phone] Sick 04/20/2014 Patient Education: Patient Medication Summary Completed 04/20/2014 Appointment: Ashley Coburn WPtel: [address] [place], [place] [phone] Pap Only 03/10/2014 Patient Education: Patient Medication Summary Completed 03/10/2014 Patient Education: Patient Medication Summary Completed 02/24/2014 Appointment: Julissa Coker WPtel: [address] [place], [place] [phone] Follow up 10/13/2013 Patient Education: Patient Medication Summary Completed 10/13/2013 Appointment: Ashley Coburn WPtel: [address] [place], [place] [phone] Sick 05/28/2013 Patient Education: Patient Medication Summary Completed 05/28/2013 Patient Education: Patient Medication Summary Completed 02/18/2013 Appointment: Ashley Coburn WPtel: [address] [place], [place] [phone] Other 12/17/2012 Patient Education: Patient Medication Summary Completed 12/17/2012 Appointment: Julissa Coker WPtel: [phone] Other 05/21/2012 Patient Education: Patient Medication Summary Completed 05/21/2012 Appointment: Ashley Cob[facility]el[phone] Other 02/19/2012 Patient Education: Patient Medication Summary Completed 02/19/2012 Appointment: Julissa Coker WPtel: [phone] Other 08/24/2011 Patient Education: Patient Medication Summary Completed 08/24/2011 Appointment: Ashley Coburn WPtel: [facility] Other 07/26/2011 Patient Education: Patient Medication Summary Completed 07/26/2011 Appointment: Julissa Coker WPtel: [phone] Other 06/16/2011 Patient Education: Patient Medication Summary Completed 06/16/2011 Referral: [facility], [facility] WPtel: [phone] [facility] [address] [id number] Referral Initiated Instructions No Instructions
[2018-01-09 10:55] VITALS: BP 104/62
--- OUTSIDE RECORDS SUMMARY | 2018-01-09 10:59 | XMS REPORT | CCD ---
Author Author [facility] Address [address] [place] [address] Phone Care Team Providers Care Clinical Professor Name Role Phone PP Unavailable CCM Unavailable Summary Purpose Interface Exchange Insurance Providers Payer name Policy type / Coverage type Covered constitution party ID Effective Begin Date Effective End Date [facility] [id number] Unknown Family history Grandfather Diagnosis Age At [...] Unknown Single 06/16/2011 Employment Unknown Currently employed Any[employer] 06/16/[address]: 324139683 Nonsmoker 06/16/2011 Allergies, Adverse Reactions, Alerts Allergies, [...] Fill Instructions fluvoxamine 50 mg tablet RxNorm: 840457 1 Tablet(s) PO daily to take with the 100mg to equal 150mg daily 11/15/2017 Active fluvoxamine 100 mg tablet RxNorm: 714678 TAKE ONE TABLET BY MOUTH DAILY 11/12/2017 05/10/2018 Active Keflex 500 mg capsule RxNorm: 147268 1 Capsule(s) PO TID 201711/04/2017 Inactive to equal a total of 14 days prednisone 20 mg tablet RxNorm: 338434 2 Tablet(s) PO daily 08/201811/05/2017 Inactive Cytomel 5 mcg tablet RxNorm: 293796 TAKE TWO TABLETS BY MOUTH EVERY EVENING 10/16/2017 01/13/2018 Active Synthroid 75 mcg tablet RxNorm: 386504 1 Tablet(s) PO UD 1 full tab M/W/F and 1/2 tab Sat/Sun/Tue/Thur 10/10/20172018 Active fluvoxamine 100 mg tablet RxNorm: 607275 1 Tablet(s) PO daily 09/20/2017 10/19/2017 Inactive doxycycline hyclate 100 mg capsule RxNorm: 2012621 1 Capsule(s) PO BID 09/20/2017 10/03/2017 Inactive Mononessa (28) 0.25 mg-35 mcg tablet RxNorm: 499041 TAKE 1 ACTIVE TABLET BY MOUTH ONCE DAILY FOR 3 MONTHS THEN START PLACEBO FOR 1 WEEK 201605/19/2018 Active Synthroid 75 mcg tablet RxNorm: 654070 TAKE ONE-HALF TABLET BY MOUTH EVERY MORNING ON AN EMPTY STOMACH 09/10/2017 Inactive fluvoxamine 50 mg tablet RxNorm: 936688 TAKE ONE TABLET BY MOUTH EVERY EVENING 09/10/2017 10/09/2017 Inactive Kenalog 40 mg/mL suspension for injection RxNorm: 8968484 1 Milliliter(s) Inj 07/13/2017 07/13/2017 Inactive Augmentin 500 mg-125 mg tablet RxNorm: 417305 1 Tablet(s) PO TID 07/13/2017 07/22/2017 Inactive Isabell Allergy 180 mg tablet RxNorm: 788175 1 Tablet(s) PO daily 07/13/2017 08/11/2017 Inactive Synthroid 75 mcg tablet RxNorm: 505875 1/2 Tablet(s) PO QAM 07/201709/09/2017 Inactive Cytomel 5 mcg tablet RxNorm: 302500 2 Tablet(s) PO QPM 201609/27/2017 Inactive Cytomel 5 mcg tablet RxNorm: 478987 1 Tablet(s) PO QPM 201605/30/2017 Inactive Mononessa (28) 0.25 mg-35 mcg tablet RxNorm: 882561 TAKE 1 ACTIVE TABLET BY MOUTH ONCE DAILY FOR 3 MONTHS THEN START PLACEBO FOR 1 WEEK 201608/14/2017 Inactive Vitamin D2 50,000 unit capsule RxNorm: 682534 1 Capsule(s) PO QW 03/21/2017 06/17/2017 Inactive fluvoxamine 50 mg tablet RxNorm: 299701 1.5 Tablet(s) PO UD take 1/2 pill in morning and a full pill at night 03/21/2017 09/09/2017 Inactive Synthroid 75 mcg tablet RxNorm: 204256 1 Tablet(s) PO QAM 03/2105/19/2017 Inactive fluvoxamine 50 mg tablet RxNorm: 523821 1 TABLET(S) PO QPM TAKE 1 TABLET BY MOUTH EVERY EVENING 03/12/2017 03/20/2017 Inactive [place] Thyroid 30 mg tablet RxNorm: 180545 TAKE ONE TABLET BY MOUTH DAILY 02/05/2017 03/06/2017 Inactive [place] Thyroid 30 mg tablet RxNorm: 142483 TAKE ONE TABLET BY MOUTH DAILY 01/15/2017 02/04/2017 Inactive [place] Thyroid 30 mg tablet RxNorm: 639593 TAKE ONE TABLET BY MOUTH DAILY 12/14/2016 01/12/2017 Inactive Bactrim DS 800 mg-160 mg tablet RxNorm: 632293 1 Tablet(s) PO BID 11/20/2016 11/26/2016 Inactive fluvoxamine 50 mg tablet RxNorm: 799847 1 TABLET(S) PO QPM TAKE 1 TABLET BY MOUTH EVERY EVENING 11/01/2016 02/28/2017 Inactive Mononessa (28) 0.25 mg-35 mcg tablet RxNorm: 625817 Tablet(s) PO TAKE ONE TABLET BY MOUTH DAILY CONTINUOUSLY X 3 MONTHS, THEN START PLACEBO X 1 WEEK 09/05/2016 04/10/2017 Inactive [place] Thyroid 30 mg tablet RxNorm: 126982 1 Tablet(s) PO daily 08/18/2016 12/13/2016 Inactive [place] Thyroid 30 mg tablet RxNorm: 150337 1 Tablet(s) PO daily 08/18/2016 08/17/2016 Inactive Kenalog 40 mg/mL suspension for injection RxNorm: 6743003 1 Milliliter(s) Inj 07/21/2016 07/21/2016 Inactive fluvoxamine 50 mg tablet RxNorm: 718365 1 TABLET(S) PO QPM TAKE 1 TABLET BY MOUTH EVERY EVENING 07/03/2016 10/30/2016 Inactive fluconazole 150 mg tablet RxNorm: 262963 1 Tablet(s) PO daily 05/03/2016 05/07/2016 Inactive fluvoxamine 50 mg tablet RxNorm: 365517 1 TABLET(S) PO QPM TAKE 1 TABLET BY MOUTH EVERY EVENING 03/06/2016 07/02/2016 Inactive levothyroxine 75 mcg tablet RxNorm: 439249 TAKE ONE TABLET BY MOUTH DAILY 01/19/2016 08/15/2016 Inactive Request already responded to by other means (e.g. phone or fax) levothyroxine 75 mcg tablet RxNorm: 247627 Tablet(s) TAKE ONE TABLET BY MOUTH DAILY 01/17/2016 03/21/2017 Inactive ceftriaxone 500 mg solution for injection RxNorm: 3037107 Inj 01/05/2016 01/05/2016 Inactive Kenalog 40 mg/mL suspension for injection RxNorm: 7003456 1 Milliliter(s) Inj 01/05/2016 01/05/2016 Inactive Tamiflu 75 mg capsule RxNorm: 331228 1 Capsule(s) PO daily 12/2712/27/2015 Inactive Tamiflu 75 mg capsule RxNorm: 462821 1 Capsule(s) PO daily 12/2701/06/2016 Inactive Zithromax Z-Matt 250 mg tablet RxNorm: 694546 1 Tablet(s) PO UD 2 pills day one and 1 pill day 2-5. 08/26/2015 08/30/2015 Inactive ceftriaxone 500 mg solution for injection RxNorm: 7967422 Inj 08/26/2015 08/26/2015 Inactive Kenalog 40 mg/mL suspension for injection RxNorm: 6547429 Milliliter(s) Inj 08/26/2015 08/26/2015 Inactive prednisone 20 mg tablet RxNorm: 488672 2 Tablet(s) PO daily 08/24/2015 Inactive amoxicillin 500 mg capsule RxNorm: 623505 1 Capsule(s) PO BID 08/20/2015 08/29/2015 Inactive fluvoxamine 50 mg tablet RxNorm: 634040 TAKE 1 TABLET BY MOUTH EVERY EVENING 07/19/2015 03/21/2017 Inactive fluvoxamine 50 mg tablet RxNorm: 889259 1 TABLET(S) PO QPM TAKE 1 TABLET BY MOUTH EVERY EVENING 07/19/2015 11/15/2015 Inactive Mononessa (28) 0.25 mg-35 mcg tablet RxNorm: 914253 TABLET(S) PO TAKE ONE TABLET BY MOUTH DAILY CONTINUOUSLY X 3 MONTHS, THEN START PLACEBO X 1 WEEK 07/10/2015 07/03/2016 Inactive levothyroxine 75 mcg tablet RxNorm: 799301 TAKE ONE TABLET BY MOUTH DAILY 05/18/2015 09/14/2015 Inactive fluvoxamine 50 mg tablet RxNorm: 278292 1 TABLET(S) PO QPM TAKE 1 TABLET BY MOUTH EVERY EVENING 03/08/2015 07/05/2015 Inactive naproxen 500 mg tablet RxNorm: 283680 1 TABLET(S) PO BID 201403/20/2017 Inactive naproxen 500 mg tablet RxNorm: 770405 1 Tablet(s) PO BID 201401/31/2015 Inactive fluvoxamine 50 mg tablet RxNorm: 329898 1 TABLET(S) PO QPM TAKE 1 TABLET BY MOUTH EVERY EVENING 11/23/2014 03/07/2015 Inactive levothyroxine 75 mcg tablet RxNorm: 647012 1 Tablet(s) PO daily TAKE ONE TABLET BY MOUTH EVERY DAY ON AN EMPTY STOMACH 11/18/2014 04/16/2015 Inactive Xanax 0.5 mg tablet RxNorm: 034366 1 Tablet(s) PO Q8 PRN as needed 11/12/2014 No Stop Date Active Synthroid 50 mcg tablet RxNorm: 634545 1 Tablet(s) PO daily TAKE ONE TABLET BY MOUTH EVERY DAY ON AN EMPTY STOMACH 07/24/2014 11/17/2014 Inactive naproxen 500 mg tablet RxNorm: 053766 1 Tablet(s) PO BID 201309/20/2014 Inactive fluvoxamine 50 mg tablet RxNorm: 728680 1 TABLET(S) PO QPM TAKE 1 TABLET BY MOUTH EVERY EVENING 07/20/2014 11/16/2014 Inactive Mononessa (28) 0.25 mg-35 mcg tablet RxNorm: 028478 TABLET(S) PO TAKE ONE TABLET BY MOUTH DAILY CONTINUOUSLY X 3 MONTHS, THEN START PLACEBO X 1 WEEK 06/08/2014 06/02/2015 Inactive amoxicillin 875 mg tablet RxNorm: 659986 1 Tablet(s) PO BID 04/29/2014 Inactive cyclobenzaprine 10 mg tablet RxNorm: 862137 1 Tablet(s) PO TID as needed for back pain 04/20/2014 06/18/2014 Inactive Xanax 0.5 mg tablet RxNorm: 877484 1 Tablet(s) PO Q8 PRN as needed 04/14/2014 11/11/2014 Inactive Synthroid 25 mcg tablet RxNorm: 831099 Tablet(s) PO TAKE ONE TABLET BY MOUTH EVERY DAY ON AN EMPTY STOMACH 04/03/2014 07/23/2014 Inactive fluvoxamine 50 mg tablet RxNorm: 713861 Tablet(s) PO TAKE 1 TABLET BY MOUTH EVERY EVENING 03/23/2014 10/31/2016 Inactive doxycycline hyclate 100 mg tablet RxNorm: 982765 1 Tablet(s) PO BID 03/10/2014 03/23/2014 Inactive Kenalog 40 mg/mL suspension for injection RxNorm: 0950649 Milliliter(s) Inj 02/26/2014 02/26/2014 Inactive fluvoxamine 50 mg tablet RxNorm: 918003 Tablet(s) PO TAKE 1 TABLET BY MOUTH EVERY EVENING 02/19/2014 10/31/2016 Inactive fluvoxamine 50 mg tablet RxNorm: 497739 Tablet(s) PO TAKE 1 TABLET BY MOUTH EVERY EVENING 01/19/2014 10/31/2016 Inactive Synthroid 25 mcg tablet RxNorm: 650681 Tablet(s) PO TAKE ONE TABLET BY MOUTH EVERY DAY 09/30/2013 04/02/2014 Inactive fluvoxamine 50 mg tablet RxNorm: 273794 1 Tablet(s) PO QPM TAKE 1 TABLET BY MOUTH EVERY EVENING 09/23/2013 01/18/2014 Inactive azithromycin 500 mg tablet RxNorm: 6353216 1 Tablet(s) PO daily 05/28/2013 06/03/2013 Inactive cefdinir 300 mg capsule RxNorm: 297315 1 Capsule(s) PO BID 04/201306/06/2013 Inactive Phenergan with Codeine Syrup RxNorm: 10 Milliliter(s) PO Q4 PRN 05/28/2013 07/26/2013 Inactive dispense 8 ounces fluvoxamine 50 mg tablet RxNorm: 553808 1 Tablet(s) PO QPM TAKE 1 TABLET BY MOUTH EVERY EVENING 05/26/2013 09/22/2013 Inactive Mononessa (28) 0.25 mg-35 mcg tablet RxNorm: 164133 Tablet(s) PO TAKE ONE TABLET BY MOUTH DAILY CONTINUOUSLY X 3 MONTHS, THEN START PLACEBO X 1 WEEK 04/23/2013 03/18/2014 Inactive Mononessa (28) 0.25 mg-35 mcg tablet RxNorm: 725125 Tablet(s) PO TAKE ONE TABLET BY MOUTH DAILY CONTINUOUSLY X 3 MONTHS, THEN START PLACEBO X 1 WEEK 04/23/2013 09/04/2016 Inactive Kenalog 40 mg/mL Susp for Injection RxNorm: 5750499 1 Milliliter(s) Inj 02/19/2013 02/19/2013 Inactive doxycycline hyclate 100 mg tablet RxNorm: 887596 1 Tablet(s) PO BID 02/18/2013 02/27/2013 Inactive Mononessa (28) 0.25 mg-35 mcg tablet RxNorm: 494959 Tablet(s) PO TAKE ONE TABLET BY MOUTH DAILY CONTINUOUSLY X 3 MONTHS, THEN START PLACEBO X 1 WEEK 02/06/2013 04/22/2013 Inactive Synthroid 25 mcg tablet RxNorm: 835729 1 Tablet(s) PO daily 09/10/2013 Inactive fluvoxamine 50 mg tablet RxNorm: 406628 Tablet(s) PO TAKE 1 TABLET BY MOUTH EVERY EVENING 11/18/2012 05/25/2013 Inactive Nexium 40 mg capsule,delayed release RxNorm: 577643 1 Capsule(s) PO daily 07/12/2012 01/07/2013 Inactive Carafate 1 gram tablet RxNorm: 617565 1 Tablet(s) PO AC & HS 12/17/2012 Inactive amoxicillin 500 mg tablet RxNorm: 727202 1 Tablet(s) PO TID 06/14/2012 Inactive cefdinir 300 mg capsule RxNorm: 010719 1 Capsule(s) PO BID 06/13/2012 Inactive cefdinir 300 mg capsule RxNorm: 184812 1 Capsule(s) PO BID 12/17/2012 Inactive cefdinir 300 mg capsule RxNorm: 244535 1 Capsule(s) PO BID 06/14/2012 Inactive Rocephin 500 mg Solution for Injection RxNorm: 700682 1 Milliliter(s) Inj 05/21/2012 05/21/2012 Inactive Flonase 50 mcg/actuation Nasal [place] RxNorm: 2060229 2 [place] NASAL daily 05/21/2012 07/19/2012 Inactive Bactrim DS 800 mg-160 mg tablet RxNorm: 050792 1 Tablet(s) PO BID 05/21/2012 12/17/2012 Inactive prednisone 10 mg tablets in a dose pack RxNorm: 602679 Tablet(s) PO UD 6-5-4-3-2- 1 05/21/2012 05/26/2012 Inactive Kenalog 40 mg/mL Susp for Injection RxNorm: 1636529 1 Milliliter(s) Inj 05/21/2012 05/21/2012 Inactive fluvoxamine 50 mg tablet RxNorm: 265096 1 Tablet(s) PO QPM 09/15/2012 Inactive Xanax 0.5 mg Tab RxNorm: 965564 1 Tablet(s) PO Q8 PRN 01/2204/13/2014 Inactive fluvoxamine 25 mg Tab RxNorm: 134262 1 Tablet(s) PO daily 201102/18/2012 Inactive fluvoxamine 25 mg Tab RxNorm: 383911 1 Tablet(s) PO daily 201101/21/2012 Inactive Mononessa (28) 0.25 mg-35 mcg Tab RxNorm: 358277 1 Tablet(s) PO daily 10/11/2011 10/10/2011 Inactive Mononessa (28) 0.25 mg-35 mcg tablet RxNorm: 030542 Tablet(s) PO 10/11/2011 02/05/2013 Inactive TAKE ONE TABLET BY MOUTH DAILY Ortho Tri-Cyclen Lo 0.18/0.215/0.25 mg-25 mcg Tab RxNorm: 233659 1 Tablet(s) PO 10/10/2011 10/10/2011 Inactive Cipro 500 mg Tab RxNorm: 139950 1 Tablet(s) PO BID 201012/17/2012 Inactive Phenergan with Codeine Syrup RxNorm: 5- 10 Milliliter(s) PO Q6 PRN 07/26/2011 08/23/2011 Inactive Rocephin 500 mg Solution for Injection RxNorm: 184858 Inj 07/2607/26/2011 Inactive Diflucan 150 mg Tab RxNorm: 749926 1 Tablet(s) PO daily 201012/17/2012 Inactive Bactrim DS 800 mg-160 mg Tab RxNorm: 598081 1 Tablet(s) PO BID 06/16/2011 06/25/2011 Inactive triamcinolone acetonide 40 mg/mL Susp for Injection RxNorm: 7498989 2 Milliliter(s ) Inj UD 06/16/2011 06/16/2011 Inactive Bactrim DS 800 mg-160 mg Tab RxNorm: 667336 1 Tablet(s) PO BID 06/16/2011 06/16/2011 Inactive Luvox 50 mg Tab RxNorm : 853832 Oral No Start Date 01/21/2012 Inactive Ortho Tri-Cyclen Lo 0.18/0.215/0.25 mg-25 mcg Tab RxNorm: 255272 Oral No Start Date 10/09/2011 Inactive Nexium 40 mg capsule,delayed release RxNorm: 467252 1 Capsule(s) PO daily No Start Date 07/25/2011 Inactive omeprazole 40 mg Cap, Delayed Release RxNorm: 424144 1 Capsule(s) PO daily No Start Date 03/20/2017 Inactive Xanax 0.5 mg Tab RxNorm: 638045 1 Tablet(s) PO Q8 PRN No Start Date 01/22/2012 Inactive Synthroid 25 mcg tablet RxNorm: 106777 1 Tablet(s) PO daily No Start Date 01/13/2013 Inactive Flonase 50 mcg/actuation Nasal [place] RxNorm: 7181229 2 [place] NASAL daily No Start Date 03/20/2017 Inactive Zithromax Z-Matt 250 mg tablet RxNorm: 796957 Tablet(s) PO No Start Date 04/19/2014 Inactive vitamin B complex tablet RxNorm: 1 Tablet(s) PO daily No Start Date 10/09/2017 Inactive Carafate 1 gram tablet RxNorm: 852151 1 Tablet(s) PO as directed 1 before meals and at bedtime No Start Date 07/11/2012 Inactive Singulair 10 mg Tab RxNorm: 568200 1 Tablet(s) PO daily No Start Date 08/23/2011 Inactive Tylenol-Codeine #3 Oral RxNorm: Oral No Start Date 03/20/2017 Inactive Medication Administered Medication Codes Instructions Start Date Status Kenalog 40 mg/mL suspension for injection RxNorm: 5597668 1Milliliter 07/13/2017 No longer Active Kenalog 40 mg/mL suspension for injection RxNorm: 2471559 1Milliliter 07/21/2016 No longer Active Kenalog 40 mg/mL suspension for injection RxNorm: 2400439 1Mliter 01/05/2016 No longer Active ceftriaxone 500 mg solution for injection RxNorm: 4475539 01/05/2016 No longer Active Kenalog 40 mg/mL suspension for injection RxNorm: 7806177 Milliliter 08/26/2015 No longer Active ceftriaxone 500 mg solution for injection RxNorm: 3085405 08/26/2015 No longer Active Kenalog 40 mg/mL suspension for injection RxNorm: 0814542 Milliliter 02/26/2014 No longer Active Kenalog 40 mg/mL Susp for Injection RxNorm: 6532979 1Milliliter 02/19/2013 No longer Active Kenalog 40 mg/mL Susp for Injection RxNorm: 3647145 1Milliliter 05/21/2012 No longer Active Rocephin 500 mg Solution for Injection RxNorm: 770291 1Milliliter 05/21/2012 No longer Active Rocephin 500 mg Solution for Injection RxNorm: 095645 07/26/2011 No longer Active triamcinolone acetonide 40 mg/mL Susp for Injection RxNorm: 0906291 2MilliliterUD 06/16/2011 No longer Active Immunizations Vaccine [...] Code Item Item Code Result Date B12 Bwp231 B12 334.00 pg/ml 11/15/2017 Folate Ord36 Folate >23.40 ng/mL 11/15/2017 [place] Spotted Fever Igg/Igm 614621 [place] SPOTTED FEVER IGM EIA . 09/28/2017 [place] Spotted Fever Igg/Igm 300410 RMSF, IGM 0.42 index 09/28/2017 [place] Spotted Fever Igg/Igm 692714 ANTONIO MT SPOTTED FEVER IGG EIA FLEX . 09/28/2017 [place] Spotted Fever Igg/Igm 414642 RMSF, IGG SCREEN-FLEX Negative 09/28/2017 Ehrlichia Chaffeensis Antibody Igm 561565 EHRLICHIA CHAFFEENSIS IGM < 1:16 09/28/2017 Ehrlichia Chaffeensis Antibody Igg 150433 EHRLICHIA CHAFFEENSIS IGG <1:64 09/28/2017 [place] Western Blot Serum 091680 B. BURGDORFERI, IGG WB Negative 09/27/2017 [place] Western Blot Serum 269004 B. BURGDORFERI, IGM WB Negative 09/27/2017 [place] Disease Total Antibodies With Western Blot Reflex [id number] B. BURGDORFERI, IGG/IGM 1.17 09/26/2017 [place] Disease Total Antibodies With Western Blot Reflex [id number] 09/26/2017 Cbc With Differential Ord2 WBC 6.02 [...] 31.3 pg 09/24/2017 Cbc With Differential Ord2 [place]% 7.8 % 09/24/2017 Cbc With Differential Ord2 [...] 2.27 K/ul 09/24/2017 Cbc With Differential Ord2 [place] ABS# 0.5 K/ul 09/24/2017 Cbc With Differential Ord2 Eos ABS# 0.1 K/ul 09/24/2017 Cbc With Differential Ord2 Baso ABS# 0.0 K/ul 09/24/2017 Comp Metabolic Qfm904 NA 139 mEq/L 09/24/2017 Comp Metabolic Ket922 K 3.8 mEq/L 09/24/2017 Comp Metabolic Rhn390 CL 105 mEq/L 09/24/2017 Comp Metabolic Uwy145 CO2 27.0 mEq/L 09/24/2017 Comp Metabolic Rly160 ANION GAP 11 09/24/2017 Comp Metabolic Vbl282 GLUCOSE 88 mg/dL 09/24/2017 Comp Metabolic Zfr087 Creat 0.6 mg/dL 09/24/2017 Comp Metabolic Szl964 eGFR 121 ml/min/1.73m2 09/24/2017 Comp Metabolic Snw968 BUN 11 mg/dL 09/24/2017 Comp Metabolic Lkf966 B/C Ratio 18.3 Ratio 09/24/2017 Comp Metabolic Hhp733 CALCIUM 9.0 mg/dL 09/24/2017 Comp Metabolic Idi387 ALK PHOS 53 U/L 09/24/2017 Comp Metabolic Urz821 AST(SGOT) 16 U/L 09/24/2017 Comp Metabolic Eng594 ALT(SGPT) 12 U/L 09/24/2017 Comp Metabolic Jyc031 BILI T 0.5 mg/dL 09/24/2017 Comp Metabolic Mdg023 ALBUMIN 3.9 g/dL 09/24/2017 Comp Metabolic Ipo178 TPRO 6.1 g/dL 09/24/2017 Comp Metabolic Bvw681 GLOB 2.3 g/dL 09/24/2017 Comp Metabolic Psy769 A/G Ratio 1.7 Ratio 09/24/2017 Comp Metabolic Kdt873 Osmo 276 mOsmo 09/24/2017 Sed Rate Ord21 ESR 5 mm/hr 09/24/2017 Tsh Ord6 hTSH II 0.94 uIU/mL 09/24/2017 Vitamin D 25 Oh Vpj8703 VITAMIN D, 25 HYDROXY 78.35 ng/mL C-Reactive Protein Qnt Crqnt CRP 0.3 mg/dl 09/24/2017 Free T4 Jfr305 FREE T4 0.60 ng/dL 09/24/2017 Cbc With [...] 31.6 pg 05/22/2017 Cbc With Differential Ord2 [place]% 7.8 % 05/22/2017 Cbc With Differential Ord2 [...] 2.16 K/ul 05/22/2017 Cbc With Differential Ord2 [place] ABS# 0.4 K/ul 05/22/2017 Cbc With Differential Ord2 Eos ABS# 0.1 K/ul 05/22/2017 Cbc With Differential Ord2 Baso ABS# 0.0 K/ul 05/22/2017 Free T4 Hfj949 FREE T4 0.84 ng/dL 05/22/2017 Lipid Ord30 CHOL 148 mg/dL 05/22/2017 Lipid Ord30 HDL 61.0 mg/dl 05/22/2017 Lipid Ord30 TRIG 103 mg/dL 05/22/2017 Lipid Ord30 LDL 66 mg/dL 05/22/2017 Lipid Ord30 C/HDL 2.4 Ratio 05/22/2017 Comp Metabolic Dgu584 NA 140 mEq/L 05/22/2017 Comp Metabolic Irv802 K 3.9 mEq/L 05/22/2017 Comp Metabolic Idr341 CL 107 mEq/L 05/22/2017 Comp Metabolic Ess659 CO2 26.0 mEq/L 05/22/2017 Comp Metabolic Cgs329 ANION GAP 11 05/22/2017 Comp Metabolic Paq595 GLUCOSE 84 mg/dL 05/22/2017 Comp Metabolic Why399 Creat 0.6 mg/dL 05/22/2017 Comp Metabolic Tcu913 eGFR 126 ml/min/1.73m2 05/22/2017 Comp Metabolic Rir645 BUN 11 mg/dL 05/22/2017 Comp Metabolic Sqi757 B/C Ratio 19.0 Ratio 05/22/2017 Comp Metabolic Uid544 CALCIUM 8.6 mg/dL 05/22/2017 Comp Metabolic Bns872 ALK PHOS 44 U/L 05/22/2017 Comp Metabolic Jaf445 AST(SGOT) 16 U/L 05/22/2017 Comp Metabolic Zxq767 ALT(SGPT) 13 U/L 05/22/2017 Comp Metabolic Xad562 BILI T 0.5 mg/dL 05/22/2017 Comp Metabolic Eaa689 ALBUMIN 3.7 g/dL 05/22/2017 Comp Metabolic Eoa133 TPRO 5.8 g/dL 05/22/2017 Comp Metabolic Ucr963 GLOB 2.1 g/dL 05/22/2017 Comp Metabolic Hzf091 A/G Ratio 1.7 Ratio 05/22/2017 Comp Metabolic Uhe357 Osmo 278 mOsmo 05/22/2017 Tsh Ord6 hTSH II 0.47 uIU/mL 05/22/2017 Free T4 Mya447 FREE T4 1.08 ng/dL 08/14/2016 Tsh Ord6 hTSH II 0.26 uIU/mL 08/14/2016 GC/CHL PRB [id number] Chl trach DNA Negative 05/04/2016 GC/CHL PRB [id number] GC PROBE Negative 05/04/2016 Tsh Ord6 hTSH II 0.51 uIU/mL 05/03/2016 Free T4 Evm069 FREE T4 0.94 ng/dL 05/03/2016 Comp Metabolic Hoy414 NA 137 mEq/L 05/03/2016 Comp Metabolic Ibg921 K 4.0 mEq/L 05/03/2016 Comp Metabolic Xjk763 CL 102 mEq/L 05/03/2016 Comp Metabolic Jnl119 CO2 29.0 mEq/L 05/03/2016 Comp Metabolic Acr254 ANION GAP 10 05/03/2016 Comp Metabolic Tox544 GLUCOSE 82 mg/dL 05/03/2016 Comp Metabolic Vdh964 Creat 0.6 mg/dL 05/03/2016 Comp Metabolic Idl785 eGFR 125 ml/min/1.73m2 05/03/2016 Comp Metabolic Igl581 BUN 14 mg/dL 05/03/2016 Comp Metabolic Kao457 B/C Ratio 23.7 Ratio 05/03/2016 Comp Metabolic Eju069 CALCIUM 9.3 mg/dL 05/03/2016 Comp Metabolic Lnx785 ALK PHOS 45 U/L 05/03/2016 Comp Metabolic Lge861 AST(SGOT) 21 U/L 05/03/2016 Comp Metabolic Tpg666 ALT(SGPT) 15 U/L 05/03/2016 Comp Metabolic Kua803 BILI T 0.5 mg/dL 05/03/2016 Comp Metabolic Cvl689 ALBUMIN 4.1 g/dL 05/03/2016 Comp Metabolic Pbm781 TPRO 6.5 g/dL 05/03/2016 Comp Metabolic Rid739 GLOB 2.4 g/dL 05/03/2016 Comp Metabolic Reo319 A/G Ratio 1.7 Ratio 05/03/2016 Comp Metabolic Gnm665 Osmo 273 mOsmo 05/03/2016 Sed Rate Ord21 [...] Ord2 RDW 13.3 % 10/13/2015 Free T4 Dmj131 FREE T4 1.03 ng/dL 10/13/2015 C-Reactive Protein Qnt Crqnt CRP 0.3 mg/dl 10/13/2015 Comp Metabolic Rse919 NA 139 mEq/L 10/13/2015 Comp Metabolic Bcm282 K 4.2 mEq/L 10/13/2015 Comp Metabolic Vcw300 CL 105 mEq/L 10/13/2015 Comp Metabolic Emz399 CO2 25.0 mEq/L 10/13/2015 Comp Metabolic Jbq952 ANION GAP 13 10/13/2015 Comp Metabolic Wxl391 GLUCOSE 84 mg/dL 10/13/2015 Comp Metabolic Ezf829 Creat 0.7 mg/dL 10/13/2015 Comp Metabolic Wsd320 eGFR 106 ml/min/1.73m2 10/13/2015 Comp Metabolic Srm434 BUN 10 mg/dL 10/13/2015 Comp Metabolic Oek666 B/C Ratio 14.7 Ratio 10/13/2015 Comp Metabolic Svu732 CALCIUM 8.9 mg/dL 10/13/2015 Comp Metabolic Gkd603 ALK PHOS 53 U/L 10/13/2015 Comp Metabolic Klh351 AST(SGOT) 15 U/L 10/13/2015 Comp Metabolic Jqw093 ALT(SGPT) 13 U/L 10/13/2015 Comp Metabolic Hjt447 BILI T 0.5 mg/dL 10/13/2015 Comp Metabolic Zqb929 ALBUMIN 3.9 g/dL 10/13/2015 Comp Metabolic Uom646 TPRO 6.2 g/dL 10/13/2015 Comp Metabolic Hnc938 GLOB 2.3 g/dL 10/13/2015 Comp Metabolic Pjf351 A/G Ratio 1.7 Ratio 10/13/2015 Comp Metabolic Fey487 Osmo 276 mOsmo 10/13/2015 Lipid Ord30 CHOL 151 mg/dL 10/13/2015 Lipid Ord30 HDL 65.0 mg/dl 10/13/2015 Lipid Ord30 TRIG 85 mg/dL 10/13/2015 Lipid Ord30 LDL 69 mg/dL 10/13/2015 Lipid Ord30 C/HDL 2.3 Ratio 10/13/2015 Tsh Ord6 hTSH II 1.18 uIU/mL 10/13/2015 Tsh Ord6 hTSH II 0.67 uIU/mL 07/15/2015 Free T4 Bvx984 FREE T4 1.08 ng/dL 07/15/2015 GC/CHL PRB [id number] CHLM PROBE NEG 03/19/2015 GC/CHL PRB 9043889 GC PROBE NEG 03/19/2015 GC/CHL PRB 1847386 CHLM PROBE NEG 03/11/2014 GC/CHL PRB 2804568 GC PROBE NEG 03/11/2014 TSH 7231364 TSH 1.400 uIU/ML 03/11/2014 FREE T4 1387807 FREE T4 1.15 NG/DL 03/11/2014 GFR CALC 3473368 GFR AA >60 ML/MIN 10/13/2013 GFR CALC 1134481 GFR NON-AA >60 ML/MIN 10/13/2013 CHEM 14 0663411 AST 18 U/L 10/13/2013 CHEM 14 7015272 ALT 10 IU/L 10/13/2013 CHEM 14 8753142 BUN 6 MG/DL 10/13/2013 CHEM 14 7926242 ALBUMIN 4.1 GM/DL 10/13/2013 CHEM 14 5623437 CHLORIDE 105 MMOL/L 10/13/2013 CHEM 14 3407801 BILI TOT 0.5 MG/DL 10/13/2013 CHEM 14 7917079 ALK PHOS 45 U/L 10/13/2013 CHEM 14 2371917 SODIUM 137 MMOL/L 10/13/2013 CHEM 14 3111969 CREATININE 0.62 MG/DL 10/13/2013 CHEM 14 5456392 CALCIUM 8.7 MG/DL 10/13/2013 CHEM 14 3078725 POTASSIUM 3.8 MMOL/L 10/13/2013 CHEM 14 6075094 PROT TOT 6.2 GM/DL 10/13/2013 CHEM 14 8115882 GLUCOSE 92 MG/DL 10/13/2013 CHEM 14 9277213 BICARB 27 MMOL/L 10/13/2013 CHEM 14 5944441 ANION GAP 5 MEQ/L 10/13/2013 TSH 0112134 TSH 1.080 uIU/ML 10/13/2013 FREE T4 9773607 FREE T4 0.99 NG/DL 10/13/2013 CBC 8810572 WBC 5.0 10e9/L 10/13/2013 CBC 8006624 RBC 4.30 10e12/L 10/13/2013 CBC 2554403 HGB 13.2 g/dL 10/13/2013 CBC 4750691 HCT DET 40.1 % 10/13/2013 CBC 5182197 MCV 93.3 fL 10/13/2013 CBC 4871735 MCH 30.7 pg 10/13/2013 CBC 5651251 MCHC 32.9 g/dL 10/13/2013 CBC 4048153 PLT 275 10e9/L 10/13/2013 CBC 8170190 MPV 12.2 fL 10/13/2013 CBC 0046005 KEZIA % 56.1 % 10/13/2013 CBC 7316757 LY % 35.4 % 10/13/2013 CBC 7588724 MON % 7.3 % 10/13/2013 CBC 8790404 EOS % 1.0 % 10/13/2013 CBC 3870554 BASO % 0.2 % 10/13/2013 CBC 1726530 RDW 12.3 % 10/13/2013 CBC 0150834 ABS KEZIA 2.81 10e9/L 10/13/2013 CBC 5648957 ABS LYMPH 1.77 10e9/L 10/13/2013 CBC 3875110 ABS MONO 0.37 10e9/L 10/13/2013 CBC 7953684 ABS EOS 0.05 10e9/L 10/13/2013 CBC 1409946 ABS BASO 0.01 10e9/L 10/13/2013 CBC 1480914 RDW-SD 40.8 fL 10/13/2013 T3 TOT 3615716 T3 TOT 1.2 NG/ML 10/13/2013 FREE T4 6423674 FREE T4 0.85 NG/DL 12/17/2012 CHEM 14 5225462 AST 16 U/L 12/17/2012 CHEM 14 1170600 ALT 12 IU/L 12/17/2012 CHEM 14 6496504 BUN 8 MG/DL 12/17/2012 CHEM 14 2291199 ALBUMIN 4.2 GM/DL 12/17/2012 CHEM 14 3724790 CHLORIDE 105 MMOL/L 12/17/2012 CHEM 14 4090879 BILI TOT 0.5 MG/DL 12/17/2012 CHEM 14 0963371 ALK PHOS 46 U/L 12/17/2012 CHEM 14 1020389 SODIUM 138 MMOL/L 12/17/2012 CHEM 14 6713345 CREATININE 0.66 MG/DL 12/17/2012 CHEM 14 4011998 CALCIUM 9.3 MG/DL 12/17/2012 CHEM 14 6221255 POTASSIUM 3.7 MMOL/L 12/17/2012 CHEM 14 9332478 PROT TOT 6.7 GM/DL 12/17/2012 CHEM 14 [id number] GLUCOSE 83 MG/DL 12/17/2012 CHEM 14 [id number] BICARB 27 MMOL/L 12/17/2012 CHEM 14 [id number] ANION GAP 6 MEQ/L 12/17/2012 T3 FREE 8337114 T3 FREE 3.4 PG/ML 12/17/2012 MAGNESIUM [id number] MAGNESIUM 1.7 MEQ/L 12/17/2012 CBC 0202205 WBC 5.4 10e9/L 12/17/2012 CBC 3443980 RBC 4.30 10e12/L 12/17/2012 CBC 1320235 HGB 13.4 g/dL 12/17/2012 CBC 9520009 HCT DET 39.8 % 12/17/2012 CBC 0165990 MCV 92.6 fL 12/17/2012 CBC 4886318 MCH 31.2 pg 12/17/2012 CBC 6931251 MCHC 33.7 g/dL 12/17/2012 CBC 6559362 PLT 256 10e9/L 12/17/2012 CBC 0200071 MPV 11.2 fL 12/17/2012 CBC 7217890 KEZIA % 52.0 % 12/17/2012 CBC 2503395 LY % 37.9 % 12/17/2012 CBC 3647340 MON % 8.4 % 12/17/2012 CBC 3637614 EOS % 1.5 % 12/17/2012 CBC 8237565 BASO % 0.2 % 12/17/2012 CBC 0054861 RDW 12.5 % 12/17/2012 CBC 4370287 ABS KEZIA 2.81 10e9/L 12/17/2012 CBC 1859939 ABS LYMPH 2.05 10e9/L 12/17/2012 CBC 6235704 ABS MONO 0.45 10e9/L 12/17/2012 CBC 2257148 ABS EOS 0.08 10e9/L 12/17/2012 CBC 9869803 ABS BASO 0.01 10e9/L 12/17/2012 CBC 5240705 RDW-SD 40.9 fL 12/17/2012 TSH 2707168 TSH 2.043 uIU/ML 12/17/2012 GFR CALC 0249927 GFR AA >60 ML/MIN 12/17/2012 GFR CALC 1086887 GFR NON-AA >60 ML/MIN 12/17/2012 UA 53752 Specific [place] 1.020 DateTime(Free Text in ) UA 49368 PH 6 DateTime(Free Text in ) UA 64692 GLUCOSE neg DateTime(Free Text in ) UA 05528 Protein neg DateTime(Free Text in Janima) UA 28919 Blood neg DateTime(Free Text in ) UA 34498 Bilirubin neg DateTime(Free Text in ) UA 08867 Ketones neg DateTime(Free Text in Janima) UA 16995 Urobilinogen neg DateTime(Free Text in Janima) UA 16661 Nitrite neg DateTime(Free Text in ) UA 49399 Leukocytes neg DateTime(Free Text in ) Review [...] CPT-4: J3301 07/21/2016 THER/PROPH/DIAG INJ SC/IM CPT-4: 54182 07/21/2016 THER/PROPH/DIAG INJ SC/IM CPT-4: 34098 01/05/2016 TRIAMCINOLONE ACET INJ NOS CPT-4: J3301 01/05/2016 ROCEPHIN, PER 250 MG CPT-4: J0696 01/05/2016 THER/PROPH/DIAG INJ SC/IM CPT-4: 69966 08/26/2015 ROCEPHIN, PER 250 MG CPT-4: J0696 08/26/2015 TRIAMCINOLONE ACET INJ NOS CPT-4: J3301 08/26/2015 C RAP A SC (STREP A ASSAY W/OPTIC) CPT-4: 79668 08/20/2015 TRIAMCINOLONE ACET INJ NOS CPT-4: J3301 07/23/2014 DRAIN/INJECT JOINT/BURSA CPT-4: 59505 07/23/2014 URINALYSIS NONAUTO W/O SCOPE CPT-4: 62509 04/20/2014 PREV VISIT EST AGE 18-39 CPT-4: 79050 03/10/2014 ROUTINE VENIPUNCTURE CPT-4: 30878 03/10/2014 TRIAMCINOLONE ACET INJ NOS CPT-4: J3301 02/24/2014 ROUTINE VENIPUNCTURE CPT-4: 78406 10/13/2013 TRIAMCINOLONE ACET INJ NOS CPT-4: J3301 02/18/2013 TRIAMCINOLONE ACET INJ NOS CPT-4: J3301 05/21/2012 THER/PROPH/DIAG INJ SC/IM CPT-4: 74360 05/21/2012 THER/PROPH/DIAG INJ SC/IM CPT-4: 78260 07/26/2011 ROCEPHIN, PER 250 MG CPT-4: J0696 07/26/2011 TRIAMCINOLONE ACET INJ NOS CPT-4: J3301 06/16/2011 THER/PROPH/DIAG INJ SC/IM CPT-4: 13089 06/16/2011 Vital Signs Date Vital 11/15/2017 Blood Pressure 1: 114/64 Code : 8480-6 BMI: 21.1 Code : 98986-3 Heart Rate 1 : 91 bpm Height: 5'7" SpO2: 99% Temperature: 36.3 (C) / 97.4 (F) Weight: 135 lbs 10/10/2017 Blood Pressure 1: 118/82 Code : 8480-6 BMI: 20.5 Code : 94676-3 Heart Rate 1 : 87 bpm Height: 5'7" SpO2: 99% Weight: 131 lbs 09/20/2017 Blood Pressure 1: 140/72 Code : 8480-6 BMI: 21.0 Code : 17800-9 Heart Rate 1 : 98 bpm Height: 5'7" SpO2: 99% Weight: 134 lbs 07/13/2017 Blood Pressure 1: 123/64 Code : 8480-6 BMI: 20.5 Code : 08346-6 Heart Rate 1 : 93 bpm Height: 5'7" SpO2: 99% Weight: 131 lbs 06/20/2017 Blood Pressure 1: 110/70 Code : 8480-6 BMI: 20.8 Code : 43744-3 Heart Rate 1 : 77 bpm Height: 5'7" SpO2: 98% Weight: 133 lbs 05/31/2017 Blood Pressure 1: 100/70 Code : 8480-6 BMI: 20.7 Code : 30268-8 Heart Rate 1 : 80 bpm Height: 5'7" Weight: 132 lbs 04/18/2017 Blood Pressure 1: 120/72 Code : 8480-6 BMI: 21.0 Code : 10563-9 Heart Rate 1 : 76 bpm Height: 5'7" SpO2: 97% Weight: 134 lbs 03/21/2017 Blood Pressure 1: 130/78 Code : 8480-6 BMI: 21.1 Code : 74421-6 Heart Rate 1 : 70 bpm Height: 5'7" SpO2: 98% Weight: 135 lbs 11/20/2016 Blood Pressure 1: 130/72 Code : 8480-6 BMI: 21.0 Code : 59349-5 Heart Rate 1 : 114 bpm Height: 5'7" SpO2: 99% Weight: 134 lbs 07/31/2016 Blood Pressure 1: 120/62 Code : 8480-6 BMI: 21.0 Code : 54394-4 Heart Rate 1 : 87 bpm Height: 5'7" SpO2: 97% Weight: 134 lbs 05/03/2016 Blood Pressure 1: 134/84 Code : 8480-6 BMI: 20.5 Code : 92761-5 Heart Rate 1 : 81 bpm Height: 5'7" SpO2: 99% Weight: 131 lbs 08/26/2015 Blood Pressure 1: 110/58 Code : 8480-6 BMI: 20.7 Code : 46265-4 Heart Rate 1 : 96 bpm Height: 5'7" SpO2: 99% Temperature: 37.6 (C) / 99.6 (F) Weight: 132 lbs 08/20/2015 Blood Pressure 1: 108/70 Code : 8480-6 BMI: 20.7 Code : 01026-6 Heart Rate 1 : 103 bpm Height: 5'7" SpO2: 98% Temperature: 36.6 (C) / 97.9 (F) Weight: 132 lbs 03/18/2015 Blood Pressure 1: 102/56 Code : 8480-6 BMI: 22.4 Code : 44515-8 Heart Rate 1 : 66 bpm Height: 5'7" SpO2: 99% Weight: 143 lbs 02/03/2015 Blood Pressure 1: 118/70 Code : 8480-6 BMI: 23.8 Code : 74112-5 Heart Rate 1 : 69 bpm Height: 5'7" SpO2: 99% Weight: 152 lbs 12/10/2014 Blood Pressure 1: 130/82 Code : 8480-6 BMI: 24.4 Code : 72371-8 Heart Rate 1 : 84 bpm Height: 5'7" Weight: 156 lbs 11/12/2014 Blood Pressure 1: 118/78 Code : 8480-6 BMI: 24.4 Code : 62678-9 Heart Rate 1 : 76 bpm Height: 5'7" Temperature: 36.7 (C) / 98.1 (F) Weight: 156 lbs 07/23/2014 Blood Pressure 1: 124/68 Code : 8480-6 BMI: 24.3 Code : 07523-2 Heart Rate 1 : 68 bpm Height: 5'7" SpO2: 96% Weight: 155 lbs 04/20/2014 Blood Pressure 1: 130/82 Code : 8480-6 BMI: 23.2 Code : 46289-1 Heart Rate 1 : 74 bpm Height: [...] Code : 8480-6 BMI: 23.0 Code : 93112-1 Heart Rate 1 : 80 bpm Height: 5'7" Weight: 147 lbs 05/28/2013 Blood Pressure 1: 106/60 Code : 8480-6 BMI: 22.6 Code : 06493-3 Heart Rate 1 : 64 bpm Height: 5'7" Temperature: 37.4 (C) / 99.3 (F) Weight: 144 lbs 02/18/2013 Heart Rate 1: 87 bpm SpO2: 99% 12/17/2012 Blood Pressure 1: 120/82 Code : 8480-6 BMI: 22.9 Code : 76387-1 Heart Rate 1 : 68 bpm Height: 5'7" Weight: 146 lbs 05/21/2012 Blood Pressure 1: 92/56 Code : 8480-6 Heart Rate 1: 76 bpm Temperature: 36.7 (C) / 98.1 (F) Weight: 141 lbs 02/19/2012 Blood Pressure 1: 114/62 Code : 8480-6 BMI: 21.6 Code : 42294-1 Heart Rate 1 : 80 bpm Height: 5'7" Respiratory Rate: 16 bpm Temperature: 36.7 ( C) / 98.1 (F) Weight: 138 lbs 08/24/2011 Blood Pressure 1: 106/58 Code : 8480-6 BMI: 23.0 Code : 01467-2 Heart Rate 1 : 78 bpm Height: 5'7" Respiratory Rate: 16 bpm Temperature: 36.8 ( C) / 98.3 (F) Weight: 147 lbs 07/26/2011 Blood Pressure 1: 104/68 Code : 8480-6 BMI: 23.4 Code : 80843-9 Heart Rate 1 : 80 bpm Height: 5'6" Respiratory Rate: 16 bpm Weight: 146 lbs 06/16/2011 Blood Pressure 1: 122/68 Code : 8480-6 BMI: 22.7 Code : 93789-1 Heart Rate 1 : 80 bpm Height: [...] going to a fitness class at the [facility] and is continuing the treatments that she was doing with therapy at the [facility] - she was taking aleve and it [...] F32.1] Diagnosis: Palpitations[ICD10: R00.2] Ashlee Coburn MD, [facility] CPT-4 : 93157 11/15/2017 ([id number]) PREV VISIT EST AGE 18-39 Diagnosis: Encounter for general adult medical examination with abnormal findings[ICD10: Z00.01] Ashley Coburn MD, [facility] CPT-4: 28007 10/10/2017 13247 EST. PATIENT, LEVEL IV Diagnosis: Other specified hypothyroidism[ICD10: E03.8] Diagnosis: Generalized anxiety disorder[ICD10: F41.1] Diagnosis: Major depressive disorder, single episode, moderate[ICD10: F32.1] Diagnosis: Other fatigue[ICD10: R53.83] Diagnosis: Other malaise[ICD10: R53.81] Diagnosis: Dysphagia, oropharyngeal phase[ICD10: R13.12] Ashlee Coburn MD, [facility] CPT-4: 68788 09/20/2017 09167 EST. PATIENT, LEVEL III Diagnosis: Acute laryngopharyngitis[ICD10: J06.0] Diagnosis: Acute suppurative otitis media without spontaneous rupture of ear drum, bilateral[ICD10: H66.003] Diagnosis: Other acute sinusitis[ICD10: J01.80] Diagnosis: Other allergic rhinitis[ICD10: J30.89] Ashlee Coburn MD, [facility] CPT-4: 24508 07/13/2017 04195 EST. PATIENT, LEVEL III Diagnosis: Postprocedural hypothyroidism[ICD10: E89.0] Ashlee Coburn MD, [facility] CPT-4: 96742 06/20/2017 ([id number]) 32227 EST. PATIENT, LEVEL III Diagnosis: Postprocedural hypothyroidism[ICD10: E89.0] Ashley Coburn MD, [facility] CPT-4: 36392 05/31/2017 ([id number]) 36381 EST. PATIENT, LEVEL III Diagnosis: Postprocedural hypothyroidism[ICD10: E89.0] Ashley Coburn MD [facility] CPT-4: 15730 04/18/2017 ([id number]) 96699 EST. PATIENT, LEVEL IV Diagnosis: Other malaise[ICD10: R53.81] Diagnosis: Postprocedural hypothyroidism[ICD10: E89.0] Diagnosis: Myalgia[ICD10: M79.1] Diagnosis: Vitamin D deficiency, unspecified[ICD10: E55.9] Ashley Coburn MD, [facility] CPT-4: 39433 03/21/2017 ([id number]) 52037 EST. PATIENT, LEVEL III Diagnosis: Cellulitis of buttock[ICD10: L03.317] Julissa Coburn MD, [facility] CPT-4: 53709 11/20/2016 05913 EST. PATIENT, LEVEL IV Diagnosis: Radiculopathy, sacral and sacrococcygeal region[ICD10: M54.18] Diagnosis: Other specified hypothyroidism[ICD10: E03.8] Ashlee Coburn MD, [facility] CPT-4: 01516 07/31/2016 ([id number]) PREV VISIT EST AGE 18-39 Diagnosis: Hypothyroidism, unspecified[ICD10: E03.9] Diagnosis: Postprocedural hypothyroidism[ICD10: E89.0] Diagnosis: Other malaise[ICD10: R53.81] Diagnosis: Encounter for gynecological examination (general) (routine) without abnormal findings[ICD10: Z01.419] Ashley Coburn MD, [facility] CPT-4: 73399 05/03/2016 58136 EST. PATIENT, LEVEL III Diagnosis: Acute upper respiratory infection, unspecified[ICD10: J06.9] Diagnosis: Acute bronchitis, unspecified[ICD10: J20.9] Ashlee Coburn MD, [facility] CPT-4: 92026 08/26/2015 19479 EST. PATIENT, LEVEL III Diagnosis: Acute pharyngitis, unspecified[ICD10: J02.9] Diagnosis: Acute sinusitis, unspecified[ICD10: J01.90] Ashlee Coburn MD, [facility] CPT-4: 82005 08/20/2015 ([id number]) PREV VISIT EST AGE 18-39 Diagnosis: ROUTINE GYNE EXAM[ICD9: V72.31] Ashley Coburn MD [facility] CPT- 4: 46966 03/18/2015 ([id number]) 10880 EST. PATIENT, LEVEL III Diagnosis: Irregular menstrual cycle[ICD9: 626.4] Diagnosis: Hair loss disorder[ICD9: 704.00] Ashley Coburn MD, [facility] CPT-4: 79969 02/03/2015 ([id number]) 79347 EST. PATIENT, LEVEL III Diagnosis: Acute costochondritis[ICD9: 733.6] Diagnosis: POSTSURGICAL HYPOTHYROIDISM[ICD9: 244.0] Diagnosis: GENERALIZED ANXIETY DISEASE[ICD9: 300.02] Ashley Coburn MD, [facility] CPT-4: 97566 12/10/2014 ([id number]) 15636 EST. PATIENT, LEVEL III Diagnosis: HYPOTHYROIDISM[ICD9: 244.9] Diagnosis: Depression[ICD9: 311] Diagnosis: GENERALIZED ANXIETY DISEASE[ICD9: 300.02] Julissa Coburn MD, [facility] CPT-4: 92005 11/12/2014 ([id number]) 36236 EST. PATIENT, LEVEL III Diagnosis: Sacroiliitis[ICD9: 720.2] Diagnosis: Fatigue[ICD9: 780.79] Diagnosis: Back pain[ICD9: 724.5] Ashley Coburn MD, [facility] CPT-4: 47888 07/23/2014 ([id number]) 68448 EST. PATIENT, LEVEL IV Diagnosis: Back pain[ICD9: 724.5] Diagnosis: SCIATICA[ICD9: 724.3] Diagnosis: Sore throat and laryngitis[ICD9: 465.0] Diagnosis: Upper respiratory infection[ICD9: 465.9] Ashley Coburn MD, [facility] CPT-4: 63845 04/20/2014 ([id number]) 46060 EST. PATIENT, LEVEL III Diagnosis: ACUTE SINUSITIS[ICD9: 461.9] Diagnosis: ALLERGIC RHINITIS[ICD9: 477.9] Julissa Coburn MD, [facility] CPT-4: 48318 02/24/2014 ([id number]) 45691 EST. PATIENT, LEVEL IV Diagnosis: POSTSURGICAL HYPOTHYROIDISM[ICD9: 244.0] Diagnosis: Dysphagia[ICD9: 787.20] Diagnosis: Lumbago[ICD9: 724.2] Diagnosis: Encounter for long-term (current) use of other medications[ICD9: V58.69] Diagnosis: Laboratory exam ordered as part of routine general medical examination[ICD9: V72.62] Diagnosis: Thyroid nodule[ICD9: 241.0] Julissa Coburn MD, [facility] CPT-4: 32341 10/13/2013 ([id number]) 60009 EST. PATIENT, LEVEL III Diagnosis: ACUTE BRONCHITIS[ICD9: 466.0] Diagnosis: Sinusitis[ICD9: 473.9] Diagnosis: COUGH[ICD9: 786.2] Ashley Coburn MD, [facility] CPT-4: 42169 05/28/2013 ([id number]) 35666 EST. PATIENT, LEVEL III Diagnosis: ACUTE SINUSITIS[ICD9: 461.9] Diagnosis: ALLERGIC RHINITIS[ICD9: 477.9] Ashley Coburn MD, [facility] CPT- 4: 11908 02/18/2013 ([id number]) 84542 EST. PATIENT, LEVEL III Diagnosis: POSTSURGICAL HYPOTHYROIDISM[ICD9: 244.0] Diagnosis: Fatigue[ICD9: 780.79] Ashley Coburn MD, [facility] CPT-4: 38430 12/17/2012 ([id number]) 16571 EST. PATIENT, LEVEL III Diagnosis: ALLERGIC RHINITIS[ICD9: 477.9] Diagnosis: ACUTE URI[ICD9: 465.9] Julissa Coburn MD, [facility] CPT-4: 38424 05/21/2012 ([id number]) 00867 EST. PATIENT, LEVEL III Diagnosis: Tachycardia[ICD9: 785.0] Diagnosis: GENERALIZED ANXIETY DISEASE[ICD9: 300.02] Diagnosis: Depression[ICD9: 311] [facility] CPT-4: 45117 02/19/2012 16723 EST. PATIENT, LEVEL III Diagnosis: RUQ pain[ICD9: 789.01] Diagnosis: NAUSEA ALONE[ICD9: 787.02] [facility] CPT-4: 57138 08/24/2011 68623 EST. PATIENT, LEVEL III Diagnosis: ACUTE SEROUS OTITIS MEDIA[ICD9: 381.01] Diagnosis: ACUTE URI[ICD9: 465.9] Diagnosis: Cough[ICD9: 786.2] [facility] CPT-4: 63175 07/26/2011 55779 EST. PATIENT, LEVEL III Diagnosis: ACUTE SINUSITIS[ICD9: 461.9] Diagnosis: Environmental allergies[ICD9: 477.9] [facility] CPT-4: 73675 06/16/2011 Plan of Care Planned Activity Notes Codes Status Date Visit Plan: Fatigue, malaise, parasthesias - Discussed with Dr. Coburn - will check labs and treat as indicated - pt is to notify clinic if symptoms do not improve, if they worsen, or with any changes, questions, or concerns. Palpitations - will order holter monitor Anxiety - the patient has uncontrolled anxiety and will benefit from an increase in her SSRI on a daily basis to attempt control of the symptoms of anxiety (tachycardia, overwhelming sensations, stress, insomnia, etc). I also believe that the patient will benefit from very low dose of prn benzodiazepine. Pt is aware of the risks and benefits of treatment with the above medications. Depression - uncontrolled - Pt has been [...] has been appropriately prescribed for this patient. 11/15/2017 Appointment: Ashlee Evans [facility]Ptel[facility] (15 min) Moderate 11/15/2017 Patient Education: Patient Medication Summary Completed 11/15/2017 Appointment: Ashlee Evans WPtel: [phone] [facility] [place] (15 min) Moderate 11/01/2017 Visit Plan: [...] jobs. 10/10/2017 Appointment: Ashley Coburn WPtel: [phone] [email or web address] (15 min) Moderate 10/10/2017 Patient Education: Patient [...] or concerns. 09/20/2017 Appointment: Ashlee Evans WPtel: [facility] [place] (30 min) Complex 09/20/2017 Patient Education: [...] spray. 07/13/2017 Appointment: Ashlee Evans WPtel: [phone] [facility] [place] (15 min) Moderate 07/13/2017 Patient Education: Patient Medication Summary Completed 07/13/2017 Visit Plan: Sensation of fullness in throat - US showed stable cyst - will repeat in 6 months or sooner if symptoms do not improve with thyroid medication adjustment or with any changing or worsening symptoms. 06/20/2017 App[facility]ment: [phone] [place] (30 min) Complex 06/20/2017 Patient Education: Patient Medication Summary Completed 06/20/2017 Visit Plan: Sensation of fullness in throat - recommended ultrasound of residual thyroid - increase cytomel to 10mg daily, decrease synthroid to 1/2 of 75mcg pill daily. 05/31/2017 Appointment: [phone] [place] (15 min) Moderate 05/31/2017 Patient [...] of control. 04/18/2017 Appointment: Ashley Coburn WPtel: [address] [place], [place] [phone] (15 min) Moderate 04/18/2017 Patient Education: Patient [...] units weekly x 13 weeks. 03/21/2017 Appointment: IrishAshley WPtel: [address] [place], [place] [phone] (15 min) Moderate 03/21/2017 Patient Education: Patient [...] Completed 11/20/2016 Referral: [facility] [employer] WPtel: [address] [id number] Referral Initiated 08/14/2016 Visit Plan: Pt is complaining of low back, sacral pain - Pt states that she has been seeing her chiropractor, who ordered x-rays and told her that she would need to be referred to an email marketing specialist. Will call for x-ray results. Will [...] of control. 07/31/2016 Appointment: Ashlee Evans WPtel: [phone] [facility] (15 min) Moderate 07/31/2016 Patient Education: Patient Medication Summary Completed 07/31/2016 Care Plan: Referral Order SNOMED-CT : [id number] Pending 07/31/2016 Appointment: Injection 07/21/2016 Patient Education: [...] over- supplemented 05/03/2016 Appointment: [facility]el[phone] [facility] 05/03/2016 Patient Education: Patient [...] thyroid levels. 02/03/2015 Appointment: Ashley Coburn WPtel: [address] [place] [address] Follow up 02/03/2015 Patient Education: Patient Medication [...] Care Plan: COMPLETE CBC AUTOMATED LOINC : 40766-2 Ordered 11/12/2014 Visit Plan: Sacroiliitis - back exercises discussed with the patient, pt to continue with anti-inflammatories. Pt is to call if the symptoms do not improve or if they worsen. kenalog injection in SI joints bilaterally 07/23/2014 Appointment: Ashley Coburn WPtel: [address] [place], [place] [phone] Follow up 07/23/2014 Patient Education: Patient Medication [...] physical therapy. 04/20/2014 Appointment: Ashley Coburn WPtel: [address] [place], [place] [phone] [facility] 04/20/2014 Patient Education: Patient Medication Summary Completed [...] today. 03/10/2014 Appointment: [facility]el[phone] [facility] [place] Pap Only 03/10/2014 Patient Education: [...] stretching exercises. 10/13/2013 Appointment: Jul[facility] C[phone] [place] Follow up 10/13/2013 Patient Education: Patient Medication [...] show improvement. 05/28/2013 Appointment: Ashley Coburn WPtel: [facility]5 [facility] [facility] 05/28/2013 Patient Education: Patient Medication Summary Completed [...] monitor symptoms. 12/17/2012 Appointment: Ashley Coburn WPtel: [address] [place], [place] [phone] Other 12/17/2012 Patient Education: Patient Medication Summary [...] any worse. 05/21/2012 Appointment: Julissa Coker WPtel: [facility]6 [phone] Other 05/21/2012 Patient Education: Patient Medication [...] autoimmune thyroiditis. 02/19/2012 Appointment: Ashley Coburn WPtel: [address] [place] [address] Other 02/19/2012 Patient Education: Patient Medication Summary [...] verbalized understanding. 08/24/2011 Appointment: Julissa Coker WPtel: [address] [place], [place] [phone] [place] [address] Other 08/24/2011 Patient Education: Patient Medication Summary Completed 08/24/2011 Visit Plan: Otitis media/URI - Pt has acute infection - Pt informed to use decongestant, RX given to patient.. Call if symptoms do not show improvement. 07/26/2011 Appointment: Ashley Coburn WPtel: [address] [place] [address] Other 07/26/2011 Patient Education: Patient Medication Summary [...] show improvement. 06/16/2011 Appointment: Julissa Coker WPtel: [phone] [facility] Other 06/16/2011 Patient Education: Patient Medication Summary Completed 06/16/2011 Referral: [facility] [employer] WPtel: [phone] [id number] [place] Referral Initiated Instructions Comment . Fatigue, malaise, parasthesias - Discussed with Dr. Coburn - will check labs and treat as indicated - pt is to notify clinic if symptoms do not improve, if they worsen, or with any changes, questions, or concerns. Palpitations - will order holter monitor Anxiety - the patient has uncontrolled anxiety and will benefit from an increase in her SSRI on a daily basis to attempt control of the symptoms of anxiety (tachycardia, overwhelming sensations, stress, insomnia, etc). I also believe that the patient will benefit from very low dose of prn benzodiazepine. Pt is aware of the risks and benefits of treatment with the above medications. Depression - uncontrolled - Pt has been [...] has been appropriately prescribed for this patient. . Sacroiliitis - back exercises discussed with the patient , pt to continue with anti-inflammatories. Pt is to call if the symptoms do not improve or if they worsen. kenalog injection in SI joints bilaterally . RUQ pain with nausea-suspect gallbladder inflammation- [...] exam, and the assessment and plan. . Sinusitis - Pt has acute infection [...] in the nasal steroid allergy spray. . Otitis media/URI - Pt has acute [...] previous levels of control. . Well Adult Female - exam completed. [...] in anxiety if thyroid is over-supplemented . Pt is complaining of low back, sacral pain - Pt states that she has been seeing her chiropractor, who ordered x-rays and told her that she would need to be referred to an email marketing specialist. Will call for x-ray results. Will [...] based on previous levels of control. Check labs-cbc, cmp, tsh, free t4. Hypothyroidism [...] of 75mcg pill daily. . Well Adult - pt was counseled [...] increase dose of synthroid to 88mcg m /w/ and 1/2 tab on tue/thur/sat/sun. Discussed her depression and recommended pt to look at a change of scenery / moving/changing jobs. . Well Adult Female - exam completed. [...] if symptoms do not show improvement. . Abscess/Cellulitis - The patient was instructed [...] chem panel, tsh, concern for autoimmune thyroiditis. Plan for HIDA scan on 08/28/11 at [...] and instructed on use-continue stretching exercises. . Hypothyroidism - pt with chronic hypothyroidism, [...] d 50,000 units weekly x 13 weeks. . Sinusitis - Pt has acute infection [...] Kenalog injection today in the office. . URI - Pt advised to increase [...] she is to see physical therapy. . URI - Pt advised to increase [...] next year, otherwise, RTC yearly or prn. Will give rocephin shot and steroid shot, [...]
--- OUTSIDE RECORDS SUMMARY | 2018-01-09 11:04 | XMS REPORT | CCD ---
Author Author [facility] Address [address] [place] [address] Phone Care Team Providers Care Grinder Operator Name Role Phone PP Unavailable CCM Unavailable Summary Purpose Interface Exchange Insurance Providers Payer name Policy type / Coverage type Covered green party ID Effective Begin Date Effective End Date [facility] [id number] Unknown Family history Grandfather Diagnosis Age At [...] Unknown Single 06/16/2011 Employment Unknown Currently employed [employer] 06/16/[address]: 068881482 Nonsmoker 06/16/2011 Allergies, Adverse Reactions, Alerts Allergies, [...] ICD-9: 782.0 ICD-10: R20.2 Active 11/15/2017 Unknown Cough ICD-9: 786.2 ICD-10: R05 Active 11/01/2017 Unknown Other acute sinusitis ICD-9: 461.8 ICD-10: J01.80 Active 07/13/2017 Unknown Other allergic rhinitis ICD-9: 477.8 ICD-10: J30.89 Active 07/13/2017 Unknown Encounter for general adult medical examination [...] 300.02 ICD-10: F41.1 Active 09/20/2017 Unknown Other specified hypothyroidism ICD-9: 244.8 ICD-10: [...] skin ICD-9: 782.0 ICD-10: R20.2 11/15/2017 Active Cough ICD-9: 786.2 ICD-10: R05 11/01/2017 Active Other acute sinusitis ICD-9: 461.8 ICD-10: J01.80 07/13/2017 Active Other allergic rhinitis ICD-9: 477.8 ICD-10: J30.89 07/13/2017 Active Encounter for general adult medical examination [...] ICD-9: 300.02 ICD-10: F41.1 09/20/2017 Active Other specified hypothyroidism ICD-9: 244.8 ICD-10: [...] Start Date Stop Date Status Fill Instructions Vitamin B-12 1,000 mcg/mL injection solution RxNorm: 635689 1 Milliliter(s) Inj TWICE MONTHLY X2 MONTHS THEN MONTHLY THEREAFTER 11/21/2017 03/20/2018 Active Please supply patient with needles. Call if she needs a separate order Vitamin B-12 1,000 mcg/mL injection solution RxNorm: 695805 1 Milliliter(s) Inj TWICE MONTHLY X2 MONTHS THEN MONTHLY THEREAFTER 11/21/2017 11/20/2017 Inactive fluvoxamine 50 mg tablet RxNorm: 541002 1 Tablet(s) PO daily to take with the 100mg to equal 150mg daily 11/15/2017 Active fluvoxamine 100 mg tablet RxNorm: 147923 TAKE ONE TABLET BY MOUTH DAILY 11/12/2017 05/10/2018 Active Keflex 500 mg capsule RxNorm: 576957 1 Capsule(s) PO TID 201711/04/2017 Inactive to equal a total of 14 days prednisone 20 mg tablet RxNorm: 147559 2 Tablet(s) PO daily 08/201811/05/2017 Inactive Cytomel 5 mcg tablet RxNorm: 248333 TAKE TWO TABLETS BY MOUTH EVERY EVENING 10/16/2017 01/13/2018 Active Synthroid 75 mcg tablet RxNorm: 702414 1 Tablet(s) PO UD 1 full tab M/W/F and 1/2 tab Sat/Sun/Tue/Thur 10/10/20172018 Active fluvoxamine 100 mg tablet RxNorm: 764005 1 Tablet(s) PO daily 09/20/2017 10/19/2017 Inactive doxycycline hyclate 100 mg capsule RxNorm: 4705143 1 Capsule(s) PO BID 09/20/2017 10/03/2017 Inactive Mononessa (28) 0.25 mg-35 mcg tablet RxNorm: 959948 TAKE 1 ACTIVE TABLET BY MOUTH ONCE DAILY FOR 3 MONTHS THEN START PLACEBO FOR 1 WEEK 201605/19/2018 Active Synthroid 75 mcg tablet RxNorm: 914619 TAKE ONE-HALF TABLET BY MOUTH EVERY MORNING ON AN EMPTY STOMACH 09/10/2017 Inactive fluvoxamine 50 mg tablet RxNorm: 793874 TAKE ONE TABLET BY MOUTH EVERY EVENING 09/10/2017 10/09/2017 Inactive Kenalog 40 mg/mL suspension for injection RxNorm: 4800083 1 Milliliter(s) Inj 07/13/2017 07/13/2017 Inactive Augmentin 500 mg-125 mg tablet RxNorm: 658794 1 Tablet(s) PO TID 07/13/2017 07/22/2017 Inactive Isabell Allergy 180 mg tablet RxNorm: 517065 1 Tablet(s) PO daily 07/13/2017 08/11/2017 Inactive Synthroid 75 mcg tablet RxNorm: 996549 1/2 Tablet(s) PO QAM 07/201709/09/2017 Inactive Cytomel 5 mcg tablet RxNorm: 814783 2 Tablet(s) PO QPM 201609/27/2017 Inactive Cytomel 5 mcg tablet RxNorm: 932589 1 Tablet(s) PO QPM 201605/30/2017 Inactive Mononessa (28) 0.25 mg-35 mcg tablet RxNorm: 760369 TAKE 1 ACTIVE TABLET BY MOUTH ONCE DAILY FOR 3 MONTHS THEN START PLACEBO FOR 1 WEEK 201608/14/2017 Inactive Vitamin D2 50,000 unit capsule RxNorm: 197474 1 Capsule(s) PO QW 03/21/2017 06/17/2017 Inactive fluvoxamine 50 mg tablet RxNorm: 661434 1.5 Tablet(s) PO UD take 1/2 pill in morning and a full pill at night 03/21/2017 09/09/2017 Inactive Synthroid 75 mcg tablet RxNorm: 055429 1 Tablet(s) PO QAM 03/2105/19/2017 Inactive fluvoxamine 50 mg tablet RxNorm: 350268 1 TABLET(S) PO QPM TAKE 1 TABLET BY MOUTH EVERY EVENING 03/12/2017 03/20/2017 Inactive [place] Thyroid 30 mg tablet RxNorm: 318106 TAKE ONE TABLET BY MOUTH DAILY 02/05/2017 03/06/2017 Inactive [place] Thyroid 30 mg tablet RxNorm: 821862 TAKE ONE TABLET BY MOUTH DAILY 01/15/2017 02/04/2017 Inactive [place] Thyroid 30 mg tablet RxNorm: 078733 TAKE ONE TABLET BY MOUTH DAILY 12/14/2016 01/12/2017 Inactive Bactrim DS 800 mg-160 mg tablet RxNorm: 670924 1 Tablet(s) PO BID 11/20/2016 11/26/2016 Inactive fluvoxamine 50 mg tablet RxNorm: 589846 1 TABLET(S) PO QPM TAKE 1 TABLET BY MOUTH EVERY EVENING 11/01/2016 02/28/2017 Inactive Mononessa (28) 0.25 mg-35 mcg tablet RxNorm: 781307 Tablet(s) PO TAKE ONE TABLET BY MOUTH DAILY CONTINUOUSLY X 3 MONTHS, THEN START PLACEBO X 1 WEEK 09/05/2016 04/10/2017 Inactive [place] Thyroid 30 mg tablet RxNorm: 255067 1 Tablet(s) PO daily 08/18/2016 12/13/2016 Inactive [place] Thyroid 30 mg tablet RxNorm: 521848 1 Tablet(s) PO daily 08/18/2016 08/17/2016 Inactive Kenalog 40 mg/mL suspension for injection RxNorm: 6972073 1 Milliliter(s) Inj 07/21/2016 07/21/2016 Inactive fluvoxamine 50 mg tablet RxNorm: 444898 1 TABLET(S) PO QPM TAKE 1 TABLET BY MOUTH EVERY EVENING 07/03/2016 10/30/2016 Inactive fluconazole 150 mg tablet RxNorm: 310464 1 Tablet(s) PO daily 05/03/2016 05/07/2016 Inactive fluvoxamine 50 mg tablet RxNorm: 236947 1 TABLET(S) PO QPM TAKE 1 TABLET BY MOUTH EVERY EVENING 03/06/2016 07/02/2016 Inactive levothyroxine 75 mcg tablet RxNorm: 325317 TAKE ONE TABLET BY MOUTH DAILY 01/19/2016 08/15/2016 Inactive Request already responded to by other means (e.g. phone or fax) levothyroxine 75 mcg tablet RxNorm: 798852 Tablet(s) TAKE ONE TABLET BY MOUTH DAILY 01/17/2016 03/21/2017 Inactive ceftriaxone 500 mg solution for injection RxNorm: 5140920 Inj 01/05/2016 01/05/2016 Inactive Kenalog 40 mg/mL suspension for injection RxNorm: 1741073 1 Milliliter(s) Inj 01/05/2016 01/05/2016 Inactive Tamiflu 75 mg capsule RxNorm: 795891 1 Capsule(s) PO daily 12/2712/27/2015 Inactive Tamiflu 75 mg capsule RxNorm: 119148 1 Capsule(s) PO daily 12/2701/06/2016 Inactive Zithromax Z-Matt 250 mg tablet RxNorm: 447948 1 Tablet(s) PO UD 2 pills day one and 1 pill day 2-5. 08/26/2015 08/30/2015 Inactive ceftriaxone 500 mg solution for injection RxNorm: 2581686 Inj 08/26/2015 08/26/2015 Inactive Kenalog 40 mg/mL suspension for injection RxNorm: 4497821 Milliliter(s) Inj 08/26/2015 08/26/2015 Inactive prednisone 20 mg tablet RxNorm: 348513 2 Tablet(s) PO daily 08/24/2015 Inactive amoxicillin 500 mg capsule RxNorm: 662329 1 Capsule(s) PO BID 08/20/2015 08/29/2015 Inactive fluvoxamine 50 mg tablet RxNorm: 038607 TAKE 1 TABLET BY MOUTH EVERY EVENING 07/19/2015 03/21/2017 Inactive fluvoxamine 50 mg tablet RxNorm: 594602 1 TABLET(S) PO QPM TAKE 1 TABLET BY MOUTH EVERY EVENING 07/19/2015 11/15/2015 Inactive Mononessa (28) 0.25 mg-35 mcg tablet RxNorm: 023145 TABLET(S) PO TAKE ONE TABLET BY MOUTH DAILY CONTINUOUSLY X 3 MONTHS, THEN START PLACEBO X 1 WEEK 07/10/2015 07/03/2016 Inactive levothyroxine 75 mcg tablet RxNorm: 675436 TAKE ONE TABLET BY MOUTH DAILY 05/18/2015 09/14/2015 Inactive fluvoxamine 50 mg tablet RxNorm: 353248 1 TABLET(S) PO QPM TAKE 1 TABLET BY MOUTH EVERY EVENING 03/08/2015 07/05/2015 Inactive naproxen 500 mg tablet RxNorm: 515768 1 TABLET(S) PO BID 201403/20/2017 Inactive naproxen 500 mg tablet RxNorm: 911746 1 Tablet(s) PO BID 201401/31/2015 Inactive fluvoxamine 50 mg tablet RxNorm: 382508 1 TABLET(S) PO QPM TAKE 1 TABLET BY MOUTH EVERY EVENING 11/23/2014 03/07/2015 Inactive levothyroxine 75 mcg tablet RxNorm: 824963 1 Tablet(s) PO daily TAKE ONE TABLET BY MOUTH EVERY DAY ON AN EMPTY STOMACH 11/18/2014 04/16/2015 Inactive Xanax 0.5 mg tablet RxNorm: 968555 1 Tablet(s) PO Q8 PRN as needed 11/12/2014 No Stop Date Active Synthroid 50 mcg tablet RxNorm: 487066 1 Tablet(s) PO daily TAKE ONE TABLET BY MOUTH EVERY DAY ON AN EMPTY STOMACH 07/24/2014 11/17/2014 Inactive naproxen 500 mg tablet RxNorm: 361465 1 Tablet(s) PO BID 201309/20/2014 Inactive fluvoxamine 50 mg tablet RxNorm: 356746 1 TABLET(S) PO QPM TAKE 1 TABLET BY MOUTH EVERY EVENING 07/20/2014 11/16/2014 Inactive Mononessa (28) 0.25 mg-35 mcg tablet RxNorm: 624884 TABLET(S) PO TAKE ONE TABLET BY MOUTH DAILY CONTINUOUSLY X 3 MONTHS, THEN START PLACEBO X 1 WEEK 06/08/2014 06/02/2015 Inactive amoxicillin 875 mg tablet RxNorm: 091715 1 Tablet(s) PO BID 04/29/2014 Inactive cyclobenzaprine 10 mg tablet RxNorm: 871851 1 Tablet(s) PO TID as needed for back pain 04/20/2014 06/18/2014 Inactive Xanax 0.5 mg tablet RxNorm: 734213 1 Tablet(s) PO Q8 PRN as needed 04/14/2014 11/11/2014 Inactive Synthroid 25 mcg tablet RxNorm: 468945 Tablet(s) PO TAKE ONE TABLET BY MOUTH EVERY DAY ON AN EMPTY STOMACH 04/03/2014 07/23/2014 Inactive fluvoxamine 50 mg tablet RxNorm: 847013 Tablet(s) PO TAKE 1 TABLET BY MOUTH EVERY EVENING 03/23/2014 10/31/2016 Inactive doxycycline hyclate 100 mg tablet RxNorm: 301137 1 Tablet(s) PO BID 03/10/2014 03/23/2014 Inactive Kenalog 40 mg/mL suspension for injection RxNorm: 2203708 Milliliter(s) Inj 02/26/2014 02/26/2014 Inactive fluvoxamine 50 mg tablet RxNorm: 217484 Tablet(s) PO TAKE 1 TABLET BY MOUTH EVERY EVENING 02/19/2014 10/31/2016 Inactive fluvoxamine 50 mg tablet RxNorm: 590260 Tablet(s) PO TAKE 1 TABLET BY MOUTH EVERY EVENING 01/19/2014 10/31/2016 Inactive Synthroid 25 mcg tablet RxNorm: 566169 Tablet(s) PO TAKE ONE TABLET BY MOUTH EVERY DAY 09/30/2013 04/02/2014 Inactive fluvoxamine 50 mg tablet RxNorm: 815318 1 Tablet(s) PO QPM TAKE 1 TABLET BY MOUTH EVERY EVENING 09/23/2013 01/18/2014 Inactive azithromycin 500 mg tablet RxNorm: 4905114 1 Tablet(s) PO daily 05/28/2013 06/03/2013 Inactive cefdinir 300 mg capsule RxNorm: 799165 1 Capsule(s) PO BID 04/201306/06/2013 Inactive Phenergan with Codeine Syrup RxNorm: 10 Milliliter(s) PO Q4 PRN 05/28/2013 07/26/2013 Inactive dispense 8 ounces fluvoxamine 50 mg tablet RxNorm: 189001 1 Tablet(s) PO QPM TAKE 1 TABLET BY MOUTH EVERY EVENING 05/26/2013 09/22/2013 Inactive Mononessa (28) 0.25 mg-35 mcg tablet RxNorm: 807678 Tablet(s) PO TAKE ONE TABLET BY MOUTH DAILY CONTINUOUSLY X 3 MONTHS, THEN START PLACEBO X 1 WEEK 04/23/2013 03/18/2014 Inactive Mononessa (28) 0.25 mg-35 mcg tablet RxNorm: 096855 Tablet(s) PO TAKE ONE TABLET BY MOUTH DAILY CONTINUOUSLY X 3 MONTHS, THEN START PLACEBO X 1 WEEK 04/23/2013 09/04/2016 Inactive Kenalog 40 mg/mL Susp for Injection RxNorm: 7660559 1 Milliliter(s) Inj 02/19/2013 02/19/2013 Inactive doxycycline hyclate 100 mg tablet RxNorm: 914912 1 Tablet(s) PO BID 02/18/2013 02/27/2013 Inactive Mononessa (28) 0.25 mg-35 mcg tablet RxNorm: 497312 Tablet(s) PO TAKE ONE TABLET BY MOUTH DAILY CONTINUOUSLY X 3 MONTHS, THEN START PLACEBO X 1 WEEK 02/06/2013 04/22/2013 Inactive Synthroid 25 mcg tablet RxNorm: 983681 1 Tablet(s) PO daily 09/10/2013 Inactive fluvoxamine 50 mg tablet RxNorm: 349423 Tablet(s) PO TAKE 1 TABLET BY MOUTH EVERY EVENING 11/18/2012 05/25/2013 Inactive Nexium 40 mg capsule,delayed release RxNorm: 963554 1 Capsule(s) PO daily 07/12/2012 01/07/2013 Inactive Carafate 1 gram tablet RxNorm: 622122 1 Tablet(s) PO AC & HS 12/17/2012 Inactive amoxicillin 500 mg tablet RxNorm: 319012 1 Tablet(s) PO TID 06/14/2012 Inactive cefdinir 300 mg capsule RxNorm: 214215 1 Capsule(s) PO BID 06/13/2012 Inactive cefdinir 300 mg capsule RxNorm: 987101 1 Capsule(s) PO BID 12/17/2012 Inactive cefdinir 300 mg capsule RxNorm: 113629 1 Capsule(s) PO BID 06/14/2012 Inactive Rocephin 500 mg Solution for Injection RxNorm: 081820 1 Milliliter(s) Inj 05/21/2012 05/21/2012 Inactive Flonase 50 mcg/actuation Nasal [place] RxNorm: 1790886 2 [place] NASAL daily 05/21/2012 07/19/2012 Inactive Bactrim DS 800 mg-160 mg tablet RxNorm: 442849 1 Tablet(s) PO BID 05/21/2012 12/17/2012 Inactive prednisone 10 mg tablets in a dose pack RxNorm: 325910 Tablet(s) PO UD 6-5-4-3-2- 1 05/21/2012 05/26/2012 Inactive Kenalog 40 mg/mL Susp for Injection RxNorm: 6667567 1 Milliliter(s) Inj 05/21/2012 05/21/2012 Inactive fluvoxamine 50 mg tablet RxNorm: 168487 1 Tablet(s) PO QPM 09/15/2012 Inactive Xanax 0.5 mg Tab RxNorm: 981561 1 Tablet(s) PO Q8 PRN 01/2204/13/2014 Inactive fluvoxamine 25 mg Tab RxNorm: 701023 1 Tablet(s) PO daily 201102/18/2012 Inactive fluvoxamine 25 mg Tab RxNorm: 329922 1 Tablet(s) PO daily 201101/21/2012 Inactive Mononessa (28) 0.25 mg-35 mcg Tab RxNorm: 338451 1 Tablet(s) PO daily 10/11/2011 10/10/2011 Inactive Mononessa (28) 0.25 mg-35 mcg tablet RxNorm: 517623 Tablet(s) PO 10/11/2011 02/05/2013 Inactive TAKE ONE TABLET BY MOUTH DAILY [place] Tri-Cyclen Lo 0.18/0.215/0.25 mg-25 mcg Tab RxNorm: 995935 1 Tablet(s) PO 10/10/2011 10/10/2011 Inactive Cipro 500 mg Tab RxNorm: 666176 1 Tablet(s) PO BID 201012/17/2012 Inactive Phenergan with Codeine Syrup RxNorm: 5- 10 Milliliter(s) PO Q6 PRN 07/26/2011 08/23/2011 Inactive Rocephin 500 mg Solution for Injection RxNorm: 277036 Inj 07/2607/26/2011 Inactive Diflucan 150 mg Tab RxNorm: 751024 1 Tablet(s) PO daily 201012/17/2012 Inactive Bactrim DS 800 mg-160 mg Tab RxNorm: 514138 1 Tablet(s) PO BID 06/16/2011 06/25/2011 Inactive triamcinolone acetonide 40 mg/mL Susp for Injection RxNorm: 4944423 2 Milliliter(s ) Inj UD 06/16/2011 06/16/2011 Inactive Bactrim DS 800 mg-160 mg Tab RxNorm: 413570 1 Tablet(s) PO BID 06/16/2011 06/16/2011 Inactive Luvox 50 mg Tab RxNorm : 663280 Oral No Start Date 01/21/2012 Inactive Ortho Tri-Cyclen Lo 0.18/0.215/0.25 mg-25 mcg Tab RxNorm: 717511 Oral No Start Date 10/09/2011 Inactive Nexium 40 mg capsule,delayed release RxNorm: 528001 1 Capsule(s) PO daily No Start Date 07/25/2011 Inactive omeprazole 40 mg Cap, Delayed Release RxNorm: 899776 1 Capsule(s) PO daily No Start Date 03/20/2017 Inactive Xanax 0.5 mg Tab RxNorm: 091794 1 Tablet(s) PO Q8 PRN No Start Date 01/22/2012 Inactive Synthroid 25 mcg tablet RxNorm: 516413 1 Tablet(s) PO daily No Start Date 01/13/2013 Inactive Flonase 50 mcg/actuation Nasal [place] RxNorm: 1771360 2 [place] NASAL daily No Start Date 03/20/2017 Inactive Zithromax Z-Matt 250 mg tablet RxNorm: 095855 Tablet(s) PO No Start Date 04/19/2014 Inactive vitamin B complex tablet RxNorm: 1 Tablet(s) PO daily No Start Date 10/09/2017 Inactive Carafate 1 gram tablet RxNorm: 085778 1 Tablet(s) PO as directed 1 before meals and at bedtime No Start Date 07/11/2012 Inactive Singulair 10 mg Tab RxNorm: 900603 1 Tablet(s) PO daily No Start Date 08/23/2011 Inactive Tylenol-Codeine #3 Oral RxNorm: Oral No Start Date 03/20/2017 Inactive Medication Administered Medication Codes Instructions Start Date Status Kenalog 40 mg/mL suspension for injection RxNorm: 1874825 1Milliliter 07/13/2017 No longer Active Kenalog 40 mg/mL suspension for injection RxNorm: 6352408 1Milliliter 07/21/2016 No longer Active Kenalog 40 mg/mL suspension for injection RxNorm: 3482654 1Milliliter 01/05/2016 No longer Active ceftriaxone 500 mg solution for injection RxNorm: 5203841 01/05/2016 No longer Active Kenalog 40 mg/mL suspension for injection RxNorm: 9662141 Millil[place] 08/26/2015 No longer Active ceftriaxone 500 mg solution for injection RxNorm: 0905789 08/26/2015 No longer Active Kenalog 40 mg/mL suspension for injection RxNorm: 1718478 Millil[place] 02/26/2014 No longer Active Kenalog 40 mg/mL Susp for Injection RxNorm: 9531939 1Milliliter 02/19/2013 No longer Active Kenalog 40 mg/mL Susp for Injection RxNorm: 1260930 1Milliliter 05/21/2012 No longer Active Rocephin 500 mg Solution for Injection RxNorm: 528582 1Milliliter 05/21/2012 No longer Active Rocephin 500 mg Solution for Injection RxNorm: 528937 07/26/2011 No longer Active triamcinolone acetonide 40 mg/mL Susp for Injection RxNorm: 5673758 2MilliliterUD 06/16/2011 No longer Active Immunizations Vaccine [...] Other malaise ICD-10: R53.81 ICD-9: 780.79 11/15/2017 Other acute sinusitis ICD-10: J01.80 ICD-9: 461.8 11/01/2017 Cough ICD-10: R05 ICD-9: 786.2 11/01/2017 Other allergic rhinitis ICD-10: J30.89 ICD-9: 477.8 11/01/2017 Encounter for general adult medical examination with abnormal findings ICD-10: Z00.01 ICD-9: V70.0 10/10/2017 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 ICD-9: 244.0 10/10/2017 Generalized anxiety disorder ICD-10: F41.1 ICD-9: 300.02 09/20/2017 Dysphagia, oropharyngeal phase ICD-10: R13.12 ICD-9: 787.22 09/20/2017 Other specified hypothyroidism ICD-10: E03.8 ICD-9: 244.8 09/20/2017 Acute laryngopharyngitis ICD-10: J06.0 ICD-9: 465.0 07/13/2017 Acute suppurative otitis media without spontaneous [...] For Visit Effective Dates Notes headache 11/15/2017 fatigue 11/01/2017 hypothyroid 10/10/2017 hypothyroid 09/20/2017 sinus congestion 07/13/2017 [...] Code Item Item Code Result Date B12 Pnm759 B12 334.00 pg/ml 11/15/2017 Folate Ord36 Folate >23.40 ng/mL 11/15/2017 [place] Spotted Fever Igg/Igm 595333 [place] SPOTTED FEVER IGM EIA . 09/28/2017 [place] Spotted Fever Igg/Igm 962224 RMSF, IGM 0.42 index 09/28/2017 [place] Spotted Fever Igg/Igm 563188 ANTONIO MT SPOTTED FEVER IGG EIA FLEX . 09/28/2017 [place] Spotted Fever Igg/Igm 592509 RMSF, IGG SCREEN-FLEX Negative 09/28/2017 Ehrlichia Chaffeensis Antibody Igm 118520 EHRLICHIA CHAFFEENSIS IGM < 1:16 09/28/2017 Ehrlichia Chaffeensis Antibody Igg 983891 EHRLICHIA CHAFFEENSIS IGG <1:64 09/28/2017 [place] Western Blot Serum 786646 B. BURGDORFERI, IGG WB Negative 09/27/2017 [place] Western Blot Serum 244610 B. BURGDORFERI, IGM WB Negative 09/27/2017 [place] Disease Total Antibodies With Western Blot Reflex [id number] B. BURGDORFERI, IGG/IGM 1.17 09/26/2017 [place] Disease Total Antibodies With Western Blot Reflex [id number] 09/26/2017 Cbc With Differential Ord2 WBC 6.02 [...] 31.3 pg 09/24/2017 Cbc With Differential Ord2 [place]% 7.8 % 09/24/2017 Cbc With Differential Ord2 [...] 2.27 K/ul 09/24/2017 Cbc With Differential Ord2 [place] ABS# 0.5 K/ul 09/24/2017 Cbc With Differential Ord2 Eos ABS# 0.1 K/ul 09/24/2017 Cbc With Differential Ord2 Baso ABS# 0.0 K/ul 09/24/2017 Comp Metabolic Hmo356 NA 139 mEq/L 09/24/2017 Comp Metabolic Rai170 K 3.8 mEq/L 09/24/2017 Comp Metabolic Ibl954 CL 105 mEq/L 09/24/2017 Comp Metabolic Hhf793 CO2 27.0 mEq/L 09/24/2017 Comp Metabolic Kcs867 ANION GAP 11 09/24/2017 Comp Metabolic Mom358 GLUCOSE 88 mg/dL 09/24/2017 Comp Metabolic Fqx817 Creat 0.6 mg/dL 09/24/2017 Comp Metabolic Thy567 eGFR 121 ml/min/1.73m2 09/24/2017 Comp Metabolic Ocg661 BUN 11 mg/dL 09/24/2017 Comp Metabolic Bxh692 B/C Ratio 18.3 Ratio 09/24/2017 Comp Metabolic Uvy937 CALCIUM 9.0 mg/dL 09/24/2017 Comp Metabolic Xwd134 ALK PHOS 53 U/L 09/24/2017 Comp Metabolic Iuy251 AST(SGOT) 16 U/L 09/24/2017 Comp Metabolic Yqd721 ALT(SGPT) 12 U/L 09/24/2017 Comp Metabolic Mtu738 BILI T 0.5 mg/dL 09/24/2017 Comp Metabolic Cgp540 ALBUMIN 3.9 g/dL 09/24/2017 Comp Metabolic Kms395 TPRO 6.1 g/dL 09/24/2017 Comp Metabolic Alm637 GLOB 2.3 g/dL 09/24/2017 Comp Metabolic Jir395 A/G Ratio 1.7 Ratio 09/24/2017 Comp Metabolic Fyq466 Osmo 276 mOsmo 09/24/2017 Sed Rate Ord21 ESR 5 mm/hr 09/24/2017 Tsh Ord6 hTSH II 0.94 uIU/mL 09/24/2017 Vitamin D 25 Oh Jkx8085 VITAMIN D, 25 HYDROXY 78.35 ng/mL C-Reactive Protein Qnt Crqnt CRP 0.3 mg/dl 09/24/2017 Free T4 Owr388 FREE T4 0.60 ng/dL 09/24/2017 Cbc With [...] 31.6 pg 05/22/2017 Cbc With Differential Ord2 [place]% 7.8 % 05/22/2017 Cbc With Differential Ord2 [...] 2.16 K/ul 05/22/2017 Cbc With Differential Ord2 [place] ABS# 0.4 K/ul 05/22/2017 Cbc With Differential Ord2 Eos ABS# 0.1 K/ul 05/22/2017 Cbc With Differential Ord2 Baso ABS# 0.0 K/ul 05/22/2017 Free T4 Vuu284 FREE T4 0.84 ng/dL 05/22/2017 Lipid Ord30 CHOL 148 mg/dL 05/22/2017 Lipid Ord30 HDL 61.0 mg/dl 05/22/2017 Lipid Ord30 TRIG 103 mg/dL 05/22/2017 Lipid Ord30 LDL 66 mg/dL 05/22/2017 Lipid Ord30 C/HDL 2.4 Ratio 05/22/2017 Comp Metabolic Nhg071 NA 140 mEq/L 05/22/2017 Comp Metabolic Lws384 K 3.9 mEq/L 05/22/2017 Comp Metabolic Xpy085 CL 107 mEq/L 05/22/2017 Comp Metabolic Cph302 CO2 26.0 mEq/L 05/22/2017 Comp Metabolic Urs017 ANION GAP 11 05/22/2017 Comp Metabolic Zax590 GLUCOSE 84 mg/dL 05/22/2017 Comp Metabolic Fvs153 Creat 0.6 mg/dL 05/22/2017 Comp Metabolic Giz289 eGFR 126 ml/min/1.73m2 05/22/2017 Comp Metabolic Sse580 BUN 11 mg/dL 05/22/2017 Comp Metabolic Azs291 B/C Ratio 19.0 Ratio 05/22/2017 Comp Metabolic Ake774 CALCIUM 8.6 mg/dL 05/22/2017 Comp Metabolic Cxl968 ALK PHOS 44 U/L 05/22/2017 Comp Metabolic Ehs196 AST(SGOT) 16 U/L 05/22/2017 Comp Metabolic Bjr393 ALT(SGPT) 13 U/L 05/22/2017 Comp Metabolic Jze895 BILI T 0.5 mg/dL 05/22/2017 Comp Metabolic Yni230 ALBUMIN 3.7 g/dL 05/22/2017 Comp Metabolic Fcc333 TPRO 5.8 g/dL 05/22/2017 Comp Metabolic Irt923 GLOB 2.1 g/dL 05/22/2017 Comp Metabolic Nhe931 A/G Ratio 1.7 Ratio 05/22/2017 Comp Metabolic Pne701 Osmo 278 mOsmo 05/22/2017 Tsh Ord6 hTSH II 0.47 uIU/mL 05/22/2017 Free T4 Tgv923 FREE T4 1.08 ng/dL 08/14/2016 Tsh Ord6 hTSH II 0.26 uIU/mL 08/14/2016 GC/CHL PRB [id number] Chl trach DNA Negative 05/04/2016 GC/CHL PRB [id number] GC PROBE Negative 05/04/2016 Tsh Ord6 hTSH II 0.51 uIU/mL 05/03/2016 Free T4 Eji156 FREE T4 0.94 ng/dL 05/03/2016 Comp Metabolic Eds989 NA 137 mEq/L 05/03/2016 Comp Metabolic Lrd593 K 4.0 mEq/L 05/03/2016 Comp Metabolic Jho321 CL 102 mEq/L 05/03/2016 Comp Metabolic Vdm999 CO2 29.0 mEq/L 05/03/2016 Comp Metabolic Tmz114 ANION GAP 10 05/03/2016 Comp Metabolic Eut616 GLUCOSE 82 mg/dL 05/03/2016 Comp Metabolic Qkx056 Creat 0.6 mg/dL 05/03/2016 Comp Metabolic Iwo859 eGFR 125 ml/min/1.73m2 05/03/2016 Comp Metabolic Wzf271 BUN 14 mg/dL 05/03/2016 Comp Metabolic Gwy722 B/C Ratio 23.7 Ratio 05/03/2016 Comp Metabolic Sjt301 CALCIUM 9.3 mg/dL 05/03/2016 Comp Metabolic Wgo742 ALK PHOS 45 U/L 05/03/2016 Comp Metabolic Qfp417 AST(SGOT) 21 U/L 05/03/2016 Comp Metabolic Lze813 ALT(SGPT) 15 U/L 05/03/2016 Comp Metabolic Pss853 BILI T 0.5 mg/dL 05/03/2016 Comp Metabolic Khg804 ALBUMIN 4.1 g/dL 05/03/2016 Comp Metabolic Wpd487 TPRO 6.5 g/dL 05/03/2016 Comp Metabolic Gaa319 GLOB 2.4 g/dL 05/03/2016 Comp Metabolic Vra094 A/G Ratio 1.7 Ratio 05/03/2016 Comp Metabolic Tki028 Osmo 273 mOsmo 05/03/2016 Sed Rate Ord21 [...] Ord2 RDW 13.3 % 10/13/2015 Free T4 Ipq752 FREE T4 1.03 ng/dL 10/13/2015 C-Reactive Protein Qnt Crqnt CRP 0.3 mg/dl 10/13/2015 Comp Metabolic Uio695 NA 139 mEq/L 10/13/2015 Comp Metabolic Ini937 K 4.2 mEq/L 10/13/2015 Comp Metabolic Uqw620 CL 105 mEq/L 10/13/2015 Comp Metabolic Rnt345 CO2 25.0 mEq/L 10/13/2015 Comp Metabolic Xgu027 ANION GAP 13 10/13/2015 Comp Metabolic Zcf092 GLUCOSE 84 mg/dL 10/13/2015 Comp Metabolic Avl585 Creat 0.7 mg/dL 10/13/2015 Comp Metabolic Rni092 eGFR 106 ml/min/1.73m2 10/13/2015 Comp Metabolic Fma428 BUN 10 mg/dL 10/13/2015 Comp Metabolic Lxs182 B/C Ratio 14.7 Ratio 10/13/2015 Comp Metabolic Dcq539 CALCIUM 8.9 mg/dL 10/13/2015 Comp Metabolic Zvt833 ALK PHOS 53 U/L 10/13/2015 Comp Metabolic Zko339 AST(SGOT) 15 U/L 10/13/2015 Comp Metabolic Uqz685 ALT(SGPT) 13 U/L 10/13/2015 Comp Metabolic Cxl530 BILI T 0.5 mg/dL 10/13/2015 Comp Metabolic Uji557 ALBUMIN 3.9 g/dL 10/13/2015 Comp Metabolic Ttz162 TPRO 6.2 g/dL 10/13/2015 Comp Metabolic Rpp194 GLOB 2.3 g/dL 10/13/2015 Comp Metabolic Kld643 A/G Ratio 1.7 Ratio 10/13/2015 Comp Metabolic Sab868 Osmo 276 mOsmo 10/13/2015 Lipid Ord30 CHOL 151 mg/dL 10/13/2015 Lipid Ord30 HDL 65.0 mg/dl 10/13/2015 Lipid Ord30 TRIG 85 mg/dL 10/13/2015 Lipid Ord30 LDL 69 mg/dL 10/13/2015 Lipid Ord30 C/HDL 2.3 Ratio 10/13/2015 Tsh Ord6 hTSH II 1.18 uIU/mL 10/13/2015 Tsh Ord6 hTSH II 0.67 uIU/mL 07/15/2015 Free T4 Ijv331 FREE T4 1.08 ng/dL 07/15/2015 GC/CHL PRB [id number] CHLM PROBE NEG 03/19/2015 GC/CHL PRB [id number] GC PROBE NEG 03/19/2015 GC/CHL PRB [id number] CHLM PROBE NEG 03/11/2014 GC/CHL PRB [id number] GC PROBE NEG 03/11/2014 TSH [id number] TSH 1.400 uIU/ML 03/11/2014 FREE T4 [id number] FREE T4 1.15 NG/DL 03/11/2014 GFR CALC 4774727 GFR AA >60 ML/MIN 10/13/2013 GFR CALC 3589783 GFR NON-AA >60 ML/MIN 10/13/2013 CHEM 14 [id number] AST 18 U/L 10/13/2013 CHEM 14 [id number] ALT 10 IU/L 10/13/2013 CHEM 14 [id number] BUN 6 MG/DL 10/13/2013 CHEM 14 7761359 ALBUMIN 4.1 GM/DL 10/13/2013 CHEM 14 5390188 CHLORIDE 105 MMOL/L 10/13/2013 CHEM 14 4325256 BILI TOT 0.5 MG/DL 10/13/2013 CHEM 14 6421372 ALK PHOS 45 U/L 10/13/2013 CHEM 14 1485187 SODIUM 137 MMOL/L 10/13/2013 CHEM 14 8907316 CREATININE 0.62 MG/DL 10/13/2013 CHEM 14 8786591 CALCIUM 8.7 MG/DL 10/13/2013 CHEM 14 0267724 POTASSIUM 3.8 MMOL/L 10/13/2013 CHEM 14 1084612 PROT TOT 6.2 GM/DL 10/13/2013 CHEM 14 1144085 GLUCOSE 92 MG/DL 10/13/2013 CHEM 14 6891452 BICARB 27 MMOL/L 10/13/2013 CHEM 14 3369353 ANION GAP 5 MEQ/L 10/13/2013 TSH 4081262 TSH 1.080 uIU/ML 10/13/2013 FREE T4 8993303 FREE T4 0.99 NG/DL 10/13/2013 CBC 8836919 WBC 5.0 10e9/L 10/13/2013 CBC 4354672 RBC 4.30 10e12/L 10/13/2013 CBC 3590679 HGB 13.2 g/dL 10/13/2013 CBC 6097289 HCT DET 40.1 % 10/13/2013 CBC 5007813 MCV 93.3 fL 10/13/2013 CBC 0442762 MCH 30.7 pg 10/13/2013 CBC 5053344 MCHC 32.9 g/dL 10/13/2013 CBC 6143754 PLT 275 10e9/L 10/13/2013 CBC 6043114 MPV 12.2 fL 10/13/2013 CBC 8173203 KEZIA % 56.1 % 10/13/2013 CBC 5613977 LY % 35.4 % 10/13/2013 CBC 1673770 MON % 7.3 % 10/13/2013 CBC 3259294 EOS % 1.0 % 10/13/2013 CBC 9675625 BASO % 0.2 % 10/13/2013 CBC 8668420 RDW 12.3 % 10/13/2013 CBC 7747707 ABS KEZIA 2.81 10e9/L 10/13/2013 CBC 7345536 ABS LYMPH 1.77 10e9/L 10/13/2013 CBC 2944552 ABS MONO 0.37 10e9/L 10/13/2013 CBC 2750697 ABS EOS 0.05 10e9/L 10/13/2013 CBC 0839464 ABS BASO 0.01 10e9/L 10/13/2013 CBC 2827954 RDW-SD 40.8 fL 10/13/2013 T3 TOT 2435983 T3 TOT 1.2 NG/ML 10/13/2013 FREE T4 6027178 FREE T4 0.85 NG/DL 12/17/2012 CHEM 14 5638014 AST 16 U/L 12/17/2012 CHEM 14 9806836 ALT 12 IU/L 12/17/2012 CHEM 14 0239832 BUN 8 MG/DL 12/17/2012 CHEM 14 5103430 ALBUMIN 4.2 GM/DL 12/17/2012 CHEM 14 9155815 CHLORIDE 105 MMOL/L 12/17/2012 CHEM 14 5248693 BILI TOT 0.5 MG/DL 12/17/2012 CHEM 14 8735038 ALK PHOS 46 U/L 12/17/2012 CHEM 14 6368127 SODIUM 138 MMOL/L 12/17/2012 CHEM 14 2627305 CREATININE 0.66 MG/DL 12/17/2012 CHEM 14 9481133 CALCIUM 9.3 MG/DL 12/17/2012 CHEM 14 4681739 POTASSIUM 3.7 MMOL/L 12/17/2012 CHEM 14 1256233 PROT TOT 6.7 GM/DL 12/17/2012 CHEM 14 0295894 GLUCOSE 83 MG/DL 12/17/2012 CHEM 14 3129075 BICARB 27 MMOL/L 12/17/2012 CHEM 14 4724545 ANION GAP 6 MEQ/L 12/17/2012 T3 FREE 9584945 T3 FREE 3.4 PG/ML 12/17/2012 MAGNESIUM 1103733 MAGNESIUM 1.7 MEQ/L 12/17/2012 CBC 1435029 WBC 5.4 10e9/L 12/17/2012 CBC 3774551 RBC 4.30 10e12/L 12/17/2012 CBC 5733097 HGB 13.4 g/dL 12/17/2012 CBC 1792464 HCT DET 39.8 % 12/17/2012 CBC 7798861 MCV 92.6 fL 12/17/2012 CBC 2699832 MCH 31.2 pg 12/17/2012 CBC 7339390 MCHC 33.7 g/dL 12/17/2012 CBC 1802102 PLT 256 10e9/L 12/17/2012 CBC 1531443 MPV 11.2 fL 12/17/2012 CBC 5067488 KEZIA % 52.0 % 12/17/2012 CBC 2708571 LY % 37.9 % 12/17/2012 CBC 6032198 MON % 8.4 % 12/17/2012 CBC 9346659 EOS % 1.5 % 12/17/2012 CBC 7340451 BASO % 0.2 % 12/17/2012 CBC 2217984 RDW 12.5 % 12/17/2012 CBC 2139287 ABS KEZIA 2.81 10e9/L 12/17/2012 CBC 3539488 ABS LYMPH 2.05 10e9/L 12/17/2012 CBC 0020901 ABS MONO 0.45 10e9/L 12/17/2012 CBC 3904612 ABS EOS 0.08 10e9/L 12/17/2012 CBC 0340187 ABS BASO 0.01 10e9/L 12/17/2012 CBC 1296682 RDW-SD 40.9 fL 12/17/2012 TSH 4223526 TSH 2.043 uIU/ML 12/17/2012 GFR CALC 9255089 GFR AA >60 ML/MIN 12/17/2012 GFR CALC 2628562 GFR NON-AA >60 ML/MIN 12/17/2012 UA 23531 Specific [place] 1.020 DateTime(Free Text in Aprima ) UA 21570 PH 6 DateTime(Free Text in Aprima) UA 73535 GLUCOSE neg DateTime(Free Text in Aprima) UA 83872 Protein neg DateTime(Free Text in Aprima) UA 04609 Blood neg DateTime(Free Text in Aprima) UA 54031 Bilirubin neg DateTime(Free Text in Aprima) UA 00205 Ketones neg DateTime(Free Text in Aprima) UA 31998 Urobilinogen neg DateTime(Free Text in Aprima) UA 32019 Nitrite neg DateTime(Free Text in ) UA 83324 Leukocytes neg DateTime(Free Text in ) Review [...] status change 2017 Neurologic paresthesia 11/15/2017 Constitutional recent illness 11/01/2017 Constitutional chills 11/01/2017 Constitutional fatigue 11/01/2017 Constitutional No fever 11/01/2017 Constitutional malaise 11/01/2017 Eyes No eye discharge 11/01/2017 Eyes No eye erythema 11/01/2017 Ears/Nose/Throat/Neck headache 2017 Ears/Nose/Throat/Neck nasal discharge 08/2018 Ears/Nose/Throat/Neck No sore throat 08/2018 Cardiovascular No chest pain/pressure 08/2018 Cardiovascular No dyspnea 11/01/2017 Cardiovascular fatigue 11/01/2017 Cardiovascular No syncope 11/01/2017 Respiratory No chest congestion 2017 Respiratory cough 11/01/2017 Respiratory No dyspnea 11/01/2017 Gastrointestinal abdominal pain 2017 Gastrointestinal No constipation 2017 Gastrointestinal No diarrhea 11/01/2017 Dermatologic No rash 11/01/2017 Neurologic No alteration of consciousness 11/01/2017 Neurologic No mental status change 2017 Psychiatric anxiety 11/01/2017 Psychiatric depression 11/01/2017 Ears/Nose/Throat/Neck nasal allergies 08/2018 Cardiovascular palpitations 11/01/2017 Constitutional No recent illness 2016 Constitutional No [...] Genitourinary/Female Constitutional general appearance Overall: well nourished 11/01/2017 None Full Exam - Genitourinary/Female Constitutional general appearance Overall: well developed 11/01/2017 None Full Exam - Genitourinary/Female Constitutional general appearance Overall: in no acute distress 11/01/2017 None Full Exam - Genitourinary/Female Eyes conjunctiva/eyelids Overall: conjunctiva clear 11/01/2017 None Full Exam - Genitourinary/Female Eyes pupils and irises Overall: pupils equal, round, reactive to light and accomodation 11/01/2017 None Full Exam - Genitourinary/Female Ears/Nose/Throat otoscopic exam Overall: external auditory canals clear 11/01/2017 None Full Exam - Genitourinary/Female Ears/Nose/Throat otoscopic exam Overall: tympanic membranes clear 11/01/2017 None Full Exam - Genitourinary/Female Ears/Nose/Throat oral cavity/pharynx/larynx Overall: oral mucosa clear 11/01/2017 None Full Exam - Genitourinary/Female Respiratory auscultation Overall: breath sounds clear bilaterally 11/01/2017 None Full Exam - Genitourinary/Female Respiratory respiratory effort/rhythm Overall: no retractions 11/01/2017 None Full Exam - Genitourinary/Female Respiratory respiratory effort/rhythm Overall: normal rate 11/01/2017 None Full Exam - Genitourinary/Female Cardiovascular auscultation of heart Overall: regular rate 11/01/2017 None Full Exam - Genitourinary/Female Cardiovascular auscultation of heart Overall: normal heart sounds 11/01/2017 None Full Exam - Genitourinary/Female Cardiovascular auscultation of heart Overall: no murmurs 11/01/2017 None Full Exam - Genitourinary/Female Lymphatic inspection and palpation of nodes Overall: anterior cervical chain benign 11/01/2017 None Full Exam - Genitourinary/Female Lymphatic inspection and palpation of nodes Overall: posterior cervical chain benign 11/01/2017 None Full Exam - Genitourinary/Female Musculoskeletal head and neck Overall: head atraumatic 11/01/2017 None Full Exam - Genitourinary/Female Musculoskeletal spine, ribs and pelvis Spine: tender @ cervical spine 11/01/2017 None Full Exam - Genitourinary/Female Musculoskeletal spine, ribs and pelvis Spine: tender @ thoracic spine 11/01/2017 None Full Exam - Genitourinary/Female Neurologic mood and affect Overall: normal mood 11/01/2017 None Full Exam - Genitourinary/Female Neurologic mood and affect Overall: normal affect 11/01/2017 None Full Exam - Genitourinary/Female Psychiatric orientation/consciousness Overall: oriented to person, place and time 11/01/2017 None Full Exam - Genitourinary/Female Eyes conjunctiva/eyelids Overall: cornea clear 11/01/2017 None Full Exam - Genitourinary/Female Eyes conjunctiva/eyelids Overall: eyelids normal 11/01/2017 None Full Exam - Genitourinary/Female Ears/Nose/Throat lips/teeth/gingiva Overall: benign lips 11/01/2017 None Full Exam - Genitourinary/Female Ears/Nose/Throat oral cavity/pharynx/larynx Posterior Pharynx: clear post nasal drainage 11/01/2017 None Full Exam - Genitourinary/Female Ears/Nose/Throat internal nose Sinus tenderness: right maxillary 11/01/2017 None Full Exam - Genitourinary/Female Ears/Nose/Throat internal nose Sinus tenderness: left maxillary 11/01/2017 None Full Exam - Genitourinary/Female Psychiatric appearance Overall: well-groomed, good eye contact 11/01/2017 None Full Exam - Genitourinary/Female Constitutional general [...] clear 07/23/2014 None Full Exam - General 1995 Ears/Nose/Throat oral cavity/pharynx/larynx Overall: oropharyngeal mucosa clear [...] distress 02/18/2013 None Full Exam - General 1995 Constitutional general appearance Overall: well nourished 12/17/2012 [...] CPT-4: J3301 07/21/2016 THER/PROPH/DIAG INJ SC/IM CPT-4: 03027 07/21/2016 THER/PROPH/DIAG INJ SC/IM CPT-4: 33165 01/05/2016 TRIAMCINOLONE ACET INJ NOS CPT-4: J3301 01/05/2016 ROCEPHIN, PER 250 MG CPT-4: J0696 01/05/2016 THER/PROPH/DIAG INJ SC/IM CPT-4: 74630 08/26/2015 ROCEPHIN, PER 250 MG CPT-4: J0696 08/26/2015 TRIAMCINOLONE ACET INJ NOS CPT-4: J3301 08/26/2015 C RAP A SC (STREP A ASSAY W/OPTIC) CPT-4: 48199 08/20/2015 TRIAMCINOLONE ACET INJ NOS CPT-4: J3301 07/23/2014 DRAIN/INJECT JOINT/BURSA CPT-4: 20214 07/23/2014 URINALYSIS NONAUTO W/O SCOPE CPT-4: 31031 04/20/2014 PREV VISIT EST AGE 18-39 CPT-4: 98357 03/10/2014 ROUTINE VENIPUNCTURE CPT-4: 23360 03/10/2014 TRIAMCINOLONE ACET INJ NOS CPT-4: J3301 02/24/2014 ROUTINE VENIPUNCTURE CPT-4: 24742 10/13/2013 TRIAMCINOLONE ACET INJ NOS CPT-4: J3301 02/18/2013 TRIAMCINOLONE ACET INJ NOS CPT-4: J3301 05/21/2012 THER/PROPH/DIAG INJ SC/IM CPT-4: 97723 05/21/2012 THER/PROPH/DIAG INJ SC/IM CPT-4: 26122 07/26/2011 ROCEPHIN, PER 250 MG CPT-4: J0696 07/26/2011 TRIAMCINOLONE ACET INJ NOS CPT-4: J3301 06/16/2011 THER/PROPH/DIAG INJ SC/IM CPT-4: 78370 06/16/2011 Vital Signs Date Vital 11/15/2017 Blood Pressure 1: 114/64 Code : 8480-6 BMI: 21.1 Code : 88154-4 Heart Rate 1 : 91 bpm Height: 5'7" SpO2: 99% Temperature: 36.3 (C) / 97.4 (F) Weight: 135 lbs 11/01/2017 Blood Pressure 1: 126/70 Code : 8480-6 BMI: 20.8 Code : 59230-1 Heart Rate 1 : 88 bpm Height: 5'7" SpO2: 98% Weight: 133 lbs 10/10/2017 Blood Pressure 1: 118/82 Code : 8480-6 BMI: 20.5 Code : 13446-7 Heart Rate 1 : 87 bpm Height: 5'7" SpO2: 99% Weight: 131 lbs 09/20/2017 Blood Pressure 1: 140/72 Code : 8480-6 BMI: 21.0 Code : 75627-7 Heart Rate 1 : 98 bpm Height: 5'7" SpO2: 99% Weight: 134 lbs 07/13/2017 Blood Pressure 1: 123/64 Code : 8480-6 BMI: 20.5 Code : 72564-4 Heart Rate 1 : 93 bpm Height: 5'7" SpO2: 99% Weight: 131 lbs 06/20/2017 Blood Pressure 1: 110/70 Code : 8480-6 BMI: 20.8 Code : 32237-3 Heart Rate 1 : 77 bpm Height: 5'7" SpO2: 98% Weight: 133 lbs 05/31/2017 Blood Pressure 1: 100/70 Code : 8480-6 BMI: 20.7 Code : 37085-4 Heart Rate 1 : 80 bpm Height: 5'7" Weight: 132 lbs 04/18/2017 Blood Pressure 1: 120/72 Code : 8480-6 BMI: 21.0 Code : 95113-1 Heart Rate 1 : 76 bpm Height: 5'7" SpO2: 97% Weight: 134 lbs 03/21/2017 Blood Pressure 1: 130/78 Code : 8480-6 BMI: 21.1 Code : 90464-5 Heart Rate 1 : 70 bpm Height: 5'7" SpO2: 98% Weight: 135 lbs 11/20/2016 Blood Pressure 1: 130/72 Code : 8480-6 BMI: 21.0 Code : 36177-5 Heart Rate 1 : 114 bpm Height: 5'7" SpO2: 99% Weight: 134 lbs 07/31/2016 Blood Pressure 1: 120/62 Code : 8480-6 BMI: 21.0 Code : 88287-9 Heart Rate 1 : 87 bpm Height: 5'7" SpO2: 97% Weight: 134 lbs 05/03/2016 Blood Pressure 1: 134/84 Code : 8480-6 BMI: 20.5 Code : 49311-6 Heart Rate 1 : 81 bpm Height: 5'7" SpO2: 99% Weight: 131 lbs 08/26/2015 Blood Pressure 1: 110/58 Code : 8480-6 BMI: 20.7 Code : 57766-9 Heart Rate 1 : 96 bpm Height: 5'7" SpO2: 99% Temperature: 37.6 (C) / 99.6 (F) Weight: 132 lbs 08/20/2015 Blood Pressure 1: 108/70 Code : 8480-6 BMI: 20.7 Code : 39632-9 Heart Rate 1 : 103 bpm Height: 5'7" SpO2: 98% Temperature: 36.6 (C) / 97.9 (F) Weight: 132 lbs 03/18/2015 Blood Pressure 1: 102/56 Code : 8480-6 BMI: 22.4 Code : 46895-3 Heart Rate 1 : 66 bpm Height: 5'7" SpO2: 99% Weight: 143 lbs 02/03/2015 Blood Pressure 1: 118/70 Code : 8480-6 BMI: 23.8 Code : 50453-4 Heart Rate 1 : 69 bpm Height: 5'7" SpO2: 99% Weight: 152 lbs 12/10/2014 Blood Pressure 1: 130/82 Code : 8480-6 BMI: 24.4 Code : 06859-8 Heart Rate 1 : 84 bpm Height: 5'7" Weight: 156 lbs 11/12/2014 Blood Pressure 1: 118/78 Code : 8480-6 BMI: 24.4 Code : 84239-7 Heart Rate 1 : 76 bpm Height: 5'7" Temperature: 36.7 (C) / 98.1 (F) Weight: 156 lbs 07/23/2014 Blood Pressure 1: 124/68 Code : 8480-6 BMI: 24.3 Code : 21447-2 Heart Rate 1 : 68 bpm Height: 5'7" SpO2: 96% Weight: 155 lbs 04/20/2014 Blood Pressure 1: 130/82 Code : 8480-6 BMI: 23.2 Code : 06172-0 Heart Rate 1 : 74 bpm Height: [...] Code : 8480-6 BMI: 23.0 Code : 84078-6 Heart Rate 1 : 80 bpm Height: 5'7" Weight: 147 lbs 05/28/2013 Blood Pressure 1: 106/60 Code : 8480-6 BMI: 22.6 Code : 31037-7 Heart Rate 1 : 64 bpm Height: 5'7" Temperature: 37.4 (C) / 99.3 (F) Weight: 144 lbs 02/18/2013 Heart Rate 1: 87 bpm SpO2: 99% 12/17/2012 Blood Pressure 1: 120/82 Code : 8480-6 BMI: 22.9 Code : 31281-9 Heart Rate 1 : 68 bpm Height: 5'7" Weight: 146 lbs 05/21/2012 Blood Pressure 1: 92/56 Code : 8480-6 Heart Rate 1: 76 bpm Temperature: 36.7 (C) / 98.1 (F) Weight: 141 lbs 02/19/2012 Blood Pressure 1: 114/62 Code : 8480-6 BMI: 21.6 Code : 03314-7 Heart Rate 1 : 80 bpm Height: 5'7" Respiratory Rate: 16 bpm Temperature: 36.7 ( C) / 98.1 (F) Weight: 138 lbs 08/24/2011 Blood Pressure 1: 106/58 Code : 8480-6 BMI: 23.0 Code : 25500-2 Heart Rate 1 : 78 bpm Height: 5'7" Respiratory Rate: 16 bpm Temperature: 36.8 ( C) / 98.3 (F) Weight: 147 lbs 07/26/2011 Blood Pressure 1: 104/68 Code : 8480-6 BMI: 23.4 Code : 72130-1 Heart Rate 1 : 80 bpm Height: 5'6" Respiratory Rate: 16 bpm Weight: 146 lbs 06/16/2011 Blood Pressure 1: 122/68 Code : 8480-6 BMI: 22.7 Code : 83529-2 Heart Rate 1 : 80 bpm Height: [...] Triggers no known associated factors 11/15/2017 None fatigue Limitation on Activities moderately limits activities 11/01/2017 None fatigue Pertinent Findings cough 11/01/2017 None fatigue Pertinent Findings fever 11/01/2017 intermitttent cough Location in the lung 11/01/2017 None cough Onset and Resolution ongoing 11/01/2017 None cough Pertinent Findings fever 11/01/2017 intermittent cough Pertinent Findings chills 11/01/2017 None cough Pertinent Findings Denies dyspnea 11/01/2017 None hypothyroid Quality chronic 10/10/2017 None hypothyroid [...] going to a fitness class at the [facility] and is continuing the treatments that she was doing with therapy at the [facility] - she was taking aleve and [...] 03/10/2014 colposcopy - by dr. trimble - [facility] well woman exam (18-39 years) Sexual Activity [...] data Encounters Encounter Performer Location Codes Date 96745 EST. PATIENT, LEVEL IV Diagnosis: Other fatigue[ICD10: R53.83] Diagnosis: Other malaise[ICD10: R53.81] Diagnosis: Paresthesia of skin[ICD10: R20.2] Diagnosis: Generalized anxiety disorder[ICD10: F41.1] Diagnosis: Major depressive disorder, single episode, moderate[ICD10: F32.1] Diagnosis: Palpitations[ICD10: R00.2] Ashlee Coburn MD, [facility] CPT-4 : 41851 11/15/2017 [id number] EST. PATIENT, LEVEL III Diagnosis: Other allergic rhinitis[ICD10: J30.89] Diagnosis: Other acute sinusitis[ICD10: J01.80] Diagnosis: Cough[ICD10: R05] Ashlee Coburn MD, [facility] CPT-4: 36001 11/01/2017 ([id number]) PREV VISIT EST AGE 18-39 Diagnosis: Encounter for general adult medical examination with abnormal findings[ICD10: Z00.01] Ashley Coburn MD, [facility] CPT-4: 64337 10/10/2017 64727 EST. PATIENT, LEVEL IV Diagnosis: Other specified hypothyroidism[ICD10: E03.8] Diagnosis: Generalized anxiety disorder[ICD10: F41.1] Diagnosis: Major depressive disorder, single episode, moderate[ICD10: F32.1] Diagnosis: Other fatigue[ICD10: R53.83] Diagnosis: Other malaise[ICD10: R53.81] Diagnosis: Dysphagia, oropharyngeal phase[ICD10: R13.12] Ashlee Coburn MD, [facility] CPT-4: 70512 09/20/2017 47788 EST. PATIENT, LEVEL III Diagnosis: Acute laryngopharyngitis[ICD10: J06.0] Diagnosis: Acute suppurative otitis media without spontaneous rupture of ear drum, bilateral[ICD10: H66.003] Diagnosis: Other acute sinusitis[ICD10: J01.80] Diagnosis: Other allergic rhinitis[ICD10: J30.89] Ashlee Coburn MD, [facility] CPT-4: 50274 07/13/2017 16629 EST. PATIENT, LEVEL III Diagnosis: Postprocedural hypothyroidism[ICD10: E89.0] Ashlee Coburn MD, [facility] CPT-4: 49419 06/20/2017 ([id number]) 07046 EST. PATIENT, LEVEL III Diagnosis: Postprocedural hypothyroidism[ICD10: E89.0] Ashley Coburn MD, [facility] CPT-4: 19909 05/31/2017 ([id number]) 26962 EST. PATIENT, LEVEL III Diagnosis: Postprocedural hypothyroidism[ICD10: E89.0] Ashley Coburn MD, [facility] CPT-4: 20601 04/18/2017 ([id number]) 13284 EST. PATIENT, LEVEL IV Diagnosis: Other malaise[ICD10: R53.81] Diagnosis: Postprocedural hypothyroidism[ICD10: E89.0] Diagnosis: Myalgia[ICD10: M79.1] Diagnosis: Vitamin D deficiency, unspecified[ICD10: E55.9] Ashley Coburn MD, [facility] CPT-4: 66957 03/21/2017 ([id number]) 77764 EST. PATIENT, LEVEL III Diagnosis: Cellulitis of buttock[ICD10: L03.317] Julissa Coburn MD, [facility] CPT-4: 99189 11/20/2016 56006 EST. PATIENT, LEVEL IV Diagnosis: Radiculopathy, sacral and sacrococcygeal region[ICD10: M54.18] Diagnosis: Other specified hypothyroidism[ICD10: E03.8] Ashlee Coburn MD, [facility] CPT-4: 65597 07/31/2016 ([id number]) PREV VISIT EST AGE 18-39 Diagnosis: Hypothyroidism, unspecified[ICD10: E03.9] Diagnosis: Postprocedural hypothyroidism[ICD10: E89.0] Diagnosis: Other malaise[ICD10: R53.81] Diagnosis: Encounter for gynecological examination (general) (routine) without abnormal findings[ICD10: Z01.419] Ashley Coburn MD, [facility] CPT-4: 11335 05/03/2016 56257 EST. PATIENT, LEVEL III Diagnosis: Acute upper respiratory infection, unspecified[ICD10: J06.9] Diagnosis: Acute bronchitis, unspecified[ICD10: J20.9] Ashlee Coburn MD, [facility] CPT-4: 70450 08/26/2015 52873 EST. PATIENT, LEVEL III Diagnosis: Acute pharyngitis, unspecified[ICD10: J02.9] Diagnosis: Acute sinusitis, unspecified[ICD10: J01.90] Ashlee Coburn MD, [facility] CPT-4: 06094 08/20/2015 ([id number]) PREV VISIT EST AGE 18-39 Diagnosis: ROUTINE GYNE EXAM[ICD9: V72.31] Ashley Coburn MD, [facility] CPT- 4: 54339 03/18/2015 ([id number]) 33632 EST. PATIENT, LEVEL III Diagnosis: Irregular menstrual cycle[ICD9: 626.4] Diagnosis: Hair loss disorder[ICD9: 704.00] Ashley Coburn MD [facility] CPT-4: 44382 02/03/2015 ([id number]) 50295 EST. PATIENT, LEVEL III Diagnosis: Acute costochondritis[ICD9: 733.6] Diagnosis: POSTSURGICAL HYPOTHYROIDISM[ICD9: 244.0] Diagnosis: GENERALIZED ANXIETY DISEASE[ICD9: 300.02] Ashley Coburn MD [facility] CPT-4: 06270 12/10/2014 ([id number]) 91542 EST. PATIENT, LEVEL III Diagnosis: HYPOTHYROIDISM[ICD9: 244.9] Diagnosis: Depression[ICD9: 311] Diagnosis: GENERALIZED ANXIETY DISEASE[ICD9: 300.02] Julissa Coburn MD, [facility] CPT-4: 08782 11/12/2014 ([id number]) 30049 EST. PATIENT, LEVEL III Diagnosis: Sacroiliitis[ICD9: 720.2] Diagnosis: Fatigue[ICD9: 780.79] Diagnosis: Back pain[ICD9: 724.5] Ashley Coburn MD, [facility] CPT-4: 24608 07/23/2014 ([id number]) 18240 EST. PATIENT, LEVEL IV Diagnosis: Back pain[ICD9: 724.5] Diagnosis: SCIATICA[ICD9: 724.3] Diagnosis: Sore throat and laryngitis[ICD9: 465.0] Diagnosis: Upper respiratory infection[ICD9: 465.9] Ashley Coburn MD, [facility] CPT-4: 24580 04/20/2014 ([id number]) 16950 EST. PATIENT, LEVEL III Diagnosis: ACUTE SINUSITIS[ICD9: 461.9] Diagnosis: ALLERGIC RHINITIS[ICD9: 477.9] Julissa Coburn MD, [facility] CPT-4: 80339 02/24/2014 ([id number]) 22112 EST. PATIENT, LEVEL IV Diagnosis: POSTSURGICAL HYPOTHYROIDISM[ICD9: 244.0] Diagnosis: Dysphagia[ICD9: 787.20] Diagnosis: Lumbago[ICD9: 724.2] Diagnosis: Encounter for long-term (current) use of other medications[ICD9: V58.69] Diagnosis: Laboratory exam ordered as part of routine general medical examination[ICD9: V72.62] Diagnosis: Thyroid nodule[ICD9: 241.0] Julissa Coburn MD, [facility] CPT-4: 99733 10/13/2013 ([id number]) 14270 EST. PATIENT, LEVEL III Diagnosis: ACUTE BRONCHITIS[ICD9: 466.0] Diagnosis: Sinusitis[ICD9: 473.9] Diagnosis: COUGH[ICD9: 786.2] Ashley Coburn MD, [facility] CPT-4: 70003 05/28/2013 ([id number]) 37788 EST. PATIENT, LEVEL III Diagnosis: ACUTE SINUSITIS[ICD9: 461.9] Diagnosis: ALLERGIC RHINITIS[ICD9: 477.9] Ashley Coburn MD, [facility] CPT- 4: 14222 02/18/2013 ([id number]) 34963 EST. PATIENT, LEVEL III Diagnosis: POSTSURGICAL HYPOTHYROIDISM[ICD9: 244.0] Diagnosis: Fatigue[ICD9: 780.79] Ashley Coburn MD, [facility] CPT-4: 74091 12/17/2012 ([id number]) 91748 EST. PATIENT, LEVEL III Diagnosis: ALLERGIC RHINITIS[ICD9: 477.9] Diagnosis: ACUTE URI[ICD9: 465.9] Julissa Coburn MD, [facility] CPT-4: 07030 05/21/2012 ([id number]) 97298 EST. PATIENT, LEVEL III Diagnosis: Tachycardia[ICD9: 785.0] Diagnosis: GENERALIZED ANXIETY DISEASE[ICD9: 300.02] Diagnosis: Depression[ICD9: 311] Ashley Coburn MD, [facility] CPT-4: 95480 02/19/2012 94954 EST. PATIENT, LEVEL III Diagnosis: RUQ pain[ICD9: 789.01] Diagnosis: NAUSEA ALONE[ICD9: 787.02] Julissa Coburn MD, [facility] CPT-4: 15732 08/24/2011 03013 EST. PATIENT, LEVEL III Diagnosis: ACUTE SEROUS OTITIS MEDIA[ICD9: 381.01] Diagnosis: ACUTE URI[ICD9: 465.9] Diagnosis: Cough[ICD9: 786.2] Ashley Coburn MD, [facility] CPT-4: 10585 07/26/2011 15282 EST. PATIENT, LEVEL III Diagnosis: ACUTE SINUSITIS[ICD9: 461.9] Diagnosis: Environmental allergies[ICD9: 477.9] [facility] CPT-4: 08275 06/16/2011 Plan of Care Planned Activity Notes Codes Status Date Appointment: Ashlee Evans WPtel: [phone] [facility] [place] (15 min) Moderate 11/15/2017 Patient Education: Patient Medication Summary Completed 11/15/2017 Appointment: [phone] [place] ([place] min) Moderate 11/01/2017 Patient Education: Patient Medication Summary Completed 11/01/2017 [facility]ment[phone] [place] ([facility] min) Moderate 10/10/2017 Patient Education: Patient Medication Summary Completed 10/10/2017 Appointment: [phone] [place] (30 min) Complex 09/20/2017 Patient Education: Patient Medication Summary Completed 09/20/2017 Appointment: Ash[facility] Evans [phone] [place] (15 min) Moderate 07/13/2017 Patient Education: Patient Medication Summary Completed 07/13/2017 App[facility]ment: [phone] [place] [place] ([place] min) Complex 06/20/2017 Patient Education: Patient Medication Summary Completed 06/20/2017 Appointment: Ashley Coburn WPtel: [phone] [facility] [place] (15 min) Moderate 05/31/2017 Patient Education: Patient Medication Summary Completed 05/31/2017 Care Plan: ECHO EXAMINATION PROCEDURE Pending 05/31/2017 Appointment: Ashley Coburn WPtel: [phone] [facility] (15 min) Moderate 04/18/2017 Patient Education: Patient Medication Summary Completed 04/18/2017 Appointment: Ashley Coburn WPtel: [facility] (15 min) Moderate 03/21/2017 Patient Education: Patient Medication Summary Completed 03/21/2017 Patient Education: Patient Medication Summary Completed 11/20/2016 Referral: [place] [employer] WPtel: [phone] [id number] Referral Initiated 08/14/2016 Appointment: Ashlee Evans WPtel: [facility] (15 min) Moderate 07/31/2016 Patient Education: Patient Medication Summary Completed 07/31/2016 Care Plan: Referral Order SNOMED-CT : [id number] Pending 07/31/2016 Appointment: Injection 07/21/2016 Patient Education: Patient Medication Summary Completed 07/21/2016 App[facility]ment[facility] [facility] 05/03/2016 Patient Education: Patient Medication [...] PAP Pending 03/18/2015 Appointment: Ashley Coburn WPtel: [facility] Follow up 02/03/2015 Patient Education: Patient Medication Summary Completed 02/03/2015 Patient Education: Patient Medication Summary Completed 12/10/2014 Appointment: Follow up 11/12/2014 Patient Education: Patient Medication Summary Completed 11/12/2014 Care Plan: COMPLETE CBC AUTOMATED LOINC : 82026-0 Ordered 11/12/2014 Appointment: Ashley Coburn WPtel: [address] [place], [place] [phone] Follow up 07/23/2014 Patient Education: Patient Medication Summary Completed 07/23/2014 Appointment: Ashley Coburn WPtel: [address] [place], [place] [phone] Sick 04/20/2014 Patient Education: Patient Medication Summary Completed 04/20/2014 Appointment: Ashley Coburn WPtel: [address] [place], [place] [phone] Pap Only 03/10/2014 Patient Education: Patient Medication Summary Completed 03/10/2014 Patient Education: Patient Medication Summary Completed 02/24/2014 Appointment: Julissa Coker WPtel: [address] [place], [place] [phone] Follow up 10/13/2013 Patient Education: Patient Medication Summary Completed 10/13/2013 Appointment: Ashley Coburn WPtel: [address] [place], [place] [id number] Sick 05/28/2013 Patient Education: Patient Medication Summary Completed 05/28/2013 Patient Education: Patient Medication Summary Completed 02/18/2013 Appointment: Ashley Coburn WPtel: [address] [place], [place] [id number] Other 12/17/2012 Patient Education: Patient Medication Summary Completed 12/17/2012 Appointment: Julissa Coker WPtel: [phone] Other 05/21/2012 Patient Education: Patient Medication Summary Completed 05/21/2012 Appointment: Ashley Coburn WPtel: [address] [place], [place] [phone] Other 02/19/2012 Patient Education: Patient Medication Summary Completed 02/19/2012 Appointment: Julissa Coker WPtel: [phone] Other 08/24/2011 Patient Education: Patient Medication Summary Completed 08/24/2011 Appointment: Ashley Coburn WPtel: [address] [place] [id number] Other 07/26/2011 Patient Education: Patient Medication Summary Completed 07/26/2011 Appointment: Julissa Coker [facility]Ptel[phone] Other 06/16/2011 Patient Education: Patient Medication Summary Completed 06/16/2011 Referral: Nakita 4- WPtel: [address] [id number] Referral Initiated Instructions No Instructions
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
== END 2018-01-09 10:55 | disposition home or self-care (01) ==
LOC: EDUNIT# 10:33 → ER 10:34
DX: S61.411D Laceration without foreign body of right hand, subsequent encounter (principal); X58.XXXD Exposure to other specified factors, subsequent encounter

== ENCOUNTER → 2018-05-24 | Outpatient (CLI) | payer BC ==
[~2018-05-24] MED LIST changes: +GADOBUTROL 7.5 MMOL/7.5 ML (GADAVIST) VIAL IV ONE
--- NOTE | 2018-05-24 08:56 | Diagnostic Imaging Report ---
PROCEDURE: MR imaging of the brain with and without contrast. TECHNIQUE: Multiplanar, multisequence MR imaging of the brain was performed with and without contrast. INDICATION: Headaches. Bilateral extremity paresthesias. Visual disturbances. COMPARISON: None. FINDINGS: No abnormal intracranial signal or enhancement. No restricted water diffusion or hemosiderin deposition. Normal morphology including the major midline structures, sella, posterior fossa and cerebellar pontine angle. The orbits are negative on this nondedicated exam. No hydrocephalus or extra-axial fluid collections. Normal intracranial flow voids. The paranasal sinuses and mastoids are clear. Normal bone marrow signal. IMPRESSION: Normal MRI of the brain without and with IV contrast. Dictated by: Dictated on workstation # [id number]
== END ==
LOC: RAD 07:32
PROVIDERS: ATTEND Internal Medicine
DX: R51 Headache (principal); H53.9 Unspecified visual disturbance; R20.2 Paresthesia of skin
CPT/HCPCS: 70553

== ENCOUNTER 2018-09-18 16:51 | Outpatient (CLI) | payer BC ==
[~2018-09-18 16:51] MED LIST changes: -GADOBUTROL 7.5 MMOL/7.5 ML (GADAVIST) VIAL IV ONE
== END 2018-09-18 17:07 | disposition home or self-care (01) ==
LOC: SLEEP 16:51
PROVIDERS: ATTEND Family Medicine
DX: G47.10 Hypersomnia, unspecified (principal); G47.61 Periodic limb movement disorder

== ENCOUNTER → 2018-09-30 | Outpatient (CLI) | payer BC | LOC: CARD 11:26 | PROVIDERS: ATTEND Internal Medicine Interventional Cardiology | DX: R00.2 Palpitations (principal); R06.02 Shortness of breath | CPT/HCPCS: 93225; 93226 ==

== ENCOUNTER → 2018-10-31 | Outpatient (CLI) | payer BC | LOC: CARD 12:02 | PROVIDERS: ATTEND Internal Medicine Interventional Cardiology | DX: R00.2 Palpitations (principal); R06.02 Shortness of breath | CPT/HCPCS: 93306 ==

== ENCOUNTER 2018-11-25 13:30 | Outpatient (RCR) | payer BC, OTHER | END 2019-01-29 | disposition home or self-care (01) | LOC: CARD 13:30 | PROVIDERS: ATTEND Internal Medicine Interventional Cardiology | DX: R00.2 Palpitations (principal); R06.02 Shortness of breath | CPT/HCPCS: 93270 ==

== ENCOUNTER → 2019-04-21 | Outpatient (CLI) | payer BC, OTHER ==
--- NOTE | 2019-04-21 14:38 | Diagnostic Imaging Report ---
PROCEDURE: MRI lumbar spine. TECHNIQUE: Multiplanar, multisequence MRI of the lumbar spine was performed without contrast. INDICATION: Back pain. FINDINGS: The alignment of the lumbar spine is normal. Vertebral body heights are well-maintained. There is no spondylolysis or spondylolisthesis. No fractures are identified. There are no marrow signal intensity abnormalities. The conus medullaris is seen at L1 and is normal in appearance. All of the lumbar discs are essentially normal in height, signal intensity and morphology. There is no focal disc extrusion or high-grade spinal stenosis. The abdominal aorta is nonaneurysmal. There are no other focal soft tissue abnormalities. IMPRESSION: Unremarkable MRI of the lumbar spine. Dictated by: Dictated on workstation # [id number]
--- NOTE | 2019-04-21 19:20 | Diagnostic Imaging Report ---
INDICATION: Back pain. TECHNIQUE: Multiplanar and multisequence acquisitions were acquired through the thoracic spine without the use of gadolinium. FINDINGS: The alignment of the thoracic spine is normal. The vertebral body heights are well maintained. There are no marrow signal intensity abnormalities. There is no fracture or traumatic subluxation. The visualized portions of the spinal cord are normal in signal intensity and morphology. Conus medullaris is seen at L1 and is normal in appearance. There is no focal disc extrusion or evidence of high-grade spinal stenosis. IMPRESSION: Unremarkable MRI of the thoracic spine. Dictated by: Dictated on workstation # [id number]
== END ==
LOC: RAD 12:50
PROVIDERS: ATTEND Physician Assistant
DX: M54.6 Pain in thoracic spine (principal); M54.5 Low back pain
CPT/HCPCS: 72146; 72148

== ENCOUNTER 2019-07-19 21:59 | Emergency (ER) | payer BC ==
[~2019-07-19] VITALS: Ht 170 cm; Wt 63.6 kg
[~2019-07-19 21:59] MED LIST changes: +LIOT5TAB; -LIOT5TAB3
--- NOTE | 2019-07-19 22:50 | ED Neurological Problem ---
General Stated Complaint: R SIDE NUMBNESS STARTED AT 4:30 THIS MORNING Source: patient Exam Limitations: no limitations History of Present Illness Date Seen by Provider: Jul 19, 2019 Time Seen by Provider: 22:35 Initial Comments Patient presents to ER by private conveyance with chief complaint when she woke up this morning she was having some back pain and paresthesias in her right face right upper extremity and lower extremity. She said it went away after a few minutes. Today she's been working and she started having some pain in her low back burning in her right thigh and occasionally in her left thigh as well as paresthesias. About a month ago she had an MRI of her low back and thoracic spine and was diagnosed with a bulging disc in her lumbar spine causing her sciatic discomfort. She's never had numbness and tingling in her face or hand before. She's not had any numbness or tingling presently. She takes naproxen for back pain as needed but has not taken any today. She finished physical therapy about 1-2 weeks ago that had helped some. Allergies and Home Medications Allergies Coded Allergies: ibuprofen (Unverified Allergy, Mild, 02/22/10) Home Medications Alprazolam 0.25 Mg Tablet, 1 TAB PO Q8HR PRN, (Reported) Fluvoxamine Maleate 50 Mg Tablet, 1 TAB PO HS, (Reported) Multivitamin 1 Each Tablet, 1 EACH PO DAILY, (Reported) Tramadol HCl 50 Mg Tablet, 50 MG PO Q4H PRN for pain Prescribed by: SHIRIN ÁLVAREZ on 12/31/17 0749 Patient Home Medication List Home Medication List Reviewed: Yes Review of Systems Review of Systems Constitutional: No chills, No fever Eyes: Denies Blindness, Denies Blurred Vision Ears, Nose, Mouth, Throat: denies ear pain, denies ear discharge Respiratory: No cough, No short of breath Cardiovascular: No chest pain, No edema Gastrointestinal: No abdominal pain, No constipation Past Ryhxsgg-Ikomdl-Zveods Hx Patient Social History Alcohol Use: Denies Use Recreational Drug Use: No Smoking Status: Never a Smoker 2nd Hand Smoke Exposure: No Recent Foreign Travel: No Contact w/Someone Who Travel: No Recent Hopitalizations: No Immunizations Up To Date Tetanus Booster (TDap): Unknown Date of Influenza Vaccine: Nov 20, 2012 Seasonal Allergies Seasonal Allergies: No Past Medical History Surgeries: Yes ( X1, PARTIAL THYROIDECTOMY) Section, Thyroidectomy Respiratory: No Cardiac: No Neurological: No Reproductive Disorders: No Female Reproductive Disorders: Denies Genitourinary: No Gastrointestinal: No Musculoskeletal: No Endocrine: Yes (BENIGN THYROID NODULE-S/P PARTIAL THYROIDECTOMY) Hypothyroidsim HEENT: No Cancer: No Psychosocial: Yes (OCD) Anxiety, Depression Integumentary: No Blood Disorders: No Family Medical History No Pertinent Family Hx Physical Exam Vital Signs Capillary Refill : Height, Weight, BMI Height: 5'6.00" Weight: 120lbs. oz. 54.409612gp; 14.06 BMI Method:Estimated General Appearance: WD/WN, no apparent distress HEENT: PERRL/EOMI, normal ENT inspection, pharynx normal Neck: non-tender, full range of motion, supple, normal inspection Respiratory: chest non-tender, lungs clear, normal breath sounds, no respiratory distress, no accessory muscle use Cardiovascular: normal peripheral pulses, regular rate, rhythm Peripheral Pulses: 2+ Radial Pulses (R), 2+ Radial Pulses (L) Back: normal inspection, vertebral tenderness (lumbar and paralumbar pain on th e right with direct palpation over the L5-S1 facet joint re-creating the sciatic symptoms in her right lower extremity and left lower extremity.) Extremities: normal range of motion, non-tender, normal inspection, normal capillary refill Neurologic/Psychiatric: 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 marrow transplant II-XII nml as tested, no motor/sensory deficits, alert, normal mood/affect, oriented x 3 Crainal Nerves: normal hearing, normal speech, PERRL Coordination/Gait: normal finger to nose, normal gait Motor/Sensory: no motor deficit, no sensory deficit, no pronator drift Reflexes: 2+ Knee (R), 2+ Knee (L), 2+ Ankle (R), 2+ Ankle (L) Skin: normal color, warm/dry Procedures/Interventions Suture Size: 4-0 Progress/Results/Core Measures Progress Progress Note : Time: 23:12 Progress Note Did a thorough neurologic exam peripherally and cranial nerves cannot find any neurologic deficits. She does have a history of anxiety attacks and said she did have one this morning so I suspect that maybe that is the reason why she's had facial paresthesias. She's not having anything now. She had a brain MRI a year ago that was normal. She's had thoracic and lumbar MRIs were normal. I don't Any indication today that she's having any red flag symptoms to indicate further imaging of her back however her symptoms are reproducible and rectally palpating along the back. We'll put her on anti-inflammatories and give her a prescription for some prednisone if she's not seeing relief from the first week. We also discussed red flag signs and return precautions. We then encouraged her to follow up with primary care in the next 2 weeks especially if symptoms are not improving. The patient is okay with this explanation. Unremarkable thoracic spine MRI from April 2019. Unremarkable MRI of the lumbar spine from April 2019. Unremarkable MRI of the brain with and without IV contrast from 2018. Departure Impression Primary Impression: Facial paresthesia Additional Impressions: Arm paresthesia, right Thoracic back pain Qualified Codes: M54.6 - Pain in thoracic spine Lumbago with sciatica Qualified Codes: M54.42 - Lumbago with sciatica, left side; M54.41 - Lumbago with sciatica, right side Disposition: 01 HOME, SELF-CARE Condition: Stable Departure-Patient Inst. Decision time for Depature: 23:15 Referrals: AUGIE STOKES MD (PCP/Family) Primary Care Physician Patient Instructions: Sciatica, Paresthesias (DC) Add. Discharge Instructions: While I cannot explain the paresthesias in your face I suspect that your arms and leg are related to your nerve roots being pinched along the back (radiculopathy). We typically treat this with anti-inflammatories such as naproxen one capsule prescription strength twice a day for the next 2 weeks. If this is not helping in the first week then you can also use prednisone one tablet twice a day for 5 days. Plan to follow-up in the next 2-3 weeks with primary care for reevaluation. Return to the ER to begin to experience loss of control of your bowel or bladder, weakness in your extremities, total numbness especially in the saddle region. Return to the ER as well a few weeks if you experience other worrisome concerns. Scripts Prednisone (Prednisone) 20 Mg Tab 20 MG PO BID for 5 Days, #10 TAB 0 Refills Prov: DECLAN BRASWELL 07/19/19 Naproxen (Naprosyn) 500 Mg Tablet 500 MG PO BID, #30 TAB 0 Refills Prov: DECLAN BRASWELL 07/19/19 DECLAN BRASWELL Jul 19, 2019 22:50
[2019-07-19] MEDS ORDERED: PRD20T PO (23:19)
[2019-07-19] MEDS ORDERED: NAPR-1071 PO (23:19)
[2019-07-19 23:32] VITALS: BP 135/80
== END 2019-07-19 23:33 | disposition home or self-care (01) ==
LOC: EDUNIT# 21:59 → ER 22:00
DX: R20.2 Paresthesia of skin (principal); M54.6 Pain in thoracic spine; M54.41 Lumbago with sciatica, right side; M54.42 Lumbago with sciatica, left side; E03.9 Hypothyroidism, unspecified; F41.9 Anxiety disorder, unspecified; F32.9 Major depressive disorder, single episode, unspecified; Z88.6 Allergy status to analgesic agent
CPT/HCPCS: 99283

== ENCOUNTER → 2019-11-11 | Outpatient (CLI) | payer BC ==
[~2019-11-11] MED LIST changes: -LIOT5TAB; +LIOT5TAB10; +NAPR-1071 PO; +PRD20T PO; -TRAM50TA2 PO; +TRM50T PO
--- NOTE | 2019-11-11 16:26 | Diagnostic Imaging Report ---
PROCEDURE: MR imaging cervical spine without contrast. TECHNIQUE: Multiplanar, multisequence MR imaging of the cervical spine was performed without contrast. INDICATION: Chronic neck pain. FINDINGS: Spinal curvature and alignment are unremarkable. Vertebral body heights and disc spaces are maintained. There is mild annular bulging at C5-C6 and C6-C7 levels without significant spinal stenosis. No significant neural foraminal stenosis is identified. No abnormal signal is seen within the cervical spinal cord. Marrow signal is also unremarkable without evidence of cervical spinal fracture. IMPRESSION: Mild C5-C6 and C6-C7 degenerative disc bulging without significant stenosis. No acute abnormality is seen in the cervical spine. Dictated by: Dictated on workstation # [id number]
== END ==
LOC: RAD 15:30
PROVIDERS: ATTEND Pain Medicine Interventional Pain Medicine
DX: M50.222 Other cervical disc displacement at C5-C6 level (principal)
CPT/HCPCS: 72141

== ENCOUNTER → 2020-04-16 | Outpatient (CLI) | payer BC ==
--- NOTE | 2020-04-16 14:52 | Diagnostic Imaging Report ---
PROCEDURE: US Thyroid. TECHNIQUE: Multiple real-time grayscale images were obtained of the thyroid in various projections. INDICATION: Hypothyroidism, thyroid nodule. FINDINGS: The previous thyroid ultrasound exam performed on 09/27/2017 noted that the right lobe of the thyroid was surgically absent. The prior study also identified a small 4 x 2 x 4 mm hypoechoic nodule in the superior pole of the left lobe. That finding is difficult to appreciate on this exam. There is a very small 2-3 mm hypoechoic area in this region which may be related to the previously suspected nodule. The left lobe of thyroid is not enlarged measuring 4.2 x 1.3 x 1.1 cm (normal gland size 4-5 x 2 x 2 cm or less). IMPRESSION: 1. The small hypoechoic nodule in the left lobe of the thyroid seen on the previous exam is difficult to identify on this study. There is only now a small 2 to 3 mm hypoechoic area in this region. 2. The overall appearance of the left lobe of the thyroid is otherwise stable. 3. The right lobe of the thyroid is surgically absent. Dictated by: Dictated on workstation # [id number]
== END ==
LOC: RAD 07:42
PROVIDERS: ATTEND Family Medicine
DX: E03.9 Hypothyroidism, unspecified (principal); E04.1 Nontoxic single thyroid nodule; Z90.89 Acquired absence of other organs
CPT/HCPCS: 76536

== ENCOUNTER 2020-08-23 05:28 | Outpatient (RCR) | payer BC ==
[~2020-08-23] VITALS: Ht 170.2 cm; Wt 63.6 kg
[~2020-08-23 05:28] MED LIST changes: +LEVO50TA6 PO; -LIOT5TAB10; +LIOT5TAB10 PO; +VILA20TA PO
== END 2020-08-23 10:13 | disposition home or self-care (01) ==
LOC: PREOP 05:28
PROVIDERS: ATTEND Obstetrics & Gynecology
DX: Z01.812 Encounter for preprocedural laboratory examination (principal); Z20.828 Contact with and (suspected) exposure to other viral communicable diseases
CPT/HCPCS: 87635

== ENCOUNTER 2020-08-25 06:10 | Day surgery (SDC) | payer BC ==
[2020-08-25] VITALS (11 sets, daily range): BP systolic 97–127; BP diastolic 47–83
[~2020-08-25] VITALS: Ht 170.2 cm; Wt 63.6 kg
[2020-08-25] MEDS ORDERED: LACTATED RINGERS 1,000 ML IV PRN (06:42)
[2020-08-25] MEDS ORDERED: fentaNYL INJECTION 100 MCG/2 ML AMP ONE (06:43)
[2020-08-25] MEDS ORDERED: LIDOCAINE PF 2% 5 ML (XYLOCAINE) VIAL ONE (06:43)
[2020-08-25] MEDS ORDERED: proPOfol 200 MG/20 ML (DIPRIVAN) VIAL IV ONE (06:43)
[2020-08-25] MEDS ORDERED: ONDANSETRON 4 MG/2 ML (SDV) Z0FRAN ONE (06:43)
[2020-08-25] MEDS ORDERED: MIDAZOLAM 2 MG/2 ML (VERSED) VIAL ONE (06:43)
[2020-08-25] MEDS ORDERED: SEVOFLURANE (ULTANE) 15 ML INHAL SOLN ONE (06:43)
[2020-08-25] MEDS ORDERED: MIDAZOLAM 2 MG/2 ML (VERSED) VIAL IV ONE (06:45)
[2020-08-25] MEDS ORDERED: ceFAZolin INJECTION 1,000 MG in WATER (STERILE) FOR INJECTION 10 ML IV ONE (06:45)
[2020-08-25 06:52] LABS: BASOPHILS % (AUTO) 1 % (0-10); EOSINOPHILS # (AUTO) 0.1 10^3/uL (0.0-0.3); EOSINOPHILS % (AUTO) 2 % (0-10); HEMATOCRIT 40 % (35-52); HEMOGLOBIN 13.2 g/dL (11.5-16.0); LYMPHOCYTES # (AUTO) 1.9 10^3/uL (1.0-4.0); LYMPHOCYTES % (AUTO) 38 % (12-44); MEAN CORPUSCULAR HEMOGLOBIN 31 pg (25-34); MEAN CORPUSCULAR HGB CONC 33 g/dL (32-36); MEAN CORPUSCULAR VOLUME 93 fL (80-99); MEAN PLATELET VOLUME 11.9 fL (9.0-12.2); MONOCYTES # (AUTO) 0.3 10^3/uL (0.0-1.0); MONOCYTES % (AUTO) 7 % (0-12); NEUTROPHILS # (AUTO) 2.7 10^3/uL (1.8-7.8); NEUTROPHILS % (AUTO) 53 % (42-75); PLATELET COUNT 244 10^3/uL (130-400); WHITE BLOOD COUNT 5.1 10^3/uL (4.3-11.0)
--- NOTE | 2020-08-25 07:19 | Progress Note-Pre Operative ---
Pre-Operative Progress Note H&P Reviewed The H&P was reviewed, patient examined and no changes noted. Date Seen by Provider: Aug 25, 2020 Time Seen by Provider: 07:19 Date H&P Reviewed: Aug 25, 2020 Time H&P Reviewed: 07:19 Pre-Operative Diagnosis: menorrhagia / intrauterine mass AIDA ROSE MD Aug 25, 2020 07:19
[2020-08-25] MEDS ORDERED: D5 LR IV SOLUTION 1,000 ML IV SCH (07:20)
--- NOTE | 2020-08-25 07:20 | Progress Note-Post Operative ---
Post-Operative Progess Note Surgeon (s)/Vocal Artist (s) Surgeon AIDA ROSE MD Vocal Artist: none Pre-Operative Diagnosis menorrhagia / intrauterine mass Post-Operative Diagnosis same Procedure & Operative Findings Date of Procedure 08/25/20 Procedure Performed/Findings hysteroscopy with directed biopsy and D&C Anesthesia Type geta Estimated Blood Loss Estimated blood loss (mL): less than 100 cc Specimens/Packing Specimens Removed endometrial directed biopsy and curettings Packing: none AIDA ROSE MD Aug 25, 2020 07:20
[2020-08-25] MEDS ORDERED: NAPR-1070 PO (07:22)
--- NOTE | 2020-08-25 07:23 | Discharge Inst-Surgical ---
Discharge Inst-Surgical Depart Medication/Instructions New, Converted or Re-Newed RX: RX on Chart Consults/Follow Up Patient Instructions: as directed Orders & Referrals Follow Up Appt: Call to make follow up appt. for patient in 2 weeks. Activity: Rest for 24 hours, than as tolerated. Please call in RX to patient pharmacy. Diet: Clear Liquids only if nauseated. shower or tub bathe as desired. No driving for 24 hours, no alcoholic beverages for 24 hours, and nothing per vagina (no tampons, douching, or intercourse) for 2 weeks. Patient to return to the clinic as soon as possible for: Temperature greater than 101F, Severe Pain, Foul discharge from incision or vagina, Excessive Bleeding (more than a period). Activity Activity as Tolerated: No Diet Discharge Diet: No Restrictions AIDA ROSE MD Aug 25, 2020 07:23
[2020-08-25] MEDS ORDERED: ESTROGENS CONJ INJECTION 25 MG in WATER (STERILE) FOR INJECTION 5 ML IV ONE (07:30)
[2020-08-25] MEDS ORDERED: HYDROcodone/APAP 10 MG/325 MG (LORTAB) TAB PO PRN (07:30)
[2020-08-25] MEDS ORDERED: CATHETER FLUSH 10 ML SYR IV PRN (07:30)
[2020-08-25] MEDS ORDERED: MEPERIDINE (DEMEROL) INJ 100 MG/ML IM ONE (07:30)
[2020-08-25] MEDS ORDERED: ONDANSETRON 4 MG/2 ML (SDV) Z0FRAN IVP PRN ×2 (07:30→08:15)
[2020-08-25] MEDS ORDERED: PROMETHAZINE INJ 25 MG/ML (PHENERGAN) AMP IM ONE (07:30)
--- NOTE | 2020-08-25 08:09 | Anesthesia-General Post-Op ---
General Patient Condition Mental Status/LOC: Same as Preop Cardiovascular: Satisfactory Nausea/Vomiting: Absent Respiratory: Satisfactory Pain: Controlled Complications: Absent Post Op Complications Complications None Follow Up Care/Instructions Patient Instructions None needed. Anesthesia/Patient Condition Patient Condition Patient is doing well, no complaints, stable vital signs, no apparent adverse anesthesia problems. No complications reported per nursing. MARILU URENA CRNA Aug 25, 2020 08:09
[2020-08-25] MEDS ORDERED: morphine INJ 10 MG/ML 1ML (SYR OR VIAL) IVP ONE (08:15)
--- NOTE | 2020-08-25 12:18 | OPERATIVE REPORT ---
DATE OF SERVICE: 08/25/2020 PREOPERATIVE DIAGNOSES: Dysfunctional uterine bleeding/menorrhagia/intrauterine mass. POSTOPERATIVE DIAGNOSES: Dysfunctional uterine bleeding/menorrhagia/intrauterine mass with pathology pending. OPERATIVE PROCEDURE: Hysteroscopy with directed biopsy and D and C. OPERATIVE DESCRIPTION: With the patient in the supine position under satisfactory general anesthesia, she was repositioned in dorsal lithotomy position in the Jarred stirrups and prepped and draped in the usual fashion for vaginal surgery. The urinary bladder was drained with a straight catheter. A weighted speculum placed in posterior fornix of vagina, cervix exposed and grasped anteriorly with single tooth tenaculum. Uterus was sounded to 12 cm with uterine sound. The cervix was then serially dilated with Vaughn dilators to accommodate a hysteroscope. Using LR as a distending medium, the endometrial cavity was examined. There were multiple polypoid growths emanating from the posterior right lateral intrauterine youngblood. The career representative biopsy was taken directly and then the endometrial cavity was sharply curettaged in all 4 quadrants to a good uterine cry removing a moderate amount of endometrial appearing and polypoid-appearing tissue. The hysteroscope was reintroduced, endometrial cavity was reexamined. There was no significant remaining tissue and there was no abnormal tissue and there was no bleeding. The tenaculum was removed from the cervix. There was some bleeding from both puncture sites. This was touched with silver nitrate to affect hemostasis. With hemostasis assured, minimal bleeding from the cervical os, sponge and needle counts correct and blood loss minimal, the procedure was complete. The patient was uneventfully awakened from her general anesthesia and transferred to recovery room in stable condition with plans for discharge home PAR. Job ID: [id number] DocumentID: [id number] Dictated Date: 08/25/2020 07:56:33 Social Studies Teacher Date: 08/25/2020 12:18:03 Dictated By: AIDA ROSE MD
== END 2020-08-25 10:15 | disposition home or self-care (01) ==
LOC: SDC 06:10
PROVIDERS: ATTEND Obstetrics & Gynecology
DX: N84.0 Polyp of corpus uteri (principal); Z79.890 Hormone replacement therapy; Z79.899 Other long term (current) drug therapy; F41.9 Anxiety disorder, unspecified; F42.9 Obsessive-compulsive disorder, unspecified; Z88.6 Allergy status to analgesic agent; Z11.2 Encounter for screening for other bacterial diseases
CPT/HCPCS: 36415; 84703; 85025; 87081; 88305

== ENCOUNTER → 2020-11-23 | Outpatient (CLI) | payer BC ==
[~2020-11-23] MED LIST changes: +NAPR-1070 PO
--- NOTE | 2020-11-23 13:46 | Diagnostic Imaging Report ---
PROCEDURE: MR imaging cervical spine without contrast. TECHNIQUE: Multiplanar, multisequence MR imaging of the cervical spine was performed without contrast. INDICATION: Increasing neck pain. COMPARISON: Correlation is made with prior cervical spine MRI from 11/11/2019. FINDINGS: Curvature and alignment of the cervical spine is normal. Vertebral body marrow signal is within normal limits. There are mild degenerative changes identified at C4-C5, C5-C6 and C6-C7 levels where minimal annular bulging indents the ventral thecal sac at these three levels but no significant central canal stenosis is seen. No neural foraminal stenosis is seen. Cervical spinal cord shows homogeneous signal intensity and normal morphology. Craniocervical junction is unremarkable. IMPRESSION: Mid and lower mild cervical spondylosis. However, no focal disc protrusion, central canal or neural foraminal stenosis is detected. Dictated by: Dictated on workstation # [id number]
--- NOTE | 2020-11-23 14:33 | Diagnostic Imaging Report ---
PROCEDURE: MRI lumbar spine. TECHNIQUE: Multiplanar, multisequence MRI of the lumbar spine was performed without contrast. INDICATION: Increased low back pain. COMPARISON: MRI of the lumbar spine without contrast 04/21/2019. FINDINGS: There are five lumbar-type vertebral bodies. Normal alignment. Vertebral body heights are preserved. Normal bone marrow signal. No abnormal signal in the conus which terminates at L1. Normal morphology of the cauda equina. Visualized paravertebral soft tissues and pelvis are unremarkable. At L5-S1, there is a small radial tear and central disc protrusion which results in no neural impingement. The intervertebral discs are otherwise well-preserved. No substantial facet arthropathy. No spinal canal, lateral recess or neural foraminal narrowing. IMPRESSION: Stable radial tear and central disc protrusion at L5-S1. There remains no neural impingement. No acute osseous findings. Dictated by: Dictated on workstation # [id number]
== END ==
LOC: RAD 13:15
PROVIDERS: ATTEND Physician Assistant
DX: M51.17 Intervertebral disc disorders with radiculopathy, lumbosacral region (principal); M47.22 Other spondylosis with radiculopathy, cervical region
CPT/HCPCS: 72141; 72148

== ENCOUNTER 2020-11-30 18:12 | Emergency (ER) | payer OTHER, BC ==
[~2020-11-30] VITALS: Ht 170.1 cm; Wt 65.7 kg
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
[2020-11-30 19:23] LABS: BASOPHILS % (AUTO) 0 % (0-10); EOSINOPHILS # (AUTO) 0.1 10^3/uL (0.0-0.3); EOSINOPHILS % (AUTO) 1 % (0-10); HEMATOCRIT 42 % (35-52); LYMPHOCYTES # (AUTO) 2.3 10^3/uL (1.0-4.0); LYMPHOCYTES % (AUTO) 26 % (12-44); MEAN CORPUSCULAR HEMOGLOBIN 31 pg (25-34); MEAN CORPUSCULAR HGB CONC 33 g/dL (32-36); MEAN CORPUSCULAR VOLUME 94 fL (80-99); MEAN PLATELET VOLUME 11.2 fL (9.0-12.2); MONOCYTES # (AUTO) 0.5 10^3/uL (0.0-1.0); MONOCYTES % (AUTO) 5 % (0-12); NEUTROPHILS % (AUTO) 67 % (42-75); PLATELET COUNT 326 10^3/uL (130-400); WHITE BLOOD COUNT 8.9 10^3/uL (4.3-11.0)
[2020-11-30 19:47] LABS: BUN/CREATININE RATIO 13; CALCIUM 8.9 MG/DL (8.5-10.1); CARBON DIOXIDE 23 MMOL/L (21-32); CHLORIDE 107 MMOL/L (98-107); GFR ESTIMATED > 60; GLUCOSE 82 MG/DL (70-105); POTASSIUM 3.4 MMOL/L (3.6-5.0); SODIUM 141 MMOL/L (135-145)
[2020-11-30] MEDS ORDERED: CATHETER FLUSH 10 ML SYR IV PRN (20:00)
[2020-11-30] MEDS ORDERED: IOHEXOL 350 MG/ML 100 ML (OMNIPAQUE 350) VIAL IV ONE (20:00)
[2020-11-30] MEDS ORDERED: HOLD METFORMIN - RECEIVED CONTRAST 20 ML VIAL IV SCH (20:00)
[2020-11-30] MEDS ORDERED: NS 100 ML (IVPB) BAG IV ONE (20:00)
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
[2020-11-30] MEDS ORDERED: METH-313 PO (20:24)
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
[2020-11-30 20:45] VITALS: BP 123/67
== END 2020-11-30 20:45 | disposition home or self-care (01) ==
LOC: EDUNIT# 18:12 → ER 18:15
DX: S16.1XXA Strain of muscle, fascia and tendon at neck level, initial encounter (principal); F32.9 Major depressive disorder, single episode, unspecified; E03.9 Hypothyroidism, unspecified; Z88.6 Allergy status to analgesic agent; Z79.890 Hormone replacement therapy; V89.2XXA Person injured in unspecified motor-vehicle accident, traffic, initial encounter
CPT/HCPCS: 36415; 70450; 72125; 73030; 74177; 80048; 84703; 85025

== ENCOUNTER → 2021-03-29 | Outpatient (CLI) | payer BC ==
[~2021-03-29] MED LIST changes: +METH-313 PO
== END ==
LOC: ONC 14:14
PROVIDERS: ATTEND Nurse Practitioner Adult Health
DX: E03.9 Hypothyroidism, unspecified (principal); F32.9 Major depressive disorder, single episode, unspecified; Z80.3 Family history of malignant neoplasm of breast; Z84.81 Family history of carrier of genetic disease
CPT/HCPCS: 99213

== ENCOUNTER → 2021-04-19 | Outpatient (CLI) | payer BC | LOC: ONC 10:53 | PROVIDERS: ATTEND Nurse Practitioner Adult Health | DX: E16.2 Hypoglycemia, unspecified (principal); E03.9 Hypothyroidism, unspecified; Z80.3 Family history of malignant neoplasm of breast; Z84.81 Family history of carrier of genetic disease | CPT/HCPCS: 99213 ==

== ENCOUNTER → 2021-05-16 | Outpatient (CLI) | payer BC ==
[~2021-05-16] MED LIST changes: -SULF1TAB35 PO
--- NOTE | 2021-05-17 12:41 | Diagnostic Imaging Report ---
Indication: Routine screening. Comparison is made with prior mammogram from 03/18/2014. 2-D and 3-D bilateral screening mammography was performed with CAD. Both breasts are heterogeneously dense, limiting the sensitivity of mammography. No mass or malignant-appearing microcalcifications are seen. Axillae are unremarkable. IMPRESSION: BI-RADS Category 1 No mammographic features suspicious for malignancy are identified. ACR BI-RADS Category 1: Negative. Result letter will be mailed to the patient. Note: At least 10% of breast cancer is not imaged by mammography. Dictated by: Dictated on workstation # [id number]
== END ==
LOC: RAD 14:30
PROVIDERS: ATTEND Obstetrics & Gynecology
DX: Z12.31 Encounter for screening mammogram for malignant neoplasm of breast (principal)
CPT/HCPCS: 77063; 77067

== ENCOUNTER 2021-06-03 04:23 | Emergency (ER) | payer BC ==
[~2021-06-03] VITALS: Ht 170.1 cm; Wt 65.0 kg
[2021-06-03] MEDS ORDERED: ONDANSETRON 4 MG/2 ML (SDV) Z0FRAN IVP ONE (04:45)
[2021-06-03] MEDS ORDERED: PANTOPRAZOLE 40 MG (PROTONIX) VIAL IV ONE (04:45)
[2021-06-03] MEDS ORDERED: LACTATED RINGERS 1,000 ML IV ONE (04:45)
--- NOTE | 2021-06-03 04:49 | ED Abdominal Pain ---
General Stated Complaint: UPPER ABD PAIN Source of Information: Patient (CJ HERNANDEZ DO) History of Present Illness Date Seen by Provider: Jun 03, 2021 Time Seen by Provider: 04:37 Initial Comments PT ARRIVES VIA POV FROM HOME C/O EPIGASTRIC PAIN X 3 DAYS PAIN FEELS LIKE BAD HEARTBURN AT TIMES AND RADIATES UP TO THROAT PAIN COMES AND GOES RATES PAIN 3/10 NOW, WAS 8/10 AT HOME PRIOR TO ARRIVAL FOOD EASES IT A LITTLE, NOTHING WORSENS PAIN C/O NAUSEA, NO VOMITING HAD APPROXIMATELY 10 LOOSE / SOFT STOOLS YESTERDAY NO FEVER NO URINARY COMPLAINTS STATES SHE HAD AN ULCER IN THE PAST AND THIS FEELS A LITTLE BIT LIKE THAT, BUT HAS NOT BEEN ON ULCER MEDICATION FOR A LONG TIME HAS NEVER HAD ANY TESTS TO DIAGNOSE AN ULCER--WAS TOLD "IT SOUNDED LIKE SHE MIGHT HAVE ONE" AND GAVE HER SOME MEDICATION SHE HAS TAKEN TUMS, APPLE CIDER 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dr, 40 MG PO DAILY Prescribed by: LUISA URENA on 06/03/21 0644 Sucralfate 1 Gm Tablet, 1 GM PO ACHS Chew tablet to a slurry and then swallow Prescribed by: LUISA URENA on 06/03/21 0644 Vilazodone Hydrochloride 20 Mg Tablet, 20 MG PO DAILY, (Reported) Patient Home Medication List Home Medication List Reviewed: Yes (LUISA URENA MD) Review of Systems Review of Systems Constitutional: no symptoms reported Respiratory: No Symptoms Reported Cardiovascular: No Symptoms Reported Gastrointestinal: See HPI, Abdominal Pain, Diarrhea, Nausea; Denies Vomiting Genitourinary: No Symptoms Reported Musculoskeletal: no symptoms reported; No back pain Skin: no symptoms reported Psychiatric/Neurological: No Symptoms Reported Endocrine: No Symptoms Reported Hematologic/Lymphatic: No Symptoms Reported (CJ HERNANDEZ DO) Past Skeajap-Wuspdy-Bppwii Hx Patient Social History Tobacco Use?: Yes ( TEEN, NO SMOKING SINCE ) Tobacco type used: Cigarettes Smoking Status: Former Smoker Substance use?: No Alcohol Use?: Yes Alcohol Frequency: Once in a while (CJ HERNANDEZ DO) Immunizations Up To Date Tetanus Booster (TDap): Unknown (CJ HERNANDEZ DO) Seasonal Allergies Seasonal Allergies: No (CJ HERNANDEZ DO) Past Medical History Surgeries: Yes ( X1, PARTIAL THYROIDECTOMY) Section, Thyroidectomy Respiratory: No Currently Using CPAP: No Currently Using BIPAP: No Cardiac: No Neurological: No : No Reproductive Disorders: No Female Reproductive Disorders: Denies Genitourinary: No Gastrointestinal: No Musculoskeletal: No Endocrine: Yes (BENIGN THYROID NODULE-S/P PARTIAL THYROIDECTOMY) Hypothyroidsim HEENT: No Cancer: No Psychosocial: Yes (OCD) Anxiety, Depression Integumentary: No Blood Disorders: No (CJ HERNANDEZ DO) Family Medical History No Pertinent Family Hx (CJ HERNANDEZ DO) Physical Exam Vital Signs Vital Signs - First Documented 06/03/21 04:36 Temp 36.6 Pulse 94 Resp 20 B/P (MAP) 120/98 (105) Pulse Ox 96 O2 Delivery Room Air (LUISA URENA MD) Vital Signs Capillary Refill : (CJ HERNANDEZ DO) Height/Weight/BMI Height: 5'6.00" Weight: 120lbs. oz. 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, no motor/sensory deficits, alert, normal mood/affect, oriented x 3 Skin: normal color, warm/dry; No rash (CJ HERNANDEZ DO) Procedures/Interventions Suture Size: 4-0 (CJ HERNANDEZ DO) Progress/Results/Core Measures Results/Orders Lab Results Laboratory Tests Test 06/03/21 04:36 06/03/21 04:45 Range/Units Urine Color YELLOW Urine Clarity CLEAR Urine pH 5.5 5-9 Urine Specific [place] 1.020 1.016-1.022 Urine Protein NEGATIVE NEGATIVE Urine Glucose (UA) NEGATIVE NEGATIVE Urine Ketones NEGATIVE NEGATIVE Urine Nitrite NEGATIVE NEGATIVE Urine Bilirubin NEGATIVE NEGATIVE Urine Urobilinogen 0.2 < = 1.0 MG/DL Urine Leukocyte Esterase NEGATIVE NEGATIVE Urine RBC (Auto) NEGATIVE NEGATIVE Urine RBC NONE /HPF Urine WBC NONE /HPF Urine Squamous Epithelial Cells 2-5 /HPF Urine Crystals NONE /LPF Urine Bacteria NEGATIVE /HPF Urine Casts NONE /LPF Urine Mucus NEGATIVE /LPF Urine Culture Indicated NO White Blood Count 8.7 4.3-11.0 10^3/uL Red Blood Count 4.52 3.80-5.11 10^6/uL Hemoglobin 14.2 11.5-16.0 g/dL Hematocrit 42 35-52 % Mean Corpuscular Volume 94 80-99 fL Mean Corpuscular Hemoglobin 31 25-34 pg Mean Corpuscular Hemoglobin Concent 34 32-36 g/dL Red Cell Distribution Width 12.0 10.0-14.5 % Platelet Count 357 130-400 10^3/uL Mean Platelet Volume 10.8 9.0-12.2 fL Immature Granulocyte % (Auto) 1 % Neutrophils (%) (Auto) 54 42-75 % Lymphocytes (%) (Auto) 38 12-44 % Monocytes (%) (Auto) 5 0-12 % Eosinophils (%) (Auto) 2 0-10 % Basophils (%) (Auto) 0 0-10 % Neutrophils # (Auto) 4.7 1.8-7.8 10^3/uL Lymphocytes # (Auto) 3.3 1.0-4.0 10^3/uL Monocytes # (Auto) 0.4 0.0-1.0 10^3/uL Eosinophils # (Auto) 0.2 0.0-0.3 10^3/uL Basophils # (Auto) 0.0 0.0-0.1 10^3/uL Immature Granulocyte # (Auto) 0.1 0.0-0.1 10^3/uL Sodium Level 142 135-145 MMOL/L Potassium Level 3.8 3.6-5.0 MMOL/L Chloride Level 108 H 98-107 MMOL/L Carbon Dioxide Level 21 21-32 MMOL/L Anion Gap 13 5-14 MMOL/L Blood Urea Nitrogen 13 7-18 MG/DL Creatinine 0.77 0.60-1.30 MG/DL Estimat Glomerular Filtration Rate 84 BUN/Creatinine Ratio 17 Glucose Level 104 70-105 MG/DL Calcium Level 9.1 8.5-10.1 MG/DL Corrected Calcium 9.2 8.5-10.1 MG/DL Magnesium Level 1.9 1.6-2.4 MG/DL Total Bilirubin 0.4 0.1-1.0 MG/DL Aspartate Amino Transf (AST/SGOT) 17 5-34 U/L Alanine Aminotransferase (ALT/SGPT) 19 0-55 U/L Alkaline Phosphatase 56 40-136 U/L Total Protein 6.8 6.4-8.2 GM/DL Albumin 3.9 3.2-4.5 GM/DL Amylase Level 95 25-125 U/L Lipase 88 H 8-78 U/L Serum Test, Qualitative NEGATIVE NEGATIVE (LUISA URENA MD) Medications Given in ED Current Medications Medications Dose Ordered Sig/Sujatha Route Start Time Stop Time Status Last Admin Dose Admin Iohexol 100 ml ONCE ONCE IV 06/03/21 06:00 06/03/21 06:03 DC 06/03/21 05:55 100 ML Lactated Ringer's 1,000 ml @ 0 mls/hr Q0M ONCE IV 06/03/21 04:45 06/03/21 04:46 DC 06/03/21 04:54 1,000 MLS/HR Ondansetron HCl 4 mg ONCE ONCE IVP 06/03/21 04:45 06/03/21 04:46 DC 06/03/21 04:54 4 MG Pantoprazole 40 mg ONCE ONCE IV 06/03/21 04:45 06/03/21 04:46 DC 06/03/21 04:54 40 MG Sodium Chloride 80 ml ONCE ONCE IV 06/03/21 06:00 8/13/21 06:03 DC 06/03/21 05:55 80 ML (LUISA URENA MD) Vital Signs/I&O 06/03/21 06/03/21 04:36 06:53 Temp 36.6 Pulse 94 70 Resp 20 20 B/P (MAP) 120/98 (105) 114/66 Pulse Ox 96 96 O2 Delivery Room Air Room Air (LUISA URENA MD) Progress Progress Note : Progress Note GIVEN IV FLUIDS, ZOFRAN AND PROTONIX 0600--CARE TURNED OVER TO DR. URENA, CT PENDING (CJ HERNANDEZ DO) Departure Impression Primary Impression: Upper abdominal pain Disposition: HOME, SELF-CARE Condition: Stable Departure-Patient Inst. Decision time for Depature: 06:38 (LUISA URENA MD) Referrals: AUGIE STOKES MD (PCP/Family) Primary Care Physician Patient Instructions: Abdominal Pain, Adult ED, Peptic Ulcers (DC) Add. Discharge Instructions: You were seen in the emergency department for upper abdominal pain. Your labs were reassuring and your CT of your abdomen was reassuring as well with no findings that are concerning. There are multiple things that can cause abdominal pain but do not show up on the CT scan. One of those things includes some type of ulcer. We will start you on an acid medication as well as a medication to coat your stomach. If you are having pain and you need help in the moment, you can try taking [id number] Maalox as well as Tylenol. Ibuprofen is harder on the stomach. Please call a GI doctor today to work on scheduling an appointment. If you have any fever, worsening abdominal pain, worsening vomiting, or any other concerns then please come back to the emergency department. Scripts Omeprazole (Omeprazole) 40 Mg Capsule. 40 MG PO DAILY for 30 Days, #30 CAP 1 Refill Prov: LUISA URENA MD 06/03/21 Sucralfate (Sucralfate) 1 Gm Tablet 1 GM PO ACHS for 30 Days, #120 TAB 1 Refill Chew tablet to a slurry and then swallow Prov: LUISA URENA MD 06/03/21 CJ HERNANDEZ DO Jun 03, 2021 04:49 LUISA URENA MD Jun 03, 2021 06:43
[2021-06-03 04:53] LABS: BILIRUBIN,URINE NEGATIVE (NEGATIVE); CLARITY,URINE CLEAR; COLOR,URINE YELLOW; GLUCOSE, URINE (UA) NEGATIVE (NEGATIVE); KETONES,URINE NEGATIVE (NEGATIVE); LEUKOCYTE ESTERASE ,URINE NEGATIVE (NEGATIVE); NITRITE,URINE NEGATIVE (NEGATIVE); PH,URINE 5.5 (5-9); PROTEIN,URINE NEGATIVE (NEGATIVE)
[2021-06-03 04:53] LABS: BASOPHILS % (AUTO) 0 % (0-10); EOSINOPHILS # (AUTO) 0.2 10^3/uL (0.0-0.3); EOSINOPHILS % (AUTO) 2 % (0-10); HEMATOCRIT 42 % (35-52); HEMOGLOBIN 14.2 g/dL (11.5-16.0); LYMPHOCYTES # (AUTO) 3.3 10^3/uL (1.0-4.0); LYMPHOCYTES % (AUTO) 38 % (12-44); MEAN CORPUSCULAR HEMOGLOBIN 31 pg (25-34); MEAN CORPUSCULAR HGB CONC 34 g/dL (32-36); MEAN CORPUSCULAR VOLUME 94 fL (80-99); MEAN PLATELET VOLUME 10.8 fL (9.0-12.2); MONOCYTES # (AUTO) 0.4 10^3/uL (0.0-1.0); MONOCYTES % (AUTO) 5 % (0-12); NEUTROPHILS # (AUTO) 4.7 10^3/uL (1.8-7.8); NEUTROPHILS % (AUTO) 54 % (42-75); PLATELET COUNT 357 10^3/uL (130-400); WHITE BLOOD COUNT 8.7 10^3/uL (4.3-11.0)
[2021-06-03 05:07] LABS: ALBUMIN 3.9 GM/DL (3.2-4.5)
[2021-06-03 05:08] LABS: POTASSIUM 3.8 MMOL/L (3.6-5.0)
[2021-06-03 05:08] LABS: BACTERIA,URINE NEGATIVE /HPF
[2021-06-03 05:09] LABS: CALCIUM 9.1 MG/DL (8.5-10.1)
[2021-06-03 05:10] LABS: TOTAL PROTEIN 6.8 GM/DL (6.4-8.2)
[2021-06-03 05:12] LABS: BILIRUBIN,TOTAL 0.4 MG/DL (0.1-1.0)
[2021-06-03 05:13] LABS: CREATININE SERUM 0.77 MG/DL (0.60-1.30)
[2021-06-03 05:16] LABS: MAGNESIUM 1.9 MG/DL (1.6-2.4)
[2021-06-03] MEDS ORDERED: NS 100 ML (IVPB) BAG IV ONE (06:00)
[2021-06-03] MEDS ORDERED: IOHEXOL 350 MG/ML 100 ML (OMNIPAQUE 350) VIAL IV ONE (06:00)
--- NOTE | 2021-06-03 06:40 | Diagnostic Imaging Report ---
Indication: Epigastric pain. Study compared 02/22/2010. Findings: There is an airspace opacity in the medial right lower lung suspect for pneumonia. The left lung and upper lobes clear. No effusion, pneumothorax or failure pattern. There is stool within the colon. The fecal load is not grossly pathologic. No impaction or obstruction. No air-fluid levels or free gas. Impression: Probable right perihilar infiltrate owing to pneumonia. No acute abdominal pelvic abnormality. Dictated by: Dictated on workstation # [id number]
[2021-06-03] MEDS ORDERED: OMEP40CA6 PO (06:44)
[2021-06-03] MEDS ORDERED: SUCR1TAB PO (06:44)
[2021-06-03 06:53] VITALS: BP 114/66
--- NOTE | 2021-06-03 07:19 | Diagnostic Imaging Report ---
PROCEDURE: CT abdomen and pelvis with contrast. TECHNIQUE: Multiple contiguous axial images were obtained through the abdomen and pelvis after administration of intravenous contrast. Auto Exposure Controls were utilized during the CT exam to meet ALARA standards for radiation dose reduction. All CT scans use one or more of the following dose optimizing techniques: automated exposure control, MA and/or KvP adjustment based on patient size and exam type or iterative reconstruction. INDICATION: Epigastric pain. Compared 11/30/2020 FINDINGS: The lung bases are clear. There is an elevated fecal load; correlate clinically for constipation. No bowel obstruction, however. Liver, spleen, gallbladder, bile ducts, adrenals, and pancreas unremarkable. Kidneys unobstructed. Aortoiliac and mesenteric vessels patent. Uterus, adnexa and urinary bladder unremarkable. There is no appendicitis or diverticulitis. There is no inflammatory process, ascites, abscess, hematoma or acute fluid collection. IMPRESSION: 1. Elevated fecal load; correlate for constipation. 2. However, no obstructive phenomena, inflammatory processes, stone disease, fluid collections or acute abnormalities found. Dictated by: Dictated on workstation # [id number]
== END 2021-06-03 06:53 | disposition home or self-care (01) ==
LOC: EDUNIT# 04:23 → ER 04:29
DX: R10.11 Right upper quadrant pain (principal); R10.13 Epigastric pain; E03.9 Hypothyroidism, unspecified; F32.9 Major depressive disorder, single episode, unspecified; Z87.891 Personal history of nicotine dependence; Z79.890 Hormone replacement therapy; Z79.899 Other long term (current) drug therapy
CPT/HCPCS: 36415; 74022; 74177; 80053; 81000; 82150; 83690; 83735; 84703; 85025; 93041

== ENCOUNTER → 2022-01-04 | Outpatient (CLI) | payer BC ==
[~2022-01-04] MED LIST changes: +OMEP40CA6 PO; +SUCR1TAB PO
--- NOTE | 2022-01-04 16:05 | Diagnostic Imaging Report ---
PROCEDURE: US Thyroid. TECHNIQUE: Multiple real-time grayscale images were obtained of the thyroid in various projections. INDICATION: Hypothyroidism. COMPARISON: April 16, 2020, and September 27, 2017. FINDINGS: The right lobe of the thyroid gland is not visualized, surgically absent. No abnormal soft tissue mass within the right thyroid bed. The left lobe of the thyroid gland measures 4.5 x 1.5 x 0.8 cm. It maintains a homogeneous echotexture without discrete nodule. IMPRESSION: Right thyroidectomy without abnormal soft tissue mass within the right thyroid bed. The left lobe of the thyroid gland is unremarkable without suspicious thyroid nodule. Dictated by: Dictated on workstation # [id number]
== END ==
LOC: RAD 13:30
PROVIDERS: ATTEND Nurse Practitioner Family
DX: E89.0 Postprocedural hypothyroidism (principal)
CPT/HCPCS: 76536